=== PATIENT | female | born 1945 | race Caucasian/White ===

== ENCOUNTER → 2017-11-02 | Outpatient (CLI) | payer MEDICARE, OTHER ==
--- NOTE | 2017-11-02 18:44 | XR ---
EXAMINATION TYPE: XR Hip Limited RT DATE OF EXAM: 11/02/2017 COMPARISON: Pelvis x-ray 03/09/1717 HISTORY: Right hip pain TECHNIQUE: Single view FINDINGS: There is a right hip intramedullary james and transverse screw fixing an apparent old fractur e of the intertrochanteric femur. Components appear in anatomic position. Hip joint spaces fairly nor mal. I see no acute fracture. There is vascular calcification. IMPRESSION: No acute abnormality of the right hip. No change compared to old exam.
== END | disposition home or self-care (01) ==
LOC: RADXRMAIN 18:02
PROVIDERS: ATTEND Family Medicine
DX: M25.551 Pain in right hip (principal)
CPT/HCPCS: 73501

== ENCOUNTER 2017-11-15 18:27 | Inpatient (IN) | payer MEDICARE ==
[2017-11-15] MEDS ORDERED: SODIUM CHLORIDE 0.9% 500 ML IV STA (18:55)
[2017-11-15] MEDS ORDERED: SODIUM CHLORIDE 0.9% 1,000 ML IV STA (18:55)
[2017-11-15 19:24] LABS: Basophils % (A) 0 %; Eosinophils # (A) 0.2 k/uL (0-0.7); Eosinophils % (A) 1 %; HCT 35.2 % (34.0-46.0); HGB 11.8 gm/dL (11.4-16.0); Lymphocytes # (A) 0.6 k/uL (1.0-4.8); Lymphocytes % (A) 4 %; MCH 32.1 pg (25.0-35.0); MCHC 33.6 g/dL (31.0-37.0); MCV 95.5 fL (80.0-100.0); Mean Platelet Volume 9.6; Monocytes # (A) 0.7 k/uL (0-1.0); Monocytes % (A) 5 %; Neutrophils # (A) 12.3 k/uL (1.3-7.7); Neutrophils % (A) 89 %; Platelet Count 136 k/uL (150-450); RBC 3.68 m/uL (3.80-5.40); RDW 13.2 % (11.5-15.5); WBC 13.8 k/uL (3.8-10.6)
[2017-11-15 19:29] LABS: Calcium 8.8 mg/dL (8.4-10.2); Potassium 4.1 mmol/L (3.5-5.1); Total Bilirubin 1.1 mg/dL (0.2-1.3); Total Protein 6.6 g/dL (6.3-8.2)
[2017-11-15 19:32] LABS: INR 1.1 (<1.2); Partial Thromboplastin Time 24.5 sec (22.0-30.0); Prothrombin Time 10.4 sec (9.0-12.0)
--- NOTE | 2017-11-15 19:34 | XR ---
EXAMINATION TYPE: XR chest 2V DATE OF EXAM: 11/15/2017 COMPARISON: 09/25/2015 HISTORY: Weakness and short of breath TECHNIQUE: Frontal and lateral views of the chest are obtained. FINDINGS: There is no heart failure nor confluent pneumonic infiltrate. Costophrenic angles are aquiles r. There is osteopenia. Thoracic aorta is atheromatous. IMPRESSION: No active cardiopulmonary disease. No change.
[2017-11-15 19:53] LABS: Troponin I 0.016 ng/mL (0.000-0.034)
[2017-11-15] MEDS ORDERED: ACETAMINOPHEN TAB 500 MG TAB PO STA (20:22)
[2017-11-15 20:56] LABS: Appearance,Urine Cloudy (Clear); Bacteria,Urine Few /hpf; Bilirubin,Urine Negative (Negative); Blood,Urine Moderate (Negative); Color,Urine Yellow; Glucose,Urine (UA) Negative (Negative); Hyaline Casts,Urine 8 /lpf (0-2); Ketones,Urine Trace (Negative); Leukocyte Esterase,Urine Moderate (Negative); Mucus,Urine Rare /hpf; Nitrite,Urine Negative (Negative); PH, Urine 5.5 (5.0-8.0); Protein,Urine 2+ (Negative); RBC,Urine 2 /hpf (0-5); Specific Gravity,Urine 1.014 (1.001-1.035); Squamous Epithelial Cell,Urine <1 /hpf (0-4); WBC,Urine 16 /hpf (0-5)
--- NOTE | 2017-11-15 21:34 | ED ---
Weakness HPI - General Chief complaint: Weakness Stated complaint: Dehydrated Time Seen by Provider: 11/15/17 18:51 Source: patient, EMS Mode of arrival: EMS Limitations: no limitations - History of Present Illness Initial comments: 72 years old female comes in with a generalized weakness, her appetite been down she has not been drinking and eating well for the last few days today she said she'll hard time getting around or ambulating she lives at home with her son she denies any headaches no neck stiffness no chest pain or shortness of breath no abdominal pain no frequency urgency dysuria - Related Data Home Medications Medication Instructions Recorded Confirmed Atenolol [Tenormin] 25 mg PO DAILY 12/04/13 11/15/17 Atorvastatin [Lipitor] 40 mg PO HS 09/21/15 11/15/17 Aspirin EC [Ecotrin Low Dose] 81 mg PO DAILY 11/15/17 11/15/17 Ferrous Sulfate [Feosol] 325 mg PO DAILY 11/15/17 11/15/17 Lisinopril [Zestril] 10 mg PO DAILY 11/15/17 11/15/17 traMADol HCL [Ultram] 50 mg PO Q6H PRN 11/15/17 11/15/17 Allergies Allergy/AdvReac Type Severity Reaction Status Date / Time iodine Allergy Itching Verified 11/15/17 19:50 Review of Systems ROS Statement: Those systems with pertinent positive or pertinent negative responses have been documented in the HPI. ROS Other: All systems not noted in ROS Statement are negative. Past Medical History Past Medical History: COPD, CVA/TIA, Diabetes Mellitus, Hyperlipidemia, Hypertension, Myocardial Infarction (SC) Additional Past Medical History / Comment(s): , arthritis, tia in september 2013,past hx of abcess/cellulitis lt cheek. PT STATED THINKS SHE HAD AM SC 2013 BU UNABLE TO VERIFY IT,VIA MEDICAL RECORDS HERE. Last Myocardial Infarction Date:: 2013 History of Any Multi-Drug Resistant Organisms: None Reported Past Surgical History: Appendectomy, Bladder Surgery, Hysterectomy, Tubal Ligation Additional Past Surgical History / Comment(s): cataracts removed.benign tumor removed from head. Past Anesthesia/Blood Transfusion Reactions: No Reported Reaction Past Psychological History: No Psychological Hx Reported Smoking Status: Current every day smoker Past Alcohol Use History: Occasional Past Drug Use History: None Reported General Exam - General Exam Comments Initial Comments: General: The patient is awake and alert, in no distress, and does not appear acutely ill. Looks tired and sleepy Skin: Skin is warm and dry and no rashes or lesions are noted. Eye: Pupils are equal, round and reactive to light, extra-ocular movements are intact; there is normal conjunctiva bilaterally. Ears, nose, mouth and throat: There are moist mucous membranes and no oral lesions. Neck: The neck is supple, there is no tenderness or JVD. Cardiovascular: There is a regular rate and rhythm. No murmur, rub or gallop is appreciated. Respiratory: To auscultation bilateral, no wheezing no rhonchi no distress respiratory noble noticed Gastrointestinal: Soft, non-distended, non-tender abdomen without masses or organomegaly noted. There is no rebound or guarding present. Bowel sounds are unremarkable. Back: There is no tenderness to palpation in the midline. There is no obvious deformity. Musculoskeletal: Normal ROM, no tenderness, There is no pedal edema. There is no calf tenderness or swelling. No cords were appreciated. Neurological: CN II-XII intact, Cranial nerves III through XII are intact. There are no obvious motor or sensory deficits. Coordination appears grossly intact. Speech is normal. Psychiatric: Cooperative, appropriate mood & affect, normal judgment. Limitations: no limitations Course Vital Signs 11/15/17 11/15/17 18:36 19:40 Temperature 98.1 F Pulse Rate 105 H 105 H Respiratory 16 16 Rate Blood Pressure 142/97 150/58 O2 Sat by Pulse 94 L 98 Oximetry She is reassessed, white count is 14 with a left shift creatinine is 1.3 and baseline troponin is 0.7 troponin EKG, compressive metabolic panel are unremarkable urine is positive she slightly tachycardic slight renal insufficiency Explains her weakness she does not have a good appetite for last couple days and she does not have a condition with some warm weather impressions ( insufficiency dehydration UTI and increased weakness she be admitted to Dr. Sahu service blood culture and urine cultures are pending lactate is pending as well, lactate was just released is 1.7 EKG Findings - EKG Comments: EKG Findings:: EKG is a sinus tachycardia ventricular rate is 1 or 2 WA interval is 138 QRS duration is 73 QT/QTc C 34/435 review of this EKG does not reveal any ST elevation or ST depression Medical Decision Making - Lab Data Result diagrams: 11/15/17 18:35 11/15/17 18:35 Lab Results 11/15/17 11/15/17 11/15/17 Range/Units 18:35 18:35 18:35 WBC 13.8 H (3.8-10.6) k/uL RBC 3.68 L (3.80-5.40) m/uL Hgb 11.8 (11.4-16.0) gm/dL Hct 35.2 (34.0-46.0) % MCV 95.5 (80.0-100.0) fL MCH 32.1 (25.0-35.0) pg MCHC 33.6 (31.0-37.0) g/dL RDW 13.2 (11.5-15.5) % Plt Count 136 L (150-450) k/uL Neutrophils % 89 % Lymphocytes % 4 % Monocytes % 5 % Eosinophils % 1 % Basophils % 0 % Neutrophils # 12.3 H (1.3-7.7) k/uL Lymphocytes # 0.6 L (1.0-4.8) k/uL Monocytes # 0.7 (0-1.0) k/uL Eosinophils # 0.2 (0-0.7) k/uL Basophils # 0.0 (0-0.2) k/uL PT (9.0-12.0) sec INR (<1.2) APTT (22.0-30.0) sec Sodium 135 L (137-145) mmol/L Potassium 4.1 (3.5-5.1) mmol/L Chloride 99 (98-107) mmol/L Carbon Dioxide 21 L (22-30) mmol/L Anion Gap 15 mmol/L BUN 23 H (7-17) mg/dL Creatinine 1.30 H (0.52-1.04) mg/dL Est GFR (CKD-EPI)AfAm 47 (>60 ml/min/1.73 sqM) Est GFR (CKD-EPI)NonAf 41 (>60 ml/min/1.73 sqM) Glucose 222 H (74-99) mg/dL Plasma Lactic Acid Mario (0.7-2.0) mmol/L Calcium 8.8 (8.4-10.2) mg/dL Total Bilirubin 1.1 (0.2-1.3) mg/dL AST 40 H (14-36) U/L ALT 37 (9-52) U/L Alkaline Phosphatase 72 (38-126) U/L Total Creatine Kinase 400 H (30-135) U/L CK-MB (CK-2) 4.0 H* (0.0-2.4) ng/mL CK-MB (CK-2) Rel Index 1.0 Troponin I 0.016 (0.000-0.034) ng/mL Total Protein 6.6 (6.3-8.2) g/dL Albumin 4.0 (3.5-5.0) g/dL Urine Color Urine Appearance (Clear) Urine pH (5.0-8.0) Ur Specific Booker (1.001-1.035) Urine Protein (Negative) Urine Glucose (UA) (Negative) Urine Ketones (Negative) Urine Blood (Negative) Urine Nitrite (Negative) Urine Bilirubin (Negative) Urine Urobilinogen (<2.0) mg/dL Ur Leukocyte Esterase (Negative) Urine RBC (0-5) /hpf Urine WBC (0-5) /hpf Ur Squamous Epith Cells (0-4) /hpf Urine Bacteria (None) /hpf Hyaline Casts (0-2) /lpf Urine Mucus (None) /hpf 11/15/17 11/15/17 11/15/17 Range/Units 18:35 18:35 20:40 WBC (3.8-10.6) k/uL RBC (3.80-5.40) m/uL Hgb (11.4-16.0) gm/dL Hct (34.0-46.0) % MCV (80.0-100.0) fL MCH (25.0-35.0) pg MCHC (31.0-37.0) g/dL RDW (11.5-15.5) % Plt Count (150-450) k/uL Neutrophils % % Lymphocytes % % Monocytes % % Eosinophils % % Basophils % % Neutrophils # (1.3-7.7) k/uL Lymphocytes # (1.0-4.8) k/uL Monocytes # (0-1.0) k/uL Eosinophils # (0-0.7) k/uL Basophils # (0-0.2) k/uL PT 10.4 (9.0-12.0) sec INR 1.1 (<1.2) APTT 24.5 (22.0-30.0) sec Sodium (137-145) mmol/L Potassium (3.5-5.1) mmol/L Chloride (98-107) mmol/L Carbon Dioxide (22-30) mmol/L Anion Gap mmol/L BUN (7-17) mg/dL Creatinine (0.52-1.04) mg/dL Est GFR (CKD-EPI)AfAm (>60 ml/min/1.73 sqM) Est GFR (CKD-EPI)NonAf (>60 ml/min/1.73 sqM) Glucose (74-99) mg/dL Plasma Lactic Acid Mario 1.7 (0.7-2.0) mmol/L Calcium (8.4-10.2) mg/dL Total Bilirubin (0.2-1.3) mg/dL AST (14-36) U/L ALT (9-52) U/L Alkaline Phosphatase (38-126) U/L Total Creatine Kinase (30-135) U/L CK-MB (CK-2) (0.0-2.4) ng/mL CK-MB (CK-2) Rel Index Troponin I (0.000-0.034) ng/mL Total Protein (6.3-8.2) g/dL Albumin (3.5-5.0) g/dL Urine Color Yellow Urine Appearance Cloudy H (Clear) Urine pH 5.5 (5.0-8.0) Ur Specific Booker 1.014 (1.001-1.035) Urine Protein 2+ H (Negative) Urine Glucose (UA) Negative (Negative) Urine Ketones Trace H (Negative) Urine Blood Moderate H (Negative) Urine Nitrite Negative (Negative) Urine Bilirubin Negative (Negative) Urine Urobilinogen 4.0 (<2.0) mg/dL Ur Leukocyte Esterase Moderate H (Negative) Urine RBC 2 (0-5) /hpf Urine WBC 16 H (0-5) /hpf Ur Squamous Epith Cells <1 (0-4) /hpf Urine Bacteria Few H (None) /hpf Hyaline Casts 8 H (0-2) /lpf Urine Mucus Rare H (None) /hpf Disposition Clinical Impression: Generalized weakness, UTI (urinary tract infection), Renal insufficiency, Dehydration Disposition: ADMITTED IP TO THIS [facility] Condition: Good Referrals: Cailin Smith DO [Primary Care Provider] - 1-2 days
[2017-11-15] MEDS ORDERED: cefTRIAXone IN SWFI 2,000 MG/20 ML SYRINGE IVP STA (21:35)
[2017-11-15] MEDS ORDERED: ACETAMINOPHEN TAB 325 MG TAB PO PRN (21:38)
[2017-11-15] MEDS ORDERED: ONDANSETRON 4 MG/2 ML VIAL IVP PRN (21:38)
[2017-11-15] MEDS ORDERED: NALOXONE 0.4 MG/ML 1 ML VIAL IV PRN (21:38)
[2017-11-15] MEDS: SODIUM CHLORIDE 0.9% 1,000 ML IV SCH (22:04)
[2017-11-15 22:08] LABS: Glucose,Whole Blood 154 mg/dL (75-99)
[2017-11-15 23:58] VITALS: BMI 20.4
[2017-11-16] MEDS: traMADol 50 MG TAB PO PRN ×3 (00:09→23:30)
[2017-11-16 07:25] LABS: Glucose,Whole Blood 147 mg/dL (75-99)
[2017-11-16] MEDS: ATENOLOL 25 MG TAB PO SCH (07:57)
[2017-11-16] MEDS: ASPIRIN 81 MG PO SCH (07:57)
[2017-11-16] MEDS: FERROUS SULFATE 325 MG TAB PO SCH (07:57)
[2017-11-16] MEDS: SODIUM CHLORIDE 0.9% 1,000 ML IV SCH ×2 (07:57→23:30)
[2017-11-16] MEDS ORDERED: LISINOPRIL 10 MG TAB PO SCH (09:00)
[2017-11-16] MEDS: cefTRIAXone IN SWFI 1,000 MG/10 ML SYRINGE IVP SCH (10:21)
--- NOTE | 2017-11-16 11:20 | P.HPIM ---
History of Present Illness H&P Date: 11/16/17 Chief Complaint: Generalized weakness This is a 72-year-old female, patient of [facility]. She has a known past medical history of COPD, possible RI, diabetes mellitus, hypertension , hyperlipidemia and nicotine dependence. Patient presents to the emergency room with complaints of generalized weakness and decrease in appetite. Patient lives with her son. History was mostly obtained from ER report. According to patient's son patient has not been eating and drinking very well over the last few days and she is having a harder time getting around and ambulating in the home. Patient was found have evidence of a UTI urine culture and blood cultures have been collected. White count was 13.8 she was started on IV Rocephin in the emergency room. She also had evidence of dehydration with acute kidney injury creatinine was elevated at 1.30. She was given IV fluid bolus in the ER and has been on normal saline at 80 mL an hour. Patient is lying in bed comfortably. She does state that she feels weak all over. She was able to eat breakfast this morning. Denies any fever chills or sweats. Denies any chest pain or shortness of breath. Denies any nausea or vomiting or urinary symptoms. Patient is reporting a few episodes of diarrhea since being in the ER. Stool for C. diff ordered. Chest x-ray was negative EKG had shown sinus tachycardia with a heart rate of 102. Patient has been admitted to the hospital with UTI and acute kidney injury. Review of Systems Please refer to HPI otherwise unremarkable Past Medical History Past Medical History: COPD, CVA/TIA, Diabetes Mellitus, Hyperlipidemia, Hypertension, Myocardial Infarction (RI), Osteoarthritis (OA) Additional Past Medical History / Comment(s): TIA - September 2013, past history of abcess/cellulitis left cheek. Patient is poor historian of her [facility]. 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 Past Anesthesia/Blood Transfusion Reactions: No Reported Reaction Past Psychological History: No Psychological Hx Reported Smoking Status: Current every day smoker Past Alcohol Use History: Occasional Additional Past Alcohol Use History / Comment(s): 3-4 beers/week Past Drug Use History: None Reported Medications and Allergies Home Medications Medication Instructions Recorded Confirmed Type Atenolol [Tenormin] 25 mg PO DAILY 12/04/13 11/15/17 History Atorvastatin [Lipitor] 40 mg PO HS 09/21/15 11/15/17 History Aspirin EC [Ecotrin Low Dose] 81 mg PO DAILY 11/15/17 11/15/17 History Ferrous Sulfate [Feosol] 325 mg PO DAILY 11/15/17 11/15/17 History Lisinopril [Zestril] 10 mg PO DAILY 11/15/17 11/15/17 History traMADol HCL [Ultram] 50 mg PO Q6H PRN 11/15/17 11/15/17 History Allergies Allergy/AdvReac Type Severity Reaction Status Date / Time iodine Allergy Itching Verified 11/15/17 23:58 Physical Exam Vitals: Vital Signs Temp Pulse Pulse Resp BP BP Pulse Ox 11/16/17 06:24 99.6 F 105 H 24 163/84 99 11/15/17 23:00 98.6 F 84 24 132/98 97 11/15/17 22:13 84 17 126/66 97 11/15/17 21:40 92 17 148/76 99 11/15/17 19:40 105 H 16 150/58 98 11/15/17 18:36 98.1 F 105 H 16 142/97 94 L Intake and Output 11/15/17 11/16/17 11/16/17 22:59 06:59 14:59 Other: Voiding Method Bedside Commode Bedside Commode # Voids 2 Weight 48.534 kg 48.988 kg Head normocephalic Neck supple Lungs clear to auscultation bilaterally no wheezing or crackles Heart regular rate and rhythm S1-S2, no rub or gallop Abdomen is soft nontender nondistended positive bowel sounds no hepatosplenomegaly Extremities no edema Neuro alert and orientated to 3 Results CBC & Chem 7: 11/15/17 18:35 11/15/17 18:35 Labs: Abnormal Lab Results - Last 24 Hours (Table) 11/15/17 11/15/17 11/15/17 Range/Units 18:35 18:35 18:35 WBC 13.8 H (3.8-10.6) k/uL RBC 3.68 L (3.80-5.40) m/uL Plt Count 136 L (150-450) k/uL Neutrophils # 12.3 H (1.3-7.7) k/uL Lymphocytes # 0.6 L (1.0-4.8) k/uL Sodium 135 L (137-145) mmol/L Carbon Dioxide 21 L (22-30) mmol/L BUN 23 H (7-17) mg/dL Creatinine 1.30 H (0.52-1.04) mg/dL Glucose 222 H (74-99) mg/dL POC Glucose (mg/dL) (75-99) mg/dL AST 40 H (14-36) U/L Total Creatine Kinase 400 H (30-135) U/L CK-MB (CK-2) 4.0 H* (0.0-2.4) ng/mL Urine Appearance (Clear) Urine Protein (Negative) Urine Ketones (Negative) Urine Blood (Negative) Ur Leukocyte Esterase (Negative) Urine WBC (0-5) /hpf Urine Bacteria (None) /hpf Hyaline Casts (0-2) /lpf Urine Mucus (None) /hpf 11/15/17 11/15/17 11/16/17 Range/Units 20:40 22:04 07:22 WBC (3.8-10.6) k/uL RBC (3.80-5.40) m/uL Plt Count (150-450) k/uL Neutrophils # (1.3-7.7) k/uL Lymphocytes # (1.0-4.8) k/uL Sodium (137-145) mmol/L Carbon Dioxide (22-30) mmol/L BUN (7-17) mg/dL Creatinine (0.52-1.04) mg/dL Glucose (74-99) mg/dL POC Glucose (mg/dL) 154 H 147 H (75-99) mg/dL AST (14-36) U/L Total Creatine Kinase (30-135) U/L CK-MB (CK-2) (0.0-2.4) ng/mL Urine Appearance Cloudy H (Clear) Urine Protein 2+ H (Negative) Urine Ketones Trace H (Negative) Urine Blood Moderate H (Negative) Ur Leukocyte Esterase Moderate H (Negative) Urine WBC 16 H (0-5) /hpf Urine Bacteria Few H (None) /hpf Hyaline Casts 8 H (0-2) /lpf Urine Mucus Rare H (None) /hpf Thrombosis Risk Factor Assmnt - Choose All That Apply Any of the Below Risk Factors Present?: Yes Each Factor Represents 1 point: Abnormal pulmonary function (COPD) Other Risk Factors: Yes Each Risk Factor Represents 2 Points: Age 61-74 years Other congenital or acquired thrombophilia - If yes, enter type in comment: No Thrombosis Risk Factor Assessment Total Risk Factor Score: 3 Thrombosis Risk Factor Assessment Level: Moderate Risk Assessment and Plan Assessment: 1. Generalized weakness and decrease in appetite likely related to patient's UTI and dehydration. PT OT consulted. Continue with IV fluids. Continue antibiotics 2. UTI: Send urine for culture. Continue Rocephin 1 g IV daily 3. Acute kidney injury likely related to poor oral intake. Continue with IV fluids. Repeat labs in a.m. Discontinue LEXIS inhibitor. Creatinine 1.30 on admission 4. Essential hypertension continue atenolol. Lisinopril was discontinued due to the acute kidney injury 5. Hyperlipidemia continue statin 6. Nicotine dependence discussed smoking cessation. Start patient on nicotine patch 7. Possible diabetes. Patient has been told that she may have diabetes. Patient does not take diabetes medications at home. A1c ordered. Place patient on Accu-Cheks with sliding scale. Blood sugar on admission to 222 8. Questionable history of RI. Continue with aspirin 9. Diarrhea check stool for C. diff GI prophylaxis Pepcid and DVT prophylaxis subcu heparin
[2017-11-16] MEDS: NICOTINE 21MG/24HR PATCH TRANSDERM SCH (11:29)
[2017-11-16 12:44] LABS: Glucose,Whole Blood 124 mg/dL (75-99)
[2017-11-16] MEDS: INSULIN ASPART 100 UNIT/ML 1 ML 10 ML VIAL SQ SCH ×3 (13:30→23:30)
[2017-11-16 17:21] LABS: Glucose,Whole Blood 142 mg/dL (75-99)
[2017-11-16 18:45] LABS: Hemoglobin A1C 5.6 % (4.0-6.0)
[2017-11-16] MEDS: HEPARIN SODIUM,PORCINE 5,000 UNIT/ML 1 ML VIAL SQ SCH (21:51)
[2017-11-16] MEDS: ATORVASTATIN 40 MG TAB PO SCH (21:51)
[2017-11-16 23:46] LABS: Glucose,Whole Blood 165 mg/dL (75-99)
[2017-11-17 07:28] LABS: Glucose,Whole Blood 115 mg/dL (75-99)
[2017-11-17] MEDS: INSULIN ASPART 100 UNIT/ML 1 ML 10 ML VIAL SQ SCH ×4 (07:46→22:11)
[2017-11-17 08:27] LABS: Basophils % (A) 0 %; Eosinophils # (A) 0.1 k/uL (0-0.7); Eosinophils % (A) 2 %; HCT 29.3 % (34.0-46.0); Lymphocytes # (A) 1.2 k/uL (1.0-4.8); Lymphocytes % (A) 18 %; MCHC 33.5 g/dL (31.0-37.0); MCV 95.4 fL (80.0-100.0); Mean Platelet Volume 10.3; Monocytes # (A) 0.6 k/uL (0-1.0); Monocytes % (A) 9 %; Neutrophils # (A) 4.8 k/uL (1.3-7.7); Neutrophils % (A) 68 %; Platelet Count 112 k/uL (150-450); RBC 3.07 m/uL (3.80-5.40); RDW 13.4 % (11.5-15.5)
[2017-11-17 08:34] LABS: HGB 9.8 gm/dL (11.4-16.0)
[2017-11-17 08:39] LABS: Calcium 8.4 mg/dL (8.4-10.2); Total Bilirubin 0.4 mg/dL (0.2-1.3); Total Protein 5.4 g/dL (6.3-8.2)
[2017-11-17] MEDS: ATENOLOL 25 MG TAB PO SCH (08:56)
[2017-11-17] MEDS: ASPIRIN 81 MG PO SCH (08:56)
[2017-11-17] MEDS: FERROUS SULFATE 325 MG TAB PO SCH (08:56)
[2017-11-17] MEDS: HEPARIN SODIUM,PORCINE 5,000 UNIT/ML 1 ML VIAL SQ SCH ×2 (08:56→22:10)
[2017-11-17] MEDS: FAMOTIDINE 20 MG TAB PO SCH (08:56)
[2017-11-17] MEDS: NICOTINE 21MG/24HR PATCH TRANSDERM SCH (08:56)
[2017-11-17] MEDS: cefTRIAXone IN SWFI 1,000 MG/10 ML SYRINGE IVP SCH (08:57)
[2017-11-17] MEDS ORDERED: ENOXAPARIN 40 MG/0.4 ML SYRINGE SQ SCH (09:00)
[2017-11-17 12:03] LABS: Glucose,Whole Blood 216 mg/dL (75-99)
[2017-11-17] MEDS: SODIUM CHLORIDE 0.9% 1,000 ML IV SCH (13:53)
--- NOTE | 2017-11-17 14:45 | P.PN ---
Subjective Progress Note Date: 11/17/17 I was made aware by Dr. Pabon of mistake in the assignment of primary care physician. Patient primary care physician is Dr. Lisa Valencia and not Dr. Cailin Smith Patient care will be switched to Dr. Pabon who covers for Dr. Lisa Valencia. Dr. Pabon is aware of the change of care to his service. Objective - Vital Signs Vital signs: Vital Signs Temp 99.1 F 11/17/17 06:00 Pulse 77 11/17/17 08:00 Resp 20 11/17/17 08:00 BP 127/60 11/17/17 06:00 Pulse Ox 96 11/17/17 06:00 Intake & Output 11/16/17 11/17/17 11/17/17 18:59 06:59 18:59 Intake Total 500 Balance 500 Intake: Oral 500 Other: Voiding Method Incontinent Bedpan Bedpan Incontinent Incontinent # Voids 1 6 # Bowel Movements 3 - Labs CBC & Chem 7: 11/17/17 08:01 11/17/17 08:01 Labs: Abnormal Lab Results - Last 24 Hours (Table) 11/16/17 11/16/17 11/17/17 Range/Units 17:00 23:26 07:17 RBC (3.80-5.40) m/uL Hgb (11.4-16.0) gm/dL Hct (34.0-46.0) % Plt Count (150-450) k/uL Sodium (137-145) mmol/L POC Glucose (mg/dL) 142 H 165 H 115 H (75-99) mg/dL AST (14-36) U/L Total Protein (6.3-8.2) g/dL Albumin (3.5-5.0) g/dL 11/17/17 11/17/17 11/17/17 Range/Units 08:01 08:01 11:54 RBC 3.07 L (3.80-5.40) m/uL Hgb 9.8 L D (11.4-16.0) gm/dL Hct 29.3 L (34.0-46.0) % Plt Count 112 L (150-450) k/uL Sodium 136 L (137-145) mmol/L POC Glucose (mg/dL) 216 H (75-99) mg/dL AST 44 H (14-36) U/L Total Protein 5.4 L (6.3-8.2) g/dL Albumin 3.0 L (3.5-5.0) g/dL Microbiology - Last 24 Hours (Table) 11/16/17 18:20 Urine Culture - Preliminary Urine,Clean Catch 11/15/17 18:35 Blood Culture - Preliminary Blood No Growth after 24 hours
[2017-11-17 17:14] LABS: Glucose,Whole Blood 123 mg/dL (75-99)
--- NOTE | 2017-11-17 18:59 | PN ---
PROGRESS NOTE DATE OF SERVICE: 11/17/2017 PRESENTING COMPLAINT: Weak and tired. INTERVAL HISTORY: The patient admitted with acute renal failure, UTI, not eating, drinking, weak and tired. The patient does follow with Dr. Alton Valencia. I spoke to Dr. Sahu, who transferred the patient to my service. The patient feels a bit better. At home, she does use a walker. Appetite is getting better. REVIEW OF SYSTEMS: Done for constitutional, cardiovascular, GI, pulmonary; relevant findings as above. CURRENT MEDICATIONS: Include: 1. IV ceftriaxone and. 2. Normal saline. EXAMINATION: Temperature 98.9, pulse 66, respirations 16, blood pressure 113/53, pulse ox 98% on room air. GENERAL APPEARANCE: Lying in bed, awake. EYES: Pupils equal. Conjunctivae normal. HEENT: External nose and ears normal. Oral cavity normal. NECK: JVD not raised. Mass not palpable. RESPIRATORY: Effort normal. Lungs are clear. CARDIOVASCULAR: First and second sounds normal. No edema. ABDOMEN: Soft, nontender. Liver and spleen not palpable. PSYCHIATRY: Awake, answering simple questions. INVESTIGATIONS: White count 7, hemoglobin 9.8, platelets 112. Potassium 4, BUN 16, creatinine 0.93. Albumin 3.0. ASSESSMENT: 1. Acute uncomplicated urinary tract infection, probably from cystitis. 2. Acute renal failure, probably prerenal from decreased oral intake with clinical improvement. 3. Chronic obstructive pulmonary disease in a current smoker. 4. Chronic nicotine dependence. Patient is a cigarette smoker. 5. Essential hypertension. 6. Hyperlipidemia. 7. Primary osteoarthritis. 8. Chronic gait dysfunction. Patient at baseline uses a walker. PLAN: Clinically, patient is doing better. Will cut back on IV fluids. Patient is already on a nicotine patch. I have encouraged to be out of bed with supervision. If continues to improve, hopefully can be discharged tomorrow. MMODL / IJN: [id number] /
[2017-11-17 21:04] LABS: Glucose,Whole Blood 181 mg/dL (75-99)
[2017-11-17] MEDS: ATORVASTATIN 40 MG TAB PO SCH (22:11)
[2017-11-17] MEDS: traMADol 50 MG TAB PO PRN (22:12)
[2017-11-17 23:36] VITALS: RESP 20
[2017-11-18 06:17] VITALS: BP 150/72; PULSE 88; TEMP 99
[2017-11-18 07:32] LABS: Glucose,Whole Blood 139 mg/dL (75-99)
[2017-11-18] MEDS: INSULIN ASPART 100 UNIT/ML 1 ML 10 ML VIAL SQ SCH ×2 (08:26→12:59)
[2017-11-18] MEDS: NICOTINE 21MG/24HR PATCH TRANSDERM SCH (08:26)
[2017-11-18] MEDS: HEPARIN SODIUM,PORCINE 5,000 UNIT/ML 1 ML VIAL SQ SCH (08:27)
[2017-11-18] MEDS: ATENOLOL 25 MG TAB PO SCH (08:27)
[2017-11-18] MEDS: FERROUS SULFATE 325 MG TAB PO SCH (08:27)
[2017-11-18] MEDS: ASPIRIN 81 MG PO SCH (08:27)
[2017-11-18] MEDS: cefTRIAXone IN SWFI 1,000 MG/10 ML SYRINGE IVP SCH (08:27)
[2017-11-18] MEDS: FAMOTIDINE 20 MG TAB PO SCH (08:27)
[2017-11-18 09:26] LABS: Basophils % (A) 0 %; Eosinophils # (A) 0.2 k/uL (0-0.7); Eosinophils % (A) 2 %; HCT 32.2 % (34.0-46.0); HGB 10.3 gm/dL (11.4-16.0); Lymphocytes # (A) 1.1 k/uL (1.0-4.8); Lymphocytes % (A) 12 %; MCH 30.8 pg (25.0-35.0); MCV 96.3 fL (80.0-100.0); Mean Platelet Volume 9.8; Monocytes # (A) 0.6 k/uL (0-1.0); Monocytes % (A) 7 %; Neutrophils # (A) 6.6 k/uL (1.3-7.7); Neutrophils % (A) 77 %; RBC 3.34 m/uL (3.80-5.40); RDW 13.3 % (11.5-15.5); WBC 8.6 k/uL (3.8-10.6)
[2017-11-18 09:30] LABS: Platelet Count 177 k/uL (150-450)
[2017-11-18 09:36] LABS: Albumin 3.4 g/dL (3.5-5.0); Calcium 9.1 mg/dL (8.4-10.2); Potassium 4.2 mmol/L (3.5-5.1); Total Bilirubin 0.5 mg/dL (0.2-1.3)
[2017-11-18 12:27] LABS: Glucose,Whole Blood 133 mg/dL (75-99)
--- NOTE | 2017-11-18 22:12 | DS ---
DISCHARGE SUMMARY DATE OF ADMISSION: 11/15/17. DATE OF DISCHARGE: 11/18/17. FINAL DIAGNOSES: 1. Acute complicated urinary tract infection probably from cystitis, present on admission. 2. Acute renal failure probably prerenal from decreased oral intake, present on admission. 3. Chronic obstructive pulmonary disease in a current smoker. 4. Chronic nicotine dependence. Patient is a cigarette smoker. 5. Essential hypertension. 6. Hyperlipidemia. 7. Primary osteoarthritis. 8. Chronic gait dysfunction. The patient at baseline uses a walker. HOSPITAL COURSE: This patient presented to the ER feeling weak, tired, run down. The patient was in acute renal failure. Creatinine was 1.3, did come down to 0.83 by the time of discharge. The patient did have a UTI but cultures came back negative. The patient did well with antibiotics and IV fluids. The patient has a caregiver. On examination, Abdomen: Soft, nontender. Lungs: Decreased breath sounds. Patient advised against smoking. DISCHARGE MEDICATIONS: 1. Tenormin 25 mg p.o. daily. 2. Lipitor 40 mg q.h.s. 3. Aspirin 81 mg p.o. daily. 4. Iron 325 p.o. daily. 5. Ultram 50 mg q.6h p.r.n. 6. Keflex 250 mg q.6, 12 capsules. 7. Zestril 10 mg q.h.s. 8. Nicotine 21 mg patch. Follow with Dr. Valencia in 3 days. The patient was going home with family. MMODL / IJN: [id number] /
== END 2017-11-18 16:14 | disposition home or self-care (01) | DRG 690 ==
LOC: EC 18:27 → OBSVTOIN 21:38 → 4MS4W 21:38
PROVIDERS: ADMIT Hospitalist; ATTEND Hospitalist
DX: N30.90 Cystitis, unspecified without hematuria (principal); N17.9 Acute kidney failure, unspecified; F17.210 Nicotine dependence, cigarettes, uncomplicated; E11.9 Type 2 diabetes mellitus without complications; E78.5 Hyperlipidemia, unspecified; E86.0 Dehydration; I10 Essential (primary) hypertension; I25.2 Old myocardial infarction; J44.9 Chronic obstructive pulmonary disease, unspecified; M19.91 Primary osteoarthritis, unspecified site; Z79.899 Other long term (current) drug therapy; Z86.73 Personal history of transient ischemic attack (TIA), and cerebral infarction without residual deficits; Z90.710 Acquired absence of both cervix and uterus; Z98.49 Cataract extraction status, unspecified eye; Z88.8 Allergy status to other drugs, medicaments and biological substances; R26.9 Unspecified abnormalities of gait and mobility; R19.7 Diarrhea, unspecified; Z71.6 Tobacco abuse counseling
CPT/HCPCS: 36415; 71046; 80053; 81001; 82550; 82553; 83036; 83605; 84484; 85025; 85610; 85730; 87040; 87086; 87324; 93005; 96361; 96374; 99285

== ENCOUNTER → 2017-11-29 | Outpatient (CLI) | payer MEDICARE ==
--- NOTE | 2017-11-29 13:56 | MR ---
MR right hip HISTORY: Right hip pain Multiplanar multisequence imaging through the pelvis with small [id number] imaging through the rig ht hip, comparison to plain film dated 11/02/2017 There is metallic susceptibility artifact due to patient's indwelling hardware which may limit sensit ivity. Motion is also present on the exam. Remodeling of the femoral head is present, hypertrophic change present especially along the superior femoral neck, axial migration of the femoral head is noted. No sizable joint effusion. Degenerative d isc changes are present in the lumbar spine. Suspect possible rectocele. Uterus and adnexal structure s are not evident. No significant ascites evident. No evident adenopathy. IMPRESSION: Postop changes with extensive artifact. Secondary osteoarthritis may be present, correlat e for femoral acetabular impingement.
== END | disposition home or self-care (01) ==
LOC: RADMRIMAIN 10:12
PROVIDERS: ATTEND Family Medicine
DX: M25.551 Pain in right hip (principal); Z98.890 Other specified postprocedural states

== ENCOUNTER 2017-12-19 16:53 | Emergency (ER) | payer MEDICARE ==
[2017-12-19] MEDS ORDERED: SODIUM CHLORIDE 0.9% 500 ML IV STA ×2 (17:46→18:36)
[2017-12-19] MEDS ORDERED: ONDANSETRON 4 MG/2 ML VIAL IVP STA (17:46)
[2017-12-19] MEDS ORDERED: MORPHINE SULFATE 2 MG/ML SYRINGE IVP STA (17:46)
--- NOTE | 2017-12-19 17:51 | ED ---
Abdominal Pain HPI - General Chief Complaint: Abdominal Pain Stated Complaint: Abd Pain Time Seen by Provider: 12/19/17 17:38 Source: patient Mode of arrival: wheelchair Limitations: no limitations - History of Present Illness Initial Comments: 72-year-old female patient presents to the emergency department today for evaluation of lower abdominal pain. Patient has had the pain for the last week seems to be getting worse. States that she thought she might been having a urinary tract infection to have a sample tested by her primary care physician and did take and complete 3 days worth of an antibiotic. Patient denies any nausea, vomiting, constipation, or diarrhea with this. Patient and caregiver states that she has had low-grade fevers intermittently. Caregiver reports the patient did have chest pain one day over the last week. She denies any shortness of breath, dizziness, or weakness. Patient does have a history of alcohol abuse but has not had any alcohol for the last 2 months. Patient does admit to smoking cigarettes. Patient denies any recent rash, back pain, numbness , tingling, dizziness, weakness, hematuria, dysuria, urinary urgency, urinary frequency, headache, visual changes, or any other complaints. - Related Data Home Medications Medication Instructions Recorded Confirmed Atenolol [Tenormin] 25 mg PO DAILY 12/04/13 12/19/17 Atorvastatin [Lipitor] 40 mg PO HS 09/21/15 12/19/17 Aspirin EC [Ecotrin Low Dose] 81 mg PO DAILY 11/15/17 11/15/17 Ferrous Sulfate [Iron (65 MG 325 mg PO DAILY 11/15/17 12/19/17 Elemental)] traMADol HCL [Ultram] 100 mg PO Q6H PRN 11/15/17 12/19/17 Folic Acid 1 mg PO DAILY 12/19/17 12/19/17 Thiamine [Vitamin B-1] 100 mg PO DAILY 12/19/17 12/19/17 Previous Rx's Medication Instructions Recorded Lisinopril [Zestril] 10 mg PO HS #0 11/18/17 Docusate [Colace] 100 mg PO DAILY #15 capsule 12/19/17 Allergies Allergy/AdvReac Type Severity Reaction Status Date / Time iodine Allergy Itching Verified 12/19/17 18:03 Review of Systems ROS Statement: Those systems with pertinent positive or pertinent negative responses have been documented in the HPI. ROS Other: All systems not noted in ROS Statement are negative. Past Medical History Past Medical History: COPD, CVA/TIA, Diabetes Mellitus, Hyperlipidemia, Hypertension, Myocardial Infarction ([place]), Osteoarthritis ([place]) Additional Past Medical History / Comment(s): TIA - September 2013, past history of abcess/cellulitis left cheek. Patient is poor historian of her PMH. 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 Past Anesthesia/Blood Transfusion Reactions: No Reported Reaction Past Psychological History: No Psychological Hx Reported Smoking Status: Current every day smoker Past Alcohol Use History: Occasional Past Drug Use History: None Reported General Exam Limitations: no limitations General appearance: alert, in no apparent distress, other (Some well-developed, well-nourished elderly female patient in no acute distress. Vital signs upon presentation are temperature 99.2F, pulse 100, respirations 20, blood pressure 147/80, pulse ox 99% on room air.) Eye exam: Present: normal appearance, PERRL, EOMI. Absent: scleral icterus, conjunctival injection, periorbital swelling ENT exam: Present: normal exam, normal oropharynx, mucous membranes moist Respiratory exam: Present: normal lung sounds bilaterally. Absent: respiratory distress, wheezes, rales, rhonchi, stridor Cardiovascular Exam: Present: regular rate, normal rhythm, normal heart sounds. Absent: systolic murmur, diastolic murmur, rubs, gallop, clicks GI/Abdominal exam: Present: soft, tenderness (Midepigastric tenderness; Left lower quadrant tenderness; suprapubic tenderness.), normal bowel sounds. Absent : distended, guarding, rebound, rigid Back exam: Present: normal inspection. Absent: CVA tenderness (R), CVA tenderness (L) Neurological exam: Present: alert, oriented X3, CN II-XII intact Psychiatric exam: Present: normal affect, normal mood Skin exam: Present: warm, dry, intact, normal color. Absent: rash Course Vital Signs 12/19/17 12/19/17 12/19/17 17:02 18:11 20:47 Temperature 99.0 F Pulse Rate 100 86 77 Respiratory 20 18 18 Rate Blood Pressure 147/80 152/70 147/79 O2 Sat by Pulse 99 97 97 Oximetry 12/19/17 21:45 Temperature 98 F Pulse Rate 77 Respiratory 18 Rate Blood Pressure 134/74 O2 Sat by Pulse 97 Oximetry Medical Decision Making - Medical Decision Making 72-year-old female patient presented to the emergency department today for evaluation of lower abdominal pain. Physical examination did reveal tenderness over the mid epigastric region, suprapubic region, and left lower quadrant. Labs reviewed and did reveal mild kidney dysfunction which is not new for the patient. CT abdomen and pelvis was obtained and showed no acute intra- abdominal abnormalities. I did discuss findings and results with the patient and her caregiver. Patient did express some concern about constipation earlier in the visit, we will given a dose of milk of magnesia and a prescription for Colace. She is instructed to follow-up with her primary care physician for recheck in 1-2 days. Return parameters discussed in detail. She verbalizes understanding and agrees with this plan. - Lab Data Result diagrams: 12/19/17 17:45 12/19/17 17:45 Lab Results 12/19/17 12/19/17 12/19/17 Range/Units 17:45 17:45 17:45 WBC 7.7 (3.8-10.6) k/uL RBC 4.05 (3.80-5.40) m/uL Hgb 12.4 (11.4-16.0) gm/dL Hct 38.5 (34.0-46.0) % MCV 94.9 (80.0-100.0) fL MCH 30.7 (25.0-35.0) pg MCHC 32.4 (31.0-37.0) g/dL RDW 13.7 (11.5-15.5) % Plt Count 196 (150-450) k/uL Neutrophils % 71 % Lymphocytes % 19 % Monocytes % 5 % Eosinophils % 3 % Basophils % 1 % Neutrophils # 5.5 (1.3-7.7) k/uL Lymphocytes # 1.5 (1.0-4.8) k/uL Monocytes # 0.4 (0-1.0) k/uL Eosinophils # 0.2 (0-0.7) k/uL Basophils # 0.0 (0-0.2) k/uL Sodium 137 (137-145) mmol/L Potassium 4.7 (3.5-5.1) mmol/L Chloride 104 (98-107) mmol/L Carbon Dioxide 22 (22-30) mmol/L Anion Gap 11 mmol/L BUN 20 H (7-17) mg/dL Creatinine 1.10 H (0.52-1.04) mg/dL Est GFR (CKD-EPI)AfAm 58 (>60 ml/min/1.73 sqM) Est GFR (CKD-EPI)NonAf 50 (>60 ml/min/1.73 sqM) Glucose 134 H (74-99) mg/dL Plasma Lactic Acid Mario (0.7-2.0) mmol/L Calcium 9.7 (8.4-10.2) mg/dL Total Bilirubin 0.8 (0.2-1.3) mg/dL AST 29 (14-36) U/L ALT 25 (9-52) U/L Alkaline Phosphatase 76 (38-126) U/L Total Creatine Kinase 45 (30-135) U/L CK-MB (CK-2) 0.6 (0.0-2.4) ng/mL CK-MB (CK-2) Rel Index 1.3 Troponin I <0.012 (0.000-0.034) ng/mL Total Protein 7.4 (6.3-8.2) g/dL Albumin 4.5 (3.5-5.0) g/dL Amylase 69 (30-110) U/L Lipase 209 (23-300) U/L Urine Color Urine Appearance (Clear) Urine pH (5.0-8.0) Ur Specific [place] (1.001-1.035) Urine Protein (Negative) Urine Glucose (UA) (Negative) Urine Ketones (Negative) Urine Blood (Negative) Urine Nitrite (Negative) Urine Bilirubin (Negative) Urine Urobilinogen (<2.0) mg/dL Ur Leukocyte Esterase (Negative) 12/19/17 12/19/17 Range/Units 17:45 19:56 WBC (3.8-10.6) k/uL RBC (3.80-5.40) m/uL Hgb (11.4-16.0) gm/dL Hct (34.0-46.0) % MCV (80.0-100.0) fL MCH (25.0-35.0) pg MCHC (31.0-37.0) g/dL RDW (11.5-15.5) % Plt Count (150-450) k/uL Neutrophils % % Lymphocytes % % Monocytes % % Eosinophils % % Basophils % % Neutrophils # (1.3-7.7) k/uL Lymphocytes # (1.0-4.8) k/uL Monocytes # (0-1.0) k/uL Eosinophils # (0-0.7) k/uL Basophils # (0-0.2) k/uL Sodium (137-145) mmol/L Potassium (3.5-5.1) mmol/L Chloride (98-107) mmol/L Carbon Dioxide (22-30) mmol/L Anion Gap mmol/L BUN (7-17) mg/dL Creatinine (0.52-1.04) mg/dL Est GFR (CKD-EPI)AfAm (>60 ml/min/1.73 sqM) Est GFR (CKD-EPI)NonAf (>60 ml/min/1.73 sqM) Glucose (74-99) mg/dL Plasma Lactic Acid Mario 1.5 (0.7-2.0) mmol/L Calcium (8.4-10.2) mg/dL Total Bilirubin (0.2-1.3) mg/dL AST (14-36) U/L ALT (9-52) U/L Alkaline Phosphatase (38-126) U/L Total Creatine Kinase (30-135) U/L CK-MB (CK-2) (0.0-2.4) ng/mL CK-MB (CK-2) Rel Index Troponin I (0.000-0.034) ng/mL Total Protein (6.3-8.2) g/dL Albumin (3.5-5.0) g/dL Amylase (30-110) U/L Lipase (23-300) U/L Urine Color Light Yellow Urine Appearance Clear (Clear) Urine pH 5.5 (5.0-8.0) Ur Specific [place] 1.009 (1.001-1.035) Urine Protein Negative (Negative) Urine Glucose (UA) Negative (Negative) Urine Ketones Negative (Negative) Urine Blood Negative (Negative) Urine Nitrite Negative (Negative) Urine Bilirubin Negative (Negative) Urine Urobilinogen <2.0 (<2.0) mg/dL Ur Leukocyte Esterase Negative (Negative) - EKG Data -: EKG Interpreted by Me EKG Comments: EKG obtained at 181 shows normal sinus rhythm with a ventricular rate of 79, NH interval 164, QRS duration 74, QT 372, QTc 426 per no evidence of ST elevation or depression. - Radiology Data Radiology results: report reviewed, image reviewed CT of the abdomen and pelvis with contrast was obtained. Report was reviewed in its entirety. Impression by Dr. Cass Sapp shows no acute process. Disposition Clinical Impression: Abdominal pain Disposition: HOME SELF-CARE Condition: Good Instructions: Abdominal Pain (ED) Additional Instructions: Increase fluids. Follow-up with your primary care physician for recheck in 1-2 days. Utilize her home pain medications for pain control. Return here immediately for any new, worsening, or concerning symptoms. Prescriptions: Docusate [Colace] 100 mg PO DAILY #15 capsule Is patient prescribed a controlled substance at d/c from ED?: No Referrals: Alton Valencia DO [Primary Care Provider] - 1-2 days Time of Disposition: 21:37
[2017-12-19 18:06] LABS: Basophils % (A) 1 %; Eosinophils # (A) 0.2 k/uL (0-0.7); Eosinophils % (A) 3 %; HCT 38.5 % (34.0-46.0); HGB 12.4 gm/dL (11.4-16.0); Lymphocytes # (A) 1.5 k/uL (1.0-4.8); Lymphocytes % (A) 19 %; MCH 30.7 pg (25.0-35.0); MCHC 32.4 g/dL (31.0-37.0); MCV 94.9 fL (80.0-100.0); Mean Platelet Volume 9.7; Monocytes # (A) 0.4 k/uL (0-1.0); Monocytes % (A) 5 %; Neutrophils # (A) 5.5 k/uL (1.3-7.7); Neutrophils % (A) 71 %; Platelet Count 196 k/uL (150-450); RBC 4.05 m/uL (3.80-5.40); RDW 13.7 % (11.5-15.5); WBC 7.7 k/uL (3.8-10.6)
[2017-12-19 18:12] VITALS: RESP 18
[2017-12-19 18:19] LABS: Creatine Kinase 45 U/L (30-135)
[2017-12-19 18:22] LABS: Albumin 4.5 g/dL (3.5-5.0); Calcium 9.7 mg/dL (8.4-10.2); Total Bilirubin 0.8 mg/dL (0.2-1.3); Total Protein 7.4 g/dL (6.3-8.2)
[2017-12-19 18:28] LABS: Potassium 4.7 mmol/L (3.5-5.1)
[2017-12-19 18:31] LABS: Creatine Kinase MB 0.6 ng/mL (0.0-2.4); Troponin I <0.012 ng/mL (0.000-0.034)
[2017-12-19] MEDS ORDERED: methylPREDNISolone SOD SUCCI 125 MG/2 ML VIAL IV STA (18:35)
[2017-12-19] MEDS ORDERED: FAMOTIDINE 20 MG/2 ML VIAL IV STA (18:35)
[2017-12-19] MEDS ORDERED: diphenhydrAMINE 50 MG/ML 1 ML VIAL IVP STA (18:35)
[2017-12-19 20:11] LABS: Appearance,Urine Clear (Clear); Bilirubin,Urine Negative (Negative); Blood,Urine Negative (Negative); Color,Urine Light Yellow; Glucose,Urine (UA) Negative (Negative); Ketones,Urine Negative (Negative); Leukocyte Esterase,Urine Negative (Negative); Nitrite,Urine Negative (Negative); PH, Urine 5.5 (5.0-8.0); Protein,Urine Negative (Negative); Specific Gravity,Urine 1.009 (1.001-1.035); Urobilinogen,Urine <2.0 mg/dL (<2.0)
[2017-12-19 20:48] VITALS: PULSE 77
--- NOTE | 2017-12-19 20:50 | CT ---
EXAMINATION TYPE: CT abdomen pelvis w con DATE OF EXAM: 12/19/2017 COMPARISON: 1116 HISTORY: Abdominal pain CT DLP: 329.8 mGycm Automated exposure control for dose reduction was used. TECHNIQUE: Helical acquisition of images was performed from the lung bases through the pelvis. CONTRAST: Performed without Oral Contrast and with IV Contrast, patient injected with 80 mL of Isovue 300. FINDINGS: LUNG BASES: No significant abnormality is appreciated. LIVER/GB: No significant abnormality is appreciated. PANCREAS: No significant abnormality is seen. SPLEEN: No significant abnormality is seen. ADRENALS: No significant abnormality is seen. KIDNEYS: No significant abnormality is seen. FREE AIR: No free air is visualized. RETROPERITONEAL ADENOPATHY: None visualized REPRODUCTIVE ORGANS: No significant abnormality is seen URINARY BLADDER: No significant abnormality is seen. PELVIC ADENOPATHY: None visualized. OSSEOUS STRUCTURES: No significant abnormality is seen. BOWEL: No significant abnormality is seen. OTHER: Widespread nonaneurysmal advanced atherosclerotic changes throughout the abdomen and pelvis. IMPRESSION: NO ACUTE PROCESS.
[2017-12-19] MEDS ORDERED: MAGNESIUM HYDROXIDE 2,400 MG/10 ML CUP PO PRN (21:37)
[2017-12-19 21:45] VITALS: BP 134/74; TEMP 98
== END 2017-12-19 21:45 | disposition home or self-care (01) ==
LOC: EC 16:53
DX: R10.30 Lower abdominal pain, unspecified (principal); N28.89 Other specified disorders of kidney and ureter; R50.9 Fever, unspecified; E78.5 Hyperlipidemia, unspecified; I10 Essential (primary) hypertension; M19.90 Unspecified osteoarthritis, unspecified site; I25.2 Old myocardial infarction; F17.210 Nicotine dependence, cigarettes, uncomplicated; Z79.82 Long term (current) use of aspirin; Z79.899 Other long term (current) drug therapy; Z91.048 Other nonmedicinal substance allergy status; Z90.49 Acquired absence of other specified parts of digestive tract
CPT/HCPCS: 36415; 93005; 80053; 82150; 82550; 82553; 83605; 83690; 84484; 85025; 81003; 87040; 87086; 74177; 99284; 96374; 96375 ×4; 96361; J1200; J2930; J2405; J2270; Q9967

== ENCOUNTER → 2018-03-29 | Outpatient (CLI) | payer MEDICARE, OTHER ==
--- NOTE | 2018-04-01 11:18 | MM ---
Reason for exam: screening (asymptomatic). Last mammogram was performed 4 years ago. History: Patient is postmenopausal. Family history of breast cancer in sister at age 50. Benign excisional biopsy of the right breast, 1970. Physical Findings: A clinical breast exam by your physician is recommended on an annual basis and results should be correlated with mammographic findings. MG 3D Screening Mammo W/Cad Bilateral CC and MLO view(s) were taken. Prior study comparison: April 10, 2014, bilateral MG diagnostic mammo w CAD ANGELA. September 23, 2012, bilateral digital screening mammo w/CAD. There are scattered fibroglandular densities. Finding: There are grouped/clustered coarse calcifications in both breasts. No significant changes in finding since April 10, 2014 and September 23, 2012. ASSESSMENT: Benign, BI-RAD 2 RECOMMENDATION: Routine screening mammogram of both breasts in 1 year.
== END | disposition home or self-care (01) ==
LOC: RADMAMWWP 13:21
PROVIDERS: ATTEND Family Medicine
DX: Z12.31 Encounter for screening mammogram for malignant neoplasm of breast (principal)
CPT/HCPCS: 77063; 77067

== ENCOUNTER → 2018-05-01 | Outpatient (CLI) | payer MEDICARE, OTHER ==
--- NOTE | 2018-05-01 14:49 | XR ---
EXAMINATION TYPE: XR chest 2V DATE OF EXAM: 05/01/2018 COMPARISON: 11/15/2017 INDICATION: High blood pressure TECHNIQUE: Frontal and lateral views of the chest are obtained. FINDINGS: The heart size is normal. The pulmonary vasculature is normal. The lungs are clear. IMPRESSION: 1. No acute pulmonary process.
== END | disposition home or self-care (01) ==
LOC: RADXRMAIN 13:48
PROVIDERS: ATTEND Family Medicine
DX: R63.4 Abnormal weight loss (principal)
CPT/HCPCS: 71046

== ENCOUNTER → 2018-07-15 | Outpatient (CLI) | payer MEDICARE, OTHER ==
--- NOTE | 2018-07-16 03:46 | CT ---
EXAMINATION TYPE: CT abdomen pelvis wo con DATE OF EXAM: 07/15/2018 COMPARISON: 12/19/2017 HISTORY: 72-year-old female Ventral hernia without obstruction CT DLP: 209.6 mGycm. Automated exposure control for dose reduction was used. TECHNIQUE: Contiguous axial scanning of the abdomen and pelvis without IV contrast. Coronal and sagit lynnette reconstructions performed. FINDINGS: Heart normal size without pericardial effusion. Some coronary vessel calcifications are noted. Some m inimal strandy atelectasis in the inferior lingula. No pleural effusion. Noncontrast appearance of the liver, gallbladder, adrenal glands, left kidney, spleen, and pancreas s how no gross abnormality. Extensive splenic artery calcifications are noted. Moderate segmental atelectatic calcifications with in the SMA. Moderate atherosclerotic calcifications infrarenal abdominal aorta and moderate to severe within the iliac arteries. Nonobstructive 3 mm right lower pole renal calculus and punctate 2 mm nonobstructive right upper pole renal calculus. Calcification at the right renal hilum appears vascular and unchanged. No hydronephr osis on either side. No dilated small bowel, free fluid, or free air. No mesenteric or retroperitoneal lymphadenopathy. Mi ld to moderate stool burden without pericolonic inflammatory change. Prominent ingested debris within the stomach. There may be a tiny fatty umbilical hernia, refer to sa gittal image 48 and axial image 66. Bladder partially distended. Mild circumferential wall thickening is noted. Mild pelvic floor relaxat ion with bulging laxity of the levator ani musculature. Pelvic phlebolith. Uterus surgically absent. The ovaries are not well seen. No abnormal fluid collection in the pelvis or pelvic lymphadenopathy. Bones: Proximal right femoral internal fixation. Advanced degenerative changes of the right hip and a t least mild left hip. Osteopenia. Degenerative changes at both SI joints and a degenerated right L5 assimilation joint. Hypertrophic facet arthropathy mid to lower lumbar spine and mild multilevel dege nerative disc disease. Grade 1 anterolisthesis at L3-L4 and L4-L5. IMPRESSION: 1. A couple nonobstructive right renal calculi measuring up to 3 mm. No hydronephrosis. 2. There may be a tiny fatty umbilical hernia (sagittal image 48 and axial image 66). No sizable wade tral abdominal wall hernia. 3. Mild circumferential bladder wall thickening could represent chronic bladder wall hypertrophy or cystitis. 4. Mild pelvic floor relaxation.
== END | disposition home or self-care (01) ==
LOC: RADCTMAIN 16:19
PROVIDERS: ATTEND Surgery Plastic and Reconstructive Surgery
DX: N20.0 Calculus of kidney (principal); N32.89 Other specified disorders of bladder; N81.89 Other female genital prolapse; Z91.041 Radiographic dye allergy status
CPT/HCPCS: 74176

== ENCOUNTER → 2018-08-13 | Outpatient (CLI) | payer MEDICARE, OTHER ==
--- NOTE | 2018-08-13 15:07 | CT ---
EXAMINATION TYPE: CT abdomen pelvis wo con DATE OF EXAM: 08/13/2018 COMPARISON: 07/15/2018 HISTORY: Ventral hernia. CT DLP: 216.3 mGycm Examination of the solid and hollow viscera is limited given the lack of contrast. FINDINGS: LUNG BASES: No evidence for nodule. No evidence for infiltrate. LIVER/GB: The gallbladder is unremarkable. No space-occupying hepatic lesion. PANCREAS: No pancreatic mass identified. No inflammatory process seen. SPLEEN: No evidence for splenomegaly. No intrasplenic lesions seen. ADRENALS: No adrenal nodules identified. No evidence for thickening. KIDNEYS: No evidence for renal mass. Nonobstructing right-sided nephrolithiasis. No hydronephrosis. BOWEL: Appendix has a normal appearance. No evidence of bowel obstruction. No inflammatory process. Lymph nodes: No evidence for adenopathy greater than 1 cm. Abdominal aorta: Atheromatous changes seen. No evidence for aneurysm. Genital organs: No significant abnormality. Other: Tiny fat-containing umbilical hernia. No evidence for ventral hernia at this time. IMPRESSION: 1. Small fat-containing umbilical hernia. 2. Nonobstructing right-sided nephrolithiasis unchanged.
== END | disposition home or self-care (01) ==
LOC: RADCTMAIN 14:36
PROVIDERS: ATTEND Family Medicine
DX: K42.9 Umbilical hernia without obstruction or gangrene (principal); N20.0 Calculus of kidney
CPT/HCPCS: 74176

== ENCOUNTER 2018-10-16 22:29 | Observation (INO) | payer MEDICARE, OTHER ==
[2018-10-16] MEDS ORDERED: ACETAMINOPHEN TAB 325 MG TAB PO STA (23:21)
[2018-10-17] MEDS: SODIUM CHLORIDE 0.9% 500 ML 500 ML IV SCH ×2 (00:14→00:19)
[2018-10-17 00:28] LABS: Basophils # (A) 0.1 k/uL (0-0.2); Basophils % (A) 0 %; Eosinophils # (A) 0.1 k/uL (0-0.7); Eosinophils % (A) 1 %; HCT 34.1 % (34.0-46.0); HGB 11.4 gm/dL (11.4-16.0); Lymphocytes # (A) 0.6 k/uL (1.0-4.8); Lymphocytes % (A) 6 %; MCH 31.2 pg (25.0-35.0); MCHC 33.5 g/dL (31.0-37.0); MCV 93.1 fL (80.0-100.0); Mean Platelet Volume 9.8; Monocytes # (A) 0.4 k/uL (0-1.0); Monocytes % (A) 4 %; Neutrophils # (A) 10.2 k/uL (1.3-7.7); Neutrophils % (A) 89 %; Platelet Count 163 k/uL (150-450); RBC 3.67 m/uL (3.80-5.40); RDW 13.5 % (11.5-15.5); WBC 11.4 k/uL (3.8-10.6)
[2018-10-17 00:42] LABS: Partial Thromboplastin Time 25.5 sec (22.0-30.0); Prothrombin Time 10.4 sec (9.0-12.0)
[2018-10-17 00:50] LABS: Albumin 3.8 g/dL (3.5-5.0); Calcium 9.4 mg/dL (8.4-10.2); Potassium 4.3 mmol/L (3.5-5.1); Total Bilirubin 0.8 mg/dL (0.2-1.3); Total Protein 6.3 g/dL (6.3-8.2)
[2018-10-17] MEDS ORDERED: SODIUM CHLORIDE 0.9% 1,000 ML IV ONE (01:12)
--- NOTE | 2018-10-17 01:34 | XR ---
EXAM: XR Chest, 2 Views CLINICAL HISTORY: ITS.REASON XR Reason: Fever TECHNIQUE: Frontal and lateral views of the chest. COMPARISON: Chest x-ray 05/01/2018 FINDINGS: Lungs: Lungs are hyperaerated. No focal infiltrates or consolidations. Pleural space: No evidence of pneumothorax or pleural effusion. Heart: Heart size upper limits of normal. Mediastinum: Mediastinal structures are unremarkable. Bones/joints: Degenerative changes involve thoracic spine. IMPRESSION: Pulmonary hyperaeration. No evidence of acute cardiopulmonary disease.
[2018-10-17 01:45] LABS: Appearance,Urine Cloudy (Clear); Bacteria,Urine Moderate /hpf; Bilirubin,Urine Negative (Negative); Blood,Urine Negative (Negative); Color,Urine Yellow; Glucose,Urine (UA) Negative (Negative); Ketones,Urine Negative (Negative); Leukocyte Esterase,Urine Large (Negative); Mucus,Urine Rare /hpf; Nitrite,Urine Negative (Negative); PH, Urine 6.5 (5.0-8.0); Protein,Urine Trace (Negative); RBC,Urine 1 /hpf (0-5); Specific Gravity,Urine 1.015 (1.001-1.035); Squamous Epithelial Cell,Urine 2 /hpf (0-4); Urobilinogen,Urine <2.0 mg/dL (<2.0); WBC,Urine 65 /hpf (0-5)
--- NOTE | 2018-10-17 02:25 | ED ---
Fall HPI - General Chief Complaint: Fall Stated Complaint: Fall Time Seen by Provider: 10/16/18 22:34 Source: patient Mode of arrival: EMS - History of Present Illness Initial Comments: 73-year-old female patient presents to the emergency department today for evaluation after experiencing a fall at home. Patient states she is going to the bathroom and her legs became weak and shaky and she fell. Patient states she did land on her buttocks. States she is having some low back pain however this is chronic and not changed since the fall. Patient denies any radiation of the pain down her legs. Patient states that she has been feverish and chilled over the last 24 hours. States she has had some nausea. Denies any chest pain or shortness of breath. Son is present and states the patient had the exact same symptoms in the past with urinary tract infection. Patient denies any dizziness. Denies any numbness or tingling to her extremities. Denies any headache, blurred vision, or double vision. Patient denies any recent rash, shortness breath, chest pain, abdominal pain, diarrhea, constipation, numbness, tingling, dizziness, weakness, headache, visual changes, or any other complaints. - Related Data Home Medications Medication Instructions Recorded Confirmed Atenolol [Tenormin] 25 mg PO DAILY 12/04/13 10/16/18 Atorvastatin [Lipitor] 40 mg PO HS 09/21/15 10/16/18 Calcium Carbonate [Calcium] 600 mg PO BID 10/16/18 10/16/18 Ergocalciferol (Vitamin D2) 50,000 unit PO [place] 10/16/18 10/16/18 [Vitamin D2] HYDROcodone/APAP 7.5-325MG [[place] 1 tab PO TID PRN 10/16/18 10/16/18 7.5-325] Previous Rx's Medication Instructions Recorded Lisinopril [Zestril] 10 mg PO HS #0 11/18/17 Docusate [Colace] 100 mg PO DAILY #15 capsule 12/19/17 Allergies Allergy/AdvReac Type Severity Reaction Status Date / Time iodine Allergy Itching Verified 10/16/18 23:17 Review of Systems ROS Statement: Those systems with pertinent positive or pertinent negative responses have been documented in the HPI. ROS Other: All systems not noted in ROS Statement are negative. Past Medical History Past Medical History: COPD, CVA/TIA, Diabetes Mellitus, Hyperlipidemia, Hypertension, Myocardial Infarction (NM), Osteoarthritis (OA) Additional Past Medical History / Comment(s): TIA - September 2013, past history of abcess/cellulitis left cheek. Patient is poor historian of her [facility]. 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 Past Anesthesia/Blood Transfusion Reactions: No Reported Reaction Past Psychological History: No Psychological Hx Reported Smoking Status: Current every day smoker Past Alcohol Use History: None Reported Past Drug Use History: None Reported General Exam Limitations: no limitations General appearance: alert, in no apparent distress, other (This is a well-developed, well-nourished elderly female patient in no acute distress. Vital signs upon presentation are temperature 101.0F, pulse 89, respirations 18, blood pressure 134/79, pulse ox 97% on room air.) Eye exam: Present: normal appearance, PERRL, EOMI. Absent: scleral icterus, co njunctival injection, periorbital swelling ENT exam: Present: normal exam, normal oropharynx, mucous membranes moist Respiratory exam: Present: normal lung sounds bilaterally. Absent: respiratory distress, wheezes, rales, rhonchi, stridor Cardiovascular Exam: Present: regular rate, normal rhythm, normal heart sounds. Absent: systolic murmur, diastolic murmur, rubs, gallop, clicks GI/Abdominal exam: Present: soft, normal bowel sounds. Absent: distended, tenderness, guarding, rebound, rigid Back exam: Present: normal inspection, other (Nontender, no step-off, no defor mity to firm midline palpation of the thoracic and lumbar vertebrae. Full range of motion without pain or limitation.). Absent: CVA tenderness (R), CVA tenderness (L), vertebral tenderness Neurological exam: Present: alert, CN II-XII intact. Absent: oriented X3 (Oriented 2) Psychiatric exam: Present: normal affect, normal mood Skin exam: Present: warm, dry, intact, normal color. Absent: rash Course Vital Signs 10/16/18 10/16/18 10/17/18 22:44 23:25 00:00 Temperature 100.0 F H 101.0 F H Pulse Rate 89 78 Respiratory 18 18 Rate Blood Pressure 134/79 132/68 O2 Sat by Pulse 97 94 L Oximetry 10/17/18 10/17/18 01:00 01:21 Temperature 99.0 F Pulse Rate 78 Respiratory 18 Rate Blood Pressure 114/68 O2 Sat by Pulse 94 L Oximetry Medical Decision Making - Medical Decision Making 73-year-old female patient presented to the emergency department today for evaluation after experiencing a fall at home. Patient states her legs became weak and she fell landing on her buttocks. Patient exhibited no spinal tenderness. No radiating pain down the legs. Patient is neurologically intact with no focal deficits. Patient was febrile upon arrival at 101.0F. Labs revi ewed and did reveal elevated white blood cell count at 11.9. Normal lactic acid. Urinalysis was positive for urinary tract infection. This was sent for culture. Patient was started on Rocephin. She'll be admitted for IV antibiotics and IV fluids. - Lab Data Result diagrams: 10/17/18 00:10 10/17/18 00:10 Lab Results 10/17/18 10/17/18 10/17/18 Range/Units 00:10 00:10 00:10 WBC 11.4 H (3.8-10.6) k/uL RBC 3.67 L (3.80-5.40) m/uL Hgb 11.4 (11.4-16.0) gm/dL Hct 34.1 (34.0-46.0) % MCV 93.1 (80.0-100.0) fL MCH 31.2 (25.0-35.0) pg MCHC 33.5 (31.0-37.0) g/dL RDW 13.5 (11.5-15.5) % Plt Count 163 (150-450) k/uL Neutrophils % 89 % Lymphocytes % 6 % Monocytes % 4 % Eosinophils % 1 % Basophils % 0 % Neutrophils # 10.2 H (1.3-7.7) k/uL Lymphocytes # 0.6 L (1.0-4.8) k/uL Monocytes # 0.4 (0-1.0) k/uL Eosinophils # 0.1 (0-0.7) k/uL Basophils # 0.1 (0-0.2) k/uL PT (9.0-12.0) sec INR (<1.2) APTT (22.0-30.0) sec Sodium 134 L (137-145) mmol/L Potassium 4.3 (3.5-5.1) mmol/L Chloride 100 (98-107) mmol/L Carbon Dioxide 27 (22-30) mmol/L Anion Gap 7 mmol/L BUN 21 H (7-17) mg/dL Creatinine 1.30 H (0.52-1.04) mg/dL Est GFR (CKD-EPI)AfAm 47 (>60 ml/min/1.73 sqM) Est GFR (CKD-EPI)NonAf 41 (>60 ml/min/1.73 sqM) Glucose 160 H (74-99) mg/dL Plasma Lactic Acid Mario 1.6 (0.7-2.0) mmol/L Calcium 9.4 (8.4-10.2) mg/dL Total Bilirubin 0.8 (0.2-1.3) mg/dL AST 24 (14-36) U/L ALT 27 (9-52) U/L Alkaline Phosphatase 64 (38-126) U/L Total Protein 6.3 (6.3-8.2) g/dL Albumin 3.8 (3.5-5.0) g/dL Urine Color Urine Appearance (Clear) Urine pH (5.0-8.0) Ur Specific [place] (1.001-1.035) Urine Protein (Negative) Urine Glucose (UA) (Negative) Urine Ketones (Negative) Urine Blood (Negative) Urine Nitrite (Negative) Urine Bilirubin (Negative) Urine Urobilinogen (<2.0) mg/dL Ur Leukocyte Esterase (Negative) Urine RBC (0-5) /hpf Urine WBC (0-5) /hpf Urine WBC Clumps (None) /hpf Ur Squamous Epith Cells (0-4) /hpf Urine Bacteria (None) /hpf Urine Mucus (None) /hpf 10/17/18 10/17/18 Range/Units 00:10 01:19 WBC (3.8-10.6) k/uL RBC (3.80-5.40) m/uL Hgb (11.4-16.0) gm/dL Hct (34.0-46.0) % MCV (80.0-100.0) fL MCH (25.0-35.0) pg MCHC (31.0-37.0) g/dL RDW (11.5-15.5) % Plt Count (150-450) k/uL Neutrophils % % Lymphocytes % % Monocytes % % Eosinophils % % Basophils % % Neutrophils # (1.3-7.7) k/uL Lymphocytes # (1.0-4.8) k/uL Monocytes # (0-1.0) k/uL Eosinophils # (0-0.7) k/uL Basophils # (0-0.2) k/uL PT 10.4 (9.0-12.0) sec INR 1.0 (<1.2) APTT 25.5 (22.0-30.0) sec Sodium (137-145) mmol/L Potassium (3.5-5.1) mmol/L Chloride (98-107) mmol/L Carbon Dioxide (22-30) mmol/L Anion Gap mmol/L BUN (7-17) mg/dL Creatinine (0.52-1.04) mg/dL Est GFR (CKD-EPI)AfAm (>60 ml/min/1.73 sqM) Est GFR (CKD-EPI)NonAf (>60 ml/min/1.73 sqM) Glucose (74-99) mg/dL Plasma Lactic Acid Mario (0.7-2.0) mmol/L Calcium (8.4-10.2) mg/dL Total Bilirubin (0.2-1.3) mg/dL AST (14-36) U/L ALT (9-52) U/L Alkaline Phosphatase (38-126) U/L Total Protein (6.3-8.2) g/dL Albumin (3.5-5.0) g/dL Urine Color Yellow Urine Appearance Cloudy H (Clear) Urine pH 6.5 (5.0-8.0) Ur Specific [place] 1.015 (1.001-1.035) Urine Protein Trace H (Negative) Urine Glucose (UA) Negative (Negative) Urine Ketones Negative (Negative) Urine Blood Negative (Negative) Urine Nitrite Negative (Negative) Urine Bilirubin Negative (Negative) Urine Urobilinogen <2.0 (<2.0) mg/dL Ur Leukocyte Esterase Large H (Negative) Urine RBC 1 (0-5) /hpf Urine WBC 65 H (0-5) /hpf Urine WBC Clumps Many H (None) /hpf Ur Squamous Epith Cells 2 (0-4) /hpf Urine Bacteria Moderate H (None) /hpf Urine Mucus Rare H (None) /hpf - Radiology Data Radiology results: report reviewed, image reviewed Two-view x-ray of the chest is obtained. Report was reviewed in its entirety. Impression by Dr. Moore shows pulmonary hyperaeration. No evidence for acute cardio pulmonary disease. Disposition Clinical Impression: Urinary tract infection, Weakness Disposition: ADMITTED IP TO THIS [facility] Condition: Serious Referrals: Alton Valencia DO [Primary Care Provider] - 1-2 days Decision to Admit Reason: Admit from EC Decision Date: 10/17/18 Decision Time: 02:25
[2018-10-17] MEDS ORDERED: NALOXONE 0.4 MG/ML 1 ML VIAL IV PRN (02:39)
[2018-10-17] MEDS ORDERED: HYDROcodone/APAP 7.5-325MG 1 EACH TAB PO PRN (02:40)
[2018-10-17] MEDS: SODIUM CHLORIDE 0.9% 1,000 ML IV SCH ×2 (04:05→21:05)
[2018-10-17] MEDS: DOCUSATE 100 MG CAP PO SCH (08:13)
[2018-10-17] MEDS: CALCIUM CARBONATE 500 MG CHEWABLE PO SCH ×2 (08:13→21:42)
[2018-10-17] MEDS: ACETAMINOPHEN TAB 325 MG TAB PO PRN (08:17)
[2018-10-17] MEDS ORDERED: ATENOLOL 25 MG TAB PO SCH (09:00)
[2018-10-17] MEDS: LACTATED RINGERS 1,000 ML IV SCH ×2 (12:16→21:42)
[2018-10-17] MEDS ORDERED: ATORVASTATIN 40 MG TAB PO SCH (21:00)
[2018-10-17] MEDS ORDERED: LISINOPRIL 10 MG TAB PO SCH ×2 (21:00)
[2018-10-17] MEDS: METOPROLOL TARTRATE 50 MG TAB PO SCH (21:03)
[2018-10-17] MEDS: NICOTINE 21MG/24HR PATCH TRANSDERM SCH (22:22)
--- NOTE | 2018-10-17 22:26 | HP ---
HISTORY AND PHYSICAL DATE OF ADMISSION AND SERVICE: 10/17/2018 PRESENTING COMPLAINT: Fall. HISTORY OF PRESENTING COMPLAINT: This is a very pleasant 73-year-old patient of Dr. Valencia. Chronic stable medical conditions include COPD, hypertension, hyperlipidemia, primary osteoarthritis, chronic gait dysfunction; uses a walker. The patient was going to the bathroom at home, not using her walker, and she was unsteady. She simply fell back, falling on her butt. She had some pain in the affected area. Hence patient was brought in. The patient has also been short of breath, got a cough, not much sputum. Tolerating a diet. She does feel a bit tired and rundown. REVIEW OF SYSTEMS: CONSTITUTIONAL: Tired. HEENT: None. RESPIRATORY: Some shortness of breath and wheezing. CARDIOVASCULAR: None. GASTROINTESTINAL: None. GENITOURINARY: None. MUSCULOSKELETAL: Arthritic pain in the joints. DERMATOLOGICAL: None. HEMATOLOGICAL: None. LYMPHATICS: None. PSYCHIATRY: None. NEUROLOGICAL: None. PAST MEDICAL HISTORY: 1. COPD. 2. Hypertension. 3. Hyperlipidemia. 4. Osteoarthritis. 5. Gait dysfunction. 6. TIA in 2013. PAST SURGICAL HISTORY: 1. Appendectomy. 2. Bladder surgery. 3. Hysterectomy. 4. Tubal ligation. 5. Cataract surgery. 6. Benign tumor removed from the head. 7. Right hip fracture with repair. SOCIAL HISTORY: Has smoked about a pack a day for many years. She drank 3-4 beers a week; stopped in November 2017. Does use a walker. FAMILY HISTORY: Reviewed; noncontributory to presentation. HOME MEDICATIONS: 1. Zestril 10 mg p.o. at bedtime. 2. [place] 7.5 one tablet p.o. t.i.d. p.r.n. 3. Vitamin D2 50,000 units on Sunday. 4. Colace 100 mg p.o. daily. 5. Calcium 600 mg b.i.d. 6. Lipitor 40 mg at bedtime. 7. Tenormin 25 mg p.o. daily. ALLERGIES: IODINE. PHYSICAL EXAMINATION: VITAL SIGNS ON PRESENTATION: Temperature 101, pulse 78, respiratory rate 18, blood pressure 132/68, pulse ox 94% on room air. GENERAL APPEARANCE: Average build. BMI 20. Lying in bed, a bit tired-appearing. EYES: Pupils equal. Conjunctivae normal. HEENT: External appearance of nose and ears normal. Oral cavity normal. NECK: JVD not raised. Mass not palpable. RESPIRATORY: Effort increased. LUNGS: Decreased breath sounds. CARDIOVASCULAR: First and second sounds normal. No edema. ABDOMEN: Soft, non-tender. Liver and spleen not palpable. LYMPHATIC: No lymph node palpable in neck or axillae. PSYCHIATRY: Alert and oriented x3. Mood and affect normal. NEUROLOGICAL: Pupils equal. No facial asymmetry. Moving all 4 limbs. MUSCULOSKELETAL: Evidence of osteoarthritis. LABS: White count 11.4, hemoglobin 11.4, potassium 4.3, BUN 21, creatinine 1.30. UA positive for leukocyte esterase and WBC. ASSESSMENT: 1. Acute urinary tract infection with cystitis. 2. Acute chronic obstructive pulmonary disease. 3. Chronic obstructive pulmonary disease in a current smoker. 4. Acute renal failure, prerenal, from decreased oral intake. 5. Chronic nicotine dependence. Patient is a cigarette smoker. 6. Essential hypertension. 7. Hyperlipidemia. 8. Primary osteoarthritis. 9. Chronic gait dysfunction. Uses a walker at her baseline. Fall due to poor balance. Patient was not using her walker. PLAN: Patient is getting IV ceftriaxone and is also getting IV fluids. Will change patient's Lopressor to 50 mg twice a day. Repeat labs in the morning. MMODL / IJN: [id number] /
[2018-10-18] MEDS: IPRATROPIUM-ALBUTEROL 3 ML NEB INHALATION SCH ×3 (00:41→12:18)
[2018-10-18 08:30] LABS: Basophils % (A) 0 %; Eosinophils # (A) 0.2 k/uL (0-0.7); Eosinophils % (A) 2 %; HCT 36.3 % (34.0-46.0); HGB 11.8 gm/dL (11.4-16.0); Lymphocytes # (A) 1.4 k/uL (1.0-4.8); Lymphocytes % (A) 17 %; MCH 30.1 pg (25.0-35.0); MCHC 32.6 g/dL (31.0-37.0); MCV 92.5 fL (80.0-100.0); Mean Platelet Volume 9.5; Monocytes # (A) 0.7 k/uL (0-1.0); Monocytes % (A) 9 %; Neutrophils # (A) 5.8 k/uL (1.3-7.7); Neutrophils % (A) 70 %; Platelet Count 168 k/uL (150-450); RBC 3.93 m/uL (3.80-5.40); RDW 13.5 % (11.5-15.5); WBC 8.3 k/uL (3.8-10.6)
[2018-10-18 08:43] LABS: Calcium 9.6 mg/dL (8.4-10.2); Potassium 4.1 mmol/L (3.5-5.1); Total Bilirubin 0.7 mg/dL (0.2-1.3); Total Protein 6.7 g/dL (6.3-8.2)
[2018-10-18] MEDS: LACTATED RINGERS 1,000 ML IV SCH (08:49)
[2018-10-18] MEDS: CALCIUM CARBONATE 500 MG CHEWABLE PO SCH (08:55)
[2018-10-18] MEDS: METOPROLOL TARTRATE 50 MG TAB PO SCH (08:55)
[2018-10-18] MEDS: ACETAMINOPHEN TAB 325 MG TAB PO PRN (08:55)
[2018-10-18] MEDS: DOCUSATE 100 MG CAP PO SCH (08:55)
[2018-10-18] MEDS: NICOTINE 21MG/24HR PATCH TRANSDERM SCH (08:55)
[2018-10-18 12:26] VITALS: BP 144/75; RESP 16; TEMP 97.4
[2018-10-18 12:32] VITALS: PULSE 80
--- NOTE | 2018-10-19 03:27 | DS ---
DISCHARGE SUMMARY DATE OF ADMISSION: 10/17/2018 DATE OF DISCHARGE: 10/18/2018 FINAL DIAGNOSES: 1. Acute urinary tract infection with cystitis. 2. Chronic obstructive pulmonary disease in a current smoker. 3. Acute renal failure prerenal from decreased oral intake, POA. 4. Chronic nicotine dependence, patient is a cigarette smoker. 5. Essential hypertension. 6. Hyperlipidemia. 7. Primary osteoarthritis. 8. Chronic gait dysfunction uses a walker. HOSPITAL COURSE: This patient presented with a fall, felt to be with acute urinary tract infection with cystitis and acute renal failure. Creatinine was up to 1.3. Did come down to 0.88. The patient responded well to antibiotics. PHYSICAL EXAMINATION: Temperature 97.4, pulse 72, respirations 16, blood pressure 120/75, pulse ox 98% on room air. Lungs are clear. DISCHARGE MEDICATIONS: 1. Lipitor 40 mg q.h.s. 2. Zestril 10 mg q.h.s. 3. Calcium 600 mg b.i.d. 4. Vitamin D2 44614 units on Sunday. 5. [place] 7.5 one tab t.i.d. p.r.n. 6. Keflex 250 mg q.6h 12 capsules. 7. Lopressor 50 mg b.i.d. 8. Nicotine 20 mg patch. Discontinued medication: Tenormin. FOLLOWUP: Follow up with Dr. Valencia on October 29, 2018. Copy to Dr. Valencia. MMCARLAL / NERISSAN: [id number] /
[2018-10-20] MEDS ORDERED: ERGOCALCIFEROL 50,000 UNIT CAP PO SCH (09:00)
== END 2018-10-18 15:11 | disposition home or self-care (01) ==
LOC: EC 22:29 → 3NMEDONC 10-17 02:24
PROVIDERS: ADMIT Hospitalist; ATTEND Hospitalist
DX: N30.90 Cystitis, unspecified without hematuria (principal); J44.9 Chronic obstructive pulmonary disease, unspecified; F17.210 Nicotine dependence, cigarettes, uncomplicated; I10 Essential (primary) hypertension; E78.5 Hyperlipidemia, unspecified; M19.91 Primary osteoarthritis, unspecified site; R26.9 Unspecified abnormalities of gait and mobility; N17.9 Acute kidney failure, unspecified; G89.29 Other chronic pain; M54.5 Low back pain; R11.0 Nausea; R06.02 Shortness of breath; R05 Cough; R06.2 Wheezing; E11.9 Type 2 diabetes mellitus without complications; I25.2 Old myocardial infarction; M19.90 Unspecified osteoarthritis, unspecified site; W18.30XA Fall on same level, unspecified, initial encounter; Z79.899 Other long term (current) drug therapy; Z79.891 Long term (current) use of opiate analgesic; Y92.002 Bathroom of unspecified non-institutional (private) residence as the place of occurrence of the external cause; Z86.73 Personal history of transient ischemic attack (TIA), and cerebral infarction without residual deficits; Z86.19 Personal history of other infectious and parasitic diseases; Z91.048 Other nonmedicinal substance allergy status
CPT/HCPCS: 96361; 96365; 99285; 36415; 94640 ×2; 94760; 93005; 97161; 80053 ×2; 83605; 85025 ×2; 85610; 85730; 81001; 87040; 87086; 87077; 87186; 71046; G0378 ×2; S4990 ×2; J0696 ×2

== ENCOUNTER 2020-05-15 17:59 | Emergency (ER) | payer MEDICARE, OTHER ==
[2020-05-15 18:14] VITALS: TEMP 98.8
[2020-05-15] MEDS ORDERED: GLUCAGON 1 MG/ML VIAL IVP STA (18:20)
--- NOTE | 2020-05-15 18:22 | ED ---
General Adult HPI - General Chief complaint: ENT Stated complaint: Ham stuck in throat Time Seen by Provider: 05/15/20 18:15 Source: patient, family Mode of arrival: wheelchair Limitations: no limitations - History of Present Illness Initial comments: Dictation was produced using Carestream dictation software. please excuse any grammatical, word or spelling errors. This patient was cared for during a federal and state declared state of emergency secondary to Covid 19 Chief Complaint: 74-year-old female presents with ham and throat History of Present Illness: Patient is 74-year-old female. She is accompanied by her family member. Patient was having dinner approximately 6:00 PM. She then swallowed a large piece of ham. She felt like to him that stuck in her throat.Family member bedside reports that he tried to do Heimlich maneuver and give her fluids with slight improvement of her breathing issues however still having trouble swallowing. Patient's been constantly spitting up since then. Patient has no known history of esophageal disorders. Family member bedside reports that she has a habit of chewing food and started in her cheek or shakes when he swallows it. Documented in this emergency department record has been reviewed and confirmed by me. Those systems with pertinent positive or negative responses have been documented in the HPI. All other systems are other negative and/or noncontributory. PHYSICAL EXAM: General Impression: Alert and oriented x3, mild acute distress, spitting up saliva HEENT: Normocephalic atraumatic, extra-ocular movements intact, pupils equal and reactive to light bilaterally, mucous membranes moist, fullness noted at the level of the cricoid cartilage Cardiovascular: Heart regular rate and rhythm Chest: Able to complete full sentences, no retractions, no tachypnea Abdomen: abdomen soft, non-tender, non-distended, no organomegaly Musculoskeletal: Pulses present and equal in all extremities, no peripheral edema Motor: no focal deficits noted Neurological: CN II-XII grossly intact, no focal motor or sensory deficits noted Skin: Intact with no visualized rashes Psych: Normal affect and mood ED course: 74-year-old female presents with ham and throat. Vital signs upon arrival are within acceptable limits. Patient was seen and evaluated immediately upon being placed in the room at 6:15 PM. She seen and evaluated in trauma bay 2. Patient assures signs respiratory distress however she is spitting up constantly. [employer] Education Teacher was told to page gastroenterology immediately for upper endoscopy. Laboratory evaluation obtained. CBC metabolic panel was within acceptable limits. Dr. Rodarte performed upper endoscopy and removed esophageal ham. She is much improved. Patient be discharged and will follow up with GI on an outpatient basis. - Related Data Home Medications Medication Instructions Recorded Confirmed Atorvastatin [Lipitor] 40 mg PO HS 09/21/15 10/16/18 Calcium Carbonate [Calcium] 600 mg PO BID 10/16/18 10/16/18 Ergocalciferol (Vitamin D2) 50,000 unit PO [place] 10/16/18 10/16/18 [Vitamin D2] HYDROcodone/APAP 7.5-325MG [[place] 1 tab PO TID PRN 10/16/18 10/16/18 7.5-325] Previous Rx's Medication Instructions Recorded lisinopriL [Zestril] 10 mg PO HS #0 11/18/17 Cephalexin [Keflex] 250 mg PO Q6HR #12 cap 10/18/18 Metoprolol Tartrate [Lopressor] 50 mg PO BID #60 tab 10/18/18 Nicotine 21Mg/24Hr Patch [Habitrol] 1 patch TRANSDERM DAILY #14 patch 10/18/18 Allergies Allergy/AdvReac Type Severity Reaction Status Date / Time iodine Allergy Itching Verified 05/15/20 18:14 Review of Systems ROS Statement: Those systems with pertinent positive or pertinent negative responses have been documented in the HPI. ROS Other: All systems not noted in ROS Statement are negative. Past Medical History Past Medical History: COPD, CVA/TIA, Hyperlipidemia, Hypertension, Myocardial Infarction ([place]), Osteoarthritis (OA) Additional Past Medical History / Comment(s): TIA - September 2013, past history of abcess/cellulitis left cheek. Patient is poor historian of her PMH. 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 Past Anesthesia/Blood Transfusion Reactions: No Reported Reaction Past Psychological History: No Psychological Hx Reported Smoking Status: Current every day smoker Past Alcohol Use History: Occasional Past Drug Use History: None Reported - Past Family History Son(s) Family Medical History: No Reported History Additional Family Medical History / Comment(s): 4 sons all reported healthy per patient Mother Family Medical History: CVA/TIA Additional Family Medical History / Comment(s): General Exam Limitations: no limitations Course Vital Signs 05/15/20 05/15/20 18:12 18:50 Temperature 98.8 F Pulse Rate 87 82 Respiratory 20 20 Rate Blood Pressure 165/93 126/78 O2 Sat by Pulse 98 100 Oximetry Medical Decision Making - Lab Data Result diagrams: 05/15/20 18:31 05/15/20 18:31 Lab Results 05/15/20 05/15/20 Range/Units 18:31 18:31 WBC 9.6 (3.8-10.6) k/uL RBC 4.14 (3.80-5.40) m/uL Hgb 13.2 (11.4-16.0) gm/dL Hct 39.3 (34.0-46.0) % MCV 95.0 (80.0-100.0) fL MCH 31.9 (25.0-35.0) pg MCHC 33.6 (31.0-37.0) g/dL RDW 12.8 (11.5-15.5) % Plt Count 203 (150-450) k/uL MPV 9.4 Neutrophils % 65 % Lymphocytes % 24 % Monocytes % 5 % Eosinophils % 3 % Basophils % 1 % Neutrophils # 6.2 (1.3-7.7) k/uL Lymphocytes # 2.3 (1.0-4.8) k/uL Monocytes # 0.4 (0-1.0) k/uL Eosinophils # 0.3 (0-0.7) k/uL Basophils # 0.1 (0-0.2) k/uL Sodium 138 (137-145) mmol/L Potassium 4.2 (3.5-5.1) mmol/L Chloride 104 (98-107) mmol/L Carbon Dioxide 28 (22-30) mmol/L Anion Gap 6 mmol/L BUN 17 (7-17) mg/dL Creatinine 1.37 H (0.52-1.04) mg/dL Est GFR (CKD-EPI)AfAm 44 (>60 ml/min/1.73 sqM) Est GFR (CKD-EPI)NonAf 38 (>60 ml/min/1.73 sqM) Glucose 154 H (74-99) mg/dL Calcium 9.3 (8.4-10.2) mg/dL Disposition Clinical Impression: Esophageal obstruction due to food impaction Disposition: HOME SELF-CARE Condition: Good Instructions (If sedation given, give patient instructions): Esophageal Foreign Body (ED) Is patient prescribed a controlled substance at d/c from ED?: No Referrals: Bonnie Rodarte MD [STAFF PHYSICIAN] - 1-2 days Time of Disposition: 20:19
[2020-05-15 18:38] LABS: Basophils # (A) 0.1 k/uL (0-0.2); Basophils % (A) 1 %; Eosinophils # (A) 0.3 k/uL (0-0.7); Eosinophils % (A) 3 %; HCT 39.3 % (34.0-46.0); HGB 13.2 gm/dL (11.4-16.0); Lymphocytes # (A) 2.3 k/uL (1.0-4.8); Lymphocytes % (A) 24 %; MCH 31.9 pg (25.0-35.0); MCHC 33.6 g/dL (31.0-37.0); Mean Platelet Volume 9.4; Monocytes # (A) 0.4 k/uL (0-1.0); Monocytes % (A) 5 %; Neutrophils # (A) 6.2 k/uL (1.3-7.7); Neutrophils % (A) 65 %; Platelet Count 203 k/uL (150-450); RBC 4.14 m/uL (3.80-5.40); RDW 12.8 % (11.5-15.5); WBC 9.6 k/uL (3.8-10.6)
[2020-05-15 18:48] LABS: Calcium 9.3 mg/dL (8.4-10.2); Potassium 4.2 mmol/L (3.5-5.1)
[2020-05-15] MEDS ORDERED: PROPOFOL 10 MG/ML 20 ML VIAL IV ONE (19:45)
[2020-05-15] MEDS ORDERED: SODIUM CHLORIDE 0.9% 1,000 ML IV ONE (19:56)
--- NOTE | 2020-05-15 20:08 | P.PCN ---
Date of Procedure: 05/15/20 Procedure(s) Performed: BRIEF HISTORY: Patient is a 74-year-old, pleasant, white female admitted hospital with acute food impaction. She was eating and for dinner and couldn't swallow any further. She has been having these intermittent episodes for the last several months. She is scheduled for an upper endoscopy on an emergency basis for foreign body removal. PROCEDURE PERFORMED: Esophagogastroduodenoscopy with foreign body removal. PREOPERATIVE DIAGNOSIS: By food impaction. IV sedation per anesthesia. PROCEDURE: After informed consent was obtained, the patient was brought into the endoscopy unit. IV sedation was administered by Anesthesia under continuous monitoring. Initially the Olympus GIF-140 video endoscope was inserted into the mouth. Esophagus intubated without any difficulty. There was a large piece of meat that was impacted in the cervical esophagus just distal to the upper esophagus and into. Using a tripod part of the meat was extracted following which the rest of it was pushed into the stomach. The scope at this time was advanced into the stomach and duodenum and carefully examined. The bulb and the second part of the duodenum appeared normal. The scope at this time was withdrawn to the stomach, adequately insufflated with air, and upon careful examination, mucosa of the antrum, body, cardia and the fundus appeared normal. The scope was then withdrawn into the esophagus. The GE junction was located at 39 cm from the incisors. There was mild distal esophagitis noted. In the proximal cervical esophagus there was a circumferential cervical esophageal web identified which did not impede the passage of the scope. The patient tolerated the procedure well. IMPRESSION: 1. Food bolus impacted in the cervical esophagus status post removal as described above. 2. Circumferential web involving the cervical esophagus at the site of food impaction RECOMMENDATIONS: The findings of this examination were discussed with the patient as well as a family. She was advised to eat small bites. She will follow up in office in a couple of weeks and we can consider EGD with dilation and elective basis..
--- NOTE | 2020-05-15 20:36 | CONS ---
CONSULTATION DATE OF SERVICE: May 15, 2020. REQUESTING PHYSICIAN: Dr. Lisa Valencia. REASON FOR CONSULTATION: Acute food impaction. HISTORY OF PRESENT ILLNESS: The patient is a 74-year-old white female came to the emergency room with acute food impaction. She was eating a piece of ham for dinner and could not swallow any further. She apparently on and off for the last several months, but did not seek any medical attention. She denies any acid reflux. She is not able to swallow her own liquids. Hence we are consulted for an emergency upper endoscopy in the ER. PAST MEDICAL HISTORY: Significant for hypertension, hyperlipidemia, history of CVA in the past and COPD. MEDICATIONS: Medications at home Lipitor, calcium, multivitamin, and [place]. ALLERGIES: IODINE. PAST SURGICAL HISTORY: Appendectomy, bladder surgery, hysterectomy, tubal ligation. SOCIAL HISTORY: Chronic smoker. No alcohol use. FAMILY HISTORY: Unremarkable. REVIEW OF SYSTEMS: CARDIOPULMONARY: No chest pain or shortness of breath. GENITOURINARY: No dysuria or hematuria. Musculoskeletal unremarkable. Skin unremarkable. Endocrine unremarkable. PSYCHIATRIC: Unremarkable. Constitutional: No recent weight loss. PHYSICAL EXAMINATION: Vital signs are stable. Blood pressure is 165/93, pulse 87, temperature 98.8. HEENT examination unremarkable. Conjunctivae pink. Sclerae anicteric. Oral cavity no lesions. Neck no JVD. CHEST: Clear to auscultation. HEART: Regular rate and rhythm. ABDOMEN: Soft. Bowel sounds positive. No organomegaly. Extremities: No pedal edema. NEUROLOGIC: Alert and oriented x3. No focal deficits. LABS: WBC 9.6, hemoglobin 13.2, platelets 298. BUN and creatinine are within normal limits. IMPRESSION: 1. Acute food impaction. 2. History of hypertension and hyperlipidemia. RECOMMENDATIONS: We will proceed with EGD with foreign body removal in the ER at the bedside. The patient understands risks, benefits and complications of the procedure. Thank you for this consultation. MMODL / IJN: [id number] /
[2020-05-15 20:43] VITALS: BP 120/86; PULSE 65; RESP 18
== END 2020-05-15 20:42 | disposition home or self-care (01) ==
LOC: EC 17:59
DX: K22.2 Esophageal obstruction (principal); I10 Essential (primary) hypertension; E78.5 Hyperlipidemia, unspecified; I25.2 Old myocardial infarction; F17.200 Nicotine dependence, unspecified, uncomplicated; Z79.899 Other long term (current) drug therapy; Z91.048 Other nonmedicinal substance allergy status; Z86.73 Personal history of transient ischemic attack (TIA), and cerebral infarction without residual deficits
CPT/HCPCS: 36415; 80048; 85025; 99284; 43247; 96374; J1610

== ENCOUNTER → 2020-07-13 | Outpatient (CLI) | payer MEDICARE, OTHER ==
[~2020-07-13] MED LIST: DENOSUMAB 60 MG/ML 1 ML SYRINGE SQ NR
[2020-07-13 11:11] VITALS: BP 163/90; PULSE 66; RESP 18; TEMP 98
== END | disposition home or self-care (01) ==
LOC: PROCWHC3 10:55
PROVIDERS: ATTEND Family Medicine
DX: M81.0 Age-related osteoporosis without current pathological fracture (principal)
CPT/HCPCS: 96372; J0897

== ENCOUNTER → 2020-07-21 | Outpatient (CLI) | payer MEDICARE, OTHER ==
--- NOTE | 2020-07-21 17:28 | BD ---
EXAMINATION TYPE: Axial Bone Density DATE OF EXAM: 07/21/2020 COMPARISON: 05/29/2006 CLINICAL HISTORY: Postmenopausal screening Height: 59 Weight: 115.7 FRAX RISK QUESTIONS: Alcohol (3 or more units per day): no Family History (Parent hip fracture): no Glucocorticoids (More than 3mos): no (Ex: prednisone, prednisolone, methylprednisolone, dexamethasone, and hydrocortisone). History of Fracture in Adulthood: yes Secondary Osteoporosis: 1. Type 1 Diabetes: no 2. Hyperthyroidism: no 3. Menopause before 45: yes 4. Malnutrition: no 5. Chronic liver disease: no Rheumatoid Arthritis: no Current Tobacco Use: yes RISK FACTORS HISTORY OF: Hip Fracture (Right/Left): right When: 4 years ago Surgery to Spine/Hip(right/left)/Wrist (right/left): right When: 4 years ago Family History of Osteoporosis: no Active: no Diet low in dairy products/other sources of calcium: yes Postmenopausal woman: around age 39 Lost more than 2 inches in height since high school: yes Frequent falls: yes MEDICATIONS: Additional History: EXAM MEASUREMENTS: Bone mineral densitometry was performed using the NaviExpert System. Bone mineral density as measured about the Lumbar spine is: ----- L1-L4(G/cm2): 0.888 T Score Values are as follows: ----- L2: -34 ----- L3: -2.7 ----- L4: -1.0 ----- L1-L4: -2.4 Bone mineral density has: increased 19.5 % since study of: 05.29.2006 Bone mineral density about the L hip (g/cm2): 0.497 T Score values are as follows: -----L Neck: -3.9 -----L Total: -3.9 Bone mineral density has: decreased -14.9 % since study of: 05.29.2006 IMPRESSION: Osteoporosis (T Score less than -2.5). There is increased fracture risk and therapy is usually indicated based on age. Re-Screen 1-2 years. NOTE: T-SCORE=SD OF THE YOUNG ADULT MEAN.
== END ==
LOC: RADBDWWP 10:16
PROVIDERS: ATTEND Family Medicine
DX: Z13.820 Encounter for screening for osteoporosis (principal); M81.0 Age-related osteoporosis without current pathological fracture; Z78.0 Asymptomatic menopausal state
CPT/HCPCS: 77080

== ENCOUNTER → 2021-04-12 | Outpatient (CLI) | payer MEDICARE, OTHER ==
[2021-04-12 14:17] VITALS: BP 115/62; PULSE 65; RESP 16; TEMP 98.8
== END ==
LOC: PROCWHC3 13:29
PROVIDERS: ATTEND Family Medicine
DX: M81.0 Age-related osteoporosis without current pathological fracture (principal); F17.200 Nicotine dependence, unspecified, uncomplicated; Z91.041 Radiographic dye allergy status
CPT/HCPCS: 96372; J0897

== ENCOUNTER 2022-04-05 17:53 | Inpatient (IN) | payer MEDICARE, OTHER ==
[2022-04-05 20:59] LABS: Appearance,Urine Turbid (Clear); Bacteria,Urine Occasional /hpf; Bilirubin,Urine Negative (Negative); Blood,Urine Large (Negative); Color,Urine Yellow; Glucose,Urine (UA) Negative (Negative); Hyaline Casts,Urine 12 /lpf (0-2); Ketones,Urine Negative (Negative); Leukocyte Esterase,Urine Large (Negative); Nitrite,Urine Negative (Negative); Protein,Urine 3+ (Negative); RBC,Urine >182 /hpf (0-5); Urobilinogen,Urine <2.0 mg/dL (<2.0); WBC,Urine >182 /hpf (0-5)
[2022-04-05 21:02] LABS: Basophils # (A) 0.1 k/uL (0-0.2); Basophils % (A) 1 %; Eosinophils # (A) 0.4 k/uL (0-0.7); Eosinophils % (A) 2 %; HCT 40.5 % (34.0-46.0); HGB 13.5 gm/dL (11.4-16.0); Lymphocytes # (A) 1.7 k/uL (1.0-4.8); Lymphocytes % (A) 10 %; MCH 31.2 pg (25.0-35.0); MCHC 33.2 g/dL (31.0-37.0); MCV 93.9 fL (80.0-100.0); Mean Platelet Volume 9.5; Monocytes # (A) 0.5 k/uL (0-1.0); Monocytes % (A) 3 %; Neutrophils # (A) 14.5 k/uL (1.3-7.7); Neutrophils % (A) 84 %; Platelet Count 259 k/uL (150-450); RBC 4.32 m/uL (3.80-5.40); RDW 12.5 % (11.5-15.5); WBC 17.4 k/uL (3.8-10.6)
[2022-04-05 21:13] LABS: Albumin 5.1 g/dL (3.5-5.0); Calcium 9.8 mg/dL (8.4-10.2); Potassium 4.7 mmol/L (3.5-5.1); Total Protein 8.1 g/dL (6.3-8.2)
--- NOTE | 2022-04-05 21:38 | XR ---
EXAMINATION TYPE: XR abdomen acute w cxr DATE OF EXAM: 04/05/2022 9:18 PM INDICATION: Patient age:Female; 76 years old; Reason for study: Constipation; COMPARISON: None. TECHNIQUE: Two radiographic views of the abdomen (upright and supine) and a frontal chest radiograph were obtained. FINDINGS CHEST: Lungs/Pleura: Findings the diaphragm with increased lucency in the lung apices.. There is no evidence of pleural effusion, focal consolidation or pneumothorax. Mediastinum: Unremarkable. Vasculature: Normal. Heart: Normal in size. Musculoskeletal: The osseous structures are intact. Other findings: No significant. FINDINGS ABDOMEN: Bowel gas pattern: Normal without dilated loops of small or large bowel. Fecal material and gas are d emonstrated throughout the colon and rectum. Abnormal calcifications: None. Musculoskeletal: Right small left femur fixation hardware with hardware intact. Other: Atherosclerosis of the arterial vasculature. IMPRESSION: 1. No radiographic evidence for acute abdominal process. 2. No acute cardiopulmonary process 3. COPD changes.
[2022-04-05] MEDS ORDERED: cefTRIAXone IN SWFI 1,000 MG/10 ML SYRINGE IVP STA (21:54)
[2022-04-05] MEDS ORDERED: NALOXONE 0.4 MG/ML 1 ML VIAL IV PRN (22:03)
--- NOTE | 2022-04-05 22:03 | ED ---
General Adult HPI - General Chief complaint: Abdominal Pain Stated complaint: Abd Pain Time Seen by Provider: 04/05/22 18:57 Source: patient, family Mode of arrival: wheelchair Limitations: no limitations - History of Present Illness Initial comments: This is 76-year-old female who presents emergency department for abdominal cramping for the last 2 days. The patient was accompanied by her separating machine operator who stated the patient has had increased urinary frequency as well as generalized abdominal cramping over the last 2 days. It is reported that the patient normally takes her medications as prescribed however because of this pain she was unable to do so today. The patient stated that she had 2 bowel movements that were less than normal. The patient denied any nausea or vomiting at denied any trauma to her abdomen. The patient was resting comfortably without any further acute pain or distress. The patient denied nausea, vomiting, fevers and chills. - Related Data Home Medications Medication Instructions Recorded Confirmed Calcium Carbonate [Calcium] 600 mg PO BID 10/16/18 04/12/21 Ergocalciferol (Vitamin D2) 50,000 unit PO [place] 10/16/18 04/12/21 [Vitamin D2] HYDROcodone/APAP 7.5-325MG [[place] 1 tab PO TID PRN 10/16/18 04/12/21 7.5-325] Denosumab [Prolia] 60 mg SQ DIRECTED 04/12/21 04/12/21 Previous Rx's Medication Instructions Recorded lisinopriL [Zestril] 10 mg PO HS #0 11/18/17 Allergies Allergy/AdvReac Type Severity Reaction Status Date / Time iodine Allergy Itching Verified 04/05/22 22:38 Review of Systems ROS Statement: Those systems with pertinent positive or pertinent negative responses have been documented in the HPI. ROS Other: All systems not noted in ROS Statement are negative. Past Medical History Past Medical History: COPD, CVA/TIA, Hyperlipidemia, Hypertension, Myocardial Infarction ([place]), Osteoarthritis ([place]) Additional Past Medical History / Comment(s): TIA - September 2013, past history of abcess/cellulitis left cheek. Patient is poor historian of her PMH. 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 Past Anesthesia/Blood Transfusion Reactions: No Reported Reaction Past Psychological History: No Psychological Hx Reported Smoking Status: Current every day smoker Past Alcohol Use History: None Reported Past Drug Use History: None Reported - Past Family History Son(s) Family Medical History: No Reported History Additional Family Medical History / Comment(s): 4 sons all reported healthy per patient Mother Family Medical History: CVA/TIA Additional Family Medical History / Comment(s): General Exam Limitations: no limitations General appearance: alert, in no apparent distress Head exam: Present: atraumatic, normocephalic, normal inspection Eye exam: Present: normal appearance, PERRL, EOMI Pupils: Present: normal accommodation ENT exam: Present: normal exam, normal oropharynx, mucous membranes moist Neck exam: Present: normal inspection, full ROM Respiratory exam: Present: normal lung sounds bilaterally Cardiovascular Exam: Present: regular rate, normal rhythm, normal heart sounds GI/Abdominal exam: Present: tenderness (Minimal generalized tenderness or patient) Rectal exam: Present: deferred Extremities exam: Present: normal inspection, full ROM Back exam: Present: normal inspection, full ROM Neurological exam: Present: alert, oriented X3, CN II-XII intact Psychiatric exam: Present: normal affect, normal mood Skin exam: Present: warm, dry Course Vital Signs 04/05/22 17:54 Temperature 96.6 F L Pulse Rate 88 Respiratory 16 Rate Blood Pressure 197/97 O2 Sat by Pulse 99 Oximetry Medical Decision Making - Medical Decision Making The patient seen and evaluated emergency department. Physical exam, the patient was resting in bed without any acute distress. Vital signs on admission were stable with the patient was hypertensive. Due to the nature the patient's complaints, laboratory workup was obtained as well as a x-ray of the abdomen. X-ray of the abdomen show any other maladies. Urinalysis showed positive for UTI and the patient was given 1 g of Rocephin IV. Labs workup and also showed lipase of 1100 indicating a likely pancreatitis. The patient's bilirubin and hepatic function panel was within normal limits. Due to the patient's elevated lipase in the setting of pancreatitis and UTI, the patient will be admitted for continued workup and evaluation. The patient's primary care physician, Dr. Valencia was covered by Argelia Jackson who accepted the patient for admission. The patient was told this plan and was agreeable. The patient was admitted sta ble condition. - Lab Data Result diagrams: 04/05/22 20:54 04/05/22 20:54 Lab Results 04/05/22 04/05/22 04/05/22 Range/Units 20:42 20:54 20:54 WBC 17.4 H (3.8-10.6) k/uL RBC 4.32 (3.80-5.40) m/uL Hgb 13.5 (11.4-16.0) gm/dL Hct 40.5 (34.0-46.0) % MCV 93.9 (80.0-100.0) fL MCH 31.2 (25.0-35.0) pg MCHC 33.2 (31.0-37.0) g/dL RDW 12.5 (11.5-15.5) % Plt Count 259 (150-450) k/uL MPV 9.5 Neutrophils % 84 % Lymphocytes % 10 % Monocytes % 3 % Eosinophils % 2 % Basophils % 1 % Neutrophils # 14.5 H (1.3-7.7) k/uL Lymphocytes # 1.7 (1.0-4.8) k/uL Monocytes # 0.5 (0-1.0) k/uL Eosinophils # 0.4 (0-0.7) k/uL Basophils # 0.1 (0-0.2) k/uL Sodium 135 L (137-145) mmol/L Potassium 4.7 (3.5-5.1) mmol/L Chloride 98 (98-107) mmol/L Carbon Dioxide 27 (22-30) mmol/L Anion Gap 10 mmol/L BUN 21 H (7-17) mg/dL Creatinine 1.47 H (0.52-1.04) mg/dL Est GFR (CKD-EPI)AfAm 39 (>60 ml/min/1.73 sqM) Est GFR (CKD-EPI)NonAf 34 (>60 ml/min/1.73 sqM) Glucose 113 H (74-99) mg/dL Calcium 9.8 (8.4-10.2) mg/dL Total Bilirubin 1.0 (0.2-1.3) mg/dL AST 34 (14-36) U/L ALT 30 (4-34) U/L Alkaline Phosphatase 85 (38-126) U/L Total Protein 8.1 (6.3-8.2) g/dL Albumin 5.1 H (3.5-5.0) g/dL Lipase 1101 H (23-300) U/L Urine Color Yellow Urine Appearance Turbid H (Clear) Urine pH 6.0 (5.0-8.0) Ur Specific [place] 1.020 (1.001-1.035) Urine Protein 3+ H (Negative) Urine Glucose (UA) Negative (Negative) Urine Ketones Negative (Negative) Urine Blood Large H (Negative) Urine Nitrite Negative (Negative) Urine Bilirubin Negative (Negative) Urine Urobilinogen <2.0 (<2.0) mg/dL Ur Leukocyte Esterase Large H (Negative) Urine RBC >182 H (0-5) /hpf Urine WBC >182 H (0-5) /hpf Urine WBC Clumps Many H (None) /hpf Urine Bacteria Occasional H (None) /hpf Hyaline Casts 12 H (0-2) /lpf Disposition Clinical Impression: Pancreatitis, UTI (urinary tract infection) Disposition: ADMITTED IP TO THIS [facility] Condition: Stable Is patient prescribed a controlled substance at d/c from ED?: No Referrals: Alton Valencia DO [Primary Care Provider] - 1-2 days Time of Disposition: 22:00 Decision Date: 04/05/22 Decision Time: 22:00
[2022-04-06] MEDS ORDERED: ACETAMINOPHEN TAB 325 MG TAB PO PRN (00:17)
[2022-04-06] MEDS: SODIUM CHLORIDE 0.9% 1,000 ML IV SCH ×2 (00:39→12:42)
[2022-04-06] MEDS: HYDROcodone/APAP 7.5-325MG 1 EACH TAB PO PRN (05:16)
[2022-04-06] MEDS ORDERED: DOCUSATE 100 MG CAP PO SCH (09:00)
[2022-04-06] MEDS ORDERED: ONDANSETRON 4 MG/2 ML VIAL IVP PRN (09:56)
[2022-04-06] MEDS ORDERED: FAMOTIDINE 20 MG/2 ML VIAL IV SCH ×2 (10:00→21:00)
[2022-04-06] MEDS: HEPARIN SODIUM,PORCINE/PF 5,000 UNIT/0.5 ML SYRINGE SQ SCH ×2 (10:17→21:04)
[2022-04-06] MEDS ORDERED: atenoloL 25 MG TAB PO SCH (13:30)
[2022-04-06] MEDS: ASPIRIN 81 MG PO SCH (13:38)
--- NOTE | 2022-04-06 13:54 | P.HPIM ---
History of Present Illness H&P Date: 04/06/22 This is a pleasant 76 year old female with medical history of COPD, Hypertension, hyperlipidemia, TIA in 2014, daily smoker, history of pancreatitis per patient, and former heavy alcohol use but has quit in the last 5 years. Patient is a pack per day smoker. Patient presents to the hospital with comp laints of abdominal crampy pain epigastric that radiates out in a band like pattern rating currently 8/10. There is also reports of urinary frequency with incontinence reported by her caregiver. Patient denies nausea, vomiting, has had 2 BMS that were slightly more loose. She was found to have elevated lipase of 1100. Abdominal xray showing no acute abdominal process, no acute cardiopulmonary process. There are COPD changes. Patient also has white count of 17.4 and appears dehydrated with sodium of 135 and creatinine 1.47. She is admitted to observation with acute pancreatitis and patient is started on IV fluids. Urine showing large blood with large luekocyte esterase >182 RBC, WBC, hyalines casts, occasional bacteria. Urine culture received and patient has been placed NPO. Currently she states she feels hungry. Will repeat lipase and continue IV fluids for now. She has been evaluated by GI services in the past for EGD with dilation. REVIEW OF SYSTEMS: CONSTITUTIONAL: No fever, no malaise, no fatigue. HEENT: No recent visual problems or hearing problems. Denied any sore throat. CARDIOVASCULAR: No chest pain, orthopnea, PND, no palpitations, no syncope. PULMONARY: No shortness of breath, no cough, no hemoptysis. GASTROINTESTINAL: Reports no nausea or vomiting, reports abdominal pain and loose stool NEUROLOGICAL: No headaches, no weakness, no numbness. HEMATOLOGICAL: Denies any bleeding or petechiae. GENITOURINARY: Denies any burning micturition, frequency, or urgency. MUSCULOSKELETAL/RHEUMATOLOGICAL: Denies any joint pain, swelling, or any muscle pain. ENDOCRINE: Denies any polyuria or polydipsia. The rest of the 14-point review of systems is negative. PHYSICAL EXAMINATION: GENERAL: The patient is alert and oriented x3, not in any acute distress. Well developed, well nourished. HEENT: Pupils are round and equally reacting to light. EOMI. No scleral icterus. No conjunctival pallor. Normocephalic, atraumatic. No pharyngeal erythema. No thyromegaly. CARDIOVASCULAR: S1 and S2 present. No murmurs, rubs, or gallops. PULMONARY: Chest is clear to auscultation, no wheezing or crackles. ABDOMEN: Soft, epigastric tenderness, nondistended, normoactive bowel sounds. No palpable organomegaly. MUSCULOSKELETAL: No joint swelling or deformity. EXTREMITIES: No cyanosis, clubbing, or pedal edema. NEUROLOGICAL: Gross neurological examination did not reveal any focal deficits. SKIN: No rashes. Assessment and Plan Assessment Abdominal pain and tenderness Mild acute pancreatitis vs acute gastritis Leukocytosis Hyponatremia Acute kidney injury prerenal azotemia secondary to poor oral intake Abnormal urine History hypertension currently normotensive History COPD not in acute exacerbation Myocardial infarction Hyperlipidemia History of TIA in 2013 Current daily smoker 1 pack per day Former ETOH use Chronic dysphagia with history of EGD dilation in the past Chronic gait dysfunction uses walker GI prophylaxis DVT prophylaxis Full Code Plan Continue IV fluids Continue empiric antibiotics, urine culture pending Repeat lipase Pain management Patient will be started on IV pepcid Q12 NPO diet Repeat BMP in AM The impression and plan of care has been dictated by Merari Galvez, Nurse Practitioner as directed. Dr. Lazara MD I have performed a history and physical examination and medical decision making of this patient, discussed the same with the dictator, and agree with the dictators assessment and plan as written, documented as a scribe. Based on total visit time, I have performed more than 50% of this visit. Past Medical History Past Medical History: COPD, CVA/TIA, Hyperlipidemia, Hypertension, Myocardial Infarction ([place]), Osteoarthritis (OA) Additional Past Medical History / Comment(s): TIA - September 2013, past history of abcess/cellulitis left cheek. Patient is poor historian of her [facility]. 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 Past Anesthesia/Blood Transfusion Reactions: No Reported Reaction Past Psychological History: No Psychological Hx Reported Smoking Status: Current every day smoker Past Alcohol Use History: None Reported Additional Past Alcohol Use History / Comment(s): 3-4 beers/week. quit november 2017 Past Drug Use History: None Reported - Past Family History Son(s) Family Medical History: No Reported History Additional Family Medical History / Comment(s): 4 sons all reported healthy per patient Mother Family Medical History: CVA/TIA Additional Family Medical History / Comment(s): Medications and Allergies Home Medications Medication Instructions Recorded Confirmed Type Ergocalciferol (Vitamin D2) 50,000 unit PO FR 10/16/18 04/05/22 History [Vitamin D2] HYDROcodone/APAP 7.5-325MG [[place] 1 tab PO QID PRN 10/16/18 04/05/22 History 7.5-325] Denosumab [Prolia] 60 mg SQ Q180D 04/12/21 04/05/22 History Aspirin EC [Ecotrin Low Dose] 81 mg PO PC-LUNCH 04/05/22 04/05/22 History Docusate [Colace] 100 mg PO TH 04/05/22 04/05/22 History atenoloL [Tenormin] 25 mg PO PC-LUNCH 04/05/22 04/05/22 History lisinopriL [Zestril] 20 mg PO PC-LUNCH 04/05/22 04/05/22 History Allergies Allergy/AdvReac Type Severity Reaction Status Date / Time iodine Allergy Itching Verified 04/05/22 22:38 Physical Exam Vitals: Vital Signs Temp Pulse Pulse Resp BP BP Pulse Ox 04/06/22 07:00 98.1 F 66 17 107/62 98 04/06/22 03:00 98.0 F 70 18 155/82 97 04/06/22 00:00 98.4 F 75 17 168/84 99 04/05/22 23:08 81 15 169/89 97 04/05/22 17:54 96.6 F L 88 16 197/97 99 Intake and Output 04/05/22 04/06/22 04/06/22 22:59 06:59 14:59 Intake Total 500 Balance 500 Intake: Oral 500 Other: Voiding Method Toilet Diaper Weight 50.802 kg 50.802 kg Results CBC & Chem 7: 04/05/22 20:54 04/05/22 20:54 Labs: Abnormal Lab Results - Last 24 Hours (Table) 04/05/22 04/05/22 04/05/22 Range/Units 20:42 20:54 20:54 WBC 17.4 H (3.8-10.6) k/uL Neutrophils # 14.5 H (1.3-7.7) k/uL Sodium 135 L (137-145) mmol/L BUN 21 H (7-17) mg/dL Creatinine 1.47 H (0.52-1.04) mg/dL Glucose 113 H (74-99) mg/dL Albumin 5.1 H (3.5-5.0) g/dL Lipase 1101 H (23-300) U/L Urine Appearance Turbid H (Clear) Urine Protein 3+ H (Negative) Urine Blood Large H (Negative) Ur Leukocyte Esterase Large H (Negative) Urine RBC >182 H (0-5) /hpf Urine WBC >182 H (0-5) /hpf Urine WBC Clumps Many H (None) /hpf Urine Bacteria Occasional H (None) /hpf Hyaline Casts 12 H (0-2) /lpf Microbiology - Last 24 Hours (Table) 04/05/22 20:42 Urine Culture - Preliminary Urine,Voided Assessment and Plan Time with Patient: Less than 30
[2022-04-06] MEDS: PANTOPRAZOLE 40 MG/10 ML VIAL IVP SCH (21:04)
[2022-04-07] MEDS: SODIUM CHLORIDE 0.9% 1,000 ML IV SCH ×2 (03:28→09:26)
[2022-04-07 08:49] VITALS: RESP 18
[2022-04-07] MEDS ORDERED: ERGOCALCIFEROL 1,250 MCG (50,000 IU) CAPSULE PO SCH (09:00)
[2022-04-07] MEDS ORDERED: atenoloL 25 MG TAB PO SCH ×2 (09:14→09:15)
[2022-04-07] MEDS: HYDROcodone/APAP 7.5-325MG 1 EACH TAB PO PRN (09:26)
[2022-04-07] MEDS: HEPARIN SODIUM,PORCINE/PF 5,000 UNIT/0.5 ML SYRINGE SQ SCH (09:27)
[2022-04-07] MEDS: PANTOPRAZOLE 40 MG/10 ML VIAL IVP SCH (09:27)
[2022-04-07 10:35] LABS: Basophils # (A) 0.06 X 10*3/uL (0.00-0.10); Basophils % (A) 0.7 %; Eosinophils # (A) 0.26 X 10*3/uL (0.04-0.35); Eosinophils % (A) 3.1 %; HCT 34.1 % (37.2-46.3); HGB 10.8 g/dL (12.0-15.0); Immature Grans, Automated 0.2 %; Lymphocytes # (A) 1.66 X 10*3/uL (0.90-5.00); Lymphocytes % (A) 19.6 %; MCH 30.1 pg (27.0-32.0); MCHC 31.7 g/dL (32.0-37.0); Mean Platelet Volume 12.8 fL (9.5-12.2); Monocytes # (A) 0.55 X 10*3/uL (0.20-1.00); Monocytes % (A) 6.5 %; NRBC Per 100 WBC 0 /100 WBCS (0.0-0.0); Neutrophils # (A) 5.92 X 10*3/uL (1.80-7.70); Neutrophils % (A) 69.9 %; Platelet Count 207 X 10*3/uL (140-440); RBC 3.59 X 10*6/uL (4.10-5.20); RDW 12.8 % (11.5-14.5); WBC 8.47 X 10*3/uL (4.50-10.00)
[2022-04-07] MEDS ORDERED: amLODIPine 10 MG TAB PO SCH (10:45)
[2022-04-07 10:49] LABS: African American GFR (CKD) 45.8 (60.0-200.0); Anion Gap 8.9 mmol/L (10.00-18.00); Blood Urea Nitrogen 15.6 mg/dL (9.0-27.0); Calcium 9.3 mg/dL (8.7-10.3); Carbon Dioxide 25.1 mmol/L (20.0-27.5); Non-African American GFR(CKD) 39.5 (60.0-200.0); Potassium 4.2 mmol/L (3.5-5.5)
[2022-04-07] MEDS: ASPIRIN 81 MG PO SCH (13:17)
[2022-04-07 13:43] VITALS: BP 156/79; PULSE 72; TEMP 97.5
--- NOTE | 2022-04-08 16:18 | P.DS ---
Providers Date of admission: 04/07/22 10:32 Attending physician: Enma Haile Primary care physician: Alton Valencia [facility] Course: Final Diagnosis Abdominal pain and tenderness Mild acute pancreatitis vs acute gastritis Leukocytosis, improved Hyponatremia, improved Acute kidney injury prerenal azotemia secondary to poor oral intake Acute UTI without sepsis, present on admission Hypertension with urgency, improved History COPD not in acute exacerbation Myocardial infarction Hyperlipidemia History of TIA in 2013 Current daily smoker 1 pack per day Former ETOH use Chronic dysphagia with history of EGD dilation in the past Chronic gait dysfunction uses walker Full Code Discharge Disposition Patient is stable for discharge. Diet has been advanced to regular and patient is tolerating well. Abdominal pain improved. Patient recommended to follow up with Dr. Sean Rodarte on discharge. Recommended to follow up with primary care provider as well. Patient was discharged on 5 days of oral Ceftin 500 mg twice a day. Recommend to hold lisinopril. Patient will continue on atenolol, patient's and started on amlodipine. Patient is recommended to follow up with her primary care Dr. Lisa Valencia in 1-2 days and also repeat a metabolic panel 3 days. Total time taken in discharge planning greater than 35 minutes. Hospital course This is a pleasant 76 of chemotherapy with history of COPD, hypertension, hyperlipidemia, TIA 2013, daily smoker, history of pancreatitis per patient. 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 Patient is a pack per day smoker. She is counseled extensively on smoking cessation. Patient also has a history of dysphagia requiring EGD with dilation the past. Patient presents with abdominal crampy pain epigastric and radiates a like a bandlike pattern rating it 8 out of 10, lipase is found to be 1100. She denies nausea vomiting, she is increased bowel movements. Patient had x-ray done on admission showing no acute abdominal process as well as no active cardiopulmonary disease. There are COPD changes. Patient presents with leukocytosis of 17.4 she appears clinically dehydrated with a sodium of 135 and creatinine of 1.47. She is admitted for possible acute pancreatitis and started on IV fluids. Also urinalysis completed showing large but lethargic with Estrace greater than 182 RBC, WBC and hyaline casts. Urine culture was ordered and patient was started on empiric antibiotic order with IV ceftriaxone. Patient clinically improved with IV fluids. She was started on diet which she tolerated well there's been no nausea vomiting or diarrhea. Her lipase had improved down to 300. Patient also clinically improved on ceftriaxone, her white count has normalized. She denies any dysuria, urgency, burning or frequency. She was discharged on 5 days of oral Ceftin. Her urine culture has came back positive for Morganella Morganii there is drug resistance however on microsensitivities there is susceptibility to 2nd generation cephalosporins and as she clinically improved on ceftriaxone will continue with oral ceftin on discharge. She did experience hypertensive urgency this admission with a systolic blood pressure up to 200s. Lisinopril was held secondary to acute kidney injury for this reason she was started on amlodipine 10 mg by mouth daily. Blood pressure has improved down to 150s over 70s. Recommend to continue amlodipine and atenolol and follow-up with primary care on discharge. Creatinine has improved to 1.3, sodium is improved to 142. Patient is recommended to repeat a basic metabolic panel 3 days. Recommend also repeat urinalysis outpatient. 04/07/2022 This is a pleasant 76-year-old female she is evaluated today resting in bed. She denies any nausea vomiting or diarrhea. Her abdomen is nontender on exam she has normoactive bowel sounds. She is tolerating diet. She reports no shortness of breath, reports no chest pain. She denies any dysuria, there is no urinary urgency or burning. Her blood pressures improved 150s over 70s. She is counseled extensively on smoking cessation. Her lungs are clear, S1-S2 is auscultated, focal neurological exam is negative. She is alert 3. Patient will be discharged home on oral antibiotics, recommend Pepcid for GI prophylaxis. Please see medication reconciliation for a list of current medication. Thank you for allowing us to participate in the care of this patient. The impression and plan of care has been dictated by Merari Galvez Nurse Practitioner as directed. Dr. Lazara MD I have performed a history and physical examination and medical decision making of this patient, discussed the same with the dictator, and agree with the dictators assessment and plan as written, documented as a scribe. Based on total visit time, I have performed more than 50% of this visit. Patient Condition at Discharge: Stable Plan - Discharge Summary New Discharge Prescriptions: New cefUROXime axetiL [Ceftin] 500 mg PO BID 5 Days #10 tab Continue HYDROcodone/APAP 7.5-325MG [[place] 7.5-325] 1 tab PO QID PRN PRN Reason: Pain Ergocalciferol (Vitamin D2) [Vitamin D2] 50,000 unit PO FR Aspirin EC [Ecotrin Low Dose] 81 mg PO PC-LUNCH Denosumab [Prolia] 60 mg SQ Q180D Docusate [Colace] 100 mg PO TH atenoloL [Tenormin] 25 mg PO PC-LUNCH Discontinued lisinopriL [Zestril] 20 mg PO PC-LUNCH Discharge Medication List Ergocalciferol (Vitamin D2) [Vitamin D2] 50,000 unit PO FR 10/16/18 [History] HYDROcodone/APAP 7.5-325MG [[place] 7.5-325] 1 tab PO QID PRN 10/16/18 [History] Denosumab [Prolia] 60 mg SQ Q180D 04/12/21 [History] Aspirin EC [Ecotrin Low Dose] 81 mg PO PC-LUNCH 04/05/22 [History] Docusate [Colace] 100 mg PO TH 04/05/22 [History] atenoloL [Tenormin] 25 mg PO PC-LUNCH 04/05/22 [History] cefUROXime axetiL [Ceftin] 500 mg PO BID 5 Days #10 tab 04/06/22 [Rx] Follow up Appointment(s)/Referral(s): Bonnie Rodarte MD [STAFF PHYSICIAN] - 1 Week (call office on sunday to set up appointment ) Alton Valencia DO [Primary Care Provider] - 1-2 days Ambulatory/Diagnostic Orders: Basic Metabolic Panel [LAB.AMB] Time Frame: 3 Days, Location: None Selected Patient Instructions/Handouts: Pancreatitis (DC), Urinary Tract Infection in Women (DC) Activity/Diet/Wound Care/Special Instructions: Repeat BMP in 2 to 3 days Advance diet as tolerated Follow up with primary care in 1 to 2 days Follow up with GI services Discharge Disposition: HOME SELF-CARE
== END 2022-04-07 15:45 | disposition home or self-care (01) | DRG 689 ==
LOC: EC 17:53 → 6NMEDSUR 22:06 → OBSVTOIN 04-07 10:32
PROVIDERS: ADMIT Internal Medicine; ATTEND Internal Medicine
DX: N39.0 Urinary tract infection, site not specified (principal); K85.90 Acute pancreatitis without necrosis or infection, unspecified; E87.1 Hypo-osmolality and hyponatremia; N17.9 Acute kidney failure, unspecified; Z16.30 Resistance to unspecified antimicrobial drugs; J44.9 Chronic obstructive pulmonary disease, unspecified; E78.5 Hyperlipidemia, unspecified; K29.00 Acute gastritis without bleeding; B96.89 Other specified bacterial agents as the cause of diseases classified elsewhere; E86.0 Dehydration; I16.0 Hypertensive urgency; R13.10 Dysphagia, unspecified; R26.89 Other abnormalities of gait and mobility; I10 Essential (primary) hypertension; M19.90 Unspecified osteoarthritis, unspecified site; F17.210 Nicotine dependence, cigarettes, uncomplicated; R32 Unspecified urinary incontinence; Z71.6 Tobacco abuse counseling; Z79.899 Other long term (current) drug therapy; Z91.041 Radiographic dye allergy status; Z86.73 Personal history of transient ischemic attack (TIA), and cerebral infarction without residual deficits; I25.2 Old myocardial infarction; Z86.018 Personal history of other benign neoplasm
CPT/HCPCS: 36415; 74022; 80048; 80053; 81001; 83690; 85025; 87077; 87086; 87186; 96374; 99285

== ENCOUNTER → 2022-04-12 | Outpatient (CLI) | payer MEDICARE, OTHER ==
[2022-04-12 18:23] LABS: African American GFR (CKD) 45.8 (60.0-200.0); Anion Gap 11.3 mmol/L (10.00-18.00); BUN/Creat Ratio 18.69 Ratio (12.00-20.00); Blood Urea Nitrogen 24.3 mg/dL (9.0-27.0); Calcium 10.3 mg/dL (8.7-10.3); Carbon Dioxide 26.7 mmol/L (20.0-27.5); Non-African American GFR(CKD) 39.5 (60.0-200.0); Potassium 4.9 mmol/L (3.5-5.5)
== END | disposition home or self-care (01) ==
LOC: LABWHC1 12:49
PROVIDERS: ATTEND Nurse Practitioner Family
DX: N17.9 Acute kidney failure, unspecified (principal)
CPT/HCPCS: 36415; 80048

== ENCOUNTER 2022-04-15 19:23 | Emergency (ER) | payer MEDICARE, OTHER ==
[2022-04-15 19:55] VITALS: TEMP 98.9
[2022-04-15] MEDS ORDERED: GLUCAGON 1 MG/ML VIAL IVP STA (20:23)
[2022-04-15] MEDS ORDERED: ONDANSETRON 4 MG/2 ML VIAL IVP STA (20:26)
[2022-04-15 20:54] LABS: Basophils # (A) 0.1 k/uL (0-0.2); Basophils % (A) 1 %; Eosinophils # (A) 0.4 k/uL (0-0.7); Eosinophils % (A) 3 %; HCT 39.2 % (34.0-46.0); HGB 13.1 gm/dL (11.4-16.0); Lymphocytes # (A) 1.6 k/uL (1.0-4.8); Lymphocytes % (A) 14 %; MCH 31.7 pg (25.0-35.0); MCHC 33.5 g/dL (31.0-37.0); MCV 94.5 fL (80.0-100.0); Mean Platelet Volume 10.1; Monocytes # (A) 0.6 k/uL (0-1.0); Monocytes % (A) 5 %; Neutrophils # (A) 8.3 k/uL (1.3-7.7); Neutrophils % (A) 76 %; Platelet Count 244 k/uL (150-450); RBC 4.15 m/uL (3.80-5.40); RDW 12.4 % (11.5-15.5)
--- NOTE | 2022-04-15 21:14 | XR ---
EXAMINATION TYPE: XR chest 2V DATE OF EXAM: 04/15/2022 COMPARISON: 04/05/2022 HISTORY: Possible foreign body TECHNIQUE: 2 view FINDINGS: Heart is normal. Lungs are clear of infiltrate. No heart failure. There are no hilar masses . No evidence of a renal opaque foreign body. IMPRESSION: No active cardiopulmonary disease. No change compared to old exam. Recommend 2 views of the chest after swallowing small amount of contrast material to detect esophagea l obstruction.
[2022-04-15 21:18] LABS: Albumin 4.9 g/dL (3.5-5.0); Calcium 9.5 mg/dL (8.4-10.2); Potassium 4.5 mmol/L (3.5-5.1); Total Bilirubin 0.7 mg/dL (0.2-1.3)
--- NOTE | 2022-04-15 21:29 | ED ---
General Adult HPI - General Chief complaint: Skin/Abscess/Foreign Body Stated complaint: foreign object stuck in throat Time Seen by Provider: 04/15/22 19:57 Source: patient Mode of arrival: ambulatory Limitations: no limitations - History of Present Illness Initial comments: This is a 76-year-old female who presents emergency department for food stuck in her throat. The patient stated this happened at dinner approximate one-hour prior to arrival at which time she could not tolerate her secretions. The patient stated that she was eating roast beef when she swallowed it too quickly and caused her to choke. The patient's son was present at the bedside and did state that this is occurred previously at that time did need to be scoped and removed. The patient was evaluated at the bedside and was unable to tolerate her secretions however denied any pain but did state that there was a sensation of fullness in the upper part of her chest. The patient to neck appointment any acute pain was not any acute distress. - Related Data Home Medications Medication Instructions Recorded Confirmed Ergocalciferol (Vitamin D2) 50,000 unit PO FR 10/16/18 04/05/22 [Vitamin D2] HYDROcodone/APAP 7.5-325MG [[place] 1 tab PO QID PRN 10/16/18 04/05/22 7.5-325] Denosumab [Prolia] 60 mg SQ Q180D 04/12/21 04/05/22 Aspirin EC [Ecotrin Low Dose] 81 mg PO PC-LUNCH 04/05/22 04/05/22 Docusate [Colace] 100 mg PO TH 04/05/22 04/05/22 atenoloL [Tenormin] 25 mg PO PC-LUNCH 04/05/22 04/05/22 Previous Rx's Medication Instructions Recorded cefUROXime axetiL [Ceftin] 500 mg PO BID 5 Days #10 tab 04/06/22 Famotidine [Pepcid] 20 mg PO DAILY #15 tablet 04/08/22 amLODIPine [Norvasc] 10 mg PO DAILY #30 tablet 04/08/22 Allergies Allergy/AdvReac Type Severity Reaction Status Date / Time iodine Allergy Itching Verified 04/15/22 19:30 Review of Systems ROS Statement: Those systems with pertinent positive or pertinent negative responses have been documented in the HPI. ROS Other: All systems not noted in ROS Statement are negative. Past Medical History Past Medical History: COPD, CVA/TIA, Hyperlipidemia, Hypertension, Myocardial I nfarction (AL), Osteoarthritis (OA) Additional Past Medical History / Comment(s): TIA - September 2013, past history of abcess/cellulitis left cheek. Patient is poor historian of her [facility]. 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 Past Anesthesia/Blood Transfusion Reactions: No Reported Reaction Past Psychological History: No Psychological Hx Reported Smoking Status: Current every day smoker Past Alcohol Use History: None Reported Past Drug Use History: None Reported - Past Family History Son(s) Family Medical History: No Reported History Additional Family Medical History / Comment(s): 4 sons all reported healthy per patient Mother Family Medical History: CVA/TIA Additional Family Medical History / Comment(s): General Exam Limitations: no limitations General appearance: alert, in no apparent distress, other (Unable to tolerate secretions) Head exam: Present: atraumatic, normocephalic Eye exam: Present: normal appearance, PERRL Pupils: Present: normal accommodation ENT exam: Present: normal exam, normal oropharynx, mucous membranes moist Neck exam: Present: normal inspection, full ROM Respiratory exam: Present: normal lung sounds bilaterally Cardiovascular Exam: Present: regular rate, normal rhythm, normal heart sounds GI/Abdominal exam: Present: soft, normal bowel sounds Extremities exam: Present: normal inspection, full ROM Back exam: Present: normal inspection, full ROM Neurological exam: Present: alert, oriented X3, CN II-XII intact Psychiatric exam: Present: normal affect, normal mood Skin exam: Present: warm, dry Course Vital Signs 04/15/22 04/15/22 19:30 19:49 Temperature 97.7 F 98.9 F Pulse Rate 91 87 Respiratory 16 16 Rate Blood Pressure 209/106 O2 Sat by Pulse 94 L 94 L Oximetry Medical Decision Making - Medical Decision Making The patient was seen and evaluated emergency department. Physical exam, the patient was resting in bed without any acute distress. Vital signs admission were stable and within normal limits. The patient was able to tolerate secretions on my evaluation however was not in any acute distress. A chest x- ray was obtained but did not show any signs of foreign body. The patient did have an impacted food bolus and multiple times were made to clear this was including glucagon as well as demonstration of soda with carbonation. The patient was unable to tolerate these attempts and continued to have the inability to tolerate her secretions. Due to this consistent problem, the patient will require evaluation by gastroenterology for EGD. However at this time, there is no yesterday neurology available at this hospital for evaluations of the patient will require transfer. The patient was accepted for transfer at [facility] by Dr. Peterson for emergency to emergency department transfer. The patient is excepted at 2125. The patient's family was told of these updates and the plan and they were agreeable to this. The patient was transferred in stable condition. - Lab Data Result diagrams: 04/15/22 20:42 04/15/22 20:42 Lab Results 04/15/22 04/15/22 Range/Units 20:42 20:42 WBC 11.0 H (3.8-10.6) k/uL RBC 4.15 (3.80-5.40) m/uL Hgb 13.1 (11.4-16.0) gm/dL Hct 39.2 (34.0-46.0) % MCV 94.5 (80.0-100.0) fL MCH 31.7 (25.0-35.0) pg MCHC 33.5 (31.0-37.0) g/dL RDW 12.4 (11.5-15.5) % Plt Count 244 (150-450) k/uL MPV 10.1 Neutrophils % 76 % Lymphocytes % 14 % Monocytes % 5 % Eosinophils % 3 % Basophils % 1 % Neutrophils # 8.3 H (1.3-7.7) k/uL Lymphocytes # 1.6 (1.0-4.8) k/uL Monocytes # 0.6 (0-1.0) k/uL Eosinophils # 0.4 (0-0.7) k/uL Basophils # 0.1 (0-0.2) k/uL Sodium 140 (137-145) mmol/L Potassium 4.5 (3.5-5.1) mmol/L Chloride 102 (98-107) mmol/L Carbon Dioxide 30 (22-30) mmol/L Anion Gap 8 mmol/L BUN 27 H (7-17) mg/dL Creatinine 1.33 H (0.52-1.04) mg/dL Est GFR (CKD-EPI)AfAm 44 (>60 ml/min/1.73 sqM) Est GFR (CKD-EPI)NonAf 39 (>60 ml/min/1.73 sqM) Glucose 124 H (74-99) mg/dL Calcium 9.5 (8.4-10.2) mg/dL Total Bilirubin 0.7 (0.2-1.3) mg/dL AST 70 H (14-36) U/L ALT 73 H (4-34) U/L Alkaline Phosphatase 85 (38-126) U/L Total Protein 8.0 (6.3-8.2) g/dL Albumin 4.9 (3.5-5.0) g/dL Disposition Clinical Impression: Food bolus obstruction of intestine Disposition: OTHER INSTITUTION NOT DEFINED Condition: Stable Is patient prescribed a controlled substance at d/c from ED?: No Referrals: Alton Valencia DO [Primary Care Provider] - 1-2 days Time of Disposition: 21:25 - Out of Hospital Transfer - Req. Specs Out of Hospital Transfer - Requested Specifics: Other Emergency Center ([facility] ED)
[2022-04-15] MEDS ORDERED: LABETALOL 5 MG/ML VIAL MDV IVP STA (23:39)
[2022-04-16] MEDS ORDERED: hydrALAZINE HCL 20 MG/ML 1 ML VIAL IVP STA (00:50)
[2022-04-16] MEDS ORDERED: IPRATROPIUM-ALBUTEROL 3 ML NEB INHALATION STA (00:50)
[2022-04-16] MEDS ORDERED: cloNIDine 0.2 MG/24HR PATCH TRANSDERM SCH (01:00)
[2022-04-16 02:20] VITALS: BP 123/99; PULSE 118; RESP 24
[2022-04-16] MEDS ORDERED: LABETALOL 5 MG/ML VIAL MDV IVP STA (02:56)
== END 2022-04-16 03:04 | disposition other institution (70) ==
LOC: EC 19:23
DX: T18.128A Food in esophagus causing other injury, initial encounter (principal); F17.200 Nicotine dependence, unspecified, uncomplicated; J44.9 Chronic obstructive pulmonary disease, unspecified; E78.5 Hyperlipidemia, unspecified; I10 Essential (primary) hypertension; I25.2 Old myocardial infarction; M19.90 Unspecified osteoarthritis, unspecified site; Z91.041 Radiographic dye allergy status; Z79.899 Other long term (current) drug therapy; Z79.51 Long term (current) use of inhaled steroids; X58.XXXA Exposure to other specified factors, initial encounter; Y92.89 Other specified places as the place of occurrence of the external cause
CPT/HCPCS: 36415; 94640; 80053; 85025; 71046; 99285; 96374; 96375 ×2; 96376; J0360; J1610; J2405

== ENCOUNTER → 2022-06-09 | Outpatient (CLI) | payer MEDICARE, OTHER ==
[~2022-06-09] MED LIST changes: +DENOSUMAB 60 MG/ML 1 ML SYRINGE SQ ONE; +DENOSUMAB 60 MG/ML SQ ONE
[2022-06-09 11:56] VITALS: BP 151/80; PULSE 61; RESP 16; TEMP 98.5
== END ==
LOC: PROCWHC3 11:21
PROVIDERS: ATTEND Family Medicine
DX: M81.0 Age-related osteoporosis without current pathological fracture (principal); F17.200 Nicotine dependence, unspecified, uncomplicated; Z88.8 Allergy status to other drugs, medicaments and biological substances
CPT/HCPCS: 96372

== ENCOUNTER 2022-09-23 16:28 | Inpatient (IN) | payer MEDICARE, OTHER ==
[2022-09-23] MEDS ORDERED: IPRATROPIUM-ALBUTEROL 3 ML NEB INHALATION STA ×2 (16:31→17:50)
[2022-09-23] MEDS ORDERED: MAGNESIUM SULFATE-D5W PMX 1 GM in DEXTROSE/WATER 1 100ML.BAG IVPB STA (16:31)
[2022-09-23] MEDS ORDERED: SODIUM CHLORIDE 0.9% 500 ML 500 ML IV STA (16:31)
[2022-09-23] MEDS ORDERED: AZITHROMYCIN 500 MG in SODIUM CHLORIDE 0.9% 250 ML IVPB STA (16:31)
[2022-09-23] MEDS ORDERED: methylPREDNISolone SOD SUCCI 125 MG/2 ML VIAL IV STA (16:31)
--- NOTE | 2022-09-23 16:40 | ED ---
General Adult HPI - General Stated complaint: BABAK Time Seen by Provider: 09/23/22 16:30 Source: patient, EMS, RN notes reviewed, old records reviewed - History of Present Illness Initial comments: Patient is a 76-year-old female with past medical history remarkable for COPD, hypertension, chronic tobacco abuse, hyperlipidemia, who presents emergency Department with 2-3 days worsening shortness of breath. States that he got very bad yesterday. Has had a productive cough of green-yellow sputum as well as rhinorrhea. Denies fevers. Denies any sick contacts. Endorses exertional shortness of breath. Denies any chest pain, abdominal pain, nausea, vomiting, diarrhea. No other acute complaints at this time. States she is not on inhalers at home. Presents for further evaluation at this time. - Related Data Home Medications Medication Instructions Recorded Confirmed HYDROcodone/APAP 7.5-325MG [[place] 1 tab PO QID PRN 10/16/18 09/23/22 7.5-325] Denosumab [Prolia] 60 mg SQ Q180D 04/12/21 09/23/22 Aspirin EC [Ecotrin Low Dose] 81 mg PO PC-LUNCH 04/05/22 09/23/22 Docusate [Colace] 100 mg PO TH 04/05/22 09/23/22 atenoloL [Tenormin] 25 mg PO PC-LUNCH 04/05/22 09/23/22 Ergocalciferol [Vitamin D2 (1250 1,250 mcg PO FR 09/23/22 09/23/22 Mcg = 98589 Iu)] lisinopriL [Zestril] 20 mg PO PC-LUNCH 09/23/22 09/23/22 Previous Rx's Medication Instructions Recorded Famotidine [Pepcid] 20 mg PO DAILY #15 tablet 04/08/22 Allergies Allergy/AdvReac Type Severity Reaction Status Date / Time iodine Allergy Itching Verified 09/23/22 17:55 Review of Systems ROS Statement: Those systems with pertinent positive or pertinent negative responses have been documented in the HPI. Review of Systems: CONST: Denies fever EYES: Denies blurry vision ENT: Endorses nasal congestion C/V: Denies Chest pain RESP: Endorses Shortness of breath GI: Denies abdominal pain : Denies dysuria SKIN: Denies rash. MSK: Denies joint pain. NEURO: Denies headache ROS Other: All systems not noted in ROS Statement are negative. Past Medical History Past Medical History: COPD, CVA/TIA, Hyperlipidemia, Hypertension, Myocardial Infarction ([place]), Osteoarthritis (OA) Additional Past Medical History / Comment(s): TIA - September 2013, past history of abcess/cellulitis left cheek. Patient is poor historian of her PMH. 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 Past Anesthesia/Blood Transfusion Reactions: No Reported Reaction Smoking Status: Current every day smoker - Past Family History Son(s) Family Medical History: No Reported History Additional Family Medical History / Comment(s): 4 sons all reported healthy per patient Mother Family Medical History: CVA/TIA Additional Family Medical History / Comment(s): General Exam - General Exam Comments Initial Comments: General: Appears in no acute distress. HEAD: Normal with no signs of head trauma. EYES: PERRLA, EOMI, conjunctiva normal, no discharge. ENT: Hearing grossly intact, normal oropharynx. RESPIRATORY: Bilateral end expiratory wheezes, rhonchi. No increased work of breathing. Mild hypoxia on room air to 92%. C/V: Regular rate and rhythm. S1 and S2 auscultated, no edema, peripheral pulses 2+ and intact throughout ABD: Abd is soft, nontender, nondistended EXT: Normal range of motion, no obvious deformity SKIN: No rashes or lesions observed on exposed skin. NEURO: Alert and oriented 4. Course Vital Signs 09/23/22 09/23/22 09/23/22 16:34 16:41 16:54 Temperature 98.0 F Pulse Rate 91 89 87 Respiratory 20 Rate Blood Pressure 163/98 O2 Sat by Pulse 91 L Oximetry Fraction of Inspired Oxygen (FIO2) 09/23/22 09/23/22 09/23/22 17:26 17:55 18:01 Temperature Pulse Rate 83 110 H Respiratory 18 28 H Rate Blood Pressure 194/94 O2 Sat by Pulse 97 89 L Oximetry Fraction of 40 Inspired Oxygen (FIO2) 05/06/23 05/06/23 05/06/23 18:09 18:29 18:33 Temperature Pulse Rate 125 H 121 H 120 H Respiratory 26 H 24 Rate Blood Pressure 174/135 122/81 O2 Sat by Pulse 99 97 Oximetry Fraction of Inspired Oxygen (FIO2) 09/23/22 09/23/22 09/23/22 18:46 18:47 18:50 Temperature Pulse Rate 106 H Respiratory 18 Rate Blood Pressure 228/112 O2 Sat by Pulse 97 Oximetry Fraction of 100 100 Inspired Oxygen (FIO2) 09/23/22 09/23/22 09/23/22 19:20 19:25 19:35 Temperature Pulse Rate 107 H 106 H 103 H Respiratory 18 18 18 Rate Blood Pressure 203/119 193/106 189/105 O2 Sat by Pulse 100 99 Oximetry Fraction of Inspired Oxygen (FIO2) 09/23/22 09/23/22 09/23/22 19:40 19:45 19:50 Temperature Pulse Rate 102 H 101 H 98 Respiratory 18 18 18 Rate Blood Pressure 183/116 169/102 186/111 O2 Sat by Pulse Oximetry Fraction of Inspired Oxygen (FIO2) 09/23/22 09/23/22 09/23/22 19:55 20:00 20:05 Temperature Pulse Rate 100 98 96 Respiratory 18 18 18 Rate Blood Pressure 194/120 217/122 158/99 O2 Sat by Pulse Oximetry Fraction of Inspired Oxygen (FIO2) 09/23/22 09/23/22 09/23/22 20:10 20:40 20:45 Temperature Pulse Rate 95 96 Respiratory 18 19 Rate Blood Pressure 142/94 219/113 219/134 O2 Sat by Pulse 100 100 Oximetry Fraction of Inspired Oxygen (FIO2) 09/23/22 09/23/22 09/23/22 20:50 21:00 21:05 Temperature Pulse Rate 94 98 98 Respiratory 18 18 18 Rate Blood Pressure 208/127 218/119 195/119 O2 Sat by Pulse 100 100 100 Oximetry Fraction of Inspired Oxygen (FIO2) 09/23/22 09/23/22 09/23/22 21:10 21:15 21:20 Temperature Pulse Rate 98 98 99 Respiratory 18 18 18 Rate Blood Pressure 195/117 189/111 189/118 O2 Sat by Pulse 100 100 100 Oximetry Fraction of 40 Inspired Oxygen (FIO2) 09/23/22 09/23/22 09/23/22 21:25 21:30 21:35 Temperature Pulse Rate 103 H 104 H 102 H Respiratory 18 18 18 Rate Blood Pressure 177/112 182/107 180/111 O2 Sat by Pulse 96 94 L 93 L Oximetry Fraction of Inspired Oxygen (FIO2) 09/23/22 09/23/22 09/23/22 21:40 21:45 21:50 Temperature Pulse Rate 101 H 101 H 100 Respiratory 18 18 18 Rate Blood Pressure 170/105 169/98 150/101 O2 Sat by Pulse 93 L 93 L 93 L Oximetry Fraction of Inspired Oxygen (FIO2) 09/23/22 09/23/22 09/23/22 21:55 22:00 22:05 Temperature Pulse Rate 99 94 91 Respiratory 18 18 18 Rate Blood Pressure 157/93 141/98 133/89 O2 Sat by Pulse 94 L 94 L 95 Oximetry Fraction of Inspired Oxygen (FIO2) 09/23/22 09/23/22 09/23/22 22:10 22:15 22:20 Temperature Pulse Rate 86 82 80 Respiratory 18 18 18 Rate Blood Pressure 134/86 117/87 106/72 O2 Sat by Pulse 94 L 95 95 Oximetry Fraction of Inspired Oxygen (FIO2) 09/23/22 09/23/22 09/23/22 22:25 22:30 22:35 Temperature Pulse Rate 78 78 79 Respiratory 18 18 18 Rate Blood Pressure 118/71 113/77 128/82 O2 Sat by Pulse 96 97 96 Oximetry Fraction of Inspired Oxygen (FIO2) 09/23/22 09/23/22 09/23/22 22:40 22:45 22:50 Temperature Pulse Rate 78 78 77 Respiratory 20 34 H 22 Rate Blood Pressure 128/94 149/100 133/79 O2 Sat by Pulse 97 97 96 Oximetry Fraction of Inspired Oxygen (FIO2) Procedures - Intubation Sedative: Etomidate Mg Given: 20 Paralytic: Rocuronium Mg Given: 60 Laryngoscope: other (glidescope) Size: 4 ET Tube Size: 7.5 Tube Secured Depth (cm): 24 Tube Secured Location: lips Tube Placement Confirmation: visualized tube passing through cords, equal breath sounds bilaterally, confirmation by capnometry Patient Tolerated Procedure: well Intubation Complications: none Medical Decision Making - Medical Decision Making Was pt. sent in by a medical professional or institution (, PA, [employer], urgent care, hospital, or alf...) When possible be specific @ -No Did you speak to anyone other than the patient for history (EMS, parent, family, police, friend...)? What history was obtained from this source @ -No Did you review nursing and triage notes (agree or disagree)? Why? @ -I reviewed and agree with nursing and triage notes Were old charts reviewed (outside hosp., previous admission, EMS record, old EKG, old radiological studies, urgent care reports/EKG's, alf records)? Report findings @ -Old EKG/chart reviewed from September 2018. Differential Diagnosis (chest pain, altered mental status, abdominal pain women, abdominal pain men, vaginal bleeding, weakness, fever, dyspnea, syncope, headache, dizziness, GI bleed, back pain, seizure, CVA, palpatations, mental health, musculoskeletal)? @ -Differential Dyspnea: Coronary syndrome, arrhythmia, tamponade, asthma, COPD, pulmonary embolism, pneumonia, pneumothorax, pulmonary effusion, anaphylaxis, diabetic ketoacidosis, flailed chest, pulmonary contusion, diaphragmatic rupture, anemia, neuromuscular, this is not meant to be an all-inclusive list. EKG interpreted by me (3pts min.). @ -As above X-rays interpreted by me (1pt min.). @ -Initial chest x-ray showed no obvious pulmonary vascular congestion or infiltrate. Repeat chest x-rays were all done to confirm ET tube placement which was adequate. CT interpreted by me (1pt min.). @ -CT brain shows no obvious acute intracranial process. CTA of the aorta and the thoracic abdomen pelvis reveals no obvious to a dissection. There is a small short segment of infrarenal aortic dissection in the abdomen. Also a small wedge-shaped region seen by radiology in the left kidney suspicious for infarct with an atrophic right kidney. Patient has a 9 mm lung nodule. There is a nonobstructive renal calculus. Also possible Zenker's diverticulum versus possible fluid in the upper esophagus, suspect residual fluid. U/S interpreted by me (1pt. min.). @ -None done What testing was considered but not performed or refused? (CT, X-rays, U/S, labs)? Why? @ -None What meds were considered but not given or refused? Why? @ -None Did you discuss the management of the patient with other professionals (professionals i.e. , PA, [employer], lab, RT, psych nurse, 7th grade social studies teacher, denture model maker, teacher, risk officer, pillowcase cutter)? Give summary @ -Discussed with Dr. Bryant of ICU who accepted the patient was in agreement with the plan. Spoke with Dr. Chowdhury regarding the type b aortic dissection who was in agreement with plan for medical management. Spoke with the admitting team Argelia of [facility] who accepted the patient. Was smoking cessation discussed for >3mins.? @ -No Was critical care preformed (if so, how long)? @ -Yes, 75 minutes. Were there social determinants of health that impacted care today? How? (Homelessness, low income, unemployed, alcoholism, drug addiction, transportation, low edu. Level, literacy, decrease access to med. care, long term, rehab)? @ -No Was there de-escalation of care discussed even if they declined (Discuss DNR or withdrawal of care, Hospice)? DNR status @ -Confirmed with the patient as well as patient's caregiver Delvis over the phone that the patient is full code and they would like the patient to be intubated if needed. Both were in agreement with this plan. What co-morbidities impacted this encounter? (DM, HTN, Smoking, COPD, CAD, Cancer, CVA, ARF, Chemo, Hep., AIDS, mental health diagnosis, sleep apnea, morbid obesity)? @ -COPD, tobacco abuse Was patient admitted / discharged? Hospital course, mention meds given and route, prescriptions, significant lab abnormalities, going to OR and other pertinent info. @ -Based on the patient's presentation and physical exam, I am concerned for what appears to be pneumonia or upper respiratory infection in addition to COPD exacerbation. Vital signs are within acceptable limits. We will obtain upper respiratory infectious workup, as well as treat her symptomatically for COPD with a DuoNeb, IV steroids, IV magnesium and a small fluid bolus. Chest x-ray will also be obtained. Patient was in agreement this plan. She'll be empirically started on IV Rocephin and azithromycin for pneumonia as well. Patient was in agreement this plan. EKG shows no evidence of acute ischemia. I was alerted by nursing staff the patient became more short of breath. On my evaluation, patient is coughing up phlegm, blood pressure has spiked and is now 200s over 100s. Patient is in respiratory distress. We immediately called respiratory therapy and placed the patient on BiPAP. Bedside ultrasound performed by myself revealed what appears to be mild pulmonary vascular congestion and B lines but repeat 1 view chest x- ray did not reveal any evidence of pulmonary vascular congestion. At this time, patient appears to be tiring out in terms of her breathing. Blood pressure is responding to a nitro drip and nitro boluses but due to increased work of breathing, patient becoming more hypoxic at this time due to decreased effort, the decision was made to intubate the patient for hypoxic respiratory failure. Intubation was completed with etomidate and rocuronium as RSI medications. GlideScope was used. Intubation successful. Respiratory therapist attempted multiple times to obtain an ABG which was unsuccessful. Labs returned at this time and remarkable for an indeterminate troponin of 0.017. BNP is 210. Patient does appear to have a mild CELIA on CK D. Leukocytosis of 12.5. Covid, flu, RSV negative. At this time we will obtain CT imaging of the brain, as well as of the chest and pelvis evaluate the patient's aorta and rule out PE for the cause of patient's current symptoms. Patient was given pretreatment for the CT imaging. While patient was in CT, there was a vent malfunction and it was not pushing air volumes. Patient was easily ballotable. We did order a 1 view portable chest x-ray to evaluate due to positioning which remained in adequate position. That was resected connections were checked and the problem was remedied and fixed. I did update the patient's caregiver who presented at bedside and who is listed as the next of kin at the primary contact, Delvis Rosas. He was in agreement with the overall plan. CT imaging was slightly delayed as a priority 1 trauma presented to the department and CT imaging was helping case was required for this trauma. When imaging was finally completed, CT brain revealed no obvious findings but the CT angiogram findings were concerning for infrarenal aortic dissection, short segment as well as possible atrophic right kidney and possible ischemic portion of the left kidney. Patient was placed on an as small drip. I consulted and spoke with Dr. Chowdhury of vascular surgery who was in agreement with plan to obtain rate control with heart rates goal in the 60s her last as well as blood pressure goal with systolics between 100- 120. We will continue the patient on the nitro drip for blood pressure and esmolol drip for heart rate. She was in agreement with the patient being medically managed for now and was in agreement to keep the patient here for admission to the ICU. I spoke with ICU attending Dr. Bryant who was also in agreement with this plan. We also continue to treat the patient for COPD with 2 nebs and steroids as well as for bronchitis with azithromycin. We'll continue sedation with propofol. Patient continues to have good DP and PT pulses in the feet. I spoke with the admitting team, Argelia of [facility] who accepted the patient. Patient was admitted in serious condition. Undiagnosed new problem with uncertain prognosis? @ -Yes Drug Therapy requiring intensive monitoring for toxicity (Heparin, Nitro, Insulin, Cardizem)? @ -Nitro Were any procedures done? @ -Intubation Diagnosis/symptom? @ -Hypoxic respiratory failure requiring intubation, likely multifactorial including COPD exacerbation/bronchitis, hypertensive emergency Acute, or Chronic, or Acute on Chronic? @ -Acute Uncomplicated (without systemic symptoms) or Complicated (systemic symptoms)? @ -Complicated Side effects of treatment? @ -none Exacerbation, Progression, or Severe Exacerbation] @ -None Poses a threat to life or bodily function? @ -Yes Diagnosis/symptom? @ -COPD, bronchitis Acute, or Chronic, or Acute on Chronic? @ -Acute on chronic Uncomplicated (without systemic symptoms) or Complicated (systemic symptoms)? @ -Complicated Side effects of treatment? @ -none Exacerbation, Progression, or Severe Exacerbation] @ -Exacerbation Poses a threat to life or bodily function? @ -Yes Diagnosis/symptom? @ -Type B aortic dissection Acute, or Chronic, or Acute on Chronic? @ -Acute Uncomplicated (without systemic symptoms) or Complicated (systemic symptoms)? @ -Uncomplicated Side effects of treatment? @ -none Exacerbation, Progression, or Severe Exacerbation] @ -no. Poses a threat to life or bodily function? @ -Potential yes - Lab Data Result diagrams: 09/23/22 17:04 09/23/22 17:04 Lab Results 09/23/22 09/23/22 09/23/22 Range/Units 17:04 17:04 17:04 WBC 12.5 H (3.8-10.6) k/uL RBC 4.28 (3.80-5.40) m/uL Hgb 13.2 (11.4-16.0) gm/dL Hct 39.1 (34.0-46.0) % MCV 91.4 (80.0-100.0) fL MCH 30.8 (25.0-35.0) pg MCHC 33.7 (31.0-37.0) g/dL RDW 13.5 (11.5-15.5) % Plt Count 270 (150-450) k/uL MPV 11.3 Neutrophils % 82 % Lymphocytes % 11 % Monocytes % 4 % Eosinophils % 2 % Basophils % 0 % Neutrophils # 10.2 H (1.3-7.7) k/uL Lymphocytes # 1.4 (1.0-4.8) k/uL Monocytes # 0.5 (0-1.0) k/uL Eosinophils # 0.2 (0-0.7) k/uL Basophils # 0.0 (0-0.2) k/uL PT 9.9 (9.0-12.0) sec INR 0.9 (<1.2) APTT 23.3 (22.0-30.0) sec Sample Site ABG pH (7.35-7.45) ABG pCO2 (35-45) mmHg ABG pO2 (83-108) mmHg ABG HCO3 (21-25) mmol/L ABG Total CO2 (19-24) mmol/L ABG O2 Saturation (94-97) % ABG Base Excess mmol/L Magan Test VBG pH (7.31-7.41) VBG pCO2 (37-51) mmHg VBG HCO3 (24-28) mmol/L FiO2 % Sodium 137 (137-145) mmol/L Potassium 4.8 (3.5-5.1) mmol/L Chloride 100 (98-107) mmol/L Carbon Dioxide 23 (22-30) mmol/L Anion Gap 14 mmol/L BUN 39 H (7-17) mg/dL Creatinine 1.48 H (0.52-1.04) mg/dL Est GFR (CKD-EPI)AfAm 39 (>60 ml/min/1.73 sqM) Est GFR (CKD-EPI)NonAf 34 (>60 ml/min/1.73 sqM) Glucose 176 H (74-99) mg/dL Plasma Lactic Acid Mario (0.7-2.0) mmol/L Calcium 9.5 (8.4-10.2) mg/dL Magnesium 2.3 (1.6-2.3) mg/dL Total Bilirubin 1.4 H (0.2-1.3) mg/dL AST 31 (14-36) U/L ALT 22 (4-34) U/L Alkaline Phosphatase 55 (38-126) U/L Troponin I (0.000-0.034) ng/mL NT-Pro-B Natriuret Pep pg/mL Total Protein 8.2 (6.3-8.2) g/dL Albumin 4.9 (3.5-5.0) g/dL Influenza Type A (PCR) (Not Detectd) Influenza Type B (PCR) (Not Detectd) RSV (PCR) (Not Detectd) SARS-CoV-2 (PCR) (Not Detectd) 09/23/22 09/23/22 09/23/22 Range/Units 17:04 17:04 17:04 WBC (3.8-10.6) k/uL RBC (3.80-5.40) m/uL Hgb (11.4-16.0) gm/dL Hct (34.0-46.0) % MCV (80.0-100.0) fL MCH (25.0-35.0) pg MCHC (31.0-37.0) g/dL RDW (11.5-15.5) % Plt Count (150-450) k/uL MPV Neutrophils % % Lymphocytes % % Monocytes % % Eosinophils % % Basophils % % Neutrophils # (1.3-7.7) k/uL Lymphocytes # (1.0-4.8) k/uL Monocytes # (0-1.0) k/uL Eosinophils # (0-0.7) k/uL Basophils # (0-0.2) k/uL PT (9.0-12.0) sec INR (<1.2) APTT (22.0-30.0) sec Sample Site ABG pH (7.35-7.45) ABG pCO2 (35-45) mmHg ABG pO2 (83-108) mmHg ABG HCO3 (21-25) mmol/L ABG Total CO2 (19-24) mmol/L ABG O2 Saturation (94-97) % ABG Base Excess mmol/L Magan Test VBG pH (7.31-7.41) VBG pCO2 (37-51) mmHg VBG HCO3 (24-28) mmol/L FiO2 % Sodium (137-145) mmol/L Potassium (3.5-5.1) mmol/L Chloride (98-107) mmol/L Carbon Dioxide (22-30) mmol/L Anion Gap mmol/L BUN (7-17) mg/dL Creatinine (0.52-1.04) mg/dL Est GFR (CKD-EPI)AfAm (>60 ml/min/1.73 sqM) Est GFR (CKD-EPI)NonAf (>60 ml/min/1.73 sqM) Glucose (74-99) mg/dL Plasma Lactic Acid Mario 1.3 (0.7-2.0) mmol/L Calcium (8.4-10.2) mg/dL Magnesium (1.6-2.3) mg/dL Total Bilirubin (0.2-1.3) mg/dL AST (14-36) U/L ALT (4-34) U/L Alkaline Phosphatase (38-126) U/L Troponin I 0.017 (0.000-0.034) ng/mL NT-Pro-B Natriuret Pep pg/mL Total Protein (6.3-8.2) g/dL Albumin (3.5-5.0) g/dL Influenza Type A (PCR) Not Detected (Not Detectd) Influenza Type B (PCR) Not Detected (Not Detectd) RSV (PCR) Not Detected (Not Detectd) SARS-CoV-2 (PCR) Not Detected (Not Detectd) 09/23/22 09/23/22 09/23/22 Range/Units 17:04 18:16 19:57 WBC (3.8-10.6) k/uL RBC (3.80-5.40) m/uL Hgb (11.4-16.0) gm/dL Hct (34.0-46.0) % MCV (80.0-100.0) fL MCH (25.0-35.0) pg MCHC (31.0-37.0) g/dL RDW (11.5-15.5) % Plt Count (150-450) k/uL MPV Neutrophils % % Lymphocytes % % Monocytes % % Eosinophils % % Basophils % % Neutrophils # (1.3-7.7) k/uL Lymphocytes # (1.0-4.8) k/uL Monocytes # (0-1.0) k/uL Eosinophils # (0-0.7) k/uL Basophils # (0-0.2) k/uL PT (9.0-12.0) sec INR (<1.2) APTT (22.0-30.0) sec Sample Site R brachial ABG pH 7.23 L (7.35-7.45) ABG pCO2 51 H (35-45) mmHg ABG pO2 >420 H (83-108) mmHg ABG HCO3 20 L (21-25) mmol/L ABG Total CO2 17 L (19-24) mmol/L ABG O2 Saturation 99.0 H (94-97) % ABG Base Excess -6.7 mmol/L Magan Test Yes VBG pH 7.33 (7.31-7.41) VBG pCO2 38 (37-51) mmHg VBG HCO3 19 L (24-28) mmol/L FiO2 100 % Sodium (137-145) mmol/L Potassium (3.5-5.1) mmol/L Chloride (98-107) mmol/L Carbon Dioxide (22-30) mmol/L Anion Gap mmol/L BUN (7-17) mg/dL Creatinine (0.52-1.04) mg/dL Est GFR (CKD-EPI)AfAm (>60 ml/min/1.73 sqM) Est GFR (CKD-EPI)NonAf (>60 ml/min/1.73 sqM) Glucose (74-99) mg/dL Plasma Lactic Acid Mario (0.7-2.0) mmol/L Calcium (8.4-10.2) mg/dL Magnesium (1.6-2.3) mg/dL Total Bilirubin (0.2-1.3) mg/dL AST (14-36) U/L ALT (4-34) U/L Alkaline Phosphatase (38-126) U/L Troponin I (0.000-0.034) ng/mL NT-Pro-B Natriuret Pep 210 pg/mL Total Protein (6.3-8.2) g/dL Albumin (3.5-5.0) g/dL Influenza Type A (PCR) (Not Detectd) Influenza Type B (PCR) (Not Detectd) RSV (PCR) (Not Detectd) SARS-CoV-2 (PCR) (Not Detectd) 09/23/22 Range/Units 20:55 WBC (3.8-10.6) k/uL RBC (3.80-5.40) m/uL Hgb (11.4-16.0) gm/dL Hct (34.0-46.0) % MCV (80.0-100.0) fL MCH (25.0-35.0) pg MCHC (31.0-37.0) g/dL RDW (11.5-15.5) % Plt Count (150-450) k/uL MPV Neutrophils % % Lymphocytes % % Monocytes % % Eosinophils % % Basophils % % Neutrophils # (1.3-7.7) k/uL Lymphocytes # (1.0-4.8) k/uL Monocytes # (0-1.0) k/uL Eosinophils # (0-0.7) k/uL Basophils # (0-0.2) k/uL PT (9.0-12.0) sec INR (<1.2) APTT (22.0-30.0) sec Sample Site ABG pH 7.23 L (7.35-7.45) ABG pCO2 51 H (35-45) mmHg ABG pO2 >420 H (83-108) mmHg ABG HCO3 20 L (21-25) mmol/L ABG Total CO2 (19-24) mmol/L ABG O2 Saturation 99.3 H (94-97) % ABG Base Excess -6.7 mmol/L Magan Test VBG pH (7.31-7.41) VBG pCO2 (37-51) mmHg VBG HCO3 (24-28) mmol/L FiO2 % Sodium (137-145) mmol/L Potassium (3.5-5.1) mmol/L Chloride (98-107) mmol/L Carbon Dioxide (22-30) mmol/L Anion Gap mmol/L BUN (7-17) mg/dL Creatinine (0.52-1.04) mg/dL Est GFR (CKD-EPI)AfAm (>60 ml/min/1.73 sqM) Est GFR (CKD-EPI)NonAf (>60 ml/min/1.73 sqM) Glucose (74-99) mg/dL Plasma Lactic Acid Mario (0.7-2.0) mmol/L Calcium (8.4-10.2) mg/dL Magnesium (1.6-2.3) mg/dL Total Bilirubin (0.2-1.3) mg/dL AST (14-36) U/L ALT (4-34) U/L Alkaline Phosphatase (38-126) U/L Troponin I (0.000-0.034) ng/mL NT-Pro-B Natriuret Pep pg/mL Total Protein (6.3-8.2) g/dL Albumin (3.5-5.0) g/dL Influenza Type A (PCR) (Not Detectd) Influenza Type B (PCR) (Not Detectd) RSV (PCR) (Not Detectd) SARS-CoV-2 (PCR) (Not Detectd) - EKG Data -: EKG Interpreted by Me EKG Comments: 12-lead Electrocardiogram Interpretation Note EKG was reviewed and interpreted by myself. 12-lead ECG performed at 1637 is interpreted by me as revealing normal sinus rhythm at a rate of 93 beats per minute. [place] is normal. ND interval is 163 ms, QRS duration is 81 ms, QTc is 388 ms.. There were no acute ST or T wave abnormalities to suggest myocardial ischemia or injury. R wave progression across the precordium was satisfactory. By my interpretation this EKG is non-diagnostic for acute ischemia. When compared with EKG from September 2018, no significant change. Critical Care Time Critical Care Time: Yes Total Critical Care Time: 75 Disposition Clinical Impression: Acute respiratory failure with hypoxia, COPD (chronic obstructive pulmonary disease), Bronchitis, CKD (chronic kidney disease), Aortic dissection, abdominal Disposition: ADMITTED IP TO THIS HOSP Condition: Critical Time of Disposition: 21:40
[2022-09-23 17:30] LABS: Basophils % (A) 0 %; Eosinophils # (A) 0.2 k/uL (0-0.7); Eosinophils % (A) 2 %; HCT 39.1 % (34.0-46.0); HGB 13.2 gm/dL (11.4-16.0); Lymphocytes # (A) 1.4 k/uL (1.0-4.8); Lymphocytes % (A) 11 %; MCH 30.8 pg (25.0-35.0); MCHC 33.7 g/dL (31.0-37.0); MCV 91.4 fL (80.0-100.0); Mean Platelet Volume 11.3; Monocytes # (A) 0.5 k/uL (0-1.0); Monocytes % (A) 4 %; Neutrophils # (A) 10.2 k/uL (1.3-7.7); Neutrophils % (A) 82 %; Platelet Count 270 k/uL (150-450); RBC 4.28 m/uL (3.80-5.40); RDW 13.5 % (11.5-15.5); WBC 12.5 k/uL (3.8-10.6)
[2022-09-23 17:35] LABS: INR 0.9 (<1.2); Partial Thromboplastin Time 23.3 sec (22.0-30.0); Prothrombin Time 9.9 sec (9.0-12.0)
--- NOTE | 2022-09-23 17:37 | XR ---
EXAMINATION TYPE: XR chest 2V DATE OF EXAM: 09/23/2022 COMPARISON: 04/15/2022 HISTORY: Difficulty breathing TECHNIQUE: Frontal and lateral views of the chest are obtained. FINDINGS: There is no focal air space opacity, pleural effusion, or pneumothorax seen. The cardiac silhouette size is within normal limits. The osseous structures are intact. IMPRESSION: No acute cardiopulmonary process.
[2022-09-23 17:42] LABS: Albumin 4.9 g/dL (3.5-5.0); Calcium 9.5 mg/dL (8.4-10.2); Magnesium 2.3 mg/dL (1.6-2.3); Potassium 4.8 mmol/L (3.5-5.1); Total Bilirubin 1.4 mg/dL (0.2-1.3); Total Protein 8.2 g/dL (6.3-8.2)
[2022-09-23] MEDS ORDERED: NITROGLYCERIN IV STA (17:59)
[2022-09-23] MEDS ORDERED: WATER IV STA (17:59)
[2022-09-23] MEDS ORDERED: DEXTROSE IV STA (17:59)
[2022-09-23] MEDS ORDERED: NITROGLYCERIN-D5W PMX 50 MG in DEXTROSE/WATER 1 250ML.BAG IV ONE (18:01)
[2022-09-23] MEDS ORDERED: ROCURONIUM 10 MG/ML (5 ML VIAL) IV STA (18:22)
[2022-09-23] MEDS ORDERED: ETOMIDATE 2 MG/ML 10 ML VIAL IVP STA (18:23)
[2022-09-23 18:28] LABS: VBG PH 7.33 (7.31-7.41)
--- NOTE | 2022-09-23 18:29 | XR ---
EXAMINATION TYPE: XR chest 1V portable DATE OF EXAM: 09/23/2022 6:14 PM COMPARISON: Chest radiographs from 09/23/2022 TECHNIQUE: XR chest 1V portable Portable AP radiograph of the chest. CLINICAL INDICATION:Female, 76 years old with history of dyspena; FINDINGS: Lungs/Pleura: There is flattening of the diaphragm with increased lucency of the lungs. No evidence o f pneumothorax, pleural effusion or focal consolidation. Pulmonary vascularity: Unremarkable. Heart/mediastinum: Cardiomediastinal silhouette is unremarkable. Atherosclerotic calcifications are seen in the aorta. Musculoskeletal: No acute osseous pathology. IMPRESSION: 1. No acute cardiopulmonary disease process. 2. COPD changes.
[2022-09-23] MEDS ORDERED: SODIUM CHLORIDE 0.9% 1,000 ML IV STA (18:38)
[2022-09-23] MEDS ORDERED: diphenhydrAMINE 50 MG/ML 1 ML VIAL IVP STA (18:39)
[2022-09-23] MEDS ORDERED: FAMOTIDINE 20 MG/2 ML VIAL IV STA (18:39)
--- NOTE | 2022-09-23 18:52 | XR ---
EXAMINATION TYPE: XR chest 1V portable DATE OF EXAM: 09/23/2022 6:44 PM COMPARISON: Chest radiographs from earlier today. TECHNIQUE: XR chest 1V portable Portable AP radiograph of the chest. CLINICAL INDICATION:Female, 76 years old with history of post intubation; FINDINGS: Patient is rotated which limits evaluation. Lungs/Pleura: There is flattening of the diaphragm with increased lucency of the lungs. No evidence o f pneumothorax, pleural effusion or focal consolidation. Chronic senescent parenchymal change. Pulmonary vascularity: Unremarkable. Heart/mediastinum: Cardiomediastinal silhouette is unremarkable. Atherosclerotic calcifications are seen in the aorta. Musculoskeletal: No acute osseous pathology. Other findings: None Lines/Tubes: Endotracheal tube with distal tip 2.1 cm above the scott IMPRESSION: 1. Endotracheal tube in appropriate position at the level of the clavicular heads. 2. COPD changes.
--- NOTE | 2022-09-23 20:33 | XR ---
EXAMINATION TYPE: XR chest 1V portable DATE OF EXAM: 09/23/2022 8:28 PM COMPARISON: Chest radiographs from earlier today TECHNIQUE: XR chest 1V portable Portable AP radiograph of the chest. CLINICAL INDICATION:Female, 76 years old with history of TUBE PLACEMENT; FINDINGS: Patient is rotated which limits evaluation. Lungs/Pleura: There is flattening of the diaphragm with increased lucency of the lungs. No evidence o f pneumothorax, pleural effusion or focal consolidation. Chronic senescent parenchymal change. Pulmonary vascularity: Unremarkable. Heart/mediastinum: Cardiomediastinal silhouette is unremarkable. Atherosclerotic calcifications are seen in the aorta. Musculoskeletal: No acute osseous pathology. Other findings: None Lines/Tubes: Endotracheal tube with distal tip 1.5 cm above the scott IMPRESSION: 1. Endotracheal tube in appropriate position at the level of the clavicular heads. No significant harshad nge from earlier examination today. 2. COPD changes.
--- NOTE | 2022-09-23 20:59 | CT ---
EXAMINATION TYPE: CT brain wo con CT DLP: 1213.4 mGycm, Automated exposure control for dose reduction was used. DATE OF EXAM: 09/23/2022 8:43 PM COMPARISON: None. CLINICAL INDICATION:Female, 76 years old with history of hypertensive, dyspnea. eval for pe/aortic in jury, Hypertensive, dyspnea TECHNIQUE: Brain: Multiple axial CT images of the brain were obtained without IV contrast. Coronal and sagittal reformats reviewed. FINDINGS: Brain: Extra-axial spaces: No abnormal extra-axial fluid collections. Ventricular system: Within normal limits Cerebral parenchyma: Cerebral atrophy. No acute intraparenchymal hemorrhage or mass effect. The vivar -white junction is well differentiated. Scattered hypoattenuating areas are seen within the white mat ter. Cerebellum: Unremarkable. Mass effect: No evidence of midline shift. Intracranial vasculature: Atherosclerotic calcifications of the intracranial vessels. Soft tissues: Normal. Calvarium/osseous structures: No depressed skull fracture. Paranasal sinuses and mastoid air cells: Mild scattered paranasal sinus disease. The mastoid air cell s are clear. Visualized orbits: Senile calcific scleral plaques are present. Partial visualization of endotracheal tube. IMPRESSION: 1. No acute intracranial process. 2. Nonspecific white matter changes, likely secondary to chronic small vessel ischemic disease.
[2022-09-23 21:03] LABS: ABG Base Excess -6.7 mmol/L; ABG HCO3 20 mmol/L (21-25); ABG Oxygen Saturation 99.3 % (94-97); ABG PCO2 51 mmHg (35-45); ABG PH 7.23 (7.35-7.45); Allen Test Performed? Yes
[2022-09-23 21:10] LABS: ABG Base Excess -6.7 mmol/L; ABG HCO3 20 mmol/L (21-25); ABG PCO2 51 mmHg (35-45); ABG PH 7.23 (7.35-7.45); ABG PO2 >420 mmHg (83-108); ABG TCO2 17 mmol/L (19-24); Allen Test Performed? Yes
[2022-09-23 21:20] LABS: ABG PO2 >420 mmHg (83-108)
[2022-09-23] MEDS ORDERED: ESMOLOL IN SODIUM CHLORIDE PMX 2.5 GM in SALINE 1 250ML.BAG IV ONE (21:35)
--- NOTE | 2022-09-23 21:36 | CT ---
EXAMINATION TYPE: CT angio thor/abd pel aorta CT DLP: 1047.9 mGycm, Automated exposure control for dose reduction was used. DATE OF EXAM: 09/23/2022 9:01 PM COMPARISON: Chest radiograph 09/23/2022, CT abdomen and pelvis 08/13/2018. CLINICAL INDICATION:Female, 76 years old with history of hypertensive, dyspnea. eval for pe/aortic in jury; PHH, Hypertensive, dyspnea, eval aorta for injury, and PE. TECHNIQUE: Dissection protocol: Multiple axial CT images of the chest, abdomen, and pelvis were obtai annette prior and to the administration of IV contrast. Then the abdomen was scanned after administration of 80 cc of Isovue 370 IV contrast. FINDINGS: ARTERIAL VASCULATURE: No evidence for intramural hematoma. Short segment infrarenal aortic dissection (series 501, image 151). Moderate atherosclerotic calcification of the origin of the right renal art [place] which is patent. Moderate atherosclerotic calcification of the origin of the left renal artery wh ich is patent. Mild atherosclerotic calcification of the origin of the celiac artery and SMA which ar e patent. The DRAKE is patent. No evidence for aortic aneurysm. Atherosclerotic calcification of the ao rta and its branches. The great arch vessels are patent with vascular calcification without significa nt stenosis. The common iliac artery is patent with atherosclerotic calcification and moderate stenos is of the proximal left common iliac artery. The common internal and external iliac arteries are elena nt. Multifocal short segment stenosis of the bilateral external iliac arteries. PULMONARY ARTERIAL VASCULATURE: Normal caliber. No evidence of filling defect to suggest pulmonary em bolus. VENOUS SYSTEM: Unremarkable. Lungs/pleura: Bibasilar dependent posterior subsegmental atelectasis. No pleural effusion, focal cons olidation, pneumothorax. Right apical 9 mm spiculated nodule (series 506, image 21). Endotracheal tu be terminates just above the scott. Heart: Within normal limits. No pericardial effusion. Moderate coronary arterial calcifications. Mediastinum: No gross evidence of adenopathy. Calcified mediastinal lymph nodes. Lower Neck: Possible Zenker's diverticulum containing debris versus residual food within the upper es ophagus. Consider further evaluation with esophagram. Abdomen: Liver: Unremarkable. Gallbladder and Bile ducts: Unremarkable. Pancreas: Unremarkable. Spleen: Unremarkable. Adrenal glands: Unremarkable. Kidneys and Ureters: No hydronephrosis. Atrophy of the right kidney with decreased enhancement compar ed to the left. Nonobstructive right inferior pole 3 mm calculus. Nonspecific bilateral perinephric f at stranding. Wedge-shaped region of hypoattenuation within the inferior pole of the left kidney. Add itional subcentimeter hypodense focus within the mid left neural cortex which is too small characteri ze but likely represents a cyst.. Stomach and Bowel: Submucosal fat deposition within the ascending colon likely from a chronic inflamm atory process. No pneumatosis.. No evidence of bowel obstruction. Peritoneum: No evidence of pneumoperitoneum, free fluid, or adenopathy. Bladder: Chowdhury catheter is identified with under distended urinary bladder. Foci gas likely from cath eter placement.. Reproductive: The uterus is a surgical absent. Pelvic floor laxity. Abdominal wall/soft tissues: Small fat filled umbilical hernia.. Musculoskeletal: No acute osseous abnormality. Severe right osteophytic changes with intramedullary r od and screw. Multilevel degenerative changes of the visualized spine. IMPRESSION: 1. Short segment infrarenal abdominal aortic dissection. No aortic aneurysm. No evidence of pulmonar y embolism. 2. Wedge-shaped region of decreased enhancement involving the left kidney suspicious for infarct. At rophy of the right kidney with delayed enhancement compared to the left. Both renal arteries appear p atent with moderate stenosis at the origin. 3. Spiculated 9 mm nodule within the right lung apex which raises possibility of malignancy. Conside r further evaluation with PET/CT. 4. Nonobstructive right renal calculus. 5. Possible Zenker's diverticulum versus residual fluid within the upper esophagus. Consider further evaluation with esophagram. Findings called to and discussed with Dr. Lundberg at 9:33 PM on 09/23/2022.
[2022-09-23] MEDS ORDERED: NALOXONE 0.4 MG/ML 1 ML VIAL IV PRN (22:44)
[2022-09-23] MEDS: NITROGLYCERIN-D5W PMX 50 MG in DEXTROSE/WATER 1 250ML.BAG IV SCH (23:30)
[2022-09-23 23:41] LABS: Glucose,Whole Blood 307 mg/dL (70-110)
[2022-09-24] MEDS: IPRATROPIUM-ALBUTEROL 3 ML NEB INHALATION SCH ×7 (00:54→23:01)
[2022-09-24] MEDS: fentaNYL (PF). 1,000 MCG in SODIUM CHLORIDE 0.9% 80 ML IV SCH ×2 (01:00→11:17)
[2022-09-24] MEDS ORDERED: NITROGLYCERIN-D5W PMX 50 MG in DEXTROSE/WATER 1 250ML.BAG IV SCH (01:16)
[2022-09-24] MEDS: ESMOLOL IN SODIUM CHLORIDE PMX 2.5 GM in SALINE 1 250ML.BAG IV SCH ×6 (02:44→23:30)
[2022-09-24] MEDS ORDERED: DEXTROSE 50% SYRINGE 50 ML IVP PRN ×2 (04:34)
[2022-09-24] MEDS: NITROGLYCERIN-D5W PMX 50 MG in DEXTROSE/WATER 1 250ML.BAG IV SCH ×4 (04:44→20:14)
[2022-09-24] MEDS ORDERED: INSULIN ASPART (NovoLOG) 100 UNIT/ML VIAL SQ SCH (04:45)
[2022-09-24 04:46] LABS: ABG Base Excess -8.4 mmol/L; ABG HCO3 18 mmol/L (21-25); ABG Oxygen Saturation 99.7 % (94-97); ABG PCO2 36 mmHg (35-45); ABG PH 7.31 (7.35-7.45); ABG PO2 168 mmHg (83-108); ABG TCO2 19 mmol/L (19-24); Allen Test Performed? Yes
[2022-09-24 06:03] LABS: Calcium 7.6 mg/dL (8.4-10.2); Potassium 4.7 mmol/L (3.5-5.1); Total Protein 6.7 g/dL (6.3-8.2)
[2022-09-24 06:16] LABS: Basophils # (A) 0.1 k/uL (0-0.2); Basophils % (A) 0 %; Eosinophils % (A) 0 %; HCT 35.5 % (34.0-46.0); HGB 11.1 gm/dL (11.4-16.0); Hypochromasia Moderate; Lymphocytes % (A) 4 %; MCH 31.1 pg (25.0-35.0); MCHC 31.3 g/dL (31.0-37.0); MCV 99.3 fL (80.0-100.0); Mean Platelet Volume 10.8; Monocytes # (A) 0.8 k/uL (0-1.0); Monocytes % (A) 3 %; Neutrophils # (A) 23.7 k/uL (1.3-7.7); Neutrophils % (A) 92 %; Platelet Count 228 k/uL (150-450); RBC 3.58 m/uL (3.80-5.40); RDW 13.3 % (11.5-15.5); WBC 25.7 k/uL (3.8-10.6)
[2022-09-24 06:48] LABS: Glucose,Whole Blood 276 mg/dL (70-110)
[2022-09-24] MEDS: INSULIN ASPART (NovoLOG) 100 UNIT/ML VIAL SQ SCH ×4 (06:51→23:40)
--- NOTE | 2022-09-24 06:57 | P.HPIM ---
History of Present Illness This is a76 years old female patient Presents because of dyspnea with acute hypoxic respiratory failure which is rapidly degenerated to the degree requiring intubation and placing patient on mechanical ventilation. Patient also with blood pressure despite 200/100 patient was placed on nitro drip. T brain shows no obvious acute intracranial process. CTA of the aorta and the thoracic abdomen pelvis reveals no obvious to a dissection. There is a small short segment of infrarenal aortic dissection in the abdomen. Also a small wedge-shaped region seen by radiology in the left kidney suspicious for infarct with an atrophic right kidney. Patient has a 9 mm lung nodule. There is a nonobstructive renal calculus. Also possible Zenker's diverticulum versus possible fluid in the upper esophagus, suspect residual fluid. 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 The systolic pressure in the 90s and heart rate 70s to 71 showing WBCs 12.5, trace of CBC is unremarkable. PH 7.2, pCO2 elevated 51. BMP is unremarkable, creatinine 1.48, baseline 1.1-1.3. Glucose 307. Neuro exam not significantly elevated. Troponin is negative at 0.017. ProBNP is 210. Viruses undetected influenza, rotavirus and RSV Patient was started on antibiotics obstruction and Zithromax and steroids were added. Review of Systems ROS unobtainable: due to endotracheal tube, due to mental status Past Medical History Past Medical History: COPD, CVA/TIA, Hyperlipidemia, Hypertension, Myocardial Infarction (DC), Osteoarthritis (OA) Additional Past Medical History / Comment(s): TIA - September 2013, past history of abcess/cellulitis left cheek. Patient is poor historian of her PMH. 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 Past Anesthesia/Blood Transfusion Reactions: No Reported Reaction Smoking Status: Current every day smoker - Past Family History Son(s) Family Medical History: No Reported History Additional Family Medical History / Comment(s): 4 sons all reported healthy per patient Mother Family Medical History: CVA/TIA Additional Family Medical History / Comment(s): Medications and Allergies Home Medications Medication Instructions Recorded Confirmed Type HYDROcodone/APAP 7.5-325MG [Voca 1 tab PO QID PRN 10/16/18 09/23/22 History 7.5-325] Denosumab [Prolia] 60 mg SQ Q180D 04/12/21 09/23/22 History Aspirin EC [Ecotrin Low Dose] 81 mg PO PC-LUNCH 04/05/22 09/23/22 History Docusate [Colace] 100 mg PO TH 04/05/22 09/23/22 History atenoloL [Tenormin] 25 mg PO PC-LUNCH 04/05/22 09/23/22 History Famotidine [Pepcid] 20 mg PO DAILY #15 tablet 04/08/22 09/23/22 Rx Ergocalciferol [Vitamin D2 (1250 1,250 mcg PO FR 09/23/22 09/23/22 History Mcg = 75434 Iu)] lisinopriL [Zestril] 20 mg PO PC-LUNCH 09/23/22 09/23/22 History Allergies Allergy/AdvReac Type Severity Reaction Status Date / Time iodine Allergy Itching Verified 09/23/22 17:55 Physical Exam Vitals: Vital Signs Temp Pulse Resp BP Pulse Ox FiO2 09/24/22 03:00 70 22 86/61 98 09/24/22 02:45 70 22 89/65 98 09/24/22 02:30 71 22 92/64 98 09/24/22 02:15 71 22 83/57 97 09/24/22 02:00 72 22 87/60 97 09/24/22 01:45 73 22 107/72 96 09/24/22 01:30 75 22 107/72 97 09/24/22 01:15 73 26 H 109/74 96 09/24/22 01:06 73 09/24/22 01:00 74 22 117/89 96 09/24/22 00:54 73 40 09/24/22 00:45 76 26 H 169/118 96 09/24/22 00:30 77 24 171/97 96 09/24/22 00:15 76 24 154/90 96 09/24/22 00:00 97.2 F L 74 22 147/109 96 40 09/23/22 23:50 40 09/23/22 23:45 72 22 175/128 96 09/23/22 23:39 40 09/23/22 23:32 75 18 09/23/22 23:15 74 22 119/80 98 09/23/22 23:10 74 22 110/72 97 09/23/22 23:05 75 22 92/65 97 09/23/22 23:00 76 22 86/60 96 09/23/22 22:55 76 22 104/71 95 09/23/22 22:50 77 22 133/79 96 09/23/22 22:45 78 34 H 149/100 97 09/23/22 22:40 78 20 128/94 97 09/23/22 22:35 79 18 128/82 96 09/23/22 22:30 78 18 113/77 97 09/23/22 22:25 78 18 118/71 96 09/23/22 22:20 80 18 106/72 95 09/23/22 22:15 82 18 117/87 95 09/23/22 22:10 86 18 134/86 94 L 09/23/22 22:05 91 18 133/89 95 09/23/22 22:00 94 18 141/98 94 L 09/23/22 21:55 99 18 157/93 94 L 09/23/22 21:50 100 18 150/101 93 L 09/23/22 21:45 101 H 18 169/98 93 L 09/23/22 21:40 101 H 18 170/105 93 L 09/23/22 21:35 102 H 18 180/111 93 L 09/23/22 21:30 104 H 18 182/107 94 L 09/23/22 21:25 103 H 18 177/112 96 09/23/22 21:20 99 18 189/118 100 09/23/22 21:15 98 18 189/111 100 09/23/22 21:10 98 18 195/117 100 40 09/23/22 21:05 98 18 195/119 100 09/23/22 21:00 98 18 218/119 100 09/23/22 20:50 94 18 208/127 100 09/23/22 20:45 96 19 219/134 100 09/23/22 20:40 95 18 219/113 100 09/23/22 20:10 142/94 09/23/22 20:05 96 18 158/99 09/23/22 20:00 98 18 217/122 09/23/22 19:55 100 18 194/120 09/23/22 19:50 98 18 186/111 09/23/22 19:45 101 H 18 169/102 09/23/22 19:40 102 H 18 183/116 09/23/22 19:35 103 H 18 189/105 09/23/22 19:25 106 H 18 193/106 99 09/23/22 19:20 107 H 18 203/119 100 09/23/22 18:50 106 H 18 228/112 97 09/23/22 18:47 100 09/23/22 18:33 120 H 24 122/81 97 09/23/22 18:29 121 H 26 H 174/135 99 09/23/22 18:09 125 H 09/23/22 18:01 110 H 40 09/23/22 17:55 28 H 89 L 09/23/22 17:26 83 18 194/94 97 09/23/22 16:54 87 09/23/22 16:41 89 09/23/22 16:34 98.0 F 91 20 163/98 91 L Intake and Output 09/23/22 09/23/22 09/24/22 14:59 22:59 06:59 Intake Total 184.995 240.081 Output Total 105 Balance 184.995 135.081 Intake: Intake, IV Titration 184.995 240.081 Amount Esmolol in Sodium 11.227 Chloride Pmx 2.5 gm In Saline 1 250ml.bag @ 50 MCG/KG/MIN 14.969 mls/hr IV .[id number] [facility] Rx#: [id number] Nitroglycerin-D5w Pmx 50 173.500 mg In Dextrose/Water 1 250ml.bag @ 165 MCG/MIN 49.5 mls/hr IV .[id number] [facility] Rx#:[id number] Nitroglycerin-D5w Pmx 50 145.750 21.25 mg In Dextrose/Water 1 250ml.bag @ 50 MCG/MIN 15 mls/hr IV .[id number] [facility] Rx#:[id number] fentaNYL (PF). 1,000 mcg 6.362 In Sodium Chloride 0.9% 80 ml @ 0.5 MCG/KG/HR 2. 495 mls/hr IV .Q24H [facility] Rx#:[id number] propofoL 1,000 mg In 28.018 38.969 Empty Bag 1 bag @ 15 MCG/ KG/MIN 4.491 mls/hr IV . [id number] [facility] Rx#:[id number] Output: Urine 105 Other: Voiding Method Indwelling Catheter Weight 49.895 kg -GENERAL: The patient is intubated and sedated HEENT: Pupils are round and equally reacting to light. EOMI. No scleral icterus. No conjunctival pallor. Normocephalic, atraumatic. No pharyngeal erythema. No thyromegaly. CARDIOVASCULAR: S1 and S2 present. No murmurs, rubs, or gallops. PULMONARY: Chest is clear to auscultation, no wheezing or crackles. ABDOMEN: Soft, nontender, nondistended, normoactive bowel sounds. No palpable organomegaly. MUSCULOSKELETAL: No joint swelling or deformity. EXTREMITIES: No cyanosis, clubbing, or pedal edema. NEUROLOGICAL: Gross neurological examination did not reveal any focal deficits. SKIN: No rashes. no petechiae. Results CBC & Chem 7: 09/24/22 05:08 09/24/22 05:08 Labs: Abnormal Lab Results - Last 24 Hours (Table) 09/23/22 09/23/22 09/23/22 Range/Units 17:04 17:04 18:16 WBC 12.5 H (3.8-10.6) k/uL Neutrophils # 10.2 H (1.3-7.7) k/uL ABG pH (7.35-7.45) ABG pCO2 (35-45) mmHg ABG pO2 (83-108) mmHg ABG HCO3 (21-25) mmol/L ABG Total CO2 (19-24) mmol/L ABG O2 Saturation (94-97) % VBG HCO3 19 L (24-28) mmol/L BUN 39 H (7-17) mg/dL Creatinine 1.48 H (0.52-1.04) mg/dL Glucose 176 H (74-99) mg/dL POC Glucose (mg/dL) (70-110) mg/dL Total Bilirubin 1.4 H (0.2-1.3) mg/dL 09/23/22 09/23/22 09/23/22 Range/Units 19:57 20:55 23:39 WBC (3.8-10.6) k/uL Neutrophils # (1.3-7.7) k/uL ABG pH 7.23 L 7.23 L (7.35-7.45) ABG pCO2 51 H 51 H (35-45) mmHg ABG pO2 >420 H >420 H (83-108) mmHg ABG HCO3 20 L 20 L (21-25) mmol/L ABG Total CO2 17 L (19-24) mmol/L ABG O2 Saturation 99.0 H 99.3 H (94-97) % VBG HCO3 (24-28) mmol/L BUN (7-17) mg/dL Creatinine (0.52-1.04) mg/dL Glucose (74-99) mg/dL POC Glucose (mg/dL) 307 H (70-110) mg/dL Total Bilirubin (0.2-1.3) mg/dL Assessment and Plan Assessment: Acute hypoxic hypercapnic respiratory failure requiring intubation and mechanical ventilation Acute hypoxic respiratory failure Respiratory acidosis Hypertension with urgency/emergency Short segment of dissected descending aorta Renal infarct Acute kidney injury on chronic kidney disease stage III Hyperglycemia Plan: Continue with IV Solu-Medrol Continue with bronchodilator Continue with antibiotics, currently on Zithromax Continue with intubation and mechanical ventilation with pulmonary/critical care team on the case Vascular surgery consult for dissected aneurysm Blood pressure control with systolic 90-100 and heart rate 60s to 70s Monitor electrolytes and kidney function Labs and medication were reviewed.. Continue same treatment. Continue with symptomatic treatment. Resume home medication. Monitor labs and vitals. DVT and GI prophylaxis. Further recommendations as per clinical course of the patient DVT prophylaxis: no Subcutaneous heparin for patient is high-risk for bleeding. GI Prophylaxis: Pepcid PT/OT: Pending Prognosis is guarded
--- NOTE | 2022-09-24 07:35 | XR ---
EXAMINATION TYPE: XR chest 1V portable DATE OF EXAM: 09/24/2022 5:32 AM COMPARISON: Chest radiograph from one day prior. TECHNIQUE: XR chest 1V portable Frontal view of the chest. CLINICAL INDICATION:Female, 76 years old with history of Tube placement; FINDINGS: Lungs/Pleura: Prominent interstitial lung markings are seen scattered throughout the lungs with pranav ening of the diaphragm and increased lucency of the lung apices. No evidence of focal consolidation, pneumothorax or pleural effusion. Pulmonary vascularity: Unremarkable. Heart/mediastinum: Cardiomediastinal silhouette is unremarkable. Atherosclerotic calcifications are seen in the aorta. Musculoskeletal: No acute osseous pathology. Other findings: None Lines/Tubes: Endotracheal tube with distal tip 3.9 cm above the scott. IMPRESSION: 1. No acute cardiopulmonary disease process. 2. COPD changes.
[2022-09-24] MEDS: CHLORHEXIDINE GLUCONATE 15 ML CUP MUCOUS MEM SCH ×2 (08:45→20:10)
[2022-09-24] MEDS ORDERED: methylPREDNISolone SOD SUCCI 40 MG/ML 1 ML VIAL IV SCH (09:00)
--- NOTE | 2022-09-24 09:26 | P.CRDCN ---
History of Present Illness Consult date: 09/24/22 History of present illness: History of Present Illness: The patient is a 76-year-old female with known history of hypertension, chronic tobacco use and chronic obstructive lung disease who presented with symptoms of cough and progressive dyspnea, had evidence of respiratory failure requiring mechanical ventilation. Her blood pressure was elevated and she was initiated on Esmolol and IV nitroglycerin. She remains intubated. No cardiac history is available through the records, she underwent an MPI in 2014 that showed no evidence of ischemia. She was in sinus mechanism on presentation. She underwent a computed tomography scan that showed short segment infrarenal abdominal aortic dissection with a wedge-shaped region of decreased enhancement involving the left kidney with right lung apex spiculated nodule that could represent malignancy. Her EKG showed sinus mechanism with no acute ST segment changes. She had leukocytosis and her renal function were abnormal on presentation. Her troponin was normal. No other history could be obtained at this time Medications: Zestril 20 mg daily, atenolol 25 mg daily, Pepcid, aspirin, vitamin D, Colace, hydrocodone Review of Systems: Could not be obtained, patient intubated Physical Examination: 76-year-old female, intubated opening eyes to verbal stimulation ,Blood pressure 127/70, Heart rate 80 Head: Normocephalic. Eyes: Sclerae nonicteric. Neck: Good carotid upstroke, bilateral bruit, no jugular venous distention. Lungs: Clear to auscultation anteriorly. Heart: Regular rate and rhythm, S1-S2, no S3, no rub. Systolic ejection murmur 3/6. Abdomen: Soft nontender, positive bowel sounds no organomegaly. Extremities: No edema, intact distal pulses. Labs: WBC 25.7, hemoglobin 11.1, potassium 4.7, BUN 32 and creatinine 1.24. Troponin 0.015. Chest x-ray with no acute infiltrate EKG: Sinus mechanism with nonspecific ST-T wave changes, normal axis and intervals Impression: 1. Respiratory failure, possible exacerbation of COPD 2. Hypertension on presentation, under better control at this time 3. Short segment of infrarenal aortic dissection 4. Possible malignancy in the right lung apex 5. Chronic kidney disease, possible acute on chronic 6. Carotid bruit Plan: 1. Wean IV nitroglycerin 2. Once able to take by mouth changed to oral antibiotics 3. Obtain an echocardiogram with Doppler 4. Vascular consultation regarding her abdominal aorta 5. Depending on her progress further recommendations will be made, thank you for this consult we will follow with you. Past Medical History Past Medical History: COPD, CVA/TIA, Hyperlipidemia, Hypertension, Myocardial Infarction ([place]), Osteoarthritis (OA) Additional Past Medical History / Comment(s): TIA - September 2013, past history of abcess/cellulitis left cheek. Patient is poor historian of her [facility]. 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 Past Anesthesia/Blood Transfusion Reactions: No Reported Reaction Smoking Status: Current every day smoker - Past Family History Son(s) Family Medical History: No Reported History Additional Family Medical History / Comment(s): 4 sons all reported healthy per patient Mother Family Medical History: CVA/TIA Additional Family Medical History / Comment(s): Medications and Allergies Home Medications Medication Instructions Recorded Confirmed Type HYDROcodone/APAP 7.5-325MG [[place] 1 tab PO QID PRN 10/16/18 09/23/22 History 7.5-325] Denosumab [Prolia] 60 mg SQ Q180D 04/12/21 09/23/22 History Aspirin EC [Ecotrin Low Dose] 81 mg PO PC-LUNCH 04/05/22 09/23/22 History Docusate [Colace] 100 mg PO TH 04/05/22 09/23/22 History atenoloL [Tenormin] 25 mg PO PC-LUNCH 04/05/22 09/23/22 History Famotidine [Pepcid] 20 mg PO DAILY #15 tablet 04/08/22 09/23/22 Rx Ergocalciferol [Vitamin D2 (1250 1,250 mcg PO FR 09/23/22 09/23/22 History Mcg = 67873 Iu)] lisinopriL [Zestril] 20 mg PO PC-LUNCH 09/23/22 09/23/22 History Allergies Allergy/AdvReac Type Severity Reaction Status Date / Time iodine Allergy Itching Verified 09/23/22 17:55 Physical Exam Vitals: Vital Signs Temp Pulse Resp BP Pulse Ox FiO2 09/24/22 08:03 90 09/24/22 07:49 80 09/24/22 07:40 40 09/24/22 07:00 80 24 131/78 98 09/24/22 06:45 83 26 H 127/78 97 09/24/22 06:30 81 25 H 123/70 97 09/24/22 06:15 80 22 143/86 98 09/24/22 06:00 82 23 162/95 97 09/24/22 05:45 86 26 H 125/81 97 09/24/22 05:30 81 24 152/83 99 09/24/22 05:27 81 09/24/22 05:19 82 09/24/22 05:15 80 25 H 141/78 94 L 40 09/24/22 05:00 78 26 H 151/79 98 09/24/22 04:45 80 26 H 171/93 97 09/24/22 04:30 77 22 158/85 98 09/24/22 04:15 76 24 142/84 98 09/24/22 04:00 97.5 F L 73 28 H 138/73 97 40 09/24/22 03:45 70 30 H 125/70 98 09/24/22 03:30 67 23 92/64 98 09/24/22 03:15 70 22 78/57 98 09/24/22 03:00 70 22 86/61 98 09/24/22 02:45 70 22 89/65 98 09/24/22 02:30 71 22 92/64 98 09/24/22 02:15 71 22 83/57 97 09/24/22 02:00 72 22 87/60 97 09/24/22 01:45 73 22 107/72 96 09/24/22 01:30 75 22 107/72 97 09/24/22 01:15 73 26 H 109/74 96 09/24/22 01:06 73 09/24/22 01:00 74 22 117/89 96 09/24/22 00:54 73 40 09/24/22 00:45 76 26 H 169/118 96 09/24/22 00:30 77 24 171/97 96 09/24/22 00:15 76 24 154/90 96 09/24/22 00:00 97.2 F L 74 22 147/109 96 40 09/23/22 23:50 40 05/06/23 23:45 72 22 175/128 96 09/23/22 23:39 40 09/23/22 23:32 75 18 09/23/22 23:15 74 22 119/80 98 09/23/22 23:10 74 22 110/72 97 09/23/22 23:05 75 22 92/65 97 09/23/22 23:00 76 22 86/60 96 09/23/22 22:55 76 22 104/71 95 09/23/22 22:50 77 22 133/79 96 09/23/22 22:45 78 34 H 149/100 97 09/23/22 22:40 78 20 128/94 97 09/23/22 22:35 79 18 128/82 96 09/23/22 22:30 78 18 113/77 97 09/23/22 22:25 78 18 118/71 96 09/23/22 22:20 80 18 106/72 95 09/23/22 22:15 82 18 117/87 95 09/23/22 22:10 86 18 134/86 94 L 09/23/22 22:05 91 18 133/89 95 09/23/22 22:00 94 18 141/98 94 L 09/23/22 21:55 99 18 157/93 94 L 09/23/22 21:50 100 18 150/101 93 L 09/23/22 21:45 101 H 18 169/98 93 L 09/23/22 21:40 101 H 18 170/105 93 L 09/23/22 21:35 102 H 18 180/111 93 L 09/23/22 21:30 104 H 18 182/107 94 L 09/23/22 21:25 103 H 18 177/112 96 09/23/22 21:20 99 18 189/118 100 09/23/22 21:15 98 18 189/111 100 09/23/22 21:10 98 18 195/117 100 40 09/23/22 21:05 98 18 195/119 100 09/23/22 21:00 98 18 218/119 100 09/23/22 20:50 94 18 208/127 100 09/23/22 20:45 96 19 219/134 100 09/23/22 20:40 95 18 219/113 100 09/23/22 20:10 142/94 09/23/22 20:05 96 18 158/99 09/23/22 20:00 98 18 217/122 09/23/22 19:55 100 18 194/120 09/23/22 19:50 98 18 186/111 09/23/22 19:45 101 H 18 169/102 09/23/22 19:40 102 H 18 183/116 09/23/22 19:35 103 H 18 189/105 09/23/22 19:25 106 H 18 193/106 99 09/23/22 19:20 107 H 18 203/119 100 09/23/22 18:50 106 H 18 228/112 97 09/23/22 18:47 100 09/23/22 18:33 120 H 24 122/81 97 09/23/22 18:29 121 H 26 H 174/135 99 09/23/22 18:09 125 H 09/23/22 18:01 110 H 40 09/23/22 17:55 28 H 89 L 09/23/22 17:26 83 18 194/94 97 09/23/22 16:54 87 09/23/22 16:41 89 09/23/22 16:34 98.0 F 91 20 163/98 91 L Intake and Output 09/23/22 09/24/22 09/24/22 22:59 06:59 14:59 Intake Total 184.995 598.719 235.875 Output Total 187 33 Balance 184.995 411.719 202.875 Intake: Intake, IV Titration 184.995 598.719 235.875 Amount Esmolol in Sodium 197.584 Chloride Pmx 2.5 gm In Saline 1 250ml.bag @ 200 MCG/KG/MIN 59.874 mls/hr IV .Q4H11M [facility] Rx#: [id number] Esmolol in Sodium 11.227 Chloride Pmx 2.5 gm In Saline 1 250ml.bag @ 50 MCG/KG/MIN 14.969 mls/hr IV .[id number] [facility] Rx#: [id number] Nitroglycerin-D5w Pmx 50 288.025 175.5 mg In Dextrose/Water 1 250ml.bag @ 165 MCG/MIN 49.5 mls/hr IV .Q5H4M [facility] Rx#:[id number] Nitroglycerin-D5w Pmx 50 145.750 21.25 mg In Dextrose/Water 1 250ml.bag @ 50 MCG/MIN 15 mls/hr IV .[id number] [facility] Rx#:[id number] fentaNYL (PF). 1,000 mcg 13.597 In Sodium Chloride 0.9% 80 ml @ 0.5 MCG/KG/HR 2. 495 mls/hr IV .Q24H [facility] Rx#:[id number] propofoL 1,000 mg In 28.018 78.263 60.375 Empty Bag 1 bag @ 15 MCG/ KG/MIN 4.491 mls/hr IV . [id number] [facility] Rx#:[id number] Output: Urine 187 33 Other: Voiding Method Indwelling Catheter Weight 49.895 kg 54.2 kg Results 09/24/22 05:08 09/24/22 05:08 Cardiac Enzymes 09/23/22 09/23/22 09/24/22 Range/Units 17:04 17:04 05:08 AST 31 (14-36) U/L Troponin I 0.017 0.015 (0.000-0.034) ng/mL 09/24/22 Range/Units 05:08 AST 29 (14-36) U/L Troponin I (0.000-0.034) ng/mL Coagulation 09/23/22 Range/Units 17:04 PT 9.9 (9.0-12.0) sec APTT 23.3 (22.0-30.0) sec CBC 09/23/22 09/24/22 09/24/22 Range/Units 17:04 03:13 05:08 WBC 12.5 H 25.7 H (3.8-10.6) k/uL RBC 4.28 3.58 L (3.80-5.40) m/uL Hgb 13.2 11.1 L (11.4-16.0) gm/dL Hct 39.1 35.5 (34.0-46.0) % Plt Count 270 228 (150-450) k/uL Comprehensive Metabolic Panel 09/23/22 09/24/22 09/24/22 Range/Units 17:04 03:13 05:08 Sodium 137 136 L (137-145) mmol/L Potassium 4.8 4.7 (3.5-5.1) mmol/L Chloride 100 104 (98-107) mmol/L Carbon Dioxide 23 15 L (22-30) mmol/L BUN 39 H 32 H (7-17) mg/dL Creatinine 1.48 H 1.24 H (0.52-1.04) mg/dL Glucose 176 H 260 H (74-99) mg/dL Calcium 9.5 7.6 L (8.4-10.2) mg/dL AST 31 29 (14-36) U/L ALT 22 22 (4-34) U/L Alkaline Phosphatase 55 43 (38-126) U/L Total Protein 8.2 6.7 (6.3-8.2) g/dL Albumin 4.9 4.0 (3.5-5.0) g/dL Current Medications Generic Name Dose Route Start Last Admin Trade Name Freq PRN Reason Stop Dose Admin Albuterol/Ipratropium 3 ml 09/24/22 00:00 09/24/22 07:43 Ipratropium-Albuterol 3 Ml Neb INHALATION 3 ml RT-Q4H [facility] Administration Chlorhexidine Gluconate 15 ml 09/24/22 09:00 09/24/22 08:45 Chlorhexidine Gluconate 15 Ml Cup MUCOUS MEM 15 ml BID [facility] Administration Dextrose/Water 25 ml 09/24/22 04:34 Dextrose 50% Syringe 50 Ml IVP PER PROTOCOL PRN Hypoglycemia Protocol Dextrose/Water 50 ml 09/24/22 04:34 Dextrose 50% Syringe 50 Ml IVP PER PROTOCOL PRN Hypoglycemia Protocol Propofol 1,000 mg/ IV Solution 100 mls @ 4.491 mls/hr 09/23/22 19:30 09/24/22 08:44 IV 50 mcg/kg/min .[id number] [facility] 14.969 mls/hr Administration Protocol 15 MCG/KG/MIN Azithromycin 500 mg/ Sodium 250 mls @ 250 mls/hr 09/24/22 20:00 Chloride IVPB 09/26/22 20:59 DAILY@1999 [facility] Protocol Fentanyl Citrate 1,000 mcg/ 100 mls @ 2.495 mls/hr 09/24/22 00:45 09/24/22 04:45 Sodium Chloride IV 2 mcg/kg/hr .Q24H [facility] 9.979 mls/hr Titration Protocol 0.5 MCG/KG/HR Nitroglycerin/Dextrose 50 mg/ 250 mls @ 49.5 mls/hr 09/24/22 01:30 09/24/22 08:50 IV Solution IV 160 mcg/min .Q5H4M [facility] 48 mls/hr Titration Protocol 165 MCG/MIN Esmolol HCl/Sodium Chloride 2. 250 mls @ 59.874 mls/hr 09/24/22 02:45 09/24/22 06:02 5 gm/ IV Solution IV 200 mcg/kg/min .Q4H11M [facility] 59.874 mls/hr Administration Protocol 200 MCG/KG/MIN Insulin Aspart 0 unit 09/24/22 06:00 09/24/22 06:51 Insulin Aspart (Novolog) 100 Unit/Ml Vial SQ 3 unit Q6H [facility] Administration Protocol Methylprednisolone Sodium Succinate 40 mg 09/24/22 09:00 09/24/22 08:45 Methylprednisolone Sod Succi 40 Mg/Ml 1 Ml Vial IV 40 mg Q12HR [facility] Administration Naloxone HCl 0.2 mg 09/23/22 22:44 Naloxone 0.4 Mg/Ml 1 Ml Vial IV Q2M PRN Opioid Reversal Intake and Output 09/23/22 09/24/22 09/24/22 22:59 06:59 14:59 Intake Total 184.995 598.719 235.875 Output Total 187 33 Balance 184.995 411.719 202.875 Intake: Intake, IV Titration 184.995 598.719 235.875 Amount Esmolol in Sodium 197.584 Chloride Pmx 2.5 gm In Saline 1 250ml.bag @ 200 MCG/KG/MIN 59.874 mls/hr IV .Q4H11M [facility] Rx#: [id number] Esmolol in Sodium 11.227 Chloride Pmx 2.5 gm In Saline 1 250ml.bag @ 50 MCG/KG/MIN 14.969 mls/hr IV .[id number] [facility] Rx#: [id number] Nitroglycerin-D5w Pmx 50 288.025 175.5 mg In Dextrose/Water 1 250ml.bag @ 165 MCG/MIN 49.5 mls/hr IV .Q5H4M [facility] Rx#:[id number] Nitroglycerin-D5w Pmx 50 145.750 21.25 mg In Dextrose/Water 1 250ml.bag @ 50 MCG/MIN 15 mls/hr IV .[id number] [facility] Rx#:[id number] fentaNYL (PF). 1,000 mcg 13.597 In Sodium Chloride 0.9% 80 ml @ 0.5 MCG/KG/HR 2. 495 mls/hr IV .Q24H [facility] Rx#:[id number] propofoL 1,000 mg In 28.018 78.263 60.375 Empty Bag 1 bag @ 15 MCG/ KG/MIN 4.491 mls/hr IV . [id number] [facility] Rx#:[id number] Output: Urine 187 33 Other: Voiding Method Indwelling Catheter Weight 49.895 kg 54.2 kg 09/24/22 05:08 09/24/22 05:08
--- NOTE | 2022-09-24 11:00 | P.GSCN ---
History of Present Illness Consult date: 09/24/22 History of present illness: Patient is a 76-year-old female who presented with shortness of breath to the ER and had rapid decline progressing to intubation. She had evidence of hypertensive emergency and was placed on drips. After workup and evaluation in the ER she was found to have a small segment of infrarenal aortic dissection just distal to the renal vessels. We are consult in regards to this. All history is noted through the chart as patient is currently intubated and unable to provide history and review of systems. She is a current smoker. There is no comment or notes regard to any lower extremity or abdominal pains that were precipitated at any point in this hospitalization Review of Systems ROS unobtainable: due to endotracheal tube Past Medical History Past Medical History: COPD, CVA/TIA, Hyperlipidemia, Hypertension, Myocardial Infarction ([place]), Osteoarthritis (OA) Additional Past Medical History / Comment(s): TIA - September 2013, past history of abcess/cellulitis left cheek. Patient is poor historian of her [facility]. 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 Past Anesthesia/Blood Transfusion Reactions: No Reported Reaction Smoking Status: Current every day smoker - Past Family History Son(s) Family Medical History: No Reported History Additional Family Medical History / Comment(s): 4 sons all reported healthy per patient Mother Family Medical History: CVA/TIA Additional Family Medical History / Comment(s): Medications and Allergies Home Medications Medication Instructions Recorded Confirmed Type HYDROcodone/APAP 7.5-325MG [[place] 1 tab PO QID PRN 10/16/18 09/23/22 History 7.5-325] Denosumab [Prolia] 60 mg SQ Q180D 04/12/21 09/23/22 History Aspirin EC [Ecotrin Low Dose] 81 mg PO PC-LUNCH 04/05/22 09/23/22 History Docusate [Colace] 100 mg PO TH 04/05/22 09/23/22 History atenoloL [Tenormin] 25 mg PO PC-LUNCH 04/05/22 09/23/22 History Famotidine [Pepcid] 20 mg PO DAILY #15 tablet 04/08/22 09/23/22 Rx Ergocalciferol [Vitamin D2 (1250 1,250 mcg PO FR 09/23/22 09/23/22 History Mcg = 30420 Iu)] lisinopriL [Zestril] 20 mg PO PC-LUNCH 09/23/22 09/23/22 History Allergies Allergy/AdvReac Type Severity Reaction Status Date / Time iodine Allergy Itching Verified 09/23/22 17:55 Surgical - Exam Vital Signs Temp Pulse Resp BP Pulse Ox 98.0 F 91 20 163/98 91 L 09/23/22 16:34 09/23/22 16:34 09/23/22 16:34 09/23/22 16:34 09/23/22 16:34 Intubated. Sedated. Abdomen is soft, nontender nondistended. Difficult to palpate distal pulses. Dorsalis pedis monophasic bilaterally signals. Feet are warm and dry. No cyanosis. Results Computed tomography scan is reviewed. There is a focal area of dissection versus ulcerated plaquing at the proximal infrarenal aorta just beyond the renal arteries. This time it does not appear to be flow limiting. There did not appear to be evidence of ischemic changes. Peripheral vascular disease with significant calcifications throughout. - Labs 09/24/22 05:08 09/24/22 05:08 Abnormal Lab Results - Last 24 Hours (Table) 09/23/22 09/23/22 09/23/22 Range/Units 17:04 17:04 18:16 WBC 12.5 H (3.8-10.6) k/uL RBC (3.80-5.40) m/uL Hgb (11.4-16.0) gm/dL Neutrophils # 10.2 H (1.3-7.7) k/uL ABG pH (7.35-7.45) ABG pCO2 (35-45) mmHg ABG pO2 (83-108) mmHg ABG HCO3 (21-25) mmol/L ABG Total CO2 (19-24) mmol/L ABG O2 Saturation (94-97) % VBG HCO3 19 L (24-28) mmol/L Sodium (137-145) mmol/L Carbon Dioxide (22-30) mmol/L BUN 39 H (7-17) mg/dL Creatinine 1.48 H (0.52-1.04) mg/dL Glucose 176 H (74-99) mg/dL POC Glucose (mg/dL) (70-110) mg/dL Calcium (8.4-10.2) mg/dL Total Bilirubin 1.4 H (0.2-1.3) mg/dL 09/23/22 09/23/22 09/23/22 Range/Units 19:57 20:55 23:39 WBC (3.8-10.6) k/uL RBC (3.80-5.40) m/uL Hgb (11.4-16.0) gm/dL Neutrophils # (1.3-7.7) k/uL ABG pH 7.23 L 7.23 L (7.35-7.45) ABG pCO2 51 H 51 H (35-45) mmHg ABG pO2 >420 H >420 H (83-108) mmHg ABG HCO3 20 L 20 L (21-25) mmol/L ABG Total CO2 17 L (19-24) mmol/L ABG O2 Saturation 99.0 H 99.3 H (94-97) % VBG HCO3 (24-28) mmol/L Sodium (137-145) mmol/L Carbon Dioxide (22-30) mmol/L BUN (7-17) mg/dL Creatinine (0.52-1.04) mg/dL Glucose (74-99) mg/dL POC Glucose (mg/dL) 307 H (70-110) mg/dL Calcium (8.4-10.2) mg/dL Total Bilirubin (0.2-1.3) mg/dL 09/24/22 09/24/22 09/24/22 Range/Units 04:45 05:08 05:08 WBC 25.7 H (3.8-10.6) k/uL RBC 3.58 L (3.80-5.40) m/uL Hgb 11.1 L (11.4-16.0) gm/dL Neutrophils # 23.7 H (1.3-7.7) k/uL ABG pH 7.31 L (7.35-7.45) ABG pCO2 (35-45) mmHg ABG pO2 168 H (83-108) mmHg ABG HCO3 18 L (21-25) mmol/L ABG Total CO2 (19-24) mmol/L ABG O2 Saturation 99.7 H (94-97) % VBG HCO3 (24-28) mmol/L Sodium 136 L (137-145) mmol/L Carbon Dioxide 15 L (22-30) mmol/L BUN 32 H (7-17) mg/dL Creatinine 1.24 H (0.52-1.04) mg/dL Glucose 260 H (74-99) mg/dL POC Glucose (mg/dL) (70-110) mg/dL Calcium 7.6 L (8.4-10.2) mg/dL Total Bilirubin (0.2-1.3) mg/dL 09/24/22 Range/Units 06:47 WBC (3.8-10.6) k/uL RBC (3.80-5.40) m/uL Hgb (11.4-16.0) gm/dL Neutrophils # (1.3-7.7) k/uL ABG pH (7.35-7.45) ABG pCO2 (35-45) mmHg ABG pO2 (83-108) mmHg ABG HCO3 (21-25) mmol/L ABG Total CO2 (19-24) mmol/L ABG O2 Saturation (94-97) % VBG HCO3 (24-28) mmol/L Sodium (137-145) mmol/L Carbon Dioxide (22-30) mmol/L BUN (7-17) mg/dL Creatinine (0.52-1.04) mg/dL Glucose (74-99) mg/dL POC Glucose (mg/dL) 276 H (70-110) mg/dL Calcium (8.4-10.2) mg/dL Total Bilirubin (0.2-1.3) mg/dL Diabetes panel 09/23/22 09/24/22 09/24/22 Range/Units 17:04 03:13 05:08 Sodium 137 (137-145) mmol/L Potassium 4.8 (3.5-5.1) mmol/L Chloride 100 (98-107) mmol/L Carbon Dioxide 23 (22-30) mmol/L BUN 39 H (7-17) mg/dL Creatinine 1.48 H (0.52-1.04) mg/dL Glucose 176 H (74-99) mg/dL Hemoglobin A1c 6.0 (0.0-6.0) % Calcium 9.5 (8.4-10.2) mg/dL AST 31 (14-36) U/L ALT 22 (4-34) U/L Alkaline Phosphatase 55 (38-126) U/L Total Protein 8.2 (6.3-8.2) g/dL Albumin 4.9 (3.5-5.0) g/dL 09/24/22 Range/Units 05:08 Sodium 136 L (137-145) mmol/L Potassium 4.7 (3.5-5.1) mmol/L Chloride 104 (98-107) mmol/L Carbon Dioxide 15 L (22-30) mmol/L BUN 32 H (7-17) mg/dL Creatinine 1.24 H (0.52-1.04) mg/dL Glucose 260 H (74-99) mg/dL Hemoglobin A1c (0.0-6.0) % Calcium 7.6 L (8.4-10.2) mg/dL AST 29 (14-36) U/L ALT 22 (4-34) U/L Alkaline Phosphatase 43 (38-126) U/L Total Protein 6.7 (6.3-8.2) g/dL Albumin 4.0 (3.5-5.0) g/dL Calcium panel 09/23/22 09/24/22 09/24/22 Range/Units 17:04 03:13 05:08 Calcium 9.5 7.6 L (8.4-10.2) mg/dL Albumin 4.9 4.0 (3.5-5.0) g/dL Pituitary panel 09/23/22 09/24/22 09/24/22 Range/Units 17:04 03:13 05:08 Sodium 137 136 L (137-145) mmol/L Potassium 4.8 4.7 (3.5-5.1) mmol/L Chloride 100 104 (98-107) mmol/L Carbon Dioxide 23 15 L (22-30) mmol/L BUN 39 H 32 H (7-17) mg/dL Creatinine 1.48 H 1.24 H (0.52-1.04) mg/dL Glucose 176 H 260 H (74-99) mg/dL Calcium 9.5 7.6 L (8.4-10.2) mg/dL Adrenal panel 09/23/22 09/24/22 09/24/22 Range/Units 17:04 03:13 05:08 Sodium 137 136 L (137-145) mmol/L Potassium 4.8 4.7 (3.5-5.1) mmol/L Chloride 100 104 (98-107) mmol/L Carbon Dioxide 23 15 L (22-30) mmol/L BUN 39 H 32 H (7-17) mg/dL Creatinine 1.48 H 1.24 H (0.52-1.04) mg/dL Glucose 176 H 260 H (74-99) mg/dL Calcium 9.5 7.6 L (8.4-10.2) mg/dL Total Bilirubin 1.4 H 1.0 (0.2-1.3) mg/dL AST 31 29 (14-36) U/L ALT 22 22 (4-34) U/L Alkaline Phosphatase 55 43 (38-126) U/L Total Protein 8.2 6.7 (6.3-8.2) g/dL Albumin 4.9 4.0 (3.5-5.0) g/dL Assessment and Plan Assessment: Infrarenal abdominal aortic dissection Tobacco abuse Peripheral vascular disease Severe dyspnea requiring intubation Plan: I personally reviewed images and find no indication for intervention at this point. We will monitor the patient's overall course. If she begins having abdominal pain or other evidences of ischemic changes, we will change her course. It appears that though her majority of her atherosclerotic disease is chronic. No evidence of acute ischemia in the lower extremities at this time. Continue supportive care. Please notify us if there are any further changes.
[2022-09-24] MEDS: ATORVASTATIN 40 MG TAB PO SCH (11:41)
[2022-09-24 11:47] LABS: Glucose,Whole Blood 222 mg/dL (70-110)
[2022-09-24] MEDS: methylPREDNISolone SOD SUCCI 125 MG/2 ML VIAL IV SCH ×3 (12:09→23:25)
--- NOTE | 2022-09-24 12:31 | P.CNPUL ---
History of Present Illness Consult date: 09/24/22 Requesting physician: Jeremiah St Reason for consult: COPD, hypoxemia Chief complaint: Shortness of breath History of present illness: This is a 76-year-old female patient with a history of chronic and ongoing tobacco dependence, chronic obstructive pulmonary disease, hypertension, hyperlipidemia, osteoarthritis. She presented to the emergency room yesterday with complaints of a 2-3 day history of worsening shortness of breath. She had a productive cough of greenish yellow sputum and sinus congestion. She stated she had no inhalers at home. She eventually failed BiPAP support and was intubated in the emergency department yesterday 09/23/2022. X-ray had revealed evidence of COPD but no acute pulmonary process. Computed tomography scan of the brain revealed no acute intracranial process. Thoracic scan revealed a short segment infrarenal abdominal aortic dissection. No aortic aneurysm. No evidence of pulmonary embolism. There is a spiculated 9 mm nodule in the right lung apex raising the possibility of malignancy. Outpatient PET scan recommended. There is decreased enhancement involving the left kidney suspicious for infarct. Atrophy of the right kidney with delayed enhancement compared to the left. Both kidneys with moderate stenosis. There is also possible Zenker's diverticulum within the upper esophagus. Staff has been unable to pass a nasogastric tube. White count 25.7. Hemoglobin 11.1. Platelets 228. Sodium 136. Potassium 4.7. Bicarb 15. BUN 32. Creatinine 1.24. Glucose 260. Pro-calcitonin 1.09. She is seen today in consultation in the intensive care unit. Current ventilator settings are assist-control mode with a rate of 22, tidal volume 350, FiO2 40% and a PEEP of 5. Morning blood gases reveal a P O2 of 168, pCO2 36 and a pH of 7.31. That was on 40% FiO2. She initially was on a nitroglycerin drip that has been discontinued. She is on esmolol at 200 mcg/kg/min. Fentanyl at 2 mcg/kg/h and propofol 50 mcg/kg/m. She's been initiated on DuoNeb inhalations, Pulmicort and Perforomist inhalations, IV Solu-Medrol. Antibiotics in the form of azithromycin. Review of Systems ROS unobtainable: due to endotracheal tube Past Medical History Past Medical History: COPD, CVA/TIA, Hyperlipidemia, Hypertension, Myocardial Infarction (SD), Osteoarthritis (OA) Additional Past Medical History / Comment(s): TIA - September 2013, past history of abcess/cellulitis left cheek. Patient is poor historian of her [facility]. 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 Past Anesthesia/Blood Transfusion Reactions: No Reported Reaction Smoking Status: Current every day smoker - Past Family History Son(s) Family Medical History: No Reported History Additional Family Medical History / Comment(s): 4 sons all reported healthy per patient Mother Family Medical History: CVA/TIA Additional Family Medical History / Comment(s): Medications and Allergies Home Medications Medication Instructions Recorded Confirmed Type HYDROcodone/APAP 7.5-325MG [[place] 1 tab PO QID PRN 10/16/18 09/23/22 History 7.5-325] Denosumab [Prolia] 60 mg SQ Q180D 04/12/21 09/23/22 History Aspirin EC [Ecotrin Low Dose] 81 mg PO PC-LUNCH 04/05/22 09/23/22 History Docusate [Colace] 100 mg PO TH 04/05/22 09/23/22 History atenoloL [Tenormin] 25 mg PO PC-LUNCH 04/05/22 09/23/22 History Famotidine [Pepcid] 20 mg PO DAILY #15 tablet 04/08/22 09/23/22 Rx Ergocalciferol [Vitamin D2 (1250 1,250 mcg PO FR 09/23/22 09/23/22 History Mcg = 40749 Iu)] lisinopriL [Zestril] 20 mg PO PC-LUNCH 09/23/22 09/23/22 History Allergies Allergy/AdvReac Type Severity Reaction Status Date / Time iodine Allergy Itching Verified 09/23/22 17:55 Physical Exam Vitals: Vital Signs Temp Pulse Resp BP Pulse Ox FiO2 09/24/22 11:24 80 09/24/22 11:20 30 09/24/22 11:15 79 22 127/72 96 09/24/22 11:11 82 09/24/22 11:00 77 22 96/61 96 30 09/24/22 10:45 76 22 102/62 96 09/24/22 10:30 78 22 107/63 96 09/24/22 10:15 78 22 107/60 96 09/24/22 10:00 79 22 105/71 97 30 05 09:45 78 22 93/71 97 09/24/22 09:30 81 22 96/64 96 09/24/22 09:15 81 22 100/60 97 09/24/22 09:00 80 22 99/62 97 09/24/22 08:45 81 22 104/62 97 09/24/22 08:30 80 22 102/59 97 09/24/22 08:15 81 22 108/64 97 09/24/22 08:03 90 09/24/22 08:00 98.2 F 81 22 81/57 98 40 09/24/22 07:49 80 09/24/22 07:45 80 22 118/67 97 09/24/22 07:40 40 09/24/22 07:30 79 22 124/73 98 09/24/22 07:15 81 20 119/68 97 07 07:00 80 24 131/78 98 09/24/22 06:45 83 26 H 127/78 97 09/24/22 06:30 81 25 H 123/70 97 07 06:15 80 22 143/86 98 09/24/22 06:00 82 23 162/95 97 09/24/22 05:45 86 26 H 125/81 97 09/24/22 05:30 81 24 152/83 99 0507 05:27 81 09/24/22 05:19 82 09/24/22 05:15 80 25 H 141/78 94 L 40 09/24/22 05:00 78 26 H 151/79 98 07 04:45 80 26 H 171/93 97 0507 04:30 77 22 158/85 98 07 04:15 76 24 142/84 98 07 04:00 97.5 F L 73 28 H 138/73 97 40 09/24/22 03:45 70 30 H 125/70 98 09/24/22 03:30 67 23 92/64 98 09/24/22 03:15 70 22 78/57 98 09/24/22 03:00 70 22 86/61 98 09/24/22 02:45 70 22 89/65 98 09/24/22 02:30 71 22 92/64 98 09/24/22 02:15 71 22 83/57 97 09/24/22 02:00 72 22 87/60 97 09/24/22 01:45 73 22 107/72 96 09/24/22 01:30 75 22 107/72 97 09/24/22 01:15 73 26 H 109/74 96 09/24/22 01:06 73 09/24/22 01:00 74 22 117/89 96 09/24/22 00:54 73 40 09/24/22 00:45 76 26 H 169/118 96 09/24/22 00:30 77 24 171/97 96 09/24/22 00:15 76 24 154/90 96 09/24/22 00:00 97.2 F L 74 22 147/109 96 40 09/23/22 23:50 40 09/23/22 23:45 72 22 175/128 96 09/23/22 23:39 40 09/23/22 23:32 75 18 09/23/22 23:15 74 22 119/80 98 09/23/22 23:10 74 22 110/72 97 09/23/22 23:05 75 22 92/65 97 09/23/22 23:00 76 22 86/60 96 09/23/22 22:55 76 22 104/71 95 09/23/22 22:50 77 22 133/79 96 09/23/22 22:45 78 34 H 149/100 97 09/23/22 22:40 78 20 128/94 97 09/23/22 22:35 79 18 128/82 96 09/23/22 22:30 78 18 113/77 97 09/23/22 22:25 78 18 118/71 96 09/23/22 22:20 80 18 106/72 95 09/23/22 22:15 82 18 117/87 95 09/23/22 22:10 86 18 134/86 94 L 09/23/22 22:05 91 18 133/89 95 09/23/22 22:00 94 18 141/98 94 L 09/23/22 21:55 99 18 157/93 94 L 09/23/22 21:50 100 18 150/101 93 L 09/23/22 21:45 101 H 18 169/98 93 L 09/23/22 21:40 101 H 18 170/105 93 L 09/23/22 21:35 102 H 18 180/111 93 L 09/23/22 21:30 104 H 18 182/107 94 L 09/23/22 21:25 103 H 18 177/112 96 09/23/22 21:20 99 18 189/118 100 09/23/22 21:15 98 18 189/111 100 09/23/22 21:10 98 18 195/117 100 40 09/23/22 21:05 98 18 195/119 100 09/23/22 21:00 98 18 218/119 100 09/23/22 20:50 94 18 208/127 100 09/23/22 20:45 96 19 219/134 100 09/23/22 20:40 95 18 219/113 100 09/23/22 20:10 142/94 09/23/22 20:05 96 18 158/99 09/23/22 20:00 98 18 217/122 09/23/22 19:55 100 18 194/120 09/23/22 19:50 98 18 186/111 09/23/22 19:45 101 H 18 169/102 09/23/22 19:40 102 H 18 183/116 09/23/22 19:35 103 H 18 189/105 09/23/22 19:25 106 H 18 193/106 99 09/23/22 19:20 107 H 18 203/119 100 09/23/22 18:50 106 H 18 228/112 97 09/23/22 18:47 100 09/23/22 18:33 120 H 24 122/81 97 09/23/22 18:29 121 H 26 H 174/135 99 09/23/22 18:09 125 H 09/23/22 18:01 110 H 40 09/23/22 17:55 28 H 89 L 09/23/22 17:26 83 18 194/94 97 09/23/22 16:54 87 09/23/22 16:41 89 09/23/22 16:34 98.0 F 91 20 163/98 91 L Intake and Output 09/23/22 09/24/22 09/24/22 22:59 06:59 14:59 Intake Total 184.995 598.719 715.178 Output Total 187 273 Balance 184.995 411.719 442.178 Intake: Intake, IV Titration 184.995 598.719 715.178 Amount Esmolol in Sodium 197.584 294.632 Chloride Pmx 2.5 gm In Saline 1 250ml.bag @ 200 MCG/KG/MIN 59.874 mls/hr IV .Q4H11M [facility] Rx#: [id number] Esmolol in Sodium 11.227 Chloride Pmx 2.5 gm In Saline 1 250ml.bag @ 50 MCG/KG/MIN 14.969 mls/hr IV .[id number] [facility] Rx#: [id number] Nitroglycerin-D5w Pmx 50 288.025 211.975 mg In Dextrose/Water 1 250ml.bag @ 165 MCG/MIN 49.5 mls/hr IV .Q5H4M [facility] Rx#:[id number] Nitroglycerin-D5w Pmx 50 145.750 21.25 83 mg In Dextrose/Water 1 250ml.bag @ 50 MCG/MIN 15 mls/hr IV .[id number] [facility] Rx#:[id number] fentaNYL (PF). 1,000 mcg 13.597 65.196 In Sodium Chloride 0.9% 80 ml @ 0.5 MCG/KG/HR 2. 495 mls/hr IV .Q24H [facility] Rx#:[id number] propofoL 1,000 mg In 28.018 78.263 60.375 Empty Bag 1 bag @ 15 MCG/ KG/MIN 4.491 mls/hr IV . [id number] [facility] Rx#:[id number] Output: Urine 187 273 Other: Voiding Method Indwelling Catheter Indwelling Catheter Weight 49.895 kg 54.2 kg GENERAL EXAM: Intubated, sedated 76-year-old female, comfortable in no apparent distress. HEAD: Normocephalic. EYES: Sluggish reaction of pupils, equal size. NOSE: Clear with pink turbinates. THROAT: Oral endotracheal tube secured in place. No erythema or exudates. NECK: No masses, no JVD. CHEST: No chest wall deformity. LUNGS: Equal air entry with no crackles, wheeze, rhonchi or dullness. CVS: S1 and S2 normal with no audible murmur, regular rhythm. ABDOMEN: No hepatosplenomegaly, normal bowel sounds, no guarding or rigidity. SPINE: No scoliosis or deformity SKIN: No rashes CENTRAL NERVOUS SYSTEM: No focal deficits, tone is normal in all 4 extremities. EXTREMITIES: There is no peripheral edema. No clubbing, no cyanosis. Peripheral pulses are intact. Results - Laboratory Findings CBC and BMP: 09/24/22 05:08 09/24/22 05:08 ABG ABG pH 7.31 (7.35-7.45) L 09/24/22 04:45 ABG pCO2 36 mmHg (35-45) 09/24/22 04:45 ABG pO2 168 mmHg (83-108) H 09/24/22 04:45 ABG O2 Saturation 99.7 % (94-97) H 09/24/22 04:45 PT/INR, D-dimer PT 9.9 sec (9.0-12.0) 09/23/22 17:04 INR 0.9 (<1.2) 09/23/22 17:04 Abnormal lab findings: Abnormal Labs 09/23/22 09/23/22 09/23/22 17:04 17:04 18:16 WBC 12.5 H RBC Hgb Neutrophils # 10.2 H ABG pH ABG pCO2 ABG pO2 ABG HCO3 ABG Total CO2 ABG O2 Saturation VBG HCO3 19 L Sodium Carbon Dioxide BUN 39 H Creatinine 1.48 H Glucose 176 H POC Glucose (mg/dL) Calcium Total Bilirubin 1.4 H Procalcitonin 09/23/22 09/23/22 09/23/22 19:57 20:55 23:39 WBC RBC Hgb Neutrophils # ABG pH 7.23 L 7.23 L ABG pCO2 51 H 51 H ABG pO2 >420 H >420 H ABG HCO3 20 L 20 L ABG Total CO2 17 L ABG O2 Saturation 99.0 H 99.3 H VBG HCO3 Sodium Carbon Dioxide BUN Creatinine Glucose POC Glucose (mg/dL) 307 H Calcium Total Bilirubin Procalcitonin 09/24/22 09/24/22 09/24/22 04:45 05:08 05:08 WBC 25.7 H RBC 3.58 L Hgb 11.1 L Neutrophils # 23.7 H ABG pH 7.31 L ABG pCO2 ABG pO2 168 H ABG HCO3 18 L ABG Total CO2 ABG O2 Saturation 99.7 H VBG HCO3 Sodium 136 L Carbon Dioxide 15 L BUN 32 H Creatinine 1.24 H Glucose 260 H POC Glucose (mg/dL) Calcium 7.6 L Total Bilirubin Procalcitonin 09/24/22 09/24/22 09/24/22 05:08 06:47 11:45 WBC RBC Hgb Neutrophils # ABG pH ABG pCO2 ABG pO2 ABG HCO3 ABG Total CO2 ABG O2 Saturation VBG HCO3 Sodium Carbon Dioxide BUN Creatinine Glucose POC Glucose (mg/dL) 276 H 222 H Calcium Total Bilirubin Procalcitonin 1.09 H - Diagnostic Findings Chest x-ray: image reviewed CT scan - chest: image reviewed Assessment and Plan Assessment: Acute hypoxemic respiratory failure secondary to an acute exacerbation of chronic obstructive pulmonary disease requiring intubation mechanical ventilat ory support on 09/23/2022. Chest x-ray does not show any significant pneumonia however the time was 1.06. Received ceftriaxone. Currently on azithromycin Leukocytosis secondary to above Acute kidney injury. There is decreased enhancement involving the left kidney suspicious for infarct. Atrophy of the right kidney with delayed enhancement compared to the left. Both kidneys with moderate stenosis. Thoracic scan revealed a short segment infrarenal abdominal aortic dissection. No aortic aneurysm. Spiculated 9 mm nodule in the right lung apex raising the possibility of malignancy. Outpatient PET scan recommended. Possible Zenker's diverticulum within the upper esophagus. Nasogastric tube unable to be passed History of CVA/TIA History of chronic and ongoing tobacco dependence Hyperlipidemia Hypertension Plan: The patient was seen and evaluated Chest x-ray, CAT scans, ABGs, labs and medications reviewed Vascular services have no plans for intervention regarding infrarenal aneurysm dissection Continue antibiotics, bronchodilators, IV Solu-Medrol Add heparin subcu for DVT prophylaxis Unable to pass a nasogastric tube May improve and be extubated tomorrow We will continue to follow and make further recommendations based on her clinical status I have personally seen and examined the patient, performed the documentation and the assessment and plan as written. Number of minutes spent on the visit: 20.
[2022-09-24] MEDS: HEPARIN SODIUM,PORCINE/PF 5,000 UNIT/0.5 ML SYRINGE SQ SCH ×2 (15:28→23:25)
[2022-09-24 17:36] LABS: Glucose,Whole Blood 125 mg/dL (70-110)
[2022-09-24] MEDS: SODIUM CHLORIDE 0.9% 1,000 ML IV SCH (18:54)
[2022-09-24] MEDS: FORMOTEROL FUMARATE 20 MCG/2 ML NEBU INHALATION SCH (19:27)
[2022-09-24] MEDS: BUDESONIDE 1 MG/2 ML NEBU INHALATION SCH (19:27)
[2022-09-24] MEDS: AZITHROMYCIN 500 MG in SODIUM CHLORIDE 0.9% 250 ML IVPB SCH (20:10)
[2022-09-24] MEDS ORDERED: SODIUM CHLORIDE 0.9% 500 ML 500 ML IV ONE (20:53)
[2022-09-24 23:35] LABS: Glucose,Whole Blood 203 mg/dL (70-110)
[2022-09-25] MEDS: NITROGLYCERIN-D5W PMX 50 MG in DEXTROSE/WATER 1 250ML.BAG IV SCH ×5 (02:32→23:30)
[2022-09-25] MEDS: IPRATROPIUM-ALBUTEROL 3 ML NEB INHALATION SCH ×5 (03:09→20:12)
[2022-09-25 05:31] LABS: ABG Base Excess -10.4 mmol/L; ABG HCO3 17 mmol/L (21-25); ABG Oxygen Saturation 97.2 % (94-97); ABG PCO2 38 mmHg (35-45); ABG PH 7.25 (7.35-7.45); ABG PO2 91 mmHg (83-108); ABG TCO2 18 mmol/L (19-24); Allen Test Performed? Yes
[2022-09-25 05:54] LABS: Glucose,Whole Blood 177 mg/dL (70-110)
[2022-09-25 05:54] LABS: Potassium 4.5 mmol/L (3.5-5.1)
[2022-09-25 05:56] LABS: Calcium 6.3 mg/dL (8.4-10.2)
[2022-09-25 05:58] LABS: Basophils % (A) 0 %; Eosinophils % (A) 0 %; HCT 36.4 % (34.0-46.0); HGB 11.5 gm/dL (11.4-16.0); Lymphocytes # (A) 0.5 k/uL (1.0-4.8); Lymphocytes % (A) 3 %; MCH 30.4 pg (25.0-35.0); MCHC 31.5 g/dL (31.0-37.0); MCV 96.5 fL (80.0-100.0); Mean Platelet Volume 12.1; Monocytes # (A) 0.5 k/uL (0-1.0); Monocytes % (A) 2 %; Neutrophils # (A) 19.9 k/uL (1.3-7.7); Neutrophils % (A) 95 %; Platelet Count 172 k/uL (150-450); RBC 3.78 m/uL (3.80-5.40); RDW 13.9 % (11.5-15.5)
[2022-09-25] MEDS ORDERED: CALCIUM GLUCONATE IN NACL 1 GM in SALINE 1 100ML.BAG IVPB ONE (06:06)
[2022-09-25] MEDS: ESMOLOL IN SODIUM CHLORIDE PMX 2.5 GM in SALINE 1 250ML.BAG IV SCH ×5 (06:17→21:09)
[2022-09-25 06:22] LABS: Glucose,Whole Blood 170 mg/dL (70-110)
[2022-09-25] MEDS: methylPREDNISolone SOD SUCCI 125 MG/2 ML VIAL IV SCH ×4 (06:40→23:34)
[2022-09-25] MEDS: INSULIN ASPART (NovoLOG) 100 UNIT/ML VIAL SQ SCH ×4 (06:40→23:33)
--- NOTE | 2022-09-25 07:12 | XR ---
EXAMINATION TYPE: XR chest 1V portable DATE OF EXAM: 09/25/2022 Comparison: 09/24/2022 Clinical History: 76-year-old female Tube placement Findings: ET tube satisfactory. Heart upper limits of normal in size. Hyperinflation and interstitial prominenc e are unchanged. No consolidation or pleural effusion. Impression: Similar COPD and borderline heart size. No acute process seen.
[2022-09-25] MEDS: FORMOTEROL FUMARATE 20 MCG/2 ML NEBU INHALATION SCH ×2 (08:10→20:12)
[2022-09-25] MEDS: BUDESONIDE 1 MG/2 ML NEBU INHALATION SCH ×2 (08:10→20:12)
[2022-09-25] MEDS: CHLORHEXIDINE GLUCONATE 15 ML CUP MUCOUS MEM SCH ×2 (08:15→20:10)
[2022-09-25] MEDS: ATORVASTATIN 40 MG TAB PO SCH (08:15)
[2022-09-25] MEDS: HEPARIN SODIUM,PORCINE/PF 5,000 UNIT/0.5 ML SYRINGE SQ SCH ×3 (08:15→23:33)
[2022-09-25] MEDS ORDERED: SODIUM BICARB 8.4% 50 ML SYR (1 MEQ/ML) IV STA (08:27)
--- NOTE | 2022-09-25 08:29 | P.PN ---
Subjective Progress Note Date: 09/25/22 This is a 76-year-old female patient with a history of chronic and ongoing tobacco dependence, chronic obstructive pulmonary disease, hypertension, hyperlipidemia, osteoarthritis. She presented to the emergency room yesterday with complaints of a 2-3 day history of worsening shortness of breath. She had a productive cough of greenish yellow sputum and sinus congestion. She stated she had no inhalers at home. She eventually failed BiPAP support and was intubated in the emergency department yesterday 09/23/2022. X-ray had revealed evidence of COPD but no acute pulmonary process. Computed tomography scan of the brain revealed no acute intracranial process. Thoracic scan revealed a short segment infrarenal abdominal aortic dissection. No aortic aneurysm. No evidence of pulmonary embolism. There is a spiculated 9 mm nodule in the right lung apex raising the possibility of malignancy. Outpatient PET scan recommended. There is decreased enhancement involving the left kidney suspicious for infarct. Atrophy of the right kidney with delayed enhancement compared to the left. Both kidneys with moderate stenosis. There is also possible Zenker's diverticulum within the upper esophagus. Staff has been unable to pass a nasogastric tube. White count 25.7. Hemoglobin 11.1. Platelets 228. Sodium 136. Potassium 4.7. Bicarb 15. BUN 32. Creatinine 1.24. Glucose 260. Pro-calcitonin 1.09. She is seen today in consultation in the intensive care unit. Current ventilator settings are assist-control mode with a rate of 22, tidal volume 350, FiO2 40% and a PEEP of 5. Morning blood gases reveal a P O2 of 168, pCO2 36 and a pH of 7.31. That was on 40% FiO2. She initially was on a nitroglycerin drip that has been discontinued. She is on esmolol at 200 mcg/kg/min. Fentanyl at 2 mcg/kg/h and propofol 50 mcg/kg/m. She's been initiated on DuoNeb inhalations, Pulmicort and Perforomist inhalations, IV Solu-Medrol. Antibiotics in the form of azithromycin. On today's evaluation of 09/25/2022, the patient is being seen for a follow-up. This is a case of COPD and the patient has an infrarenal abdominal aortic dissection this being treated conservatively. The patient is known to have a spiculated 9 mm right upper lobe lesion in addition to hypertension, hyperlipidemia and osteoarthritis. Noted the patient presented to us with respiratory failure. She had to be intubated after failing a BiPAP trial. At this point in time, the patient is sedated on propofol which is running at 20 mcg/kg/m. The patient is adequately sedated. The patient's increase of mechanical ventilator. She is on assist control at the rate of 22, tidal volume of 350, FiO2 of 30% and a PEEP of 5. The blood gas from today showed a pH of 7.25 with a pCO2 of 35 and a pO2 of 91. The patient has essentially the same metabolic acidosis. Serum bicarb is down to 14 and this is a non-anion gap metabolic acidosis. The chest x-ray from today shows hyperinflation. ET tube is a in a good location. No significant orotracheal secretions at this point in time. The patient is on bronchodilators, IV Solu-Medrol and Zithromax. The white cell count was as high as 25, dropped down to 21. Hemoglobin has stayed stable at 11.5. Sodium level is at 1:30 with a potassium level of 4.5 and a bicarb level of 14 as mentioned and the calcium level is low at 6.3. Pro- calcitonin level was at 1.09 at the time of admission and a troponin was at 0.15. The patient also has an infrarenal abdominal aortic aneurysm. The right kidney on the CAT scan showed a delayed enhancement on the left and the findings were suspicious for a left kidney infarct with decreased enhancement. There is also atrophy of the right kidney with delayed enhancement and possibility of renal artery stenosis is being entertained at this point in time. There is also possibility of a Zenker's diverticulum in the upper esophagus. The patient does not have a feeding tube for now and a technically difficult. Could be related to underlying Zenker's diverticulum. IV fluids are running in order of 0.9 at 75 mL an hour. She did have hypotension last night and she was taken off the esmolol drip and her blood pressure is stable at this point in time with a urine output of 30-50 mL an hour. IV fluids are in the form of normal saline. Objective - Vital Signs Vital signs: Vital Signs Temp 97.8 F 09/25/22 08:00 Pulse 85 09/25/22 08:11 Resp 22 09/25/22 08:00 BP 105/58 09/25/22 08:00 Pulse Ox 99 09/25/22 08:00 FiO2 30 09/25/22 08:11 Intake & Output 09/24/22 09/25/22 09/25/22 18:59 06:59 18:59 Intake Total 226.312 5598.393 125.69 Output Total 518 485 35 Balance 489.585 0611.393 90.69 Weight 58.4 kg Intake: IV 1650 75 Azithromycin 500 mg In 250 Sodium Chloride 0.9% 250 ml @ 250 mls/hr IVPB DAILY@2000 [facility] Rx#: [id number] Sodium Chloride 0.9% 1, 900 75 000 ml @ 75 mls/hr IV . [id number] [facility] Rx#:[id number] Sodium Chloride 0.9% 500 500 ml 500 ml @ 999 mls/hr IV .Q31M [facility] Rx#:[id number] Intake, IV Titration 844.591 37.393 50.69 Amount Esmolol in Sodium 294.632 Chloride Pmx 2.5 gm In Saline 1 250ml.bag @ 200 MCG/KG/MIN 59.874 mls/hr IV .Q4H11M [facility] Rx#: [id number] Nitroglycerin-D5w Pmx 50 211.975 mg In Dextrose/Water 1 250ml.bag @ 165 MCG/MIN 49.5 mls/hr IV .Q5H4M [facility] Rx#:[id number] Nitroglycerin-D5w Pmx 50 83 mg In Dextrose/Water 1 250ml.bag @ 50 MCG/MIN 15 mls/hr IV .[id number] [facility] Rx#:[id number] fentaNYL (PF). 1,000 mcg 100.455 25.491 In Sodium Chloride 0.9% 80 ml @ 0.5 MCG/KG/HR 2. 495 mls/hr IV .Q24H [facility] Rx#:[id number] propofoL 1,000 mg In 154.529 11.902 50.69 Empty Bag 1 bag @ 15 MCG/ KG/MIN 4.491 mls/hr IV . [id number] [facility] Rx#:[id number] Output: Urine 518 485 35 Other: Voiding Method Indwelling Catheter Indwelling Catheter Indwelling Catheter - Exam GENERAL EXAM: Intubated, sedated 76-year-old female, comfortable in no apparent distress. HEAD: Normocephalic. EYES: Sluggish reaction of pupils, equal size. NOSE: Clear with pink turbinates. THROAT: Oral endotracheal tube secured in place. No erythema or exudates. NECK: No masses, no JVD. CHEST: No chest wall deformity. LUNGS: Equal air entry with no crackles, wheeze, rhonchi or dullness. CVS: S1 and S2 normal with no audible murmur, regular rhythm. ABDOMEN: No hepatosplenomegaly, normal bowel sounds, no guarding or rigidity. SPINE: No scoliosis or deformity SKIN: No rashes CENTRAL NERVOUS SYSTEM: No focal deficits, tone is normal in all 4 extremities. EXTREMITIES: There is no peripheral edema. No clubbing, no cyanosis. Peripheral pulses are intact. - Labs CBC & Chem 7: 09/25/22 04:54 09/25/22 04:54 Labs: Abnormal Lab Results - Last 24 Hours (Table) 09/24/22 09/24/22 09/24/22 Range/Units 05:08 11:45 17:34 WBC (3.8-10.6) k/uL RBC (3.80-5.40) m/uL Neutrophils # (1.3-7.7) k/uL Lymphocytes # (1.0-4.8) k/uL ABG pH (7.35-7.45) ABG HCO3 (21-25) mmol/L ABG Total CO2 (19-24) mmol/L ABG O2 Saturation (94-97) % Chloride (98-107) mmol/L Carbon Dioxide (22-30) mmol/L BUN (7-17) mg/dL Creatinine (0.52-1.04) mg/dL Glucose (74-99) mg/dL POC Glucose (mg/dL) 222 H 125 H (70-110) mg/dL Calcium (8.4-10.2) mg/dL Procalcitonin 1.09 H (0.02-0.09) ng/mL 09/24/22 09/25/22 09/25/22 Range/Units 23:33 04:54 04:54 WBC 21.0 H (3.8-10.6) k/uL RBC 3.78 L (3.80-5.40) m/uL Neutrophils # 19.9 H (1.3-7.7) k/uL Lymphocytes # 0.5 L (1.0-4.8) k/uL ABG pH (7.35-7.45) ABG HCO3 (21-25) mmol/L ABG Total CO2 (19-24) mmol/L ABG O2 Saturation (94-97) % Chloride 113 H (98-107) mmol/L Carbon Dioxide 14 L (22-30) mmol/L BUN 24 H (7-17) mg/dL Creatinine 1.19 H (0.52-1.04) mg/dL Glucose 139 H (74-99) mg/dL POC Glucose (mg/dL) 203 H (70-110) mg/dL Calcium 6.3 L* (8.4-10.2) mg/dL Procalcitonin (0.02-0.09) ng/mL 09/25/22 09/25/22 09/25/22 Range/Units 05:28 05:52 06:20 WBC (3.8-10.6) k/uL RBC (3.80-5.40) m/uL Neutrophils # (1.3-7.7) k/uL Lymphocytes # (1.0-4.8) k/uL ABG pH 7.25 L (7.35-7.45) ABG HCO3 17 L (21-25) mmol/L ABG Total CO2 18 L (19-24) mmol/L ABG O2 Saturation 97.2 H (94-97) % Chloride (98-107) mmol/L Carbon Dioxide (22-30) mmol/L BUN (7-17) mg/dL Creatinine (0.52-1.04) mg/dL Glucose (74-99) mg/dL POC Glucose (mg/dL) 177 H 170 H (70-110) mg/dL Calcium (8.4-10.2) mg/dL Procalcitonin (0.02-0.09) ng/mL Microbiology - Last 24 Hours (Table) 09/23/22 20:38 Sputum Culture - Preliminary Sputum Assessment and Plan Plan: Acute hypoxemic respiratory failure secondary to an acute exacerbation of chronic obstructive pulmonary disease requiring intubation mechanical ventilator y support on 09/23/2022. Chest x-ray does not show any significant pneumonia however the time was 1.06. Patient remains intubated on a mechanical ventilator. No clear indication for pneumonia based on my evaluation. Pro- calcitonin level was elevated and the patient was started on antibiotics Leukocytosis secondary to above Non-gap metabolic acidosis with a serum bicarb of 14. This is also reflecting and the patient's blood gas Acute kidney injury. There is decreased enhancement involving the left kidney suspicious for infarct. Atrophy of the right kidney with delayed enhancement compared to the left. Both kidneys with moderate stenosis. The patient is producing adequate amount of urine output. Creatinine is down to 1.19. Thoracic scan revealed a short segment infrarenal abdominal aortic dissection. No aortic aneurysm. Spiculated 9 mm nodule in the right lung apex raising the possibility of malignancy. Outpatient PET scan recommended. Possible Zenker's diverticulum within the upper esophagus. Nasogastric tube unable to be passed History of CVA/TIA History of chronic and ongoing tobacco dependence Hyperlipidemia Hypertension Plan: Continue ventilator support and no changes will be done for today Give the patient a total of 100 mEq of sodium bicarb IV push and start a bicarb infusion at the rate of 100 mL an hour of 150 mEq of sodium bicarbonate This will be given to the patient over the next 24 hours and 6 underlying acidosis Vascular services have no plans for intervention regarding infrarenal aneurysm dissection, treatment is given a be conservative and will control the blood pressure. Hemoglobin stable for now. Continue antibiotics, bronchodilators, IV Solu-Medrol Continue IV Rocephin and Zithromax subcu for DVT prophylaxis Unable to pass a nasogastric tube, consult GI for an NG tube placement We will continue to follow and make further recommendations based on her clinical status Not ready for further weaning especially with underlying acidosis. Condition is critical and we'll continue to follow make further recommendations based on her progress. His evaluation was done in more than 30 minutes. Time with Patient: Greater than 30
[2022-09-25] MEDS: SODIUM CHLORIDE 0.9% 1,000 ML IV SCH (09:50)
[2022-09-25] MEDS: DEXTROSE 5% IN WATER 1,000 ML with SODIUM BICARB (1 MEQ/ML) 150 ML IV SCH ×2 (09:54→21:09)
--- NOTE | 2022-09-25 11:17 | P.PN ---
Subjective Progress Note Date: 09/25/22 Patient seen and examined today as a follow-up in the ICU. She remains sedated and intubated on mechanical ventilation. No acute changes through the night. Apparently patient had an AP that infiltrated in the right upper extremity and has had subsequent swelling. Objective - Vital Signs Vital signs: Vital Signs Temp 97.8 F 09/25/22 08:00 Pulse 100 09/25/22 09:00 Resp 22 09/25/22 09:00 BP 116/56 09/25/22 09:00 Pulse Ox 99 09/25/22 09:00 FiO2 30 09/25/22 08:11 Intake & Output 09/24/22 09/25/22 09/25/22 18:59 06:59 18:59 Intake Total 904.692 9892.393 125.69 Output Total 518 485 35 Balance 556.159 8850.393 90.69 Weight 58.4 kg Intake: IV 1650 75 Azithromycin 500 mg In 250 Sodium Chloride 0.9% 250 ml @ 250 mls/hr IVPB DAILY@2000 [facility] Rx#: [id number] Sodium Chloride 0.9% 1, 900 75 000 ml @ 75 mls/hr IV . [id number] [facility] Rx#:[id number] Sodium Chloride 0.9% 500 500 ml 500 ml @ 999 mls/hr IV .Q31M [facility] Rx#:[id number] Intake, IV Titration 844.591 37.393 50.69 Amount Esmolol in Sodium 294.632 Chloride Pmx 2.5 gm In Saline 1 250ml.bag @ 200 MCG/KG/MIN 59.874 mls/hr IV .Q4H11M [facility] Rx#: [id number] Nitroglycerin-D5w Pmx 50 211.975 mg In Dextrose/Water 1 250ml.bag @ 165 MCG/MIN 49.5 mls/hr IV .Q5H4M [facility] Rx#:[id number] Nitroglycerin-D5w Pmx 50 83 mg In Dextrose/Water 1 250ml.bag @ 50 MCG/MIN 15 mls/hr IV .[id number] [facility] Rx#:[id number] fentaNYL (PF). 1,000 mcg 100.455 25.491 In Sodium Chloride 0.9% 80 ml @ 0.5 MCG/KG/HR 2. 495 mls/hr IV .Q24H [facility] Rx#:[id number] propofoL 1,000 mg In 154.529 11.902 50.69 Empty Bag 1 bag @ 15 MCG/ KG/MIN 4.491 mls/hr IV . [id number] [facility] Rx#:[id number] Output: Urine 518 485 35 Other: Voiding Method Indwelling Catheter Indwelling Catheter Indwelling Catheter - Exam General appearance: The patient is sedated and intubated. HET: Head is normocephalic and atraumatic. Neck: Supple. Heart: Regular. Lungs: Equal expansion, normal respiratory effort. Abdomen: Soft, nontender, nondistended. Extremities: Right upper extremity swelling. Palpable radial pulse. Of bilateral lower extremities with multiphasic PT and DP signals. Bilateral lower extremities warm to the touch, with good capillary refill. Neurological: Sedated and intubated. - Labs CBC & Chem 7: 09/25/22 04:54 09/25/22 04:54 Labs: Abnormal Lab Results - Last 24 Hours (Table) 09/24/22 09/24/22 09/24/22 Range/Units 05:08 11:45 17:34 WBC (3.8-10.6) k/uL RBC (3.80-5.40) m/uL Neutrophils # (1.3-7.7) k/uL Lymphocytes # (1.0-4.8) k/uL ABG pH (7.35-7.45) ABG HCO3 (21-25) mmol/L ABG Total CO2 (19-24) mmol/L ABG O2 Saturation (94-97) % Chloride (98-107) mmol/L Carbon Dioxide (22-30) mmol/L BUN (7-17) mg/dL Creatinine (0.52-1.04) mg/dL Glucose (74-99) mg/dL POC Glucose (mg/dL) 222 H 125 H (70-110) mg/dL Calcium (8.4-10.2) mg/dL Procalcitonin 1.09 H (0.02-0.09) ng/mL 09/24/22 09/25/22 09/25/22 Range/Units 23:33 04:54 04:54 WBC 21.0 H (3.8-10.6) k/uL RBC 3.78 L (3.80-5.40) m/uL Neutrophils # 19.9 H (1.3-7.7) k/uL Lymphocytes # 0.5 L (1.0-4.8) k/uL ABG pH (7.35-7.45) ABG HCO3 (21-25) mmol/L ABG Total CO2 (19-24) mmol/L ABG O2 Saturation (94-97) % Chloride 113 H (98-107) mmol/L Carbon Dioxide 14 L (22-30) mmol/L BUN 24 H (7-17) mg/dL Creatinine 1.19 H (0.52-1.04) mg/dL Glucose 139 H (74-99) mg/dL POC Glucose (mg/dL) 203 H (70-110) mg/dL Calcium 6.3 L* (8.4-10.2) mg/dL Procalcitonin (0.02-0.09) ng/mL 09/25/22 09/25/22 09/25/22 Range/Units 05:28 05:52 06:20 WBC (3.8-10.6) k/uL RBC (3.80-5.40) m/uL Neutrophils # (1.3-7.7) k/uL Lymphocytes # (1.0-4.8) k/uL ABG pH 7.25 L (7.35-7.45) ABG HCO3 17 L (21-25) mmol/L ABG Total CO2 18 L (19-24) mmol/L ABG O2 Saturation 97.2 H (94-97) % Chloride (98-107) mmol/L Carbon Dioxide (22-30) mmol/L BUN (7-17) mg/dL Creatinine (0.52-1.04) mg/dL Glucose (74-99) mg/dL POC Glucose (mg/dL) 177 H 170 H (70-110) mg/dL Calcium (8.4-10.2) mg/dL Procalcitonin (0.02-0.09) ng/mL Microbiology - Last 24 Hours (Table) 09/23/22 20:38 Sputum Culture - Preliminary Sputum Assessment and Plan Assessment: 1. Infrarenal abdominal aortic dissection 2. Tobacco abuse 3. Peripheral vascular disease 4. Severe dyspnea requiring intubation Plan: 1. Continue supportive care 2. Maintain optimal blood pressures 3. No plans at this time for any vascular surgical intervention. If patient begins having abdominal pain or other evidence of ischemic change please don't hesitate to reach out to us. Thank you for this consultation, we will be on standby if needed. The impression and plan of care has been dictated as directed. Dr. Chowdhury I performed a history and examination of this patient, discussed the same with the dictator. I agree with the dictator's note ,documented as a scribe. Any additional findings or plans will be noted.
--- NOTE | 2022-09-25 11:37 | P.CONS ---
History of Present Illness - Reason for Consult Consult date: 09/25/22 NG tube placement Requesting physician: Frankie Zepeda - Chief Complaint Shortness of breath - History of Present Illness This is 76-year-old female who had presented to the emergency department 2 days ago with complaints of shortness of breath. She has a past medical history including COPD, pulmonary lesion, hypertension, chronic tobacco abuse, and hyperlipidemia. History is obtained from chart has patient was admitted and subsequently intubated. Patient remains in the ICU sedated and on mechanical ventilation. Apparently patient had been having shortness of breath for 2-3 days prior to coming in which subsequently got worse along with a productive cough with green-yellow sputum. Patient had no other acute complaints documented. NG tube placement was attempted by ICU staff and were having difficult time placing NG tube. Gastroenterology was consulted for NG tube placement due to possible Zenker's diverticulum. She did undergo a CT angiogram of thoracic/abdominal pelvis and aorta that did report a short segment of infrarenal abdominal aortic dissection. No aortic aneurysm. No evidence of pulmonary embolism. Wedge-shaped region of decreased enhancement involving left kidney suspicious for infarct. Atrophy of the right kidney with delayed enhancement compared to left. Both renal arteries appear patent with moderate stenosis at origin. Spiculated 9 mm nodule within the right lung apex which raises possibility of malignancy. Consider further evaluation with PET/CT nonobstructive renal calculus. And possible Zenker's diverticulum versus residual fluid within the upper esophagus. Consider further evaluation with esophagram. Patient did have a previous EGD with Dr. Rodarte on 05/15/2024 fluid bolus impaction. Findings include food bolus impacted in the cervical esophagus status post removal. 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 It was recommended at that time that she follow-up with gastroenterology in a couple weeks to consider EGD with dilation. Review of Systems ROS unobtainable: due to endotracheal tube Past Medical History Past Medical History: COPD, CVA/TIA, Hyperlipidemia, Hypertension, Myocardial Infarction ([place]), Osteoarthritis (OA) Additional Past Medical History / Comment(s): TIA - September 2013, past history of abcess/cellulitis left cheek. Patient is poor historian of her PMH. 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 Past Anesthesia/Blood Transfusion Reactions: No Reported Reaction Smoking Status: Current every day smoker - Past Family History Son(s) Family Medical History: No Reported History Additional Family Medical History / Comment(s): 4 sons all reported healthy per patient Mother Family Medical History: CVA/TIA Additional Family Medical History / Comment(s): Medications and Allergies Home Medications Medication Instructions Recorded Confirmed Type HYDROcodone/APAP 7.5-325MG [Moran 1 tab PO QID PRN 10/16/18 09/23/22 History 7.5-325] Denosumab [Prolia] 60 mg SQ Q180D 04/12/21 09/23/22 History Aspirin EC [Ecotrin Low Dose] 81 mg PO PC-LUNCH 04/05/22 09/23/22 History Docusate [Colace] 100 mg PO TH 04/05/22 09/23/22 History atenoloL [Tenormin] 25 mg PO PC-LUNCH 04/05/22 09/23/22 History Famotidine [Pepcid] 20 mg PO DAILY #15 tablet 04/08/22 09/23/22 Rx Ergocalciferol [Vitamin D2 (1250 1,250 mcg PO FR 09/23/22 09/23/22 History Mcg = 50787 Iu)] lisinopriL [Zestril] 20 mg PO PC-LUNCH 09/23/22 09/23/22 History Allergies Allergy/AdvReac Type Severity Reaction Status Date / Time iodine Allergy Itching Verified 09/23/22 17:55 Physical Exam Vitals: Vital Signs Temp Pulse Resp BP Pulse Ox FiO2 09/25/22 10:00 82 22 117/62 99 09/25/22 09:00 100 22 116/56 99 09/25/22 08:34 87 09/25/22 08:27 88 09/25/22 08:11 85 30 09/25/22 08:00 97.8 F 87 22 105/58 99 30 09/25/22 07:30 85 22 113/61 99 09/25/22 07:00 90 22 100/58 98 09/25/22 06:30 89 22 91/51 98 09/25/22 06:00 90 22 116/64 97 05/08/23 05:30 98 22 128/66 97 09/25/22 05:00 98 22 106/61 99 09/25/22 04:30 95 22 107/60 97 09/25/22 04:00 94 22 114/62 97 09/25/22 03:45 93 22 112/64 97 09/25/22 03:37 30 09/25/22 03:30 96 22 113/56 97 09/25/22 03:22 96 09/25/22 03:15 93 22 110/61 99 09/25/22 03:13 30 09/25/22 03:12 92 09/25/22 03:00 92 22 103/57 97 09/25/22 02:45 89 22 110/62 97 09/25/22 02:30 94 22 117/63 97 09/25/22 02:15 92 22 111/64 97 09/25/22 02:00 92 22 118/60 97 09/25/22 01:45 96 22 108/58 96 09/25/22 01:30 94 22 100/56 96 09/25/22 01:15 98 22 107/55 96 09/25/22 01:00 99 22 120/63 97 09/25/22 00:45 100 22 115/68 98 09/25/22 00:30 97 22 95/55 97 09/25/22 00:15 98 22 93/53 97 09/25/22 00:00 98.8 F 94 22 97/54 97 30 09/24/22 23:46 30 09/24/22 23:45 96 22 111/59 97 09/24/22 23:30 94 22 111/61 96 09/24/22 23:16 93 09/24/22 23:15 92 22 112/62 98 09/24/22 23:07 87 22 97 09/24/22 23:03 30 09/24/22 23:01 91 09/24/22 23:00 89 22 112/62 96 09/24/22 22:45 87 22 119/65 95 09/24/22 22:30 90 22 123/66 95 09/24/22 22:15 86 22 97/57 96 09/24/22 22:00 93 22 105/60 96 09/24/22 21:45 96 22 128/71 95 09/24/22 21:30 92 22 122/68 96 09/24/22 21:15 98 22 125/72 95 09/24/22 21:00 98 22 105/60 95 09/24/22 20:45 96 22 93/56 95 09/24/22 20:30 94 20 95/56 96 09/24/22 20:15 90 22 105/55 96 09/24/22 20:00 98.1 F 90 20 118/60 96 30 09/24/22 19:52 30 09/24/22 19:50 80 30 09/24/22 19:45 82 22 98/48 97 09/24/22 19:38 78 09/24/22 19:37 77 09/24/22 19:31 78 09/24/22 19:30 79 22 96/49 97 09/24/22 19:29 30 09/24/22 19:15 80 22 109/56 97 09/24/22 19:00 87 22 119/61 96 09/24/22 18:45 81 22 104/58 97 09/24/22 18:30 81 22 107/60 97 09/24/22 18:15 81 22 112/61 97 09/24/22 18:00 82 22 113/56 97 09/24/22 17:45 81 22 118/58 97 09/24/22 17:30 82 22 102/54 97 09/24/22 17:15 81 22 96/57 97 09/24/22 17:00 82 22 117/68 97 09/24/22 16:45 86 22 104/56 97 09/24/22 16:30 79 22 83/49 96 09/24/22 16:15 77 22 85/51 94 L 09/24/22 16:05 74 09/24/22 16:00 98.1 F 74 22 105/55 98 30 09/24/22 15:55 80 05 15:45 75 22 95/49 96 09/24/22 15:40 30 09/24/22 15:32 30 09/24/22 15:30 73 22 88/53 96 09/24/22 15:15 75 22 95/53 96 09/24/22 15:00 74 22 82/49 97 09/24/22 14:45 74 22 66/46 96 09/24/22 14:30 86 22 86/59 96 09/24/22 14:15 81 22 153/91 96 09/24/22 14:00 89 22 118/77 95 09/24/22 13:45 80 22 115/65 96 09/24/22 13:30 80 22 103/68 97 09/24/22 13:15 80 22 109/63 96 09/24/22 13:00 81 22 120/63 96 09/24/22 12:45 80 22 111/66 96 09/24/22 12:30 82 22 122/69 96 09/24/22 12:15 82 22 121/71 96 09/24/22 12:00 98.6 F 86 22 108/61 96 30 09/24/22 11:45 80 22 89/55 95 09/24/22 11:30 79 22 96/72 95 09/24/22 11:24 80 09/24/22 11:20 30 09/24/22 11:15 79 22 127/72 96 09/24/22 11:11 82 09/24/22 11:00 77 22 96/61 96 30 09/24/22 10:45 76 22 102/62 96 Intake and Output 09/24/22 09/25/22 09/25/22 22:59 06:59 14:59 Intake Total 983.532 710.696 125.69 Output Total 220 390 95 Balance 763.532 320.696 30.69 Intake: IV 975 675 75 Azithromycin 500 mg In 250 Sodium Chloride 0.9% 250 ml @ 250 mls/hr IVPB DAILY@2000 [facility] Rx#: [id number] Sodium Chloride 0.9% 1, 225 675 75 000 ml @ 75 mls/hr IV . [id number] [facility] Rx#:[id number] Sodium Chloride 0.9% 500 500 ml 500 ml @ 999 mls/hr IV .Q31M [facility] Rx#:[id number] Intake, IV Titration 8.532 35.696 50.69 Amount fentaNYL (PF). 1,000 mcg 0 25.491 In Sodium Chloride 0.9% 80 ml @ 0.5 MCG/KG/HR 2. 495 mls/hr IV .Q24H [facility] Rx#:[id number] propofoL 1,000 mg In 8.532 10.205 50.69 Empty Bag 1 bag @ 15 MCG/ KG/MIN 4.491 mls/hr IV . [id number] [facility] Rx#:[id number] Output: Urine 220 390 95 Other: Voiding Method Indwelling Catheter Indwelling Catheter Indwelling Catheter Weight 58.4 kg General appearance: The patient is sedated and on mechanical ventilation. HET: Head is normocephalic and atraumatic. Neck: Supple. Trachea midline. Heart: S1 S2. Regular rate and rhythm. Lungs: Equal expansion. Abdomen: Soft, nontender, nondistended with bowel sounds. No guarding or rigidity. Skin: No rashes. No jaundice. Extremities: Right upper extremity swelling. No pedal edema. Neurological: Sedated on mechanical ventilation. Results CBC & Chem 7: 09/25/22 04:54 09/25/22 04:54 Labs: Abnormal Lab Results - Last 24 Hours (Table) 09/24/22 09/24/22 09/24/22 Range/Units 05:08 11:45 17:34 WBC (3.8-10.6) k/uL RBC (3.80-5.40) m/uL Neutrophils # (1.3-7.7) k/uL Lymphocytes # (1.0-4.8) k/uL ABG pH (7.35-7.45) ABG HCO3 (21-25) mmol/L ABG Total CO2 (19-24) mmol/L ABG O2 Saturation (94-97) % Chloride (98-107) mmol/L Carbon Dioxide (22-30) mmol/L BUN (7-17) mg/dL Creatinine (0.52-1.04) mg/dL Glucose (74-99) mg/dL POC Glucose (mg/dL) 222 H 125 H (70-110) mg/dL Calcium (8.4-10.2) mg/dL Procalcitonin 1.09 H (0.02-0.09) ng/mL 09/24/22 09/25/22 09/25/22 Range/Units 23:33 04:54 04:54 WBC 21.0 H (3.8-10.6) k/uL RBC 3.78 L (3.80-5.40) m/uL Neutrophils # 19.9 H (1.3-7.7) k/uL Lymphocytes # 0.5 L (1.0-4.8) k/uL ABG pH (7.35-7.45) ABG HCO3 (21-25) mmol/L ABG Total CO2 (19-24) mmol/L ABG O2 Saturation (94-97) % Chloride 113 H (98-107) mmol/L Carbon Dioxide 14 L (22-30) mmol/L BUN 24 H (7-17) mg/dL Creatinine 1.19 H (0.52-1.04) mg/dL Glucose 139 H (74-99) mg/dL POC Glucose (mg/dL) 203 H (70-110) mg/dL Calcium 6.3 L* (8.4-10.2) mg/dL Procalcitonin (0.02-0.09) ng/mL 09/25/22 09/25/22 09/25/22 Range/Units 05:28 05:52 06:20 WBC (3.8-10.6) k/uL RBC (3.80-5.40) m/uL Neutrophils # (1.3-7.7) k/uL Lymphocytes # (1.0-4.8) k/uL ABG pH 7.25 L (7.35-7.45) ABG HCO3 17 L (21-25) mmol/L ABG Total CO2 18 L (19-24) mmol/L ABG O2 Saturation 97.2 H (94-97) % Chloride (98-107) mmol/L Carbon Dioxide (22-30) mmol/L BUN (7-17) mg/dL Creatinine (0.52-1.04) mg/dL Glucose (74-99) mg/dL POC Glucose (mg/dL) 177 H 170 H (70-110) mg/dL Calcium (8.4-10.2) mg/dL Procalcitonin (0.02-0.09) ng/mL Microbiology - Last 24 Hours (Table) 09/23/22 20:38 Sputum Culture - Preliminary Sputum Assessment and Plan (1) Acute respiratory failure with hypoxia Narrative/Plan: 76-year-old female admitted to the hospital with severe shortness of breath who failed BiPAP and ultimately was intubated and sedated. Patient remains sedated on mechanical ventilation. ICU management wanted to place NG tube for nutrition however it was difficult to pass and place. Gastroenterology consulted as CTA thoracic aorta abdomen she reported possible Zenker's diverticulum. Patient did undergo an EGD in 2023 esophageal foreign body, at that time it was noted that there was a circumferential web involving the cervical esophagus at the site of food impaction and patient was recommended to see gastroenterology for possible elective dilation. Gastroenterology consulted for NG tube placement for nutrition. Current Visit: Yes Status: Acute Code(s): J96.01 - ACUTE RESPIRATORY FAILURE WITH HYPOXIA SNOMED Code(s): 99466585 (2) Aortic dissection, abdominal Current Visit: Yes Status: Acute Code(s): I71.02 - DISSECTION OF ABDOMINAL AORTA SNOMED Code(s): 499073618 (3) COPD (chronic obstructive pulmonary disease) Current Visit: Yes Status: Acute Code(s): J44.9 - CHRONIC OBSTRUCTIVE PULMONARY DISEASE, UNSPECIFIED SNOMED Code(s): 36809865 Plan: 1. Continue symptomatic and supportive care 2. Protonix 40 mg daily for GI prophylaxis 3. Please attempt NG tube again, if unable to place we will plan for tentative scheduled EGD with NG tube placement tomorrow at bedside Thank you for this consultation, we will continue to follow. Dr. Sean Rodarte I agree with the dictator's note, documented as a scribe by Roseline Colbert.
[2022-09-25 11:55] LABS: Glucose,Whole Blood 230 mg/dL (70-110)
--- NOTE | 2022-09-25 13:41 | P.PN ---
Subjective Progress Note Date: 09/25/22 This is a76 years old female patient Presents because of dyspnea with acute hypoxic respiratory failure which is rapidly degenerated to the degree requiring intubation and placing patient on mechanical ventilation. Patient also with blood pressure despite 200/100 patient was placed on nitro drip. T brain shows no obvious acute intracranial process. CTA of the aorta and the thoracic abdomen pelvis reveals no obvious to a dissection. There is a small short segment of infrarenal aortic dissection in the abdomen. Also a small wedge-shaped region seen by radiology in the left kidney suspicious for infarct with an atrophic right kidney. Patient has a 9 mm lung nodule. There is a nonobstructive renal calculus. Also possible Zenker's diverticulum versus possible fluid in the upper esophagus, suspect residual fluid. 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 The systolic pressure in the 90s and heart rate 70s to 71 showing WBCs 12.5, trace of CBC is unremarkable. PH 7.2, pCO2 elevated 51. BMP is unremarkable, creatinine 1.48, baseline 1.1-1.3. Glucose 307. Neuro exam not significantly elevated. Troponin is negative at 0.017. ProBNP is 210. Viruses undetected influenza, rotavirus and RSV Patient was started on antibiotics obstruction and Zithromax and steroids were added. 09/25. Patient seen and examined. Patient currently intubated. Currently sedated on propofol The patient also has an infrarenal abdominal aortic aneurysm. The right kidney on the CAT scan showed a delayed enhancement on the left and the findings were suspicious for a left kidney infarct with decreased enhancement. There is also atrophy of the right kidney with delayed enhancement and possibility of renal artery stenosis is being entertained at this point in time. There is also possibility of a Zenker's diverticulum in the upper esophagus. REVIEW OF SYSTEMS: Currently intubated on mechanical ventilation PHYSICAL EXAMINATION: GENERAL: Intubated and sedated HEENT: Pupils are round and equally reacting to light. EOMI. No scleral icterus. No conjunctival pallor. Normocephalic, atraumatic. No pharyngeal erythema. No thyromegaly. CARDIOVASCULAR: S1 and S2 present. No murmurs, rubs, or gallops. PULMONARY: Diminished breath sounds at the bases bilaterally ABDOMEN: Soft, nontender, nondistended, normoactive bowel sounds. No palpable organomegaly. MUSCULOSKELETAL: No joint swelling or deformity. EXTREMITIES: No cyanosis, clubbing, or pedal edema. NEUROLOGICAL: Gross neurological examination did not reveal any focal deficits. SKIN: No rashes. 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 Acute kidney injury on chronic kidney disease stage III Hyperglycemia Plan Monitor vital signs Monitor CBC Monitor CMP Continue telemetry monitoring Continue with IV Solu-Medrol Continue with bronchodilator Patient started on bicarb drip Continue IV Rocephin and erythromycin GI consulted for NG tube placement in light of Zenker's diverticulum Continue with intubation and mechanical ventilation with pulmonary/critical care team on the case Vascular surgery consult for dissected aneurysm Blood pressure control with systolic 90-100 and heart rate 60s to 70s Objective - Vital Signs Vital signs: Vital Signs Temp 97.8 F 09/25/22 08:00 Pulse 87 09/25/22 08:34 Resp 22 09/25/22 08:00 BP 105/58 09/25/22 08:00 Pulse Ox 99 09/25/22 08:00 FiO2 30 09/25/22 08:11 Intake & Output 09/24/22 09/25/22 09/25/22 18:59 06:59 18:59 Intake Total 271.967 8704.393 125.69 Output Total 518 485 35 Balance 986.528 7867.393 90.69 Weight 58.4 kg Intake: IV 1650 75 Azithromycin 500 mg In 250 Sodium Chloride 0.9% 250 ml @ 250 mls/hr IVPB DAILY@2000 [facility] Rx#: [id number] Sodium Chloride 0.9% 1, 900 75 000 ml @ 75 mls/hr IV . [id number] [facility] Rx#:[id number] Sodium Chloride 0.9% 500 500 ml 500 ml @ 999 mls/hr IV .Q31M [facility] Rx#:[id number] Intake, IV Titration 844.591 37.393 50.69 Amount Esmolol in Sodium 294.632 Chloride Pmx 2.5 gm In Saline 1 250ml.bag @ 200 MCG/KG/MIN 59.874 mls/hr IV .Q4H11M [facility] Rx#: [id number] Nitroglycerin-D5w Pmx 50 211.975 mg In Dextrose/Water 1 250ml.bag @ 165 MCG/MIN 49.5 mls/hr IV .Q5H4M [facility] Rx#:[id number] Nitroglycerin-D5w Pmx 50 83 mg In Dextrose/Water 1 250ml.bag @ 50 MCG/MIN 15 mls/hr IV .[id number] [facility] Rx#:[id number] fentaNYL (PF). 1,000 mcg 100.455 25.491 In Sodium Chloride 0.9% 80 ml @ 0.5 MCG/KG/HR 2. 495 mls/hr IV .Q24H [facility] Rx#:[id number] propofoL 1,000 mg In 154.529 11.902 50.69 Empty Bag 1 bag @ 15 MCG/ KG/MIN 4.491 mls/hr IV . [id number] [facility] Rx#:[id number] Output: Urine 518 485 35 Other: Voiding Method Indwelling Catheter Indwelling Catheter Indwelling Catheter - Labs CBC & Chem 7: 09/25/22 04:54 09/25/22 04:54 Labs: Abnormal Lab Results - Last 24 Hours (Table) 09/24/22 09/24/22 09/24/22 Range/Units 05:08 11:45 17:34 WBC (3.8-10.6) k/uL RBC (3.80-5.40) m/uL Neutrophils # (1.3-7.7) k/uL Lymphocytes # (1.0-4.8) k/uL ABG pH (7.35-7.45) ABG HCO3 (21-25) mmol/L ABG Total CO2 (19-24) mmol/L ABG O2 Saturation (94-97) % Chloride (98-107) mmol/L Carbon Dioxide (22-30) mmol/L BUN (7-17) mg/dL Creatinine (0.52-1.04) mg/dL Glucose (74-99) mg/dL POC Glucose (mg/dL) 222 H 125 H (70-110) mg/dL Calcium (8.4-10.2) mg/dL Procalcitonin 1.09 H (0.02-0.09) ng/mL 09/24/22 09/25/22 09/25/22 Range/Units 23:33 04:54 04:54 WBC 21.0 H (3.8-10.6) k/uL RBC 3.78 L (3.80-5.40) m/uL Neutrophils # 19.9 H (1.3-7.7) k/uL Lymphocytes # 0.5 L (1.0-4.8) k/uL ABG pH (7.35-7.45) ABG HCO3 (21-25) mmol/L ABG Total CO2 (19-24) mmol/L ABG O2 Saturation (94-97) % Chloride 113 H (98-107) mmol/L Carbon Dioxide 14 L (22-30) mmol/L BUN 24 H (7-17) mg/dL Creatinine 1.19 H (0.52-1.04) mg/dL Glucose 139 H (74-99) mg/dL POC Glucose (mg/dL) 203 H (70-110) mg/dL Calcium 6.3 L* (8.4-10.2) mg/dL Procalcitonin (0.02-0.09) ng/mL 09/25/22 09/25/22 09/25/22 Range/Units 05:28 05:52 06:20 WBC (3.8-10.6) k/uL RBC (3.80-5.40) m/uL Neutrophils # (1.3-7.7) k/uL Lymphocytes # (1.0-4.8) k/uL ABG pH 7.25 L (7.35-7.45) ABG HCO3 17 L (21-25) mmol/L ABG Total CO2 18 L (19-24) mmol/L ABG O2 Saturation 97.2 H (94-97) % Chloride (98-107) mmol/L Carbon Dioxide (22-30) mmol/L BUN (7-17) mg/dL Creatinine (0.52-1.04) mg/dL Glucose (74-99) mg/dL POC Glucose (mg/dL) 177 H 170 H (70-110) mg/dL Calcium (8.4-10.2) mg/dL Procalcitonin (0.02-0.09) ng/mL Microbiology - Last 24 Hours (Table) 09/23/22 20:38 Sputum Culture - Preliminary Sputum
[2022-09-25 17:49] LABS: Glucose,Whole Blood 221 mg/dL (70-110)
--- NOTE | 2022-09-25 19:23 | P.PN ---
Subjective Patient remains intubated line she came into the hypertensive emergency and was found to have an infrarenal aortic dissection She also has respiratory failure On examination her blood pressure is well controlled 104 06 150 617/65 and pulse rate in the 70s Breath sounds are equal bilaterally Heart sounds S1 and S2 are normal Patient remains on esmolol and IV nitroglycerin Sodium 138, potassium 4.5 BUN 24 and creatinine 1.2 Suggest Continue esmolol and we will try tapering off nitroglycerin tomorrow Oral medications were NG tube or transdermally with clonidine patch Objective - Vital Signs Vital signs: Vital Signs Temp 97.9 F 09/25/22 12:00 Pulse 81 09/25/22 19:00 Resp 22 09/25/22 19:00 BP 132/70 09/25/22 19:00 Pulse Ox 99 09/25/22 19:00 FiO2 30 09/25/22 16:00 Intake & Output 09/25/22 09/25/22 09/26/22 06:59 18:59 06:59 Intake Total 1116.498 3476.69 Output Total 485 250 20 Balance 1202.393 875.69 -20 Weight 58.4 kg Intake: IV 1650 75 Azithromycin 500 mg In 250 Sodium Chloride 0.9% 250 ml @ 250 mls/hr IVPB DAILY@2000 [facility] Rx#: [id number] Sodium Chloride 0.9% 1, 900 75 000 ml @ 75 mls/hr IV . [id number] [facility] Rx#:[id number] Sodium Chloride 0.9% 500 500 ml 500 ml @ 999 mls/hr IV .Q31M [facility] Rx#:[id number] Intake, IV Titration 37.393 1050.69 Amount Dextrose 5% in Water 1, 1000 000 ml @ 100 mls/hr IV . [id number] [facility] with Sodium Bicarb (1 Meq/ml) 150 ml Rx#:[id number] fentaNYL (PF). 1,000 mcg 25.491 In Sodium Chloride 0.9% 80 ml @ 0.5 MCG/KG/HR 2. 495 mls/hr IV .Q24H [facility] Rx#:[id number] propofoL 1,000 mg In 11.902 50.69 Empty Bag 1 bag @ 15 MCG/ KG/MIN 4.491 mls/hr IV . [id number] [facility] Rx#:[id number] Output: Urine 485 250 20 Other: Voiding Method Indwelling Catheter Indwelling Catheter - Labs CBC & Chem 7: 09/25/22 04:54 09/25/22 04:54 Labs: Abnormal Lab Results - Last 24 Hours (Table) 09/24/22 09/25/22 09/25/22 Range/Units 23:33 04:54 04:54 WBC 21.0 H (3.8-10.6) k/uL RBC 3.78 L (3.80-5.40) m/uL Neutrophils # 19.9 H (1.3-7.7) k/uL Lymphocytes # 0.5 L (1.0-4.8) k/uL ABG pH (7.35-7.45) ABG HCO3 (21-25) mmol/L ABG Total CO2 (19-24) mmol/L ABG O2 Saturation (94-97) % Chloride 113 H (98-107) mmol/L Carbon Dioxide 14 L (22-30) mmol/L BUN 24 H (7-17) mg/dL Creatinine 1.19 H (0.52-1.04) mg/dL Glucose 139 H (74-99) mg/dL POC Glucose (mg/dL) 203 H (70-110) mg/dL Calcium 6.3 L* (8.4-10.2) mg/dL 09/25/22 09/25/22 09/25/22 Range/Units 05:28 05:52 06:20 WBC (3.8-10.6) k/uL RBC (3.80-5.40) m/uL Neutrophils # (1.3-7.7) k/uL Lymphocytes # (1.0-4.8) k/uL ABG pH 7.25 L (7.35-7.45) ABG HCO3 17 L (21-25) mmol/L ABG Total CO2 18 L (19-24) mmol/L ABG O2 Saturation 97.2 H (94-97) % Chloride (98-107) mmol/L Carbon Dioxide (22-30) mmol/L BUN (7-17) mg/dL Creatinine (0.52-1.04) mg/dL Glucose (74-99) mg/dL POC Glucose (mg/dL) 177 H 170 H (70-110) mg/dL Calcium (8.4-10.2) mg/dL 09/25/22 09/25/22 Range/Units 11:54 17:47 WBC (3.8-10.6) k/uL RBC (3.80-5.40) m/uL Neutrophils # (1.3-7.7) k/uL Lymphocytes # (1.0-4.8) k/uL ABG pH (7.35-7.45) ABG HCO3 (21-25) mmol/L ABG Total CO2 (19-24) mmol/L ABG O2 Saturation (94-97) % Chloride (98-107) mmol/L Carbon Dioxide (22-30) mmol/L BUN (7-17) mg/dL Creatinine (0.52-1.04) mg/dL Glucose (74-99) mg/dL POC Glucose (mg/dL) 230 H 221 H (70-110) mg/dL Calcium (8.4-10.2) mg/dL Microbiology - Last 24 Hours (Table) 09/23/22 16:50 Blood Culture - Preliminary Blood 09/23/22 17:05 Blood Culture - Preliminary Blood 09/23/22 20:38 Sputum Culture - Preliminary Sputum
[2022-09-25] MEDS: AZITHROMYCIN 500 MG in SODIUM CHLORIDE 0.9% 250 ML IVPB SCH (20:10)
[2022-09-25 23:25] LABS: Glucose,Whole Blood 178 mg/dL (70-110)
[2022-09-26] MEDS: IPRATROPIUM-ALBUTEROL 3 ML NEB INHALATION SCH ×6 (00:24→22:29)
[2022-09-26] MEDS: ESMOLOL IN SODIUM CHLORIDE PMX 2.5 GM in SALINE 1 250ML.BAG IV SCH ×6 (00:38→23:55)
[2022-09-26] MEDS: fentaNYL (PF). 1,000 MCG in SODIUM CHLORIDE 0.9% 80 ML IV SCH (00:38)
[2022-09-26] MEDS: NITROGLYCERIN-D5W PMX 50 MG in DEXTROSE/WATER 1 250ML.BAG IV SCH ×3 (04:08→15:56)
[2022-09-26] MEDS: methylPREDNISolone SOD SUCCI 125 MG/2 ML VIAL IV SCH ×4 (05:19→23:55)
[2022-09-26 05:39] LABS: Glucose,Whole Blood 245 mg/dL (70-110)
[2022-09-26 06:04] LABS: ABG Base Excess 6.4 mmol/L; ABG HCO3 30 mmol/L (21-25); ABG Oxygen Saturation 97.7 % (94-97); ABG PCO2 37 mmHg (35-45); ABG PH 7.51 (7.35-7.45); ABG PO2 101 mmHg (83-108); ABG TCO2 31 mmol/L (19-24); Allen Test Performed? Yes
[2022-09-26] MEDS: INSULIN ASPART (NovoLOG) 100 UNIT/ML VIAL SQ SCH ×4 (06:07→23:56)
[2022-09-26 06:26] LABS: Basophils % (A) 0 %; Eosinophils % (A) 0 %; HCT 32.9 % (34.0-46.0); HGB 10.4 gm/dL (11.4-16.0); Lymphocytes # (A) 0.7 k/uL (1.0-4.8); Lymphocytes % (A) 4 %; MCH 30.6 pg (25.0-35.0); MCHC 31.5 g/dL (31.0-37.0); MCV 97.1 fL (80.0-100.0); Mean Platelet Volume 10.4; Monocytes # (A) 0.5 k/uL (0-1.0); Monocytes % (A) 3 %; Neutrophils # (A) 17.8 k/uL (1.3-7.7); Neutrophils % (A) 93 %; Platelet Count 219 k/uL (150-450); RBC 3.38 m/uL (3.80-5.40); RDW 13.8 % (11.5-15.5); WBC 19.1 k/uL (3.8-10.6)
[2022-09-26 06:34] LABS: Potassium 3.3 mmol/L (3.5-5.1)
[2022-09-26 07:20] LABS: Calcium 6.1 mg/dL (8.4-10.2)
[2022-09-26] MEDS ORDERED: Potassium Replacement Protocol 1 EACH MISC MISCELLANE PRN (07:48)
[2022-09-26] MEDS: HEPARIN SODIUM,PORCINE/PF 5,000 UNIT/0.5 ML SYRINGE SQ SCH ×4 (07:53→23:54)
[2022-09-26] MEDS: CHLORHEXIDINE GLUCONATE 15 ML CUP MUCOUS MEM SCH (07:53)
[2022-09-26] MEDS: FORMOTEROL FUMARATE 20 MCG/2 ML NEBU INHALATION SCH ×2 (07:56→22:29)
[2022-09-26] MEDS: BUDESONIDE 1 MG/2 ML NEBU INHALATION SCH ×2 (07:56→22:29)
[2022-09-26] MEDS ORDERED: POTASSIUM BICARBONATE/CIT AC 20 MEQ TABLET.EFF NG-TUBE SCH (08:00)
[2022-09-26] MEDS ORDERED: CALCIUM GLUCONATE IN NACL 2 GM in SALINE 1 100ML.BAG IVPB ONE (08:00)
[2022-09-26] MEDS: POTASSIUM CHLORIDE 10 MEQ in WATER FOR INJECTION 1 100ML.BAG IVPB SCH ×4 (08:02→12:01)
[2022-09-26] MEDS: ATORVASTATIN 40 MG TAB PO SCH (08:10)
[2022-09-26] MEDS: PANTOPRAZOLE 40 MG/10 ML VIAL IVP SCH (08:15)
--- NOTE | 2022-09-26 09:29 | P.PN ---
Subjective Progress Note Date: 09/26/22 This is a 76-year-old female patient with a history of chronic and ongoing tobacco dependence, chronic obstructive pulmonary disease, hypertension, hyperlipidemia, osteoarthritis. She presented to the emergency room yesterday with complaints of a 2-3 day history of worsening shortness of breath. She had a productive cough of greenish yellow sputum and sinus congestion. She stated she had no inhalers at home. She eventually failed BiPAP support and was intubated in the emergency department yesterday 09/23/2022. X-ray had revealed evidence of COPD but no acute pulmonary process. Computed tomography scan of the brain revealed no acute intracranial process. Thoracic scan revealed a short segment infrarenal abdominal aortic dissection. No aortic aneurysm. No evidence of pulmonary embolism. There is a spiculated 9 mm nodule in the right lung apex raising the possibility of malignancy. Outpatient PET scan recommended. There is decreased enhancement involving the left kidney suspicious for infarct. Atrophy of the right kidney with delayed enhancement compared to the left. Both kidneys with moderate stenosis. There is also possible Zenker's diverticulum within the upper esophagus. Staff has been unable to pass a nasogastric tube. White count 25.7. Hemoglobin 11.1. Platelets 228. Sodium 136. Potassium 4.7. Bicarb 15. BUN 32. Creatinine 1.24. Glucose 260. Pro-calcitonin 1.09. She is seen today in consultation in the intensive care unit. Current ventilator settings are assist-control mode with a rate of 22, tidal volume 350, FiO2 40% and a PEEP of 5. Morning blood gases reveal a P O2 of 168, pCO2 36 and a pH of 7.31. That was on 40% FiO2. She initially was on a nitroglycerin drip that has been discontinued. She is on esmolol at 200 mcg/kg/min. Fentanyl at 2 mcg/kg/h and propofol 50 mcg/kg/m. She's been initiated on DuoNeb inhalations, Pulmicort and Perforomist inhalations, IV Solu-Medrol. Antibiotics in the form of azithromycin. On today's evaluation of 09/25/2022, the patient is being seen for a follow-up. This is a case of COPD and the patient has an infrarenal abdominal aortic dissection this being treated conservatively. The patient is known to have a spiculated 9 mm right upper lobe lesion in addition to hypertension, hyperlipidemia and osteoarthritis. Noted the patient presented to us with respiratory failure. She had to be intubated after failing a BiPAP trial. At this point in time, the patient is sedated on propofol which is running at 20 mcg/kg/m. The patient is adequately sedated. The patient's increase of mechanical ventilator. She is on assist control at the rate of 22, tidal volume of 350, FiO2 of 30% and a PEEP of 5. The blood gas from today showed a pH of 7.25 with a pCO2 of 35 and a pO2 of 91. The patient has essentially the same metabolic acidosis. Serum bicarb is down to 14 and this is a non-anion gap metabolic acidosis. The chest x-ray from today shows hyperinflation. ET tube is a in a good location. No significant orotracheal secretions at this point in time. The patient is on bronchodilators, IV Solu-Medrol and Zithromax. The white cell count was as high as 25, dropped down to 21. Hemoglobin has stayed stable at 11.5. Sodium level is at 1:30 with a potassium level of 4.5 and a bicarb level of 14 as mentioned and the calcium level is low at 6.3. Pro- calcitonin level was at 1.09 at the time of admission and a troponin was at 0.15. The patient also has an infrarenal abdominal aortic aneurysm. The right kidney on the CAT scan showed a delayed enhancement on the left and the findings were suspicious for a left kidney infarct with decreased enhancement. There is also atrophy of the right kidney with delayed enhancement and possibility of renal artery stenosis is being entertained at this point in time. There is also possibility of a Zenker's diverticulum in the upper esophagus. The patient does not have a feeding tube for now and a technically difficult. Could be related to underlying Zenker's diverticulum. IV fluids are running in order of 0.9 at 75 mL an hour. She did have hypotension last night and she was taken off the esmolol drip and her blood pressure is stable at this point in time with a urine output of 30-50 mL an hour. IV fluids are in the form of normal saline. On 09/26/2022, the patient remains intubated on a mechanical ventilator. Earlier this morning, as the patient was being moved around doing further testing and a chest x-ray, she became slightly more tachycardic and hypertensive. Prior to that, her BP was under excellent control and her heart rate was also under excellent control. She was off the asthma low drip for the past 24 hours. I think is reasonable to restart the esmolol drip for heart rate and blood pressure control. Meanwhile, this morning, the patient remains on propofol which is running at 40 mcg/kg/m. She is successful mechanical ventilator. Some assist-control mode at the rate of 22, tidal volume of 350, F iO2 of 30% and a PEEP of 5. There is improvement in her acid base status. In fact she is slightly alkalotic today. Patient at 7.5 with a pCO2 of 37 and pO2 of 11. The chest x-ray is unchanged compared to yesterday. Orotracheal tube is in a good location. No significant infiltration. The peak airway pressure is 27. No significant orotracheal secretions. Cardiac rhythm remained sinus. She is in sinus tachycardia. She is having occasional ectopies. The white cell cause of 19 with a hemoglobin of 10.4 and a platelet count of 219. The serum bicarb is up to 27. Sodium is at 137, calcium level is low at 6.1 to be replaced. BUN is at 24 with a creatinine of 1.05. She remains on bron chodilators. She remains on steroids. She remains on empiric antibiotic coverage with Rocephin and Zithromax. Unable to insert an OG tube and the patient remains nothing by mouth for now. Objective - Vital Signs Vital signs: Vital Signs Temp 98.6 F 09/26/22 08:00 Pulse 121 H 09/26/22 08:00 Resp 19 09/26/22 08:00 BP 152/79 09/26/22 08:00 Pulse Ox 97 09/26/22 08:00 FiO2 30 09/26/22 08:00 Intake & Output 09/25/22 09/26/22 09/26/22 18:59 06:59 18:59 Intake Total 1125.69 1499.951 315.168 Output Total 250 280 150 Balance 875.69 1219.951 165.168 Weight 59 kg Intake: IV 75 1350 200 .9 @ 100 200 Azithromycin 500 mg In 250 Sodium Chloride 0.9% 250 ml @ 250 mls/hr IVPB DAILY@1999 [facility] Rx#: [id number] Dextrose 5% in Water 1, 1100 000 ml @ 100 mls/hr IV . [id number] [facility] with Sodium Bicarb (1 Meq/ml) 150 ml Rx#:[id number] Sodium Chloride 0.9% 1, 75 000 ml @ 75 mls/hr IV . [id number] [facility] Rx#:[id number] Intake, IV Titration 1050.69 149.951 115.168 Amount Dextrose 5% in Water 1, 1000 000 ml @ 100 mls/hr IV . [id number] [facility] with Sodium Bicarb (1 Meq/ml) 150 ml Rx#:[id number] Potassium Chloride 10 meq 100 In Water For Injection 1 100ml.bag @ 100 mls/hr IVPB Q1HR [facility] Rx#: [id number] propofoL 1,000 mg In 50.69 149.951 15.168 Empty Bag 1 bag @ 15 MCG/ KG/MIN 4.491 mls/hr IV . [id number] [facility] Rx#:[id number] Output: Urine 250 280 150 Other: Voiding Method Indwelling Catheter Indwelling Catheter Indwelling Catheter - Exam GENERAL EXAM: Intubated, sedated 76-year-old female, comfortable in no apparent distress. The patient remains sedated for now. The patient remains on propofol. HEAD: Normocephalic. EYES: Sluggish reaction of pupils, equal size. NOSE: Clear with pink turbinates. THROAT: Oral endotracheal tube secured in place. No erythema or exudates. NECK: No masses, no JVD. CHEST: No chest wall deformity. LUNGS: Equal air entry with no crackles, wheeze, rhonchi or dullness. CVS: S1 and S2 normal with no audible murmur, regular rhythm. ABDOMEN: No hepatosplenomegaly, normal bowel sounds, no guarding or rigidity. SPINE: No scoliosis or deformity SKIN: No rashes CENTRAL NERVOUS SYSTEM: No focal deficits, tone is normal in all 4 extremities. EXTREMITIES: There is no peripheral edema. No clubbing, no cyanosis. Peripheral pulses are intact. - Labs CBC & Chem 7: 09/26/22 06:00 09/26/22 06:00 Labs: Abnormal Lab Results - Last 24 Hours (Table) 09/25/22 09/25/22 09/25/22 Range/Units 11:54 17:47 23:23 WBC (3.8-10.6) k/uL RBC (3.80-5.40) m/uL Hgb (11.4-16.0) gm/dL Hct (34.0-46.0) % Neutrophils # (1.3-7.7) k/uL Lymphocytes # (1.0-4.8) k/uL ABG pH (7.35-7.45) ABG HCO3 (21-25) mmol/L ABG Total CO2 (19-24) mmol/L ABG O2 Saturation (94-97) % Potassium (3.5-5.1) mmol/L BUN (7-17) mg/dL Creatinine (0.52-1.04) mg/dL Glucose (74-99) mg/dL POC Glucose (mg/dL) 230 H 221 H 178 H (70-110) mg/dL Calcium (8.4-10.2) mg/dL 09/26/22 09/26/22 09/26/22 Range/Units 05:38 06:00 06:00 WBC 19.1 H (3.8-10.6) k/uL RBC 3.38 L (3.80-5.40) m/uL Hgb 10.4 L (11.4-16.0) gm/dL Hct 32.9 L (34.0-46.0) % Neutrophils # 17.8 H (1.3-7.7) k/uL Lymphocytes # 0.7 L (1.0-4.8) k/uL ABG pH (7.35-7.45) ABG HCO3 (21-25) mmol/L ABG Total CO2 (19-24) mmol/L ABG O2 Saturation (94-97) % Potassium 3.3 L (3.5-5.1) mmol/L BUN 24 H (7-17) mg/dL Creatinine 1.05 H (0.52-1.04) mg/dL Glucose 231 H (74-99) mg/dL POC Glucose (mg/dL) 245 H (70-110) mg/dL Calcium 6.1 L* (8.4-10.2) mg/dL 09/26/22 Range/Units 06:02 WBC (3.8-10.6) k/uL RBC (3.80-5.40) m/uL Hgb (11.4-16.0) gm/dL Hct (34.0-46.0) % Neutrophils # (1.3-7.7) k/uL Lymphocytes # (1.0-4.8) k/uL ABG pH 7.51 H (7.35-7.45) ABG HCO3 30 H (21-25) mmol/L ABG Total CO2 31 H (19-24) mmol/L ABG O2 Saturation 97.7 H (94-97) % Potassium (3.5-5.1) mmol/L BUN (7-17) mg/dL Creatinine (0.52-1.04) mg/dL Glucose (74-99) mg/dL POC Glucose (mg/dL) (70-110) mg/dL Calcium (8.4-10.2) mg/dL Microbiology - Last 24 Hours (Table) 09/23/22 16:50 Blood Culture - Preliminary Blood 09/23/22 17:05 Blood Culture - Preliminary Blood 09/23/22 20:38 Sputum Culture - Preliminary Sputum Assessment and Plan Plan: Acute hypoxemic respiratory failure secondary to an acute exacerbation of chronic obstructive pulmonary disease requiring intubation mechanical ventilatory support on 09/23/2022. Chest x-ray does not show any significant pneumonia however the time was 1.06. Patient remains intubated on a mechanical ventilator. No clear indication for pneumonia based on my evaluation. Pro- calcitonin level was elevated and the patient was started on antibiotics. The chest x-ray from today shows no evidence of any pneumonia. Leukocytosis secondary to above, slightly improved Non-gap metabolic acidosis, improved and the patient was given bicarb replacement Acute kidney injury. There is decreased enhancement involving the left kidney suspicious for infarct. Atrophy of the right kidney with delayed enhancement compared to the left. Both kidneys with moderate stenosis. The patient is producing adequate amount of urine output. Creatinine is down to normal at 1.05 Thoracic scan revealed a short segment infrarenal abdominal aortic dissection. No aortic aneurysm. Spiculated 9 mm nodule in the right lung apex raising the possibility of malignancy. Outpatient PET scan recommended. Possible Zenker's diverticulum within the upper esophagus. Nasogastric tube unable to be passed History of CVA/TIA History of chronic and ongoing tobacco dependence Hyperlipidemia Hypertension Plan: Restart as Ciera to control the heart rate in the blood pressure Gradually wean down the sedation keeping the heart rate at least under 110 and a blood pressure of less than 140. Utilize IV hydralazine 10 mg IV push every 4 hours should the systolic blood pressure goal above 140. This can be repeated every 4 hours. Continue ventilator support and no changes will be done for today Once blood pressure and the heart rate is improved, I'm going to give the patient is sedation holiday and assess the patient's mental status and weaning parameters Replace potassium Check ionized calcium Discontinue the bicarb infusion Continue bronchodilators and steroids Continue IV Rocephin and Zithromax subcu for DVT prophylaxis Unable to pass a nasogastric tube, consult GI for an NG tube placement We will continue to follow and make further recommendations based on her clinical status Normal saline at rate of 75 mL an hour and discontinue the bicarb infusion Condition is critical and we'll continue to follow make further recommendations based on her progress. His evaluation was done in more than 30 minutes. Time with Patient: Greater than 30
--- NOTE | 2022-09-26 09:44 | XR ---
EXAMINATION TYPE: XR chest 1V portable DATE OF EXAM: 09/26/2022 COMPARISON: 10/07/2022 INDICATION: Tube placement TECHNIQUE: Single frontal view of the chest is obtained. FINDINGS: The heart size is normal. The pulmonary vasculature is normal. The lungs are clear. Endotracheal tube tip 6 cm above the scott. IMPRESSION: 1. No acute pulmonary process. 2. Endotracheal tube tip above scott.
[2022-09-26] MEDS: SODIUM CHLORIDE 0.9% 1,000 ML IV SCH ×2 (10:10→23:55)
--- NOTE | 2022-09-26 10:33 | P.PN ---
Subjective Progress Note Date: 09/26/22 The patient is a 76-year-old female who came into the hospital with hypertensive crisis. She was found to have an infrarenal aortic dissection and was transferred to the ICU. She is currently sedated and intubated. She has been weaned off of her nitroglycerin drip and recently her esmolol drip has been discontinued. Overnight she has developed sinus tachycardia with heart rates as high as the 140 systolic. At the time of my examination the patient appeared to be resting comfortably. GENERAL: Well-appearing, well-nourished and in no acute distress. Currently sedated and ventilated. NECK: Supple without JVD or thyromegaly. LUNGS: Breath sounds clear to auscultation bilaterally. Respiration equal and unlabored. No wheezes, rales or rhonchi. HEART: Regular rate and rhythm without murmurs, rubs or gallops. Notably tachycardic. S1 and S2 heard. EXTREMITIES: Normal range of motion, no edema. No clubbing or cyanosis. Peripheral pulses intact and strong. TELEMETRY: Sinus tachycardia IMPRESSION: Hypertensive crisis Infrarenal aortic dissection Sinus tachycardia PLAN: Resume esmolol drip to keep systolic blood pressures between 120 and 140 We will transition to oral medications once extubated and able to swallow Further recommendations to be based upon clinical course I am dictating on behalf of Dr Arnav Nicholas's history/physical and assessment/plan. Objective - Vital Signs Vital signs: Vital Signs Temp 98.6 F 09/26/22 08:00 Pulse 121 H 09/26/22 08:00 Resp 19 09/26/22 08:00 BP 152/79 09/26/22 08:00 Pulse Ox 97 09/26/22 08:00 FiO2 30 09/26/22 08:00 Intake & Output 09/25/22 09/26/22 09/26/22 18:59 06:59 18:59 Intake Total 1125.69 1499.951 665.168 Output Total 250 280 250 Balance 875.69 1219.951 415.168 Weight 59 kg Intake: IV 75 1350 200 .9 @ 100 200 Azithromycin 500 mg In 250 Sodium Chloride 0.9% 250 ml @ 250 mls/hr IVPB DAILY@1999 [facility] Rx#: [id number] Dextrose 5% in Water 1, 1100 000 ml @ 100 mls/hr IV . [id number] [facility] with Sodium Bicarb (1 Meq/ml) 150 ml Rx#:[id number] Sodium Chloride 0.9% 1, 75 000 ml @ 75 mls/hr IV . [id number] [facility] Rx#:[id number] Intake, IV Titration 1050.69 149.951 465.168 Amount Dextrose 5% in Water 1, 1000 000 ml @ 100 mls/hr IV . [id number] [facility] with Sodium Bicarb (1 Meq/ml) 150 ml Rx#:[id number] Esmolol in Sodium 0 Chloride Pmx 2.5 gm In Saline 1 250ml.bag @ 200 MCG/KG/MIN 59.874 mls/hr IV .[id number] [facility] Rx#: [id number] Potassium Chloride 10 meq 300 In Water For Injection 1 100ml.bag @ 100 mls/hr IVPB Q1HR [facility] Rx#: [id number] Sodium Chloride 0.9% 1, 150 000 ml @ 75 mls/hr IV . [id number] [facility] Rx#:[id number] propofoL 1,000 mg In 50.69 149.951 15.168 Empty Bag 1 bag @ 15 MCG/ KG/MIN 4.491 mls/hr IV . [id number] [facility] Rx#:[id number] Output: Urine 250 280 250 Other: Voiding Method Indwelling Catheter Indwelling Catheter Indwelling Catheter - Labs CBC & Chem 7: 09/26/22 06:00 09/26/22 06:00 Labs: Abnormal Lab Results - Last 24 Hours (Table) 09/25/22 09/25/22 09/25/22 Range/Units 11:54 17:47 23:23 WBC (3.8-10.6) k/uL RBC (3.80-5.40) m/uL Hgb (11.4-16.0) gm/dL Hct (34.0-46.0) % Neutrophils # (1.3-7.7) k/uL Lymphocytes # (1.0-4.8) k/uL ABG pH (7.35-7.45) ABG HCO3 (21-25) mmol/L ABG Total CO2 (19-24) mmol/L ABG O2 Saturation (94-97) % Potassium (3.5-5.1) mmol/L BUN (7-17) mg/dL Creatinine (0.52-1.04) mg/dL Glucose (74-99) mg/dL POC Glucose (mg/dL) 230 H 221 H 178 H (70-110) mg/dL Calcium (8.4-10.2) mg/dL Ionized Calcium Tamiko (4.5-5.3) mg/dL 09/26/22 09/26/22 09/26/22 Range/Units 05:38 06:00 06:00 WBC 19.1 H (3.8-10.6) k/uL RBC 3.38 L (3.80-5.40) m/uL Hgb 10.4 L (11.4-16.0) gm/dL Hct 32.9 L (34.0-46.0) % Neutrophils # 17.8 H (1.3-7.7) k/uL Lymphocytes # 0.7 L (1.0-4.8) k/uL ABG pH (7.35-7.45) ABG HCO3 (21-25) mmol/L ABG Total CO2 (19-24) mmol/L ABG O2 Saturation (94-97) % Potassium 3.3 L (3.5-5.1) mmol/L BUN 24 H (7-17) mg/dL Creatinine 1.05 H (0.52-1.04) mg/dL Glucose 231 H (74-99) mg/dL POC Glucose (mg/dL) 245 H (70-110) mg/dL Calcium 6.1 L* (8.4-10.2) mg/dL Ionized Calcium Tamiko (4.5-5.3) mg/dL 09/26/22 09/26/22 Range/Units 06:02 09:48 WBC (3.8-10.6) k/uL RBC (3.80-5.40) m/uL Hgb (11.4-16.0) gm/dL Hct (34.0-46.0) % Neutrophils # (1.3-7.7) k/uL Lymphocytes # (1.0-4.8) k/uL ABG pH 7.51 H (7.35-7.45) ABG HCO3 30 H (21-25) mmol/L ABG Total CO2 31 H (19-24) mmol/L ABG O2 Saturation 97.7 H (94-97) % Potassium (3.5-5.1) mmol/L BUN (7-17) mg/dL Creatinine (0.52-1.04) mg/dL Glucose (74-99) mg/dL POC Glucose (mg/dL) (70-110) mg/dL Calcium (8.4-10.2) mg/dL Ionized Calcium Tamiko 4.2 L (4.5-5.3) mg/dL Microbiology - Last 24 Hours (Table) 09/23/22 16:50 Blood Culture - Preliminary Blood 09/23/22 17:05 Blood Culture - Preliminary Blood 09/23/22 20:38 Sputum Culture - Preliminary Sputum
--- NOTE | 2022-09-26 10:48 | CA ---
Transthoracic Echo Report Name: Missy Thomas Age: 76 Gender: F : 1945 Exam Date: 09/25/2022 09:38 Exam Location: [facility] Ht (in): 61 Wt (lb): 128 Ordering Physician: Marco Tim MD ([id number]) Attending/Referring Phys: Drum Barker Operator Janey Ro RDCS Procedure CPT: Indications: HTN Cardiac Hx: Technical Quality: Fair Contrast 1: Total Dose (mL): Contrast 2: Total Dose (mL): MEASUREMENTS (Male / Female) Normal Values 2D ECHO LV Diastolic Diameter PLAX 3.8 cm 4.2 - 5.9 / 3.9 - 5.3 cm LV Systolic Diameter PLAX 2.4 cm IVS Diastolic Thickness 1.0 cm 0.6 - 1.0 / 0.6 - 0.9 cm LVPW Diastolic Thickness 1.0 cm 0.6 - 1.0 / 0.6 - 0.9 cm LV Relative Wall Thickness 0.5 RV Internal Dim ED PLAX 2.0 cm LA Systolic Diameter LX 3.1 cm 3.0 - 4.0 / 2.7 - 3.8 cm LV Diastolic Volume MOD BP 44.0 cm??? 67 - 155 / 56 - 104 cm??? LV Systolic Volume MOD BP 14.3 cm??? 22 - 58 / 19 - 49 cm??? LV Ejection Fraction MOD BP 67.5 % >= 55 % LV Diastolic Volume MOD 4C 42.3 cm??? LV Systolic Volume MOD 4C 12.3 cm??? LV Ejection Fraction MOD 4C 70.9 % LV Diastolic Length 4C 6.2 cm LV Systolic Length 4C 5.1 cm LV Diastolic Volume MOD 2C 42.9 cm??? LV Systolic Volume MOD 2C 15.7 cm??? LV Ejection Fraction MOD 2C 63.4 % LV Diastolic Length 2C 6.6 cm LV Systolic Length 2C 5.8 cm LA Volume 30.4 cm??? 18 - 58 / 22 - 52 cm??? M-MODE Aortic Root Diameter MM 2.8 cm MV E Point Septal Separation 0.6 cm AV Cusp Separation MM 1.5 cm DOPPLER AV Peak Velocity 137.9 cm/s AV Peak Gradient 7.6 mmHg MV Area PHT 3.5 cm??? Mitral E Point Velocity 94.4 cm/s Mitral A Point Velocity 123.0 cm/s Mitral E to A Ratio 0.8 MV Deceleration Time 219.2 ms MV E' Velocity 5.1 cm/s Mitral E to MV E' Ratio 18.4 TR Peak Velocity 204.3 cm/s TR Peak Gradient 16.7 mmHg Right Ventricular Systolic Press 21.7 mmHg FINDINGS Left Ventricle Left ventricular ejection fraction is estimated at 60-65 %. Right Ventricle Normal right ventricular size and function. Right ventricular systolic pressure within normal limits. Right Atrium Normal right atrial size. Left Atrium Normal left atrial size. Mitral Valve Structurally normal mitral valve. Aortic Valve Aortic valve not well visualized. No aortic valve stenosis or regurgitation. Tricuspid Valve Structurally normal tricuspid valve. Trace to mild tricuspid regurgitation. Pulmonic Valve Pulmonic valve not well visualized. Pericardium Normal pericardium. No pericardial effusion. Aorta Aortic root and proximal ascending aorta not well visualized. CONCLUSIONS Left ventricular ejection fraction 60-65% No mitral regurgitation RVSP 21 Trace to mild tricuspid regurgitation No pericardial effusion Previewed by: Dr. Enzo Garcia DO (Electronically Signed) Final Date: 26 Sep 2022 10:47
--- NOTE | 2022-09-26 12:09 | P.PN ---
Subjective Progress Note Date: 09/26/22 This is a76 years old female patient Presents because of dyspnea with acute hypoxic respiratory failure which is rapidly degenerated to the degree requiring intubation and placing patient on mechanical ventilation. Patient also with blood pressure despite 200/100 patient was placed on nitro drip. T brain shows no obvious acute intracranial process. CTA of the aorta and the thoracic abdomen pelvis reveals no obvious to a dissection. There is a small short segment of infrarenal aortic dissection in the abdomen. Also a small wedge-shaped region seen by radiology in the left kidney suspicious for infarct with an atrophic right kidney. Patient has a 9 mm lung nodule. There is a nonobstructive renal calculus. Also possible Zenker's diverticulum versus possible fluid in the upper esophagus, suspect residual fluid. 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 The systolic pressure in the 90s and heart rate 70s to 71 showing WBCs 12.5, trace of CBC is unremarkable. PH 7.2, pCO2 elevated 51. BMP is unremarkable, creatinine 1.48, baseline 1.1-1.3. Glucose 307. Neuro exam not significantly elevated. Troponin is negative at 0.017. ProBNP is 210. Viruses undetected influenza, rotavirus and RSV Patient was started on antibiotics obstruction and Zithromax and steroids were added. 09/25. Patient seen and examined. Patient currently intubated. Currently sedated on propofol The patient also has an infrarenal abdominal aortic aneurysm. The right kidney on the CAT scan showed a delayed enhancement on the left and the findings were suspicious for a left kidney infarct with decreased enhancement. There is also atrophy of the right kidney with delayed enhancement and possibility of renal artery stenosis is being entertained at this point in time. There is also possibility of a Zenker's diverticulum in the upper esophagus. 09/26. Patient seen and examined.continues to be on ventilator and sedated White count this morning 19.1, hemoglobin 10.4, platelet count 219, sodium 137, potassium 3.3. BUN 24, creatinine 1.05 REVIEW OF SYSTEMS: Currently intubated on mechanical ventilation PHYSICAL EXAMINATION: GENERAL: Intubated and sedated HEENT: Pupils are round and equally reacting to light. EOMI. No scleral icterus. No conjunctival pallor. Normocephalic, atraumatic. No pharyngeal erythema. No thyromegaly. CARDIOVASCULAR: S1 and S2 present. No murmurs, rubs, or gallops. PULMONARY: Diminished breath sounds at the bases bilaterally ABDOMEN: Soft, nontender, nondistended, normoactive bowel sounds. No palpable organomegaly. MUSCULOSKELETAL: No joint swelling or deformity. EXTREMITIES: No cyanosis, clubbing, or pedal edema. NEUROLOGICAL: Gross neurological examination did not reveal any focal deficits. SKIN: No rashes. 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 Acute kidney injury on chronic kidney disease stage III Hyperglycemia Plan Monitor vital signs Monitor CBC Monitor CMP Continue telemetry monitoring Continue with IV Solu-Medrol Continue with bronchodilator DC bicarb drip Continue esmolol Continue IV Rocephin and erythromycin Continue vent management per ICU Vascular surgery on board for for dissected aneurysm Cardiology on board Objective - Vital Signs Vital signs: Vital Signs Temp 98.6 F 09/26/22 08:00 Pulse 121 H 09/26/22 08:00 Resp 19 09/26/22 08:00 BP 152/79 09/26/22 08:00 Pulse Ox 97 09/26/22 08:00 FiO2 30 09/26/22 08:00 Intake & Output 09/25/22 09/26/22 09/26/22 18:59 06:59 18:59 Intake Total 1125.69 1499.951 315.168 Output Total 250 280 150 Balance 875.69 1219.951 165.168 Weight 59 kg Intake: IV 75 1350 200 .9 @ 100 200 Azithromycin 500 mg In 250 Sodium Chloride 0.9% 250 ml @ 250 mls/hr IVPB DAILY@2000 [facility] Rx#: [id number] Dextrose 5% in Water 1, 1100 000 ml @ 100 mls/hr IV . [id number] [facility] with Sodium Bicarb (1 Meq/ml) 150 ml Rx#:[id number] Sodium Chloride 0.9% 1, 75 000 ml @ 75 mls/hr IV . [id number] [facility] Rx#:[id number] Intake, IV Titration 1050.69 149.951 115.168 Amount Dextrose 5% in Water 1, 1000 000 ml @ 100 mls/hr IV . [id number] [facility] with Sodium Bicarb (1 Meq/ml) 150 ml Rx#:[id number] Potassium Chloride 10 meq 100 In Water For Injection 1 100ml.bag @ 100 mls/hr IVPB Q1HR [facility] Rx#: [id number] propofoL 1,000 mg In 50.69 149.951 15.168 Empty Bag 1 bag @ 15 MCG/ KG/MIN 4.491 mls/hr IV . [id number] [facility] Rx#:[id number] Output: Urine 250 280 150 Other: Voiding Method Indwelling Catheter Indwelling Catheter Indwelling Catheter - Labs CBC & Chem 7: 09/26/22 06:00 09/26/22 06:00 Labs: Abnormal Lab Results - Last 24 Hours (Table) 09/25/22 09/25/22 09/25/22 Range/Units 11:54 17:47 23:23 WBC (3.8-10.6) k/uL RBC (3.80-5.40) m/uL Hgb (11.4-16.0) gm/dL Hct (34.0-46.0) % Neutrophils # (1.3-7.7) k/uL Lymphocytes # (1.0-4.8) k/uL ABG pH (7.35-7.45) ABG HCO3 (21-25) mmol/L ABG Total CO2 (19-24) mmol/L ABG O2 Saturation (94-97) % Potassium (3.5-5.1) mmol/L BUN (7-17) mg/dL Creatinine (0.52-1.04) mg/dL Glucose (74-99) mg/dL POC Glucose (mg/dL) 230 H 221 H 178 H (70-110) mg/dL Calcium (8.4-10.2) mg/dL 09/26/22 09/26/22 09/26/22 Range/Units 05:38 06:00 06:00 WBC 19.1 H (3.8-10.6) k/uL RBC 3.38 L (3.80-5.40) m/uL Hgb 10.4 L (11.4-16.0) gm/dL Hct 32.9 L (34.0-46.0) % Neutrophils # 17.8 H (1.3-7.7) k/uL Lymphocytes # 0.7 L (1.0-4.8) k/uL ABG pH (7.35-7.45) ABG HCO3 (21-25) mmol/L ABG Total CO2 (19-24) mmol/L ABG O2 Saturation (94-97) % Potassium 3.3 L (3.5-5.1) mmol/L BUN 24 H (7-17) mg/dL Creatinine 1.05 H (0.52-1.04) mg/dL Glucose 231 H (74-99) mg/dL POC Glucose (mg/dL) 245 H (70-110) mg/dL Calcium 6.1 L* (8.4-10.2) mg/dL 09/26/22 Range/Units 06:02 WBC (3.8-10.6) k/uL RBC (3.80-5.40) m/uL Hgb (11.4-16.0) gm/dL Hct (34.0-46.0) % Neutrophils # (1.3-7.7) k/uL Lymphocytes # (1.0-4.8) k/uL ABG pH 7.51 H (7.35-7.45) ABG HCO3 30 H (21-25) mmol/L ABG Total CO2 31 H (19-24) mmol/L ABG O2 Saturation 97.7 H (94-97) % Potassium (3.5-5.1) mmol/L BUN (7-17) mg/dL Creatinine (0.52-1.04) mg/dL Glucose (74-99) mg/dL POC Glucose (mg/dL) (70-110) mg/dL Calcium (8.4-10.2) mg/dL Microbiology - Last 24 Hours (Table) 09/23/22 16:50 Blood Culture - Preliminary Blood 09/23/22 17:05 Blood Culture - Preliminary Blood 09/23/22 20:38 Sputum Culture - Preliminary Sputum
[2022-09-26 12:17] LABS: Glucose,Whole Blood 218 mg/dL (70-110)
[2022-09-26 12:21] LABS: ABG Base Excess 4.3 mmol/L; ABG HCO3 28 mmol/L (21-25); ABG Oxygen Saturation 98.2 % (94-97); ABG PCO2 38 mmHg (35-45); ABG PH 7.47 (7.35-7.45); ABG PO2 98 mmHg (83-108); ABG TCO2 29 mmol/L (19-24); Allen Test Performed? Yes
--- NOTE | 2022-09-26 12:46 | P.PN ---
Subjective Progress Note Date: 09/26/22 Principal diagnosis: acute hypoxia requiring mechanical ventilation 68-year-old male with a past medical history including coronary artery disease status post cardiac catheterization, atrial fibrillation on Eliquis, tachycardia induced cardiomyopathy, hypertension, hyperlipidemia and prostate disorder. Patient presented to the emergency department early yesterday morning with complaints of chest pain/epigastric pain. He states it was sharp in nature had associated nausea and vomiting as well as fever and chills. Patient called EMS and he was brought to the emergency department for further evaluation. Initial labs showed WBC 14.7 hemoglobin 16 platelet count 208,000 and INR 1.1 total bilirubin 1.6 AST 102 ALT 83 alkaline phosphatase 85. Patient had abdominal ultrasound reported distended gallbladder with few scattered gallstones and possible. Cholecystic fluid correlate with HIDA scan for cholecystitis. Gen. surgery initially consulted and started patient on IV Zosyn, with plan for possible cholecystectomy. However today's repeat bilirubin and LFTs are manuela nding upward. Gen. surgery consulted gastroenterology for possible choledocholithiasis/ERCP. Cardiology also following patient and patient was scheduled for cardioversion this Sunday, however will be rescheduled for future date. Cardiology has cleared patient from a surgical standpoint to undergo intervention with GI service and/or general surgery. Eliquis placed on hold and patient was started on a heparin drip. Last Eliquis was taken Sunday night. Patient denies any prior gallbladder problems however states about 9 years ago he had similar symptoms to this episode. He did have a spike in his temperature to 101.2 Midnight and at that time also states that he had severe abdominal pain however that, sharp in nature however resolved soon after. He currently states he has no abdominal pain, no nausea, no vomiting and has been afebrile. However patient does appear diaphoretic. 09/26/2022: Patient was initially seen this morningin the ICU and was sedated and on mechanical ventilation. Patient was having some increase in her heart rate and blood pressure, however that has been stabilized with medication. Initially there were no plans for extubation today, so patient was scheduled for EGD with NG tube placement for nutritional support.however this afternoon. Patient had been trialed for a sedation holiday and decision has been made to extubate the patient. Objective - Vital Signs Vital signs: Vital Signs Temp 98.8 F 09/26/22 12:00 Pulse 117 H 09/26/22 12:00 Resp 9 L 09/26/22 12:00 BP 161/93 09/26/22 12:00 Pulse Ox 100 09/26/22 12:00 FiO2 30 09/26/22 12:00 Intake & Output 09/25/22 09/26/22 09/26/22 18:59 06:59 18:59 Intake Total 1125.69 1499.951 923.900 Output Total 250 280 350 Balance 875.69 1219.951 573.900 Weight 59 kg Intake: IV 75 1350 200 .9 @ 100 200 Azithromycin 500 mg In 250 Sodium Chloride 0.9% 250 ml @ 250 mls/hr IVPB DAILY@2000 [facility] Rx#: [id number] Dextrose 5% in Water 1, 1100 000 ml @ 100 mls/hr IV . [id number] [facility] with Sodium Bicarb (1 Meq/ml) 150 ml Rx#:[id number] Sodium Chloride 0.9% 1, 75 000 ml @ 75 mls/hr IV . [id number] [facility] Rx#:[id number] Intake, IV Titration 1050.69 149.951 723.900 Amount Dextrose 5% in Water 1, 1000 000 ml @ 100 mls/hr IV . [id number] [facility] with Sodium Bicarb (1 Meq/ml) 150 ml Rx#:[id number] Esmolol in Sodium 8.732 Chloride Pmx 2.5 gm In Saline 1 250ml.bag @ 200 MCG/KG/MIN 59.874 mls/hr IV .[id number] [facility] Rx#: [id number] Potassium Chloride 10 meq 400 In Water For Injection 1 100ml.bag @ 100 mls/hr IVPB Q1HR [facility] Rx#: [id number] Sodium Chloride 0.9% 1, 300 000 ml @ 75 mls/hr IV . [id number] [facility] Rx#:[id number] propofoL 1,000 mg In 50.69 149.951 15.168 Empty Bag 1 bag @ 15 MCG/ KG/MIN 4.491 mls/hr IV . [id number] [facility] Rx#:[id number] Output: Urine 250 280 350 Other: Voiding Method Indwelling Catheter Indwelling Catheter Indwelling Catheter - Exam General appearance: The patient is sedated and intubated. HET: Head is normocephalic and atraumatic. Neck: Supple. Heart: Regular. Lungs: Equal expansion, normal respiratory effort. Abdomen: Soft, nontender, nondistended. Extremities: Right upper extremity swelling. Palpable radial pulse. no pedal edema. Neurological: Sedated and intubated.trialing sedation holiday. - Labs CBC & Chem 7: 09/26/22 06:00 09/26/22 06:00 Labs: Abnormal Lab Results - Last 24 Hours (Table) 09/25/22 09/25/22 09/26/22 Range/Units 17:47 23:23 05:38 WBC (3.8-10.6) k/uL RBC (3.80-5.40) m/uL Hgb (11.4-16.0) gm/dL Hct (34.0-46.0) % Neutrophils # (1.3-7.7) k/uL Lymphocytes # (1.0-4.8) k/uL ABG pH (7.35-7.45) ABG HCO3 (21-25) mmol/L ABG Total CO2 (19-24) mmol/L ABG O2 Saturation (94-97) % Potassium (3.5-5.1) mmol/L BUN (7-17) mg/dL Creatinine (0.52-1.04) mg/dL Glucose (74-99) mg/dL POC Glucose (mg/dL) 221 H 178 H 245 H (70-110) mg/dL Calcium (8.4-10.2) mg/dL Ionized Calcium Tamiko (4.5-5.3) mg/dL 09/26/22 09/26/22 09/26/22 Range/Units 06:00 06:00 06:02 WBC 19.1 H (3.8-10.6) k/uL RBC 3.38 L (3.80-5.40) m/uL Hgb 10.4 L (11.4-16.0) gm/dL Hct 32.9 L (34.0-46.0) % Neutrophils # 17.8 H (1.3-7.7) k/uL Lymphocytes # 0.7 L (1.0-4.8) k/uL ABG pH 7.51 H (7.35-7.45) ABG HCO3 30 H (21-25) mmol/L ABG Total CO2 31 H (19-24) mmol/L ABG O2 Saturation 97.7 H (94-97) % Potassium 3.3 L (3.5-5.1) mmol/L BUN 24 H (7-17) mg/dL Creatinine 1.05 H (0.52-1.04) mg/dL Glucose 231 H (74-99) mg/dL POC Glucose (mg/dL) (70-110) mg/dL Calcium 6.1 L* (8.4-10.2) mg/dL Ionized Calcium Tamiko (4.5-5.3) mg/dL 09/26/22 09/26/22 09/26/22 Range/Units 09:48 12:05 12:18 WBC (3.8-10.6) k/uL RBC (3.80-5.40) m/uL Hgb (11.4-16.0) gm/dL Hct (34.0-46.0) % Neutrophils # (1.3-7.7) k/uL Lymphocytes # (1.0-4.8) k/uL ABG pH 7.47 H (7.35-7.45) ABG HCO3 28 H (21-25) mmol/L ABG Total CO2 29 H (19-24) mmol/L ABG O2 Saturation 98.2 H (94-97) % Potassium (3.5-5.1) mmol/L BUN (7-17) mg/dL Creatinine (0.52-1.04) mg/dL Glucose (74-99) mg/dL POC Glucose (mg/dL) 218 H (70-110) mg/dL Calcium (8.4-10.2) mg/dL Ionized Calcium Tamiko 4.2 L (4.5-5.3) mg/dL Microbiology - Last 24 Hours (Table) 09/23/22 16:50 Blood Culture - Preliminary Blood 09/23/22 17:05 Blood Culture - Preliminary Blood Assessment and Plan (1) Acute respiratory failure with hypoxia Narrative/Plan: 76-year-old female admitted to the hospital with severe shortness of breath who failed BiPAP and ultimately was intubated and sedated. Patient remains sedated on mechanical ventilation. ICU management wanted to place NG tube for nutrition however it was difficult to pass and place. Gastroenterology consulted as CTA thoracic aorta abdomen she reported possible Zenker's diverticulum. Patient did undergo an EGD in 2023 esophageal foreign body, at that time it was noted that there was a circumferential web involving the cervical esophagus at the site of food impaction and patient was recommended to see gastroenterology for possible elective dilation. Gastroenterology consulted for NG tube placement for nutrition. patient trialed sedation holiday, plan is for extubation today. Current Visit: Yes Status: Acute Code(s): J96.01 - ACUTE RESPIRATORY FAILURE WITH HYPOXIA SNOMED Code(s): 17026117 (2) Aortic dissection, abdominal Current Visit: Yes Status: Acute Code(s): I71.02 - DISSECTION OF ABDOMINAL AORTA SNOMED Code(s): 526577740 (3) COPD (chronic obstructive pulmonary disease) Current Visit: Yes Status: Acute Code(s): J44.9 - CHRONIC OBSTRUCTIVE PULMONARY DISEASE, UNSPECIFIED SNOMED Code(s): 55609219 Plan: 1. Continue symptomatic and supportive care 2. Protonix 40 mg daily for GI prophylaxis 3. Patient was initially scheduled for EGD with NG tube placement however plan is for extubation today. EGD canceled 4. Diet per recommendations from ICU/medical team Thank you for this consultation, we will continue to follow. Dr. Sean Rodarte I agree with the dictator's note, documented as a scribe by Roseline Colbert.
[2022-09-26] MEDS: carvediloL 6.25 MG TAB PO SCH ×2 (16:08→16:13)
[2022-09-26 17:33] LABS: Glucose,Whole Blood 96 mg/dL (70-110)
[2022-09-26] MEDS: AZITHROMYCIN 500 MG in SODIUM CHLORIDE 0.9% 250 ML IVPB SCH (20:48)
[2022-09-26] MEDS ORDERED: IPRATROPIUM-ALBUTEROL 3 ML NEB INHALATION PRN (22:43)
[2022-09-26 23:52] LABS: Glucose,Whole Blood 145 mg/dL (70-110)
[2022-09-27 05:28] LABS: Albumin 3.1 g/dL (3.5-5.0); Calcium 6.5 mg/dL (8.4-10.2); Total Bilirubin 0.8 mg/dL (0.2-1.3); Total Protein 5.5 g/dL (6.3-8.2)
[2022-09-27 05:29] LABS: Potassium 4.5 mmol/L (3.5-5.1)
[2022-09-27] MEDS: INSULIN ASPART (NovoLOG) 100 UNIT/ML VIAL SQ SCH ×5 (05:51→20:35)
[2022-09-27] MEDS: carvediloL 6.25 MG TAB PO SCH ×2 (06:40→15:43)
[2022-09-27] MEDS: methylPREDNISolone SOD SUCCI 125 MG/2 ML VIAL IV SCH ×3 (06:40→19:10)
--- NOTE | 2022-09-27 06:56 | XR ---
EXAMINATION TYPE: XR chest 1V portable DATE OF EXAM: 09/27/2022 5:18 AM COMPARISON: Chest radiographs from 09/26/2022 TECHNIQUE: XR chest 1V portable Portable AP radiograph of the chest. CLINICAL INDICATION:Female, 76 years old with history of Tube placement; FINDINGS: Patient is rotated which was evaluation. Lungs/Pleura: There is no evidence of pleural effusion, focal consolidation, or pneumothorax. Hyperi nflation with left-sided interstitial prominence. Interval removal endotracheal tube.. Heart/mediastinum: Cardiomediastinal silhouette is prominent in size. Atherosclerotic calcifications are seen in the aorta. Musculoskeletal: No acute osseous pathology. IMPRESSION: 1. Interval removal endotracheal tube. 2. COPD changes with left-sided interstitial prominence which may represent some pulmonary vascular congestion.
[2022-09-27 06:59] LABS: Basophils % (A) 0 %; Eosinophils # (A) 0.1 k/uL (0-0.7); Eosinophils % (A) 0 %; HCT 31.9 % (34.0-46.0); HGB 9.9 gm/dL (11.4-16.0); Hypochromasia Slight; Lymphocytes # (A) 0.6 k/uL (1.0-4.8); Lymphocytes % (A) 3 %; MCH 30.5 pg (25.0-35.0); MCHC 31.1 g/dL (31.0-37.0); MCV 98.1 fL (80.0-100.0); Mean Platelet Volume 10.2; Monocytes # (A) 0.4 k/uL (0-1.0); Monocytes % (A) 2 %; Neutrophils # (A) 16.6 k/uL (1.3-7.7); Neutrophils % (A) 94 %; Platelet Count 226 k/uL (150-450); RBC 3.25 m/uL (3.80-5.40); RDW 13.9 % (11.5-15.5); WBC 17.7 k/uL (3.8-10.6)
[2022-09-27] MEDS: ESMOLOL IN SODIUM CHLORIDE PMX 2.5 GM in SALINE 1 250ML.BAG IV SCH ×5 (07:46→21:00)
[2022-09-27] MEDS: PANTOPRAZOLE 40 MG/10 ML VIAL IVP SCH (07:47)
[2022-09-27] MEDS: HEPARIN SODIUM,PORCINE/PF 5,000 UNIT/0.5 ML SYRINGE SQ SCH ×2 (07:47→15:43)
[2022-09-27] MEDS: ATORVASTATIN 40 MG TAB PO SCH (07:47)
[2022-09-27] MEDS: FORMOTEROL FUMARATE 20 MCG/2 ML NEBU INHALATION SCH ×2 (07:58→20:19)
[2022-09-27] MEDS: IPRATROPIUM-ALBUTEROL 3 ML NEB INHALATION SCH ×4 (07:59→20:19)
[2022-09-27] MEDS: BUDESONIDE 1 MG/2 ML NEBU INHALATION SCH ×2 (07:59→20:19)
--- NOTE | 2022-09-27 08:21 | P.PN ---
Subjective Progress Note Date: 09/27/22 This is a 76-year-old female patient with a history of chronic and ongoing tobacco dependence, chronic obstructive pulmonary disease, hypertension, hyperlipidemia, osteoarthritis. She presented to the emergency room yesterday with complaints of a 2-3 day history of worsening shortness of breath. She had a productive cough of greenish yellow sputum and sinus congestion. She stated she had no inhalers at home. She eventually failed BiPAP support and was intubated in the emergency department yesterday 09/23/2022. X-ray had revealed evidence of COPD but no acute pulmonary process. Computed tomography scan of the brain revealed no acute intracranial process. Thoracic scan revealed a short segment infrarenal abdominal aortic dissection. No aortic aneurysm. No evidence of pulmonary embolism. There is a spiculated 9 mm nodule in the right lung apex raising the possibility of malignancy. Outpatient PET scan recommended. There is decreased enhancement involving the left kidney suspicious for infarct. Atrophy of the right kidney with delayed enhancement compared to the left. Both kidneys with moderate stenosis. There is also possible Zenker's diverticulum within the upper esophagus. Staff has been unable to pass a nasogastric tube. White count 25.7. Hemoglobin 11.1. Platelets 228. Sodium 136. Potassium 4.7. Bicarb 15. BUN 32. Creatinine 1.24. Glucose 260. Pro-calcitonin 1.09. She is seen today in consultation in the intensive care unit. Current ventilator settings are assist-control mode with a rate of 22, tidal volume 350, FiO2 40% and a PEEP of 5. Morning blood gases reveal a P O2 of 168, pCO2 36 and a pH of 7.31. That was on 40% FiO2. She initially was on a nitroglycerin drip that has been discontinued. She is on esmolol at 200 mcg/kg/min. Fentanyl at 2 mcg/kg/h and propofol 50 mcg/kg/m. She's been initiated on DuoNeb inhalations, Pulmicort and Perforomist inhalations, IV Solu-Medrol. Antibiotics in the form of azithromycin. On today's evaluation of 09/25/2022, the patient is being seen for a follow-up. This is a case of COPD and the patient has an infrarenal abdominal aortic dissection this being treated conservatively. The patient is known to have a spiculated 9 mm right upper lobe lesion in addition to hypertension, hyperlipidemia and osteoarthritis. Noted the patient presented to us with respiratory failure. She had to be intubated after failing a BiPAP trial. At this point in time, the patient is sedated on propofol which is running at 20 mcg/kg/m. The patient is adequately sedated. The patient's increase of mechanical ventilator. She is on assist control at the rate of 22, tidal volume of 350, FiO2 of 30% and a PEEP of 5. The blood gas from today showed a pH of 7.25 with a pCO2 of 35 and a pO2 of 91. The patient has essentially the same metabolic acidosis. Serum bicarb is down to 14 and this is a non-anion gap metabolic acidosis. The chest x-ray from today shows hyperinflation. ET tube is a in a good location. No significant orotracheal secretions at this point in time. The patient is on bronchodilators, IV Solu-Medrol and Zithromax. The white cell count was as high as 25, dropped down to 21. Hemoglobin has stayed stable at 11.5. Sodium level is at 1:30 with a potassium level of 4.5 and a bicarb level of 14 as mentioned and the calcium level is low at 6.3. Pro- calcitonin level was at 1.09 at the time of admission and a troponin was at 0.15. The patient also has an infrarenal abdominal aortic aneurysm. The right kidney on the CAT scan showed a delayed enhancement on the left and the findings were suspicious for a left kidney infarct with decreased enhancement. There is also atrophy of the right kidney with delayed enhancement and possibility of renal artery stenosis is being entertained at this point in time. There is also possibility of a Zenker's diverticulum in the upper esophagus. The patient does not have a feeding tube for now and a technically difficult. Could be related to underlying Zenker's diverticulum. IV fluids are running in order of 0.9 at 75 mL an hour. She did have hypotension last night and she was taken off the esmolol drip and her blood pressure is stable at this point in time with a urine output of 30-50 mL an hour. IV fluids are in the form of normal saline. On 09/26/2022, the patient remains intubated on a mechanical ventilator. Earlier this morning, as the patient was being moved around doing further testing and a chest x-ray, she became slightly more tachycardic and hypertensive. Prior to that, her BP was under excellent control and her heart rate was also under excellent control. She was off the asthma low drip for the past 24 hours. I think is reasonable to restart the esmolol drip for heart rate and blood pressure control. Meanwhile, this morning, the patient remains on propofol which is running at 40 mcg/kg/m. She is successful mechanical ventilator. Some assist-control mode at the rate of 22, tidal volume of 350, F iO2 of 30% and a PEEP of 5. There is improvement in her acid base status. In fact she is slightly alkalotic today. Patient at 7.5 with a pCO2 of 37 and pO2 of 11. The chest x-ray is unchanged compared to yesterday. Orotracheal tube is in a good location. No significant infiltration. The peak airway pressure is 27. No significant orotracheal secretions. Cardiac rhythm remained sinus. She is in sinus tachycardia. She is having occasional ectopies. The white cell cause of 19 with a hemoglobin of 10.4 and a platelet count of 219. The serum bicarb is up to 27. Sodium is at 137, calcium level is low at 6.1 to be replaced. BUN is at 24 with a creatinine of 1.05. She remains on bron chodilators. She remains on steroids. She remains on empiric antibiotic coverage with Rocephin and Zithromax. Unable to insert an OG tube and the patient remains nothing by mouth for now. On 09/27/2022, the patient is extubated and she is currently on room air oxygen. Nevertheless, she still bronchospastic and wheezy. She is still very weak. She has a cough. Her swallow is poor and she is unable to swallow properly and she had some issues swallowing tablets yesterday. Based on that, the patient was kept nothing by mouth and a swallow evaluation was requested. The patient was successfully extubated yesterday after controlling and hemodynamics. She was started on esmolol drip which is currently running at 30 mcg/kg/m. Most recent heart rate is 84. Her blood pressure also is being managed although it seems to be running higher as of 3:00 this morning. Most recent BP is 161/84. Note that she is on esmolol drip. She is also on hydralazine 10 mg every 4 hours. She was started on Coreg 6.25 mg by mouth twice a day. Nevertheless, I'm not sure she is going to be able to swallow the tablets. She is still on her routine bronchodilators. Chest x-ray remains unchanged. The patient had a low ionized calcium of 4.2. Based on that, the patient was given calcium supplements. On today's blood work, the white cell count at 17 with a hemoglobin of 9.9 and a platelet count of 226. Sodium is at 139, BUN is at 27 with a creatinine of 1. LFTs are normal. Orotracheal tube and orogastric tube were both removed. IV fluids are in the form of 0.9 at the rate of 75 mL an yennifer r. Objective - Vital Signs Vital signs: Vital Signs Temp 98.6 F 09/27/22 04:00 Pulse 92 09/27/22 08:10 Resp 20 09/27/22 07:00 BP 161/84 09/27/22 07:00 Pulse Ox 94 L 09/27/22 07:00 FiO2 30 09/26/22 12:00 Intake & Output 09/26/22 09/27/22 09/27/22 18:59 06:59 18:59 Intake Total 7692.627 5488.127 78.293 Output Total 900 665 30 Balance 733.754 540.127 48.293 Weight 60 kg Intake: IV 200 1000 75 .9 @ 100 200 Azithromycin 500 mg In 250 Sodium Chloride 0.9% 250 ml @ 250 mls/hr IVPB DAILY@2000 [facility] Rx#: [id number] Sodium Chloride 0.9% 1, 750 75 000 ml @ 75 mls/hr IV . [id number] [facility] Rx#:[id number] Intake, IV Titration 1433.754 205.127 3.293 Amount Esmolol in Sodium 219.289 130.127 3.293 Chloride Pmx 2.5 gm In Saline 1 250ml.bag @ 200 MCG/KG/MIN 59.874 mls/hr IV .Q4H11M [facility] Rx#: [id number] Potassium Chloride 10 meq 400 In Water For Injection 1 100ml.bag @ 100 mls/hr IVPB Q1HR [facility] Rx#: [id number] Sodium Chloride 0.9% 1, 750 75 000 ml @ 75 mls/hr IV . [id number] [facility] Rx#:[id number] propofoL 1,000 mg In 64.465 Empty Bag 1 bag @ 15 MCG/ KG/MIN 4.491 mls/hr IV . [id number] [facility] Rx#:[id number] Output: Urine 900 665 30 Other: Voiding Method Indwelling Catheter Indwelling Catheter - Exam GENERAL EXAM: Intubated, sedated 76-year-old female, comfortable , extubated and currently she is on room air oxygen HEAD: Normocephalic. EYES: Sluggish reaction of pupils, equal size. NOSE: Clear with pink turbinates. THROAT: Oral endotracheal tube secured in place. No erythema or exudates. NECK: No masses, no JVD. CHEST: No chest wall deformity. LUNGS: Equal air entry with no crackles, wheeze, rhonchi or dullness. The hugo ent had diffuse expiratory wheezes throughout the lung field bilaterally CVS: S1 and S2 normal with no audible murmur, regular rhythm. ABDOMEN: No hepatosplenomegaly, normal bowel sounds, no guarding or rigidity. SPINE: No scoliosis or deformity SKIN: No rashes CENTRAL NERVOUS SYSTEM: No focal deficits, tone is normal in all 4 extremities. EXTREMITIES: There is no peripheral edema. No clubbing, no cyanosis. Peripheral pulses are intact. - Labs CBC & Chem 7: 09/27/22 06:41 09/27/22 05:05 Labs: Abnormal Lab Results - Last 24 Hours (Table) 09/26/22 09/26/22 09/26/22 Range/Units 09:48 12:05 12:18 WBC (3.8-10.6) k/uL RBC (3.80-5.40) m/uL Hgb (11.4-16.0) gm/dL Hct (34.0-46.0) % Neutrophils # (1.3-7.7) k/uL Lymphocytes # (1.0-4.8) k/uL ABG pH 7.47 H (7.35-7.45) ABG HCO3 28 H (21-25) mmol/L ABG Total CO2 29 H (19-24) mmol/L ABG O2 Saturation 98.2 H (94-97) % BUN (7-17) mg/dL Glucose (74-99) mg/dL POC Glucose (mg/dL) 218 H (70-110) mg/dL Calcium (8.4-10.2) mg/dL Ionized Calcium Tamiko 4.2 L (4.5-5.3) mg/dL AST (14-36) U/L ALT (4-34) U/L Total Protein (6.3-8.2) g/dL Albumin (3.5-5.0) g/dL 09/26/22 09/27/22 09/27/22 Range/Units 23:51 05:05 06:41 WBC 17.7 H (3.8-10.6) k/uL RBC 3.25 L (3.80-5.40) m/uL Hgb 9.9 L (11.4-16.0) gm/dL Hct 31.9 L (34.0-46.0) % Neutrophils # 16.6 H (1.3-7.7) k/uL Lymphocytes # 0.6 L (1.0-4.8) k/uL ABG pH (7.35-7.45) ABG HCO3 (21-25) mmol/L ABG Total CO2 (19-24) mmol/L ABG O2 Saturation (94-97) % BUN 27 H (7-17) mg/dL Glucose 124 H (74-99) mg/dL POC Glucose (mg/dL) 145 H (70-110) mg/dL Calcium 6.5 L (8.4-10.2) mg/dL Ionized Calcium Tamiko (4.5-5.3) mg/dL AST 74 H (14-36) U/L ALT 35 H (4-34) U/L Total Protein 5.5 L (6.3-8.2) g/dL Albumin 3.1 L (3.5-5.0) g/dL Microbiology - Last 24 Hours (Table) 09/23/22 20:38 Gram Stain - Preliminary Sputum Sputum Culture - Preliminary 09/23/22 16:50 Blood Culture - Preliminary Blood 09/23/22 17:05 Blood Culture - Preliminary Blood Assessment and Plan Plan: Acute hypoxemic respiratory failure secondary to an acute exacerbation of chronic obstructive pulmonary disease requiring intubation mechanical ventilatory support on 09/23/2022. No evidence of pneumonia and the patient was extubated on 09/26/2022 and currently she is on room air oxygen. She remains bronchospastic and wheezy. Chest x-ray remains free of any acute pulmonary infiltrates. The pro-calcitonin LEVEL WAS HIGH AND NEEDS TO BE RECHECKED. The patient remains on IV Zosyn as an empiric antibiotic coverage. Leukocytosis secondary to above, slightly improved Non-gap metabolic acidosis, improved and the patient was given bicarb replacement Acute kidney injury. There is decreased enhancement involving the left kidney suspicious for infarct. Atrophy of the right kidney with delayed enhancement co mpared to the left. Both kidneys with moderate stenosis. The patient is producing adequate amount of urine output. Creatinine is down to normal at 1.00 patient is extubated Thoracic scan revealed a short segment infrarenal abdominal aortic dissection. No aortic aneurysm. Spiculated 9 mm nodule in the right lung apex raising the possibility of malignancy. Outpatient PET scan recommended. Possible Zenker's diverticulum within the upper esophagus. Nasogastric tube unable to be passed History of CVA/TIA History of chronic and ongoing tobacco dependence Hyperlipidemia Hypertension Plan: Patient is extubated She is still bronchospastic and wheezy and we'll continue the bronchodilators and steroids and antibiotics Repeat pro-calcitonin level DuoNeb bedside swallow evaluation Patient was able to take her Coreg today. We'll give hydralazine as needed for blood pressure control. We'll continue asthma low drip for now at a dose of 30 micrograms per kilogram per minutes Replaced potassium Check ionized calcium, The level was low on we'll going to give another dose of a gram of calcium gluconate subcu for DVT prophylaxis We will continue to follow and make further recommendations based on her clinical status Normal saline at rate of 75 mL an hour and discontinue the bicarb infusion Condition is critical and we'll continue to follow make further recommendations based on her progress. His evaluation was done in more than 30 minutes. Time with Patient: Greater than 30
[2022-09-27] MEDS ORDERED: cloNIDine 0.3 MG/24HR PATCH TRANSDERM SCH (09:00)
--- NOTE | 2022-09-27 09:26 | P.PN ---
Subjective Progress Note Date: 09/27/22 The patient is a 76-year-old female who came into the hospital with hypertensive crisis. She was found to have an infrarenal aortic dissection and was transferred to the ICU. She has been weaned off of her nitroglycerin drip, however remains on esmolol for hypertension and tachycardia. She was extubated on September 26. At the time of my examination the patient appeared to be resting comfortably. She reports some shortness of breath as well as a terrible cough. No chest pain or chest pressure. No back discomfort. GENERAL: Well-appearing, well-nourished and in no acute distress. NECK: Supple without JVD or thyromegaly. LUNGS: Breath sounds are coarse to auscultation bilaterally. Respiration equal and unlabored. Bilateral rhonchi with congested cough. HEART: Regular rate and rhythm without murmurs, rubs or gallops. Notably tachycardic. S1 and S2 heard. EXTREMITIES: Normal range of motion, no edema. No clubbing or cyanosis. Peripheral pulses intact and strong. TELEMETRY: Sinus rhythm with controlled heart rate on Esmolol IMPRESSION: Hypertensive crisis Infrarenal aortic dissection, surgical team signed off Sinus tachycardia PLAN: Start clonidine patch with blood pressure goal keep systolic pressures between 120 and 140 Swallow screen pending When able to tolerate oral medications, wean off of esmolol drip Further recommendations to be based upon clinical course I am dictating on behalf of Dr Arnav Nicholas's history/physical and assessment/plan. Objective - Vital Signs Vital signs: Vital Signs Temp 98.6 F 09/27/22 04:00 Pulse 91 09/27/22 08:22 Resp 20 09/27/22 07:00 BP 161/84 09/27/22 07:00 Pulse Ox 94 L 09/27/22 07:00 FiO2 30 09/26/22 12:00 Intake & Output 09/26/22 09/27/22 09/27/22 18:59 06:59 18:59 Intake Total 5468.502 2748.127 78.293 Output Total 900 665 30 Balance 733.754 540.127 48.293 Weight 60 kg Intake: IV 200 1000 75 .9 @ 100 200 Azithromycin 500 mg In 250 Sodium Chloride 0.9% 250 ml @ 250 mls/hr IVPB DAILY@1999 [facility] Rx#: [id number] Sodium Chloride 0.9% 1, 750 75 000 ml @ 75 mls/hr IV . [id number] [facility] Rx#:[id number] Intake, IV Titration 1433.754 205.127 3.293 Amount Esmolol in Sodium 219.289 130.127 3.293 Chloride Pmx 2.5 gm In Saline 1 250ml.bag @ 200 MCG/KG/MIN 59.874 mls/hr IV .Q4H11M [facility] Rx#: [id number] Potassium Chloride 10 meq 400 In Water For Injection 1 100ml.bag @ 100 mls/hr IVPB Q1HR [facility] Rx#: [id number] Sodium Chloride 0.9% 1, 750 75 000 ml @ 75 mls/hr IV . [id number] [facility] Rx#:[id number] propofoL 1,000 mg In 64.465 Empty Bag 1 bag @ 15 MCG/ KG/MIN 4.491 mls/hr IV . [id number] [facility] Rx#:[id number] Output: Urine 900 665 30 Other: Voiding Method Indwelling Catheter Indwelling Catheter - Labs CBC & Chem 7: 09/27/22 06:41 09/27/22 05:05 Labs: Abnormal Lab Results - Last 24 Hours (Table) 09/26/22 09/26/22 09/26/22 Range/Units 09:48 12:05 12:18 WBC (3.8-10.6) k/uL RBC (3.80-5.40) m/uL Hgb (11.4-16.0) gm/dL Hct (34.0-46.0) % Neutrophils # (1.3-7.7) k/uL Lymphocytes # (1.0-4.8) k/uL ABG pH 7.47 H (7.35-7.45) ABG HCO3 28 H (21-25) mmol/L ABG Total CO2 29 H (19-24) mmol/L ABG O2 Saturation 98.2 H (94-97) % BUN (7-17) mg/dL Glucose (74-99) mg/dL POC Glucose (mg/dL) 218 H (70-110) mg/dL Calcium (8.4-10.2) mg/dL Ionized Calcium Tamiko 4.2 L (4.5-5.3) mg/dL AST (14-36) U/L ALT (4-34) U/L Total Protein (6.3-8.2) g/dL Albumin (3.5-5.0) g/dL 09/26/22 09/27/22 09/27/22 Range/Units 23:51 05:05 06:41 WBC 17.7 H (3.8-10.6) k/uL RBC 3.25 L (3.80-5.40) m/uL Hgb 9.9 L (11.4-16.0) gm/dL Hct 31.9 L (34.0-46.0) % Neutrophils # 16.6 H (1.3-7.7) k/uL Lymphocytes # 0.6 L (1.0-4.8) k/uL ABG pH (7.35-7.45) ABG HCO3 (21-25) mmol/L ABG Total CO2 (19-24) mmol/L ABG O2 Saturation (94-97) % BUN 27 H (7-17) mg/dL Glucose 124 H (74-99) mg/dL POC Glucose (mg/dL) 145 H (70-110) mg/dL Calcium 6.5 L (8.4-10.2) mg/dL Ionized Calcium Tamiko (4.5-5.3) mg/dL AST 74 H (14-36) U/L ALT 35 H (4-34) U/L Total Protein 5.5 L (6.3-8.2) g/dL Albumin 3.1 L (3.5-5.0) g/dL Microbiology - Last 24 Hours (Table) 09/23/22 20:38 Gram Stain - Preliminary Sputum Sputum Culture - Preliminary 09/23/22 16:50 Blood Culture - Preliminary Blood 09/23/22 17:05 Blood Culture - Preliminary Blood
[2022-09-27] MEDS: hydrALAZINE HCL 20 MG/ML 1 ML VIAL IVP PRN ×3 (09:35→19:51)
--- NOTE | 2022-09-27 10:49 | P.PN ---
Subjective Progress Note Date: 09/27/22 Principal diagnosis: acute hypoxia requiring mechanical ventilation 68-year-old male with a past medical history including coronary artery disease status post cardiac catheterization, atrial fibrillation on Eliquis, tachycardia induced cardiomyopathy, hypertension, hyperlipidemia and prostate disorder. Patient presented to the emergency department early yesterday morning with complaints of chest pain/epigastric pain. He states it was sharp in nature had associated nausea and vomiting as well as fever and chills. Patient called EMS and he was brought to the emergency department for further evaluation. Initial labs showed WBC 14.7 hemoglobin 16 platelet count 208,000 and INR 1.1 total bilirubin 1.6 AST 102 ALT 83 alkaline phosphatase 85. Patient had abdominal ultrasound reported distended gallbladder with few scattered gallstones and possible. Cholecystic fluid correlate with HIDA scan for cholecystitis. Gen. surgery initially consulted and started patient on IV Zosyn, with plan for possible cholecystectomy. However today's repeat bilirubin and LFTs are manuela nding upward. Gen. surgery consulted gastroenterology for possible choledocholithiasis/ERCP. Cardiology also following patient and patient was scheduled for cardioversion this Sunday, however will be rescheduled for future date. Cardiology has cleared patient from a surgical standpoint to undergo intervention with GI service and/or general surgery. Eliquis placed on hold and patient was started on a heparin drip. Last Eliquis was taken Sunday night. Patient denies any prior gallbladder problems however states about 9 years ago he had similar symptoms to this episode. He did have a spike in his temperature to 101.2 Midnight and at that time also states that he had severe abdominal pain however that, sharp in nature however resolved soon after. He currently states he has no abdominal pain, no nausea, no vomiting and has been afebrile. However patient does appear diaphoretic. 09/26/2022: Patient was initially seen this morningin the ICU and was sedated and on mechanical ventilation. Patient was having some increase in her heart rate and blood pressure, however that has been stabilized with medication. Initially there were no plans for extubation today, so patient was scheduled for EGD with NG tube placement for nutritional support.however this afternoon. Patient had been trialed for a sedation holiday and decision has been made to extubate the patient. 09/27/2022: Patient is seen and examined today in the ICU. She is sitting up in the bedside chair. Yesterday she was extubated. Went in there she was trialed on liquids however was coughing according to her nurse. Then made nothing by mouth and awaiting for speech pathologist evaluation. Denies any abdominal pain, nausea or vomiting. No prior difficulty with swallowing. Patient does appear to have a little bit of slurred speech unsure if this is her baseline. Objective - Vital Signs Vital signs: Vital Signs Temp 97.9 F 09/27/22 08:00 Pulse 97 09/27/22 09:00 Resp 12 09/27/22 09:00 BP 147/78 09/27/22 09:00 Pulse Ox 99 09/27/22 09:00 FiO2 30 09/26/22 12:00 Intake & Output 09/26/22 09/27/22 09/27/22 18:59 06:59 18:59 Intake Total 4902.648 7701.127 228.293 Output Total 900 665 105 Balance 733.754 540.127 123.293 Weight 60 kg Intake: IV 200 1000 225 .9 @ 100 200 Azithromycin 500 mg In 250 Sodium Chloride 0.9% 250 ml @ 250 mls/hr IVPB DAILY@2000 [facility] Rx#: [id number] Sodium Chloride 0.9% 1, 750 225 000 ml @ 75 mls/hr IV . [id number] [facility] Rx#:[id number] Intake, IV Titration 1433.754 205.127 3.293 Amount Esmolol in Sodium 219.289 130.127 3.293 Chloride Pmx 2.5 gm In Saline 1 250ml.bag @ 200 MCG/KG/MIN 59.874 mls/hr IV .Q4H11M [facility] Rx#: [id number] Potassium Chloride 10 meq 400 In Water For Injection 1 100ml.bag @ 100 mls/hr IVPB Q1HR [facility] Rx#: [id number] Sodium Chloride 0.9% 1, 750 75 000 ml @ 75 mls/hr IV . [id number] [facility] Rx#:[id number] propofoL 1,000 mg In 64.465 Empty Bag 1 bag @ 15 MCG/ KG/MIN 4.491 mls/hr IV . [id number] [facility] Rx#:[id number] Output: Urine 900 665 105 Other: Voiding Method Indwelling Catheter Indwelling Catheter Indwelling Catheter - Exam General appearance: The patient is alert and oriented. HET: Head is normocephalic and atraumatic. Neck: Supple. Heart: Regular. Lungs: Equal expansion, normal respiratory effort. Abdomen: Soft, nontender, nondistended. Extremities: Palpable bilateral radial pulses. no pedal edema. Neurological: Alert and oriented, does appear to speak slowly with possible light slurred speech. - Labs CBC & Chem 7: 09/27/22 06:41 09/27/22 05:05 Labs: Abnormal Lab Results - Last 24 Hours (Table) 09/26/22 09/26/22 09/26/22 Range/Units 12:05 12:18 23:51 WBC (3.8-10.6) k/uL RBC (3.80-5.40) m/uL Hgb (11.4-16.0) gm/dL Hct (34.0-46.0) % Neutrophils # (1.3-7.7) k/uL Lymphocytes # (1.0-4.8) k/uL ABG pH 7.47 H (7.35-7.45) ABG HCO3 28 H (21-25) mmol/L ABG Total CO2 29 H (19-24) mmol/L ABG O2 Saturation 98.2 H (94-97) % BUN (7-17) mg/dL Glucose (74-99) mg/dL POC Glucose (mg/dL) 218 H 145 H (70-110) mg/dL Calcium (8.4-10.2) mg/dL AST (14-36) U/L ALT (4-34) U/L Total Protein (6.3-8.2) g/dL Albumin (3.5-5.0) g/dL 09/27/22 09/27/22 Range/Units 05:05 06:41 WBC 17.7 H (3.8-10.6) k/uL RBC 3.25 L (3.80-5.40) m/uL Hgb 9.9 L (11.4-16.0) gm/dL Hct 31.9 L (34.0-46.0) % Neutrophils # 16.6 H (1.3-7.7) k/uL Lymphocytes # 0.6 L (1.0-4.8) k/uL ABG pH (7.35-7.45) ABG HCO3 (21-25) mmol/L ABG Total CO2 (19-24) mmol/L ABG O2 Saturation (94-97) % BUN 27 H (7-17) mg/dL Glucose 124 H (74-99) mg/dL POC Glucose (mg/dL) (70-110) mg/dL Calcium 6.5 L (8.4-10.2) mg/dL AST 74 H (14-36) U/L ALT 35 H (4-34) U/L Total Protein 5.5 L (6.3-8.2) g/dL Albumin 3.1 L (3.5-5.0) g/dL Microbiology - Last 24 Hours (Table) 09/23/22 16:50 Blood Culture - Preliminary Blood 09/23/22 17:05 Blood Culture - Preliminary Blood 09/23/22 20:38 Gram Stain - Final Sputum Sputum Culture - Final Assessment and Plan (1) Acute respiratory failure with hypoxia Narrative/Plan: 76-year-old female admitted to the hospital with severe shortness of breath who failed BiPAP and ultimately was intubated and sedated. Patient remains sedated on mechanical ventilation. ICU management wanted to place NG tube for nutrition however it was difficult to pass and place. Gastroenterology consulted as CTA thoracic aorta abdomen she reported possible Zenker's diverticulum. Patient did undergo an EGD in 2023 esophageal foreign body, at that time it was noted that there was a circumferential web involving the cervical esophagus at the site of food impaction and patient was recommended to see gastroenterology for possible elective dilation. Gastroenterology consulted for NG tube placement for nutrition. patient trialed sedation holiday, plan is for extubation today. Current Visit: Yes Status: Acute Code(s): J96.01 - ACUTE RESPIRATORY FAILURE WITH HYPOXIA SNOMED Code(s): 23247016 (2) Aortic dissection, abdominal Current Visit: Yes Status: Acute Code(s): I71.02 - DISSECTION OF ABDOMINAL AORTA SNOMED Code(s): 916040502 (3) COPD (chronic obstructive pulmonary disease) Current Visit: Yes Status: Acute Code(s): J44.9 - CHRONIC OBSTRUCTIVE PULMONARY DISEASE, UNSPECIFIED SNOMED Code(s): 08716100 Plan: 1. Continue symptomatic and supportive care 2. Protonix 40 mg daily for GI prophylaxis 3. Await speech therapy evaluation and recommendations on diet Thank you for this consultation, we will continue to follow. Dr. Sean Rodarte I agree with the dictator's note, documented as a scribe by Roseline Colbert.
[2022-09-27 11:37] LABS: Glucose,Whole Blood 168 mg/dL (70-110)
[2022-09-27] MEDS: SODIUM CHLORIDE 0.9% 1,000 ML IV SCH (12:29)
--- NOTE | 2022-09-27 12:57 | P.PN ---
Subjective Progress Note Date: 09/27/22 This is a76 years old female patient Presents because of dyspnea with acute hypoxic respiratory failure which is rapidly degenerated to the degree requiring intubation and placing patient on mechanical ventilation. Patient also with blood pressure despite 200/100 patient was placed on nitro drip. T brain shows no obvious acute intracranial process. CTA of the aorta and the thoracic abdomen pelvis reveals no obvious to a dissection. There is a small short segment of infrarenal aortic dissection in the abdomen. Also a small wedge-shaped region seen by radiology in the left kidney suspicious for infarct with an atrophic right kidney. Patient has a 9 mm lung nodule. There is a nonobstructive renal calculus. Also possible Zenker's diverticulum versus possible fluid in the upper esophagus, suspect residual fluid. 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 The systolic pressure in the 90s and heart rate 70s to 71 showing WBCs 12.5, trace of CBC is unremarkable. PH 7.2, pCO2 elevated 51. BMP is unremarkable, creatinine 1.48, baseline 1.1-1.3. Glucose 307. Neuro exam not significantly elevated. Troponin is negative at 0.017. ProBNP is 210. Viruses undetected influenza, rotavirus and RSV Patient was started on antibiotics obstruction and Zithromax and steroids were added. 09/25. Patient seen and examined. Patient currently intubated. Currently sedated on propofol The patient also has an infrarenal abdominal aortic aneurysm. The right kidney on the CAT scan showed a delayed enhancement on the left and the findings were suspicious for a left kidney infarct with decreased enhancement. There is also atrophy of the right kidney with delayed enhancement and possibility of renal artery stenosis is being entertained at this point in time. There is also possibility of a Zenker's diverticulum in the upper esophagus. 09/26. Patient seen and examined.continues to be on ventilator and sedated White count this morning 19.1, hemoglobin 10.4, platelet count 219, sodium 137, potassium 3.3. BUN 24, creatinine 1.05 09/27. Patient seen and examined. Patient extubated yesterday. Currently sitting upright in the chair. Swallow eval is pending. Labs this morning showed white count 17.7, hemoglobin 9.9, sodium 139, potassium 4.5, BUN 27, creatinine 1 Temperature 97.9, heart rate 94, respirations 70, blood pressure 158/93 PHYSICAL EXAMINATION: GENERAL: Alert and oriented, following commands HEENT: Pupils are round and equally reacting to light. EOMI. No scleral icterus. No conjunctival pallor. Normocephalic, atraumatic. No pharyngeal erythema. No thyromegaly. CARDIOVASCULAR: S1 and S2 present. No murmurs, rubs, or gallops. PULMONARY: Diminished breath sounds at the bases bilaterally ABDOMEN: Soft, nontender, nondistended, normoactive bowel sounds. No palpable organomegaly. MUSCULOSKELETAL: No joint swelling or deformity. EXTREMITIES: No cyanosis, clubbing, or pedal edema. NEUROLOGICAL: Gross neurological examination did not reveal any focal deficits. SKIN: No rashes. 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 Acute kidney injury on chronic kidney disease stage III Hyperglycemia Plan Monitor vital signs Monitor CBC Monitor CMP Continue telemetry monitoring Continue with IV Solu-Medrol Continue with bronchodilator Continue esmolol Started on clonidine patch Continue IV Rocephin and erythromycin Vascular surgery on board for for dissected aneurysm Cardiology on board Critical care following Objective - Vital Signs Vital signs: Vital Signs Temp 97.9 F 09/27/22 12:00 Pulse 94 09/27/22 12:00 Resp 17 09/27/22 12:00 BP 158/93 09/27/22 12:00 Pulse Ox 99 09/27/22 12:00 FiO2 30 09/26/22 12:00 Intake & Output 09/26/22 09/27/22 09/27/22 18:59 06:59 18:59 Intake Total 8377.701 6808.127 453.293 Output Total 900 665 330 Balance 733.754 540.127 123.293 Weight 60 kg Intake: IV 200 1000 450 .9 @ 100 200 Azithromycin 500 mg In 250 Sodium Chloride 0.9% 250 ml @ 250 mls/hr IVPB DAILY@2000 [facility] Rx#: [id number] Sodium Chloride 0.9% 1, 750 450 000 ml @ 75 mls/hr IV . [id number] [facility] Rx#:[id number] Intake, IV Titration 1433.754 205.127 3.293 Amount Esmolol in Sodium 219.289 130.127 3.293 Chloride Pmx 2.5 gm In Saline 1 250ml.bag @ 200 MCG/KG/MIN 59.874 mls/hr IV .Q4H11M [facility] Rx#: [id number] Potassium Chloride 10 meq 400 In Water For Injection 1 100ml.bag @ 100 mls/hr IVPB Q1HR [facility] Rx#: [id number] Sodium Chloride 0.9% 1, 750 75 000 ml @ 75 mls/hr IV . [id number] [facility] Rx#:[id number] propofoL 1,000 mg In 64.465 Empty Bag 1 bag @ 15 MCG/ KG/MIN 4.491 mls/hr IV . [id number] [facility] Rx#:[id number] Output: Urine 900 665 330 Other: Voiding Method Indwelling Catheter Indwelling Catheter Indwelling Catheter - Labs CBC & Chem 7: 09/27/22 06:41 09/27/22 05:05 Labs: Abnormal Lab Results - Last 24 Hours (Table) 09/26/22 09/27/22 09/27/22 Range/Units 23:51 05:05 06:41 WBC 17.7 H (3.8-10.6) k/uL RBC 3.25 L (3.80-5.40) m/uL Hgb 9.9 L (11.4-16.0) gm/dL Hct 31.9 L (34.0-46.0) % Neutrophils # 16.6 H (1.3-7.7) k/uL Lymphocytes # 0.6 L (1.0-4.8) k/uL BUN 27 H (7-17) mg/dL Glucose 124 H (74-99) mg/dL POC Glucose (mg/dL) 145 H (70-110) mg/dL Calcium 6.5 L (8.4-10.2) mg/dL AST 74 H (14-36) U/L ALT 35 H (4-34) U/L Total Protein 5.5 L (6.3-8.2) g/dL Albumin 3.1 L (3.5-5.0) g/dL 09/27/22 Range/Units 11:36 WBC (3.8-10.6) k/uL RBC (3.80-5.40) m/uL Hgb (11.4-16.0) gm/dL Hct (34.0-46.0) % Neutrophils # (1.3-7.7) k/uL Lymphocytes # (1.0-4.8) k/uL BUN (7-17) mg/dL Glucose (74-99) mg/dL POC Glucose (mg/dL) 168 H (70-110) mg/dL Calcium (8.4-10.2) mg/dL AST (14-36) U/L ALT (4-34) U/L Total Protein (6.3-8.2) g/dL Albumin (3.5-5.0) g/dL Microbiology - Last 24 Hours (Table) 09/23/22 16:50 Blood Culture - Preliminary Blood 09/23/22 17:05 Blood Culture - Preliminary Blood 09/23/22 20:38 Gram Stain - Final Sputum Sputum Culture - Final
[2022-09-27 17:07] LABS: Glucose,Whole Blood 37 mg/dL (70-110)
[2022-09-27 17:08] LABS: Glucose,Whole Blood 287 mg/dL (70-110)
[2022-09-27 17:38] LABS: Glucose,Whole Blood 128 mg/dL (70-110)
[2022-09-27 18:10] LABS: Glucose,Whole Blood 94 mg/dL (70-110)
[2022-09-27] MEDS: MELATONIN 3 MG TABLET PO SCH (19:55)
[2022-09-27 20:32] LABS: Glucose,Whole Blood 113 mg/dL (70-110)
[2022-09-28] MEDS: methylPREDNISolone SOD SUCCI 125 MG/2 ML VIAL IV SCH ×4 (00:12→17:08)
[2022-09-28] MEDS: HEPARIN SODIUM,PORCINE/PF 5,000 UNIT/0.5 ML SYRINGE SQ SCH ×3 (00:12→17:08)
[2022-09-28] MEDS: hydrALAZINE HCL 20 MG/ML 1 ML VIAL IVP PRN ×2 (04:05→20:39)
[2022-09-28] MEDS: ESMOLOL IN SODIUM CHLORIDE PMX 2.5 GM in SALINE 1 250ML.BAG IV SCH ×3 (04:06→16:59)
[2022-09-28 04:08] LABS: Basophils % (A) 0 %; Eosinophils # (A) 0.2 k/uL (0-0.7); Eosinophils % (A) 1 %; HCT 33.5 % (34.0-46.0); HGB 10.5 gm/dL (11.4-16.0); Lymphocytes # (A) 0.8 k/uL (1.0-4.8); Lymphocytes % (A) 4 %; MCH 30.3 pg (25.0-35.0); MCHC 31.3 g/dL (31.0-37.0); MCV 96.7 fL (80.0-100.0); Mean Platelet Volume 10.4; Monocytes # (A) 0.4 k/uL (0-1.0); Monocytes % (A) 2 %; Neutrophils # (A) 18.5 k/uL (1.3-7.7); Neutrophils % (A) 93 %; Platelet Count 234 k/uL (150-450); RBC 3.46 m/uL (3.80-5.40); RDW 13.9 % (11.5-15.5)
[2022-09-28 04:32] LABS: Calcium 6.2 mg/dL (8.4-10.2)
[2022-09-28] MEDS ORDERED: CALCIUM GLUCONATE IN NACL 2 GM in SALINE 1 100ML.BAG IVPB ONE (05:08)
[2022-09-28] MEDS: SODIUM CHLORIDE 0.9% 1,000 ML IV SCH (06:41)
[2022-09-28] MEDS: INSULIN ASPART (NovoLOG) 100 UNIT/ML VIAL SQ SCH ×4 (06:47→20:40)
[2022-09-28 06:48] LABS: Glucose,Whole Blood 128 mg/dL (70-110)
--- NOTE | 2022-09-28 07:22 | P.PCN ---
Date of Procedure: 09/28/22 Preoperative Diagnosis: dysphagia Postoperative Diagnosis: dysphagia Procedure(s) Performed: insertion of dobhoff Description of Procedure: Insertion of Dobhoff feeding tube #12 through right nare with IRIS technology. Successful placement within the gastric pyloris under direct visualization. Awaiting chest xray confirmation before use. Patient tolerated the procedure well without any complications
[2022-09-28] MEDS: FORMOTEROL FUMARATE 20 MCG/2 ML NEBU INHALATION SCH ×2 (07:55→20:27)
[2022-09-28] MEDS: BUDESONIDE 1 MG/2 ML NEBU INHALATION SCH ×2 (07:55→20:28)
[2022-09-28] MEDS: IPRATROPIUM-ALBUTEROL 3 ML NEB INHALATION SCH ×5 (07:55→20:27)
--- NOTE | 2022-09-28 09:04 | P.PN ---
Subjective Progress Note Date: 09/28/22 The patient is a 76-year-old female who came into the hospital with hypertensive crisis. She was found to have an infrarenal aortic dissection and was transferred to the ICU. Over the course of her hospital admission the patient was intubated. Successful extubation on September 26, however patient has failed s wallow screen and is unable to tolerate oral medications. At the time of my examination the patient appeared to be resting comfortably. She remains short of breath with congested cough. No chest pain or chest pressure. No back discomfort. GENERAL: Well-appearing, well-nourished and in no acute distress. NECK: Supple without JVD or thyromegaly. LUNGS: Breath sounds are coarse to auscultation bilaterally. Respiration equal and unlabored. Bilateral rhonchi with congested cough. HEART: Regular rate and rhythm without murmurs, rubs or gallops. Notably tachycardic. S1 and S2 heard. EXTREMITIES: Normal range of motion. +2 generalized edema. No clubbing or cyanosis. Peripheral pulses intact and strong. TELEMETRY: Sinus rhythm with controlled heart rate on Esmolol IMPRESSION: Hypertensive crisis Infrarenal aortic dissection, surgical team signed off Sinus tachycardia PLAN: Discontinue IV fluids as patient has developed edema Start oral medications via Dobbhoff Patient will need diuretics once Dobboff placement is confirmed and patient can receive oral feedings Wean off of esmolol drip as tolerated Consider starting angiotensin receptor priscila tomorrow Further recommendations to be based on clinical course I am dictating on behalf of Dr Arnav Nicholas's history/physical and assessment/plan. Objective - Vital Signs Vital signs: Vital Signs Temp 97.8 F 09/28/22 04:00 Pulse 94 09/28/22 08:17 Resp 21 09/28/22 07:00 BP 132/71 09/28/22 07:00 Pulse Ox 94 L 09/28/22 07:00 FiO2 30 09/26/22 12:00 Intake & Output 09/27/22 09/28/22 09/28/22 18:59 06:59 18:59 Intake Total 4722.898 1042.778 244.604 Output Total 805 1165 75 Balance 201.177 79.778 169.604 Weight 60 kg Intake: IV 900 900 175 Calcium Gluconate in NaCl 100 2 gm In Saline 1 100ml. bag @ 100 mls/hr IVPB ONCE ONE Rx#:[id number] Sodium Chloride 0.9% 1, 900 900 75 000 ml @ 75 mls/hr IV . [id number] [facility] Rx#:[id number] Intake, IV Titration 106.177 344.778 69.604 Amount Esmolol in Sodium 106.177 344.778 69.604 Chloride Pmx 2.5 gm In Saline 1 250ml.bag @ 200 MCG/KG/MIN 59.874 mls/hr IV .Q4H11M [facility] Rx#: [id number] Output: Urine 805 1165 75 Other: Voiding Method Indwelling Catheter Indwelling Catheter - Labs CBC & Chem 7: 09/28/22 03:39 09/28/22 03:39 Labs: Abnormal Lab Results - Last 24 Hours (Table) 09/27/22 09/27/22 09/27/22 Range/Units 11:36 17:01 17:06 WBC (3.8-10.6) k/uL RBC (3.80-5.40) m/uL Hgb (11.4-16.0) gm/dL Hct (34.0-46.0) % Neutrophils # (1.3-7.7) k/uL Lymphocytes # (1.0-4.8) k/uL Chloride (98-107) mmol/L Carbon Dioxide (22-30) mmol/L BUN (7-17) mg/dL Glucose (74-99) mg/dL POC Glucose (mg/dL) 168 H 37 L 287 H (70-110) mg/dL Calcium (8.4-10.2) mg/dL 09/27/22 09/27/22 09/28/22 Range/Units 17:36 20:30 03:39 WBC 20.0 H (3.8-10.6) k/uL RBC 3.46 L (3.80-5.40) m/uL Hgb 10.5 L (11.4-16.0) gm/dL Hct 33.5 L (34.0-46.0) % Neutrophils # 18.5 H (1.3-7.7) k/uL Lymphocytes # 0.8 L (1.0-4.8) k/uL Chloride (98-107) mmol/L Carbon Dioxide (22-30) mmol/L BUN (7-17) mg/dL Glucose (74-99) mg/dL POC Glucose (mg/dL) 128 H 113 H (70-110) mg/dL Calcium (8.4-10.2) mg/dL 09/28/22 09/28/22 Range/Units 03:39 06:46 WBC (3.8-10.6) k/uL RBC (3.80-5.40) m/uL Hgb (11.4-16.0) gm/dL Hct (34.0-46.0) % Neutrophils # (1.3-7.7) k/uL Lymphocytes # (1.0-4.8) k/uL Chloride 108 H (98-107) mmol/L Carbon Dioxide 20 L (22-30) mmol/L BUN 34 H (7-17) mg/dL Glucose 124 H (74-99) mg/dL POC Glucose (mg/dL) 128 H (70-110) mg/dL Calcium 6.2 L* (8.4-10.2) mg/dL Microbiology - Last 24 Hours (Table) 09/23/22 16:50 Blood Culture - Preliminary Blood 09/23/22 17:05 Blood Culture - Preliminary Blood 09/23/22 20:38 Gram Stain - Final Sputum Sputum Culture - Final
[2022-09-28] MEDS: ATORVASTATIN 40 MG TAB PO SCH (09:15)
[2022-09-28] MEDS: PANTOPRAZOLE 40 MG/10 ML VIAL IVP SCH (09:18)
--- NOTE | 2022-09-28 09:37 | P.PN ---
Subjective Progress Note Date: 09/28/22 This is a 76-year-old female patient with a history of chronic and ongoing tobacco dependence, chronic obstructive pulmonary disease, hypertension, hyperlipidemia, osteoarthritis. She presented to the emergency room yesterday with complaints of a 2-3 day history of worsening shortness of breath. She had a productive cough of greenish yellow sputum and sinus congestion. She stated she had no inhalers at home. She eventually failed BiPAP support and was intubated in the emergency department yesterday 09/23/2022. X-ray had revealed evidence of COPD but no acute pulmonary process. Computed tomography scan of the brain revealed no acute intracranial process. Thoracic scan revealed a short segment infrarenal abdominal aortic dissection. No aortic aneurysm. No evidence of pulmonary embolism. There is a spiculated 9 mm nodule in the right lung apex raising the possibility of malignancy. Outpatient PET scan recommended. There is decreased enhancement involving the left kidney suspicious for infarct. Atrophy of the right kidney with delayed enhancement compared to the left. Both kidneys with moderate stenosis. There is also possible Zenker's diverticulum within the upper esophagus. Staff has been unable to pass a nasogastric tube. White count 25.7. Hemoglobin 11.1. Platelets 228. Sodium 136. Potassium 4.7. Bicarb 15. BUN 32. Creatinine 1.24. Glucose 260. Pro-calcitonin 1.09. She is seen today in consultation in the intensive care unit. Current ventilator settings are assist-control mode with a rate of 22, tidal volume 350, FiO2 40% and a PEEP of 5. Morning blood gases reveal a P O2 of 168, pCO2 36 and a pH of 7.31. That was on 40% FiO2. She initially was on a nitroglycerin drip that has been discontinued. She is on esmolol at 200 mcg/kg/min. Fentanyl at 2 mcg/kg/h and propofol 50 mcg/kg/m. She's been initiated on DuoNeb inhalations, Pulmicort and Perforomist inhalations, IV Solu-Medrol. Antibiotics in the form of azithromycin. On today's evaluation of 09/25/2022, the patient is being seen for a follow-up. This is a case of COPD and the patient has an infrarenal abdominal aortic dissection this being treated conservatively. The patient is known to have a spiculated 9 mm right upper lobe lesion in addition to hypertension, hyperlipidemia and osteoarthritis. Noted the patient presented to us with respiratory failure. She had to be intubated after failing a BiPAP trial. At this point in time, the patient is sedated on propofol which is running at 20 mcg/kg/m. The patient is adequately sedated. The patient's increase of mechanical ventilator. She is on assist control at the rate of 22, tidal volume of 350, FiO2 of 30% and a PEEP of 5. The blood gas from today showed a pH of 7.25 with a pCO2 of 35 and a pO2 of 91. The patient has essentially the same metabolic acidosis. Serum bicarb is down to 14 and this is a non-anion gap metabolic acidosis. The chest x-ray from today shows hyperinflation. ET tube is a in a good location. No significant orotracheal secretions at this point in time. The patient is on bronchodilators, IV Solu-Medrol and Zithromax. The white cell count was as high as 25, dropped down to 21. Hemoglobin has stayed stable at 11.5. Sodium level is at 1:30 with a potassium level of 4.5 and a bicarb level of 14 as mentioned and the calcium level is low at 6.3. Pro- calcitonin level was at 1.09 at the time of admission and a troponin was at 0.15. The patient also has an infrarenal abdominal aortic aneurysm. The right kidney on the CAT scan showed a delayed enhancement on the left and the findings were suspicious for a left kidney infarct with decreased enhancement. There is also atrophy of the right kidney with delayed enhancement and possibility of renal artery stenosis is being entertained at this point in time. There is also possibility of a Zenker's diverticulum in the upper esophagus. The patient does not have a feeding tube for now and a technically difficult. Could be related to underlying Zenker's diverticulum. IV fluids are running in order of 0.9 at 75 mL an hour. She did have hypotension last night and she was taken off the esmolol drip and her blood pressure is stable at this point in time with a urine output of 30-50 mL an hour. IV fluids are in the form of normal saline. On 09/26/2022, the patient remains intubated on a mechanical ventilator. Earlier this morning, as the patient was being moved around doing further testing and a chest x-ray, she became slightly more tachycardic and hypertensive. Prior to that, her BP was under excellent control and her heart rate was also under excellent control. She was off the asthma low drip for the past 24 hours. I think is reasonable to restart the esmolol drip for heart rate and blood pressure control. Meanwhile, this morning, the patient remains on propofol which is running at 40 mcg/kg/m. She is successful mechanical ventilator. Some assist-control mode at the rate of 22, tidal volume of 350, F iO2 of 30% and a PEEP of 5. There is improvement in her acid base status. In fact she is slightly alkalotic today. Patient at 7.5 with a pCO2 of 37 and pO2 of 11. The chest x-ray is unchanged compared to yesterday. Orotracheal tube is in a good location. No significant infiltration. The peak airway pressure is 27. No significant orotracheal secretions. Cardiac rhythm remained sinus. She is in sinus tachycardia. She is having occasional ectopies. The white cell cause of 19 with a hemoglobin of 10.4 and a platelet count of 219. The serum bicarb is up to 27. Sodium is at 137, calcium level is low at 6.1 to be replaced. BUN is at 24 with a creatinine of 1.05. She remains on bron chodilators. She remains on steroids. She remains on empiric antibiotic coverage with Rocephin and Zithromax. Unable to insert an OG tube and the patient remains nothing by mouth for now. On 09/27/2022, the patient is extubated and she is currently on room air oxygen. Nevertheless, she still bronchospastic and wheezy. She is still very weak. She has a cough. Her swallow is poor and she is unable to swallow properly and she had some issues swallowing tablets yesterday. Based on that, the patient was kept nothing by mouth and a swallow evaluation was requested. The patient was successfully extubated yesterday after controlling and hemodynamics. She was started on esmolol drip which is currently running at 30 mcg/kg/m. Most recent heart rate is 84. Her blood pressure also is being managed although it seems to be running higher as of 3:00 this morning. Most recent BP is 161/84. Note that she is on esmolol drip. She is also on hydralazine 10 mg every 4 hours. She was started on Coreg 6.25 mg by mouth twice a day. Nevertheless, I'm not sure she is going to be able to swallow the tablets. She is still on her routine bronchodilators. Chest x-ray remains unchanged. The patient had a low ionized calcium of 4.2. Based on that, the patient was given calcium supplements. On today's blood work, the white cell count at 17 with a hemoglobin of 9.9 and a platelet count of 226. Sodium is at 139, BUN is at 27 with a creatinine of 1. LFTs are normal. Orotracheal tube and orogastric tube were both removed. IV fluids are in the form of 0.9 at the rate of 75 mL an yennifer r. 09/28/2022, the patient remains extubated and she remains on room air oxygen. She is getting progressively stronger and she was able to ambulate yesterday with some assistance. This was quite limited. She remains very weak. A swallow study was abnormal and the patient failed swallow. This morning, we achieved to insert a Dobbhoff catheter for medication and possibly some enteral feeding. The patient is not having any labored breathing at this point in time. Her chest x-ray from today shows no acute abnormalities. The Dobbhoff is in a good location. It seems to be in the small bowel. Findings are consistent with COPD. No airspace disease. No infiltrates. In terms of her pressure control, the patient remains on esmolol drip which is running at the rate of 150 mcg/kg/m. She was also given a Catapres patch 0.3 mg. She'll be started on Coreg through the Dobbhoff catheter today and as noted will be gradually weaned off. Coreg is a dose of 6.25 mg twice a day. She remains on bronchodilators patient remains on steroids. She has adequate pulses in lower extremity is bila terally. In terms of her blood work from today, the patient has a white cell count of 20 with a hemoglobin of 10.5 and a platelet count of 234. BUN is at 34 with a creatinine of 0.9 and his sodium level is at 140. Calcium level is at 6.2, uncorrected. IV fluids are running at the rate of 75 mL an hour and this was cut off today by cardiology as the patient is developing some peripheral edema. Objective - Vital Signs Vital signs: Vital Signs Temp 97.8 F 09/28/22 04:00 Pulse 88 09/28/22 09:00 Resp 19 09/28/22 09:00 BP 148/83 09/28/22 09:00 Pulse Ox 94 L 09/28/22 09:00 FiO2 30 09/26/22 12:00 Intake & Output 09/27/22 09/28/22 09/28/22 18:59 06:59 18:59 Intake Total 7316.717 8092.778 244.604 Output Total 805 1165 155 Balance 201.177 79.778 89.604 Weight 60 kg Intake: IV 900 900 175 Calcium Gluconate in NaCl 100 2 gm In Saline 1 100ml. bag @ 100 mls/hr IVPB ONCE ONE Rx#:[id number] Sodium Chloride 0.9% 1, 900 900 75 000 ml @ 75 mls/hr IV . [id number] [facility] Rx#:[id number] Intake, IV Titration 106.177 344.778 69.604 Amount Esmolol in Sodium 106.177 344.778 69.604 Chloride Pmx 2.5 gm In Saline 1 250ml.bag @ 200 MCG/KG/MIN 59.874 mls/hr IV .Q4H11M [facility] Rx#: [id number] Output: Urine 805 1165 155 Other: Voiding Method Indwelling Catheter Indwelling Catheter - Exam GENERAL EXAM: Intubated, sedated 76-year-old female, comfortable , extubated and currently she is on room air oxygen HEAD: Normocephalic. EYES: Sluggish reaction of pupils, equal size. NOSE: Clear with pink turbinates. THROAT: Oral endotracheal tube secured in place. No erythema or exudates. NECK: No masses, no JVD. CHEST: No chest wall deformity. LUNGS: Equal air entry with no crackles, wheeze, rhonchi or dullness. The patient had diffuse expiratory wheezes throughout the lung field bilaterally CVS: S1 and S2 normal with no audible murmur, regular rhythm. ABDOMEN: No hepatosplenomegaly, normal bowel sounds, no guarding or rigidity. SPINE: No scoliosis or deformity SKIN: No rashes CENTRAL NERVOUS SYSTEM: No focal deficits, tone is normal in all 4 extremities. EXTREMITIES: There is no peripheral edema. No clubbing, no cyanosis. [place] pheral pulses are intact. - Labs CBC & Chem 7: 09/28/22 03:39 09/28/22 03:39 Labs: Abnormal Lab Results - Last 24 Hours (Table) 09/27/22 09/27/22 09/27/22 Range/Units 11:36 17:01 17:06 WBC (3.8-10.6) k/uL RBC (3.80-5.40) m/uL Hgb (11.4-16.0) gm/dL Hct (34.0-46.0) % Neutrophils # (1.3-7.7) k/uL Lymphocytes # (1.0-4.8) k/uL Chloride (98-107) mmol/L Carbon Dioxide (22-30) mmol/L BUN (7-17) mg/dL Glucose (74-99) mg/dL POC Glucose (mg/dL) 168 H 37 L 287 H (70-110) mg/dL Calcium (8.4-10.2) mg/dL 09/27/22 09/27/22 09/28/22 Range/Units 17:36 20:30 03:39 WBC 20.0 H (3.8-10.6) k/uL RBC 3.46 L (3.80-5.40) m/uL Hgb 10.5 L (11.4-16.0) gm/dL Hct 33.5 L (34.0-46.0) % Neutrophils # 18.5 H (1.3-7.7) k/uL Lymphocytes # 0.8 L (1.0-4.8) k/uL Chloride (98-107) mmol/L Carbon Dioxide (22-30) mmol/L BUN (7-17) mg/dL Glucose (74-99) mg/dL POC Glucose (mg/dL) 128 H 113 H (70-110) mg/dL Calcium (8.4-10.2) mg/dL 09/28/22 09/28/22 Range/Units 03:39 06:46 WBC (3.8-10.6) k/uL RBC (3.80-5.40) m/uL Hgb (11.4-16.0) gm/dL Hct (34.0-46.0) % Neutrophils # (1.3-7.7) k/uL Lymphocytes # (1.0-4.8) k/uL Chloride 108 H (98-107) mmol/L Carbon Dioxide 20 L (22-30) mmol/L BUN 34 H (7-17) mg/dL Glucose 124 H (74-99) mg/dL POC Glucose (mg/dL) 128 H (70-110) mg/dL Calcium 6.2 L* (8.4-10.2) mg/dL Microbiology - Last 24 Hours (Table) 09/23/22 16:50 Blood Culture - Preliminary Blood 09/23/22 17:05 Blood Culture - Preliminary Blood 09/23/22 20:38 Gram Stain - Final Sputum Sputum Culture - Final Assessment and Plan Plan: Acute hypoxemic respiratory failure secondary to an acute exacerbation of c hronic obstructive pulmonary disease requiring intubation mechanical ventilatory support on 09/23/2022. No evidence of pneumonia and the patient was extubated on 09/26/2022 and currently she is on room air oxygen. She remains bronchospastic and wheezy. Chest x-ray remains free of any acute pulmonary infiltrates. The pro-calcitonin LEVEL WAS HIGH AND NEEDS TO BE RECHECKED. The patient remains on IV Zosyn as an empiric antibiotic coverage. Chest x-ray from today shows no evidence of any airspace disease. Leukocytosis secondary to above, remains elevated, essentially unchanged since yesterday. Non-gap metabolic acidosis, recovered Acute kidney injury. There is decreased enhancement involving the left kidney suspicious for infarct. Atrophy of the right kidney with delayed enhancement compared to the left. Both kidneys with moderate stenosis. The patient is producing adequate amount of urine output. Creatinine is normalized Thoracic scan revealed a short segment infrarenal abdominal aortic dissection. No aortic aneurysm. Spiculated 9 mm nodule in the right lung apex raising the possibility of malignancy. Outpatient PET scan recommended. Possible Zenker's diverticulum within the upper esophagus. Nasogastric tube unable to be passed, was able to successfully pass a Dobbhoff heparin History of CVA/TIA History of chronic and ongoing tobacco dependence Hyperlipidemia Hypertension Plan: Restart using the Dobbhoff 4 enteral feeding and medication Patient is currently on room air oxygen She is still bronchospastic and wheezy and we'll continue the bronchodilators and steroids and antibiotics , awaiting a repeat pro-calcitonin level May need to repeat a swallow evaluation with the next 24 hours as the patient is getting progressively stronger DuoNeb bedside swallow evaluation Patient will be started on oral Coreg, Catapres patch and We'll give hydralazine as needed for blood pressure control. We'll continue esmolol and gradually weaned off the drip drip subcu for DVT prophylaxis We will continue to follow and make further recommendations based on her clinical status Condition is critical and we'll continue to follow make further recommendations based on her progress.
[2022-09-28] MEDS ORDERED: lisinopriL 20 MG TAB PO SCH (09:45)
[2022-09-28] MEDS: carvediloL 6.25 MG TAB PO SCH ×2 (09:52→17:08)
[2022-09-28 11:40] LABS: Glucose,Whole Blood 134 mg/dL (70-110)
--- NOTE | 2022-09-28 11:59 | XR ---
EXAMINATION TYPE: XR chest 1V portable DATE OF EXAM: 09/28/2022 Comparison: 09/27/2022 Clinical History: 76-year-old female Dobbhoff placement Findings: The Dobbhoff tube is satisfactory, coursing below the diaphragm. Tip in the expected location of the first part of the duodenum. Heart upper limits of normal in size. Hyperinflation and interstitial den sity persists. Trace blunting of the bilateral costophrenic angles could reflect trace effusions. Mil d patchy bibasilar densities also persist. Impression: 1. Satisfactory Dobbhoff tube. 2. Similar appearance to the chest, possible mild CHF superimposed on COPD.
--- NOTE | 2022-09-28 13:17 | P.PN ---
Subjective Progress Note Date: 09/28/22 Principal diagnosis: acute hypoxia requiring mechanical ventilation 68-year-old male with a past medical history including coronary artery disease status post cardiac catheterization, atrial fibrillation on Eliquis, tachycardia induced cardiomyopathy, hypertension, hyperlipidemia and prostate disorder. Patient presented to the emergency department early yesterday morning with complaints of chest pain/epigastric pain. He states it was sharp in nature had associated nausea and vomiting as well as fever and chills. Patient called EMS and he was brought to the emergency department for further evaluation. Initial labs showed WBC 14.7 hemoglobin 16 platelet count 208,000 and INR 1.1 total bilirubin 1.6 AST 102 ALT 83 alkaline phosphatase 85. Patient had abdominal ultrasound reported distended gallbladder with few scattered gallstones and possible. Cholecystic fluid correlate with HIDA scan for cholecystitis. Gen. surgery initially consulted and started patient on IV Zosyn, with plan for possible cholecystectomy. However today's repeat bilirubin and LFTs are manuela nding upward. Gen. surgery consulted gastroenterology for possible choledocholithiasis/ERCP. Cardiology also following patient and patient was scheduled for cardioversion this Sunday, however will be rescheduled for future date. Cardiology has cleared patient from a surgical standpoint to undergo intervention with GI service and/or general surgery. Eliquis placed on hold and patient was started on a heparin drip. Last Eliquis was taken Sunday night. Patient denies any prior gallbladder problems however states about 9 years ago he had similar symptoms to this episode. He did have a spike in his temperature to 101.2 Midnight and at that time also states that he had severe abdominal pain however that, sharp in nature however resolved soon after. He currently states he has no abdominal pain, no nausea, no vomiting and has been afebrile. However patient does appear diaphoretic. 09/26/2022: Patient was initially seen this morningin the ICU and was sedated and on mechanical ventilation. Patient was having some increase in her heart rate and blood pressure, however that has been stabilized with medication. Initially there were no plans for extubation today, so patient was scheduled for EGD with NG tube placement for nutritional support.however this afternoon. Patient had been trialed for a sedation holiday and decision has been made to extubate the patient. 09/27/2022: Patient is seen and examined today in the ICU. She is sitting up in the bedside chair. Yesterday she was extubated. Went in there she was trialed on liquids however was coughing according to her nurse. Then made nothing by mouth and awaiting for speech pathologist evaluation. Denies any abdominal pain, nausea or vomiting. No prior difficulty with swallowing. Patient does appear to have a little bit of slurred speech unsure if this is her baseline. 09/28/2022: Patient was seen and examined today in the ICU. Doppler was placed yesterday for medication administration. Patient was seen by speech pathology and had improved ability to tolerate by mouth trials. They recommend initiation of dysphasia 1 diet with honey thickened liquids. Patient denies any other complaints at this time. Denies any abdominal pain, nausea or vomiting. Objective - Vital Signs Vital signs: Vital Signs Temp 97.8 F 09/28/22 04:00 Pulse 87 09/28/22 11:30 Resp 21 09/28/22 11:30 BP 135/74 09/28/22 11:30 Pulse Ox 95 09/28/22 11:30 FiO2 30 09/26/22 12:00 Intake & Output 09/27/22 09/28/22 09/28/22 18:59 06:59 18:59 Intake Total 7733.220 3522.778 361.858 Output Total 805 1165 230 Balance 201.177 79.778 131.858 Weight 60 kg 60 kg Intake: IV 900 900 175 Calcium Gluconate in NaCl 100 2 gm In Saline 1 100ml. bag @ 100 mls/hr IVPB ONCE ONE Rx#:[id number] Sodium Chloride 0.9% 1, 900 900 75 000 ml @ 75 mls/hr IV . [id number] [facility] Rx#:[id number] Intake, IV Titration 106.177 344.778 186.858 Amount Esmolol in Sodium 106.177 344.778 186.858 Chloride Pmx 2.5 gm In Saline 1 250ml.bag @ 200 MCG/KG/MIN 59.874 mls/hr IV .Q4H11M [facility] Rx#: [id number] Output: Urine 805 1165 230 Other: Voiding Method Indwelling Catheter Indwelling Catheter Indwelling Catheter - Exam General appearance: The patient is alert and oriented. HET: Head is normocephalic and atraumatic. Neck: Supple. Heart: Regular. Lungs: Equal expansion, normal respiratory effort. Abdomen: Soft, nontender, nondistended. Extremities: Palpable bilateral radial pulses. no pedal edema. Neurological: Alert and oriented. - Labs CBC & Chem 7: 09/28/22 03:39 09/28/22 03:39 Labs: Abnormal Lab Results - Last 24 Hours (Table) 09/27/22 09/27/22 09/27/22 Range/Units 17:01 17:06 17:36 WBC (3.8-10.6) k/uL RBC (3.80-5.40) m/uL Hgb (11.4-16.0) gm/dL Hct (34.0-46.0) % Neutrophils # (1.3-7.7) k/uL Lymphocytes # (1.0-4.8) k/uL Chloride (98-107) mmol/L Carbon Dioxide (22-30) mmol/L BUN (7-17) mg/dL Glucose (74-99) mg/dL POC Glucose (mg/dL) 37 L 287 H 128 H (70-110) mg/dL Calcium (8.4-10.2) mg/dL 09/27/22 09/28/22 09/28/22 Range/Units 20:30 03:39 03:39 WBC 20.0 H (3.8-10.6) k/uL RBC 3.46 L (3.80-5.40) m/uL Hgb 10.5 L (11.4-16.0) gm/dL Hct 33.5 L (34.0-46.0) % Neutrophils # 18.5 H (1.3-7.7) k/uL Lymphocytes # 0.8 L (1.0-4.8) k/uL Chloride 108 H (98-107) mmol/L Carbon Dioxide 20 L (22-30) mmol/L BUN 34 H (7-17) mg/dL Glucose 124 H (74-99) mg/dL POC Glucose (mg/dL) 113 H (70-110) mg/dL Calcium 6.2 L* (8.4-10.2) mg/dL 09/28/22 09/28/22 Range/Units 06:46 11:39 WBC (3.8-10.6) k/uL RBC (3.80-5.40) m/uL Hgb (11.4-16.0) gm/dL Hct (34.0-46.0) % Neutrophils # (1.3-7.7) k/uL Lymphocytes # (1.0-4.8) k/uL Chloride (98-107) mmol/L Carbon Dioxide (22-30) mmol/L BUN (7-17) mg/dL Glucose (74-99) mg/dL POC Glucose (mg/dL) 128 H 134 H (70-110) mg/dL Calcium (8.4-10.2) mg/dL Microbiology - Last 24 Hours (Table) 09/23/22 16:50 Blood Culture - Preliminary Blood 09/23/22 17:05 Blood Culture - Preliminary Blood 09/23/22 20:38 Gram Stain - Final Sputum Sputum Culture - Final Assessment and Plan (1) Acute respiratory failure with hypoxia Narrative/Plan: 76-year-old female admitted to the hospital with severe shortness of breath who failed BiPAP and ultimately was intubated and sedated. Patient remains sedated on mechanical ventilation. ICU management wanted to place NG tube for nutrition however it was difficult to pass and place. Gastroenterology consulted as CTA thoracic aorta abdomen she reported possible Zenker's diverticulum. Patient did undergo an EGD in 2023 esophageal foreign body, at that time it was noted that there was a circumferential web involving the cervical esophagus at the site of food impaction and patient was recommended to see gastroenterology for possible elective dilation. Gastroenterology consulted for NG tube placement for nutrition. Patient had been extubated, initially seen by speech therapy with poor ability to tolerate by mouth trial. I reevaluated today 09/28/2022 with improved ability to tolerate oral trials and recommendation for dysphasia 1. Diet. Current Visit: Yes Status: Acute Code(s): J96.01 - ACUTE RESPIRATORY FAILURE WITH HYPOXIA SNOMED Code(s): 70815331 (2) Aortic dissection, abdominal Current Visit: Yes Status: Acute Code(s): I71.02 - DISSECTION OF ABDOMINAL AORTA SNOMED Code(s): 349116191 (3) COPD (chronic obstructive pulmonary disease) Current Visit: Yes Status: Acute Code(s): J44.9 - CHRONIC OBSTRUCTIVE PULMONARY DISEASE, UNSPECIFIED SNOMED Code(s): 56893404 Plan: 1. Continue symptomatic and supportive care 2. Protonix 40 mg daily for GI prophylaxis 3. Patient has been seen by speech therapy and diet advanced. No indication for further GI workup or intervention. Thank you for this consultation, we will sign off at this time. Dr. Sean Rodarte I agree with the dictator's note, documented as a scribe by Roseline Colbert.
[2022-09-28 16:53] LABS: Glucose,Whole Blood 225 mg/dL (70-110)
[2022-09-28] MEDS ORDERED: carvediloL 6.25 MG TAB PO ONE (18:15)
[2022-09-28 20:23] LABS: Glucose,Whole Blood 202 mg/dL (70-110)
[2022-09-28] MEDS: MELATONIN 3 MG TABLET PO SCH (20:39)
[2022-09-28] MEDS: VALSARTAN 160 MG TAB PO SCH (20:40)
[2022-09-29] MEDS: methylPREDNISolone SOD SUCCI 125 MG/2 ML VIAL IV SCH ×4 (00:05→17:13)
[2022-09-29] MEDS: HEPARIN SODIUM,PORCINE/PF 5,000 UNIT/0.5 ML SYRINGE SQ SCH ×3 (00:05→17:13)
--- NOTE | 2022-09-29 01:03 | P.PN ---
Subjective Progress Note Date: 09/28/22 This is a76 years old female patient Presents with dyspnea with acute hypoxic respiratory failure which is rapidly degenerated to the degree requiring intubation and placing patient on mechanical ventilation. Patient also with blood pressure despite 200/100 patient was placed on nitro drip. T brain shows no obvious acute intracranial process. CTA of the aorta and the thoracic abdomen pelvis reveals no obvious to a dissection. There is a small short segment of infrarenal aortic dissection in the abdomen. Also a small wedge-shaped region seen by radiology in the left kidney suspicious for infarct with an atrophic right kidney. Patient has a 9 mm lung nodule. There is a nonobstructive renal calculus. Also possible Zenker's diverticulum versus possible fluid in the upper esophagus, suspect residual fluid. 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 The systolic pressure in the 90s and heart rate 70s to 71 showing WBCs 12.5, trace of CBC is unremarkable. PH 7.2, pCO2 elevated 51. BMP is unremarkable, creatinine 1.48, baseline 1.1-1.3. Glucose 307. Neuro exam not significantly elevated. Troponin is negative at 0.017. ProBNP is 210. Viruses undetected influenza, rotavirus and RSV Patient was started on antibiotics obstruction and Zithromax and steroids were added. 09/25. Patient seen and examined. Patient currently intubated. Currently sedated on propofol The patient also has an infrarenal abdominal aortic aneurysm. The right kidney on the CAT scan showed a delayed enhancement on the left and the findings were suspicious for a left kidney infarct with decreased enhancement. There is also atrophy of the right kidney with delayed enhancement and possibility of renal artery stenosis is being entertained at this point in time. There is also possibility of a Zenker's diverticulum in the upper esophagus. 09/26. Patient seen and examined.continues to be on ventilator and sedated White count this morning 19.1, hemoglobin 10.4, platelet count 219, sodium 137, potassium 3.3. BUN 24, creatinine 1.05 09/27. Patient seen and examined. Patient extubated yesterday. Currently sit ting upright in the chair. Swallow eval is pending. Labs this morning showed white count 17.7, hemoglobin 9.9, sodium 139, potassium 4.5, BUN 27, creatinine 1 Temperature 97.9, heart rate 94, respirations 70, blood pressure 158/93 09/28/2022. Patient is currently sitting in the recliner. Awake alert and oriented. Currently on tube feeding with Dobbhoff tube. Patient failed swallow evaluation. Patient is being continued on esmolol drip and also on Catapres patch. Will be started on Coreg from tomorrow a.m. as per cardiology recommendations. Chest x-ray showed satisfactory Dobboff tube. Similar appearance to the chest. Possible mild superimposed COPD. Laboratory data showed WBC 20.0 hemoglobin 10.5 and platelets 234, calcium 6.2 BUN 34 and creatinine 0.91 PHYSICAL EXAMINATION: GENERAL: Alert and oriented, following commands HEENT: Pupils are round and equally reacting to light. EOMI. No scleral icterus. No conjunctival pallor. Normocephalic, atraumatic. No pharyngeal erythema. No thyromegaly. CARDIOVASCULAR: S1 and S2 present. No murmurs, rubs, or gallops. PULMONARY: Diminished breath sounds at the bases bilaterally ABDOMEN: Soft, nontender, nondistended, normoactive bowel sounds. No palpable organomegaly. MUSCULOSKELETAL: No joint swelling or deformity. EXTREMITIES: No cyanosis, clubbing, or pedal edema. NEUROLOGICAL: Gross neurological examination did not reveal any focal deficits. SKIN: No rashes. Assessment and plan Acute hypoxic hypercapnic respiratory failure requiring intubation and mechanical ventilation. 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 Started on clonidine patch followup repeat Procalcitonin Vascular surgery on board for for dissected aneurysm Cardiology on board Critical care following Objective - Vital Signs Vital signs: Vital Signs Temp 97.8 F 09/28/22 12:00 Pulse 91 09/28/22 20:29 Resp 13 09/28/22 19:00 BP 163/76 09/28/22 19:00 Pulse Ox 96 09/28/22 19:00 FiO2 30 09/26/22 12:00 Intake & Output 09/28/22 09/28/22 09/29/22 06:59 18:59 06:59 Intake Total 1244.778 584.312 Output Total 1165 505 Balance 79.778 79.312 Weight 60 kg 60 kg Intake: IV 900 175 Calcium Gluconate in NaCl 100 2 gm In Saline 1 100ml. bag @ 100 mls/hr IVPB ONCE ONE Rx#:[id number] Sodium Chloride 0.9% 1, 900 75 000 ml @ 75 mls/hr IV . [id number] [facility] Rx#:[id number] Intake, IV Titration 344.778 209.312 Amount Esmolol in Sodium 344.778 209.312 Chloride Pmx 2.5 gm In Saline 1 250ml.bag @ 200 MCG/KG/MIN 59.874 mls/hr IV .Q4H11M [facility] Rx#: [id number] Oral 100 Other 100 Output: Urine 1165 505 Other: Voiding Method Indwelling Catheter Indwelling Catheter - Labs CBC & Chem 7: 09/28/22 03:39 09/28/22 03:39 Labs: Abnormal Lab Results - Last 24 Hours (Table) 09/28/22 09/28/22 09/28/22 Range/Units 03:39 03:39 06:46 WBC 20.0 H (3.8-10.6) k/uL RBC 3.46 L (3.80-5.40) m/uL Hgb 10.5 L (11.4-16.0) gm/dL Hct 33.5 L (34.0-46.0) % Neutrophils # 18.5 H (1.3-7.7) k/uL Lymphocytes # 0.8 L (1.0-4.8) k/uL Chloride 108 H (98-107) mmol/L Carbon Dioxide 20 L (22-30) mmol/L BUN 34 H (7-17) mg/dL Glucose 124 H (74-99) mg/dL POC Glucose (mg/dL) 128 H (70-110) mg/dL Calcium 6.2 L* (8.4-10.2) mg/dL 09/28/22 09/28/22 09/28/22 Range/Units 11:39 16:52 20:22 WBC (3.8-10.6) k/uL RBC (3.80-5.40) m/uL Hgb (11.4-16.0) gm/dL Hct (34.0-46.0) % Neutrophils # (1.3-7.7) k/uL Lymphocytes # (1.0-4.8) k/uL Chloride (98-107) mmol/L Carbon Dioxide (22-30) mmol/L BUN (7-17) mg/dL Glucose (74-99) mg/dL POC Glucose (mg/dL) 134 H 225 H 202 H (70-110) mg/dL Calcium (8.4-10.2) mg/dL Microbiology - Last 24 Hours (Table) 09/23/22 16:50 Blood Culture - Preliminary Blood 09/23/22 17:05 Blood Culture - Preliminary Blood Assessment and Plan Time with Patient: Greater than 30
[2022-09-29] MEDS: hydrALAZINE HCL 20 MG/ML 1 ML VIAL IVP PRN ×3 (04:14→20:32)
[2022-09-29 04:27] LABS: Basophils % (A) 0 %; Calcium 6.9 mg/dL (8.4-10.2); Eosinophils % (A) 0 %; HCT 33.6 % (34.0-46.0); HGB 10.8 gm/dL (11.4-16.0); Lymphocytes # (A) 0.6 k/uL (1.0-4.8); Lymphocytes % (A) 3 %; MCH 30.5 pg (25.0-35.0); MCHC 32.1 g/dL (31.0-37.0); MCV 94.8 fL (80.0-100.0); Monocytes # (A) 0.7 k/uL (0-1.0); Monocytes % (A) 3 %; Neutrophils # (A) 19.3 k/uL (1.3-7.7); Neutrophils % (A) 93 %; Platelet Count 258 k/uL (150-450); Potassium 3.7 mmol/L (3.5-5.1); RBC 3.54 m/uL (3.80-5.40); RDW 14.3 % (11.5-15.5); WBC 20.8 k/uL (3.8-10.6)
[2022-09-29 06:59] LABS: Glucose,Whole Blood 204 mg/dL (70-110)
[2022-09-29] MEDS: carvediloL 12.5 MG TAB PO SCH ×2 (07:00→17:14)
[2022-09-29] MEDS: INSULIN ASPART (NovoLOG) 100 UNIT/ML VIAL SQ SCH ×4 (07:01→20:32)
[2022-09-29] MEDS: IPRATROPIUM-ALBUTEROL 3 ML NEB INHALATION SCH ×4 (07:58→20:00)
[2022-09-29] MEDS: FORMOTEROL FUMARATE 20 MCG/2 ML NEBU INHALATION SCH ×2 (07:58→20:00)
[2022-09-29] MEDS: BUDESONIDE 1 MG/2 ML NEBU INHALATION SCH ×2 (07:59→20:00)
[2022-09-29] MEDS: VALSARTAN 160 MG TAB PO SCH ×2 (08:20→20:32)
[2022-09-29] MEDS: PANTOPRAZOLE 40 MG/10 ML VIAL IVP SCH (08:20)
[2022-09-29] MEDS: ATORVASTATIN 40 MG TAB PO SCH (08:21)
--- NOTE | 2022-09-29 08:59 | P.PN ---
Subjective Progress Note Date: 09/29/22 This is a 76-year-old female patient with a history of chronic and ongoing tobacco dependence, chronic obstructive pulmonary disease, hypertension, hyperlipidemia, osteoarthritis. She presented to the emergency room yesterday with complaints of a 2-3 day history of worsening shortness of breath. She had a productive cough of greenish yellow sputum and sinus congestion. She stated she had no inhalers at home. She eventually failed BiPAP support and was intubated in the emergency department yesterday 09/23/2022. X-ray had revealed evidence of COPD but no acute pulmonary process. Computed tomography scan of the brain revealed no acute intracranial process. Thoracic scan revealed a short segment infrarenal abdominal aortic dissection. No aortic aneurysm. No evidence of pulmonary embolism. There is a spiculated 9 mm nodule in the right lung apex raising the possibility of malignancy. Outpatient PET scan recommended. There is decreased enhancement involving the left kidney suspicious for infarct. Atrophy of the right kidney with delayed enhancement compared to the left. Both kidneys with moderate stenosis. There is also possible Zenker's diverticulum within the upper esophagus. Staff has been unable to pass a nasogastric tube. White count 25.7. Hemoglobin 11.1. Platelets 228. Sodium 136. Potassium 4.7. Bicarb 15. BUN 32. Creatinine 1.24. Glucose 260. Pro-calcitonin 1.09. She is seen today in consultation in the intensive care unit. Current ventilator settings are assist-control mode with a rate of 22, tidal volume 350, FiO2 40% and a PEEP of 5. Morning blood gases reveal a P O2 of 168, pCO2 36 and a pH of 7.31. That was on 40% FiO2. She initially was on a nitroglycerin drip that has been discontinued. She is on esmolol at 200 mcg/kg/min. Fentanyl at 2 mcg/kg/h and propofol 50 mcg/kg/m. She's been initiated on DuoNeb inhalations, Pulmicort and Perforomist inhalations, IV Solu-Medrol. Antibiotics in the form of azithromycin. On today's evaluation of 09/25/2022, the patient is being seen for a follow-up. This is a case of COPD and the patient has an infrarenal abdominal aortic dissection this being treated conservatively. The patient is known to have a spiculated 9 mm right upper lobe lesion in addition to hypertension, hyperlipidemia and osteoarthritis. Noted the patient presented to us with respiratory failure. She had to be intubated after failing a BiPAP trial. At this point in time, the patient is sedated on propofol which is running at 20 mcg/kg/m. The patient is adequately sedated. The patient's increase of mechanical ventilator. She is on assist control at the rate of 22, tidal volume of 350, FiO2 of 30% and a PEEP of 5. The blood gas from today showed a pH of 7.25 with a pCO2 of 35 and a pO2 of 91. The patient has essentially the same metabolic acidosis. Serum bicarb is down to 14 and this is a non-anion gap metabolic acidosis. The chest x-ray from today shows hyperinflation. ET tube is a in a good location. No significant orotracheal secretions at this point in time. The patient is on bronchodilators, IV Solu-Medrol and Zithromax. The white cell count was as high as 25, dropped down to 21. Hemoglobin has stayed stable at 11.5. Sodium level is at 1:30 with a potassium level of 4.5 and a bicarb level of 14 as mentioned and the calcium level is low at 6.3. Pro- calcitonin level was at 1.09 at the time of admission and a troponin was at 0.15. The patient also has an infrarenal abdominal aortic aneurysm. The right kidney on the CAT scan showed a delayed enhancement on the left and the findings were suspicious for a left kidney infarct with decreased enhancement. There is also atrophy of the right kidney with delayed enhancement and possibility of renal artery stenosis is being entertained at this point in time. There is also possibility of a Zenker's diverticulum in the upper esophagus. The patient does not have a feeding tube for now and a technically difficult. Could be related to underlying Zenker's diverticulum. IV fluids are running in order of 0.9 at 75 mL an hour. She did have hypotension last night and she was taken off the esmolol drip and her blood pressure is stable at this point in time with a urine output of 30-50 mL an hour. IV fluids are in the form of normal saline. On 09/26/2022, the patient remains intubated on a mechanical ventilator. Earlier this morning, as the patient was being moved around doing further testing and a chest x-ray, she became slightly more tachycardic and hypertensive. Prior to that, her BP was under excellent control and her heart rate was also under excellent control. She was off the asthma low drip for the past 24 hours. I think is reasonable to restart the esmolol drip for heart rate and blood pressure control. Meanwhile, this morning, the patient remains on propofol which is running at 40 mcg/kg/m. She is successful mechanical ventilator. Some assist-control mode at the rate of 22, tidal volume of 350, F iO2 of 30% and a PEEP of 5. There is improvement in her acid base status. In fact she is slightly alkalotic today. Patient at 7.5 with a pCO2 of 37 and pO2 of 11. The chest x-ray is unchanged compared to yesterday. Orotracheal tube is in a good location. No significant infiltration. The peak airway pressure is 27. No significant orotracheal secretions. Cardiac rhythm remained sinus. She is in sinus tachycardia. She is having occasional ectopies. The white cell cause of 19 with a hemoglobin of 10.4 and a platelet count of 219. The serum bicarb is up to 27. Sodium is at 137, calcium level is low at 6.1 to be replaced. BUN is at 24 with a creatinine of 1.05. She remains on bron chodilators. She remains on steroids. She remains on empiric antibiotic coverage with Rocephin and Zithromax. Unable to insert an OG tube and the patient remains nothing by mouth for now. On 09/27/2022, the patient is extubated and she is currently on room air oxygen. Nevertheless, she still bronchospastic and wheezy. She is still very weak. She has a cough. Her swallow is poor and she is unable to swallow properly and she had some issues swallowing tablets yesterday. Based on that, the patient was kept nothing by mouth and a swallow evaluation was requested. The patient was successfully extubated yesterday after controlling and hemodynamics. She was started on esmolol drip which is currently running at 30 mcg/kg/m. Most recent heart rate is 84. Her blood pressure also is being managed although it seems to be running higher as of 3:00 this morning. Most recent BP is 161/84. Note that she is on esmolol drip. She is also on hydralazine 10 mg every 4 hours. She was started on Coreg 6.25 mg by mouth twice a day. Nevertheless, I'm not sure she is going to be able to swallow the tablets. She is still on her routine bronchodilators. Chest x-ray remains unchanged. The patient had a low ionized calcium of 4.2. Based on that, the patient was given calcium supplements. On today's blood work, the white cell count at 17 with a hemoglobin of 9.9 and a platelet count of 226. Sodium is at 139, BUN is at 27 with a creatinine of 1. LFTs are normal. Orotracheal tube and orogastric tube were both removed. IV fluids are in the form of 0.9 at the rate of 75 mL an yennifer r. 09/28/2022, the patient remains extubated and she remains on room air oxygen. She is getting progressively stronger and she was able to ambulate yesterday with some assistance. This was quite limited. She remains very weak. A swallow study was abnormal and the patient failed swallow. This morning, we achieved to insert a Dobbhoff catheter for medication and possibly some enteral feeding. The patient is not having any labored breathing at this point in time. Her chest x-ray from today shows no acute abnormalities. The Dobbhoff is in a good location. It seems to be in the small bowel. Findings are consistent with COPD. No airspace disease. No infiltrates. In terms of her pressure control, the patient remains on esmolol drip which is running at the rate of 150 mcg/kg/m. She was also given a Catapres patch 0.3 mg. She'll be started on Coreg through the Dobbhoff catheter today and as noted will be gradually weaned off. Coreg is a dose of 6.25 mg twice a day. She remains on bronchodilators patient remains on steroids. She has adequate pulses in lower extremity is bila terally. In terms of her blood work from today, the patient has a white cell count of 20 with a hemoglobin of 10.5 and a platelet count of 234. BUN is at 34 with a creatinine of 0.9 and his sodium level is at 140. Calcium level is at 6.2, uncorrected. IV fluids are running at the rate of 75 mL an hour and this was cut off today by cardiology as the patient is developing some peripheral edema. 09/29/2022, the patient remains on room air oxygen. Still actively bronchospastic and wheezy. Nevertheless, is quite comfortable at rest and her breathing is nonlabored at rest. We were able to insert a Dobbhoff catheter yesterday and enteral feeding was initiated yesterday and she is receiving Jevity at 20 mL an hour. She is able to tolerate a diet without any major issues. At the same time, she did pass a swallow evaluation [place] intake is minimal mechanical technologist and we are supplementing it with enteral feeding via a Dobbhoff catheter. Otherwise, she is alert and awake and she is communicating. Blood pressure control has been an issue. We will able to give her oral medications. She is currently on Coreg and Cozaar 10. Esmolol drip has been discontinued and the patient is also receiving when necessary hydralazine. In terms of blood pressure control, she seems to be under better blood pressure control. She has no abdominal pain. She has pulses in lower extremities bilaterally. She does have an infrarenal abdominal aortic dissection which is being managed conservatively. She is still receiving her bronchodilators and steroids for now.White count of 20 with a hemoglobin of 10.8 and a platelet count of 258. BUN is 39 with a creatinine of 1.1 and sodium level is at 138. Objective - Vital Signs Vital signs: Vital Signs Temp 98.0 F 09/29/22 08:00 Pulse 86 09/29/22 08:32 Resp 13 09/29/22 08:00 BP 161/92 09/29/22 08:00 Pulse Ox 95 09/29/22 08:00 FiO2 30 09/26/22 12:00 Intake & Output 09/28/22 09/29/22 09/29/22 18:59 06:59 18:59 Intake Total 584.312 770 20 Output Total 505 680 60 Balance 79.312 90 -40 Weight 60 kg Intake: IV 175 Calcium Gluconate in NaCl 100 2 gm In Saline 1 100ml. bag @ 100 mls/hr IVPB ONCE ONE Rx#:[id number] Sodium Chloride 0.9% 1, 75 000 ml @ 75 mls/hr IV . [id number] [facility] Rx#:[id number] Intake, IV Titration 209.312 Amount Esmolol in Sodium 209.312 Chloride Pmx 2.5 gm In Saline 1 250ml.bag @ 200 MCG/KG/MIN 59.874 mls/hr IV .Q4H11M [facility] Rx#: [id number] Oral 100 250 Tube Feeding 220 20 Other 100 300 Output: Urine 505 680 60 Other: Voiding Method Indwelling Catheter Indwelling Catheter - Exam GENERAL EXAM: Intubated, sedated 76-year-old female, comfortable , extubated and currently she is on room air oxygen, and the patient currently has a Dobbhoff in place HEAD: Normocephalic. EYES: Sluggish reaction of pupils, equal size. NOSE: Clear with pink turbinates. THROAT: Oral endotracheal tube secured in place. No erythema or exudates. NECK: No masses, no JVD. CHEST: No chest wall deformity. LUNGS: Equal air entry with no crackles, wheeze, rhonchi or dullness. The patient had diffuse expiratory wheezes throughout the lung field bilaterally CVS: S1 and S2 normal with no audible murmur, regular rhythm. ABDOMEN: No hepatosplenomegaly, normal bowel sounds, no guarding or rigidity. SPINE: No scoliosis or deformity SKIN: No rashes CENTRAL NERVOUS SYSTEM: No focal deficits, tone is normal in all 4 extremities. EXTREMITIES: There is no peripheral edema. No clubbing, no cyanosis. Peripheral pulses are intact. - Labs CBC & Chem 7: 09/29/22 03:20 09/29/22 03:20 Labs: Abnormal Lab Results - Last 24 Hours (Table) 09/28/22 09/28/22 09/28/22 Range/Units 11:39 16:52 20:22 WBC (3.8-10.6) k/uL RBC (3.80-5.40) m/uL Hgb (11.4-16.0) gm/dL Hct (34.0-46.0) % Neutrophils # (1.3-7.7) k/uL Lymphocytes # (1.0-4.8) k/uL BUN (7-17) mg/dL Creatinine (0.52-1.04) mg/dL Glucose (74-99) mg/dL POC Glucose (mg/dL) 134 H 225 H 202 H (70-110) mg/dL Calcium (8.4-10.2) mg/dL 09/29/22 09/29/22 09/29/22 Range/Units 03:20 03:20 06:58 WBC 20.8 H (3.8-10.6) k/uL RBC 3.54 L (3.80-5.40) m/uL Hgb 10.8 L (11.4-16.0) gm/dL Hct 33.6 L (34.0-46.0) % Neutrophils # 19.3 H (1.3-7.7) k/uL Lymphocytes # 0.6 L (1.0-4.8) k/uL BUN 39 H (7-17) mg/dL Creatinine 1.10 H (0.52-1.04) mg/dL Glucose 196 H (74-99) mg/dL POC Glucose (mg/dL) 204 H (70-110) mg/dL Calcium 6.9 L (8.4-10.2) mg/dL Microbiology - Last 24 Hours (Table) 09/23/22 16:50 Blood Culture - Preliminary Blood 09/23/22 17:05 Blood Culture - Preliminary Blood Assessment and Plan Plan: Acute hypoxemic respiratory failure secondary to an acute exacerbation of chronic obstructive pulmonary disease requiring intubation mechanical ventilatory support on 09/23/2022. No evidence of pneumonia and the patient was extubated on 09/26/2022 and currently she is on room air oxygen. She remains bronchospastic and wheezy. Chest x-ray remains free of any acute pulmonary infiltrates. Leukocytosis secondary to above, remains elevated, essentially unchanged since yesterday. The patient completed a course of Zosyn Non-gap metabolic acidosis, recovered Acute kidney injury. There is decreased enhancement involving the left kidney suspicious for infarct. Atrophy of the right kidney with delayed enhancement compared to the left. Both kidneys with moderate stenosis. The patient is producing adequate amount of urine output. Creatinine is normalized Thoracic scan revealed a short segment infrarenal abdominal aortic dissection. No aortic aneurysm. Spiculated 9 mm nodule in the right lung apex raising the possibility of malignancy. Outpatient PET scan recommended. Possible Zenker's diverticulum within the upper esophagus. Nasogastric tube unable to be passed, was able to successfully pass a Dobbhoff catheter and the patient is receiving enteral feeding for nutritional support and the patient is currently on Jevity. History of CVA/TIA History of chronic and ongoing tobacco dependence Hyperlipidemia Hypertension Plan: Keep enteral feeding for another 24 hours Try to gradually advance oral diet Patient is currently on room air oxygen She is still bronchospastic and wheezy and we'll continue the bronchodilators and steroids and antibiotics , awaiting a repeat pro-calcitonin level DuoNeb bedside swallow evaluation Patient will be started on oral Coreg 12.5 mg by mouth twice a day, , Diovan 160 mg by mouth daily Catapres patch and We'll give hydralazine as needed for blood pressure control. subcu for DVT prophylaxis We will continue to follow and make further recommendations based on her clinical status Condition is critical and we'll continue to follow make further recommendations based on her progress.
[2022-09-29] MEDS: amLODIPine 10 MG TAB PO SCH (10:50)
--- NOTE | 2022-09-29 11:19 | PN ---
PROGRESS NOTE SUBJECTIVE: Missy is a 76-year-old lady that we are following in the ICU because of uncontrolled hypertension. At the time of my evaluation, she still has a Dobbhoff tube in, but she is taking oral medications and her blood pressure still remains somewhat poorly controlled. She is currently on Catapres patch, Coreg 12.5 b.i.d. and Diovan 160 b.i.d. She is using hydralazine on a p.r.n. basis. I will add amlodipine 10 mg daily and hopefully we can get rid of the hydralazine on as needed basis. PHYSICAL EXAMINATION: On exam, heart rate is 90 beats per minute, blood pressure is 140/76, respiratory rate 18. Chest exam reveals good air entry bilaterally. I do not hear any crackles or rhonchi. Heart exam reveals first and second heart sounds. No gallop. Exam of extremities reveals mild edema. Peripheral pulses are felt. LABORATORY DATA: Labs show a hemoglobin of 10.8, platelet count is 250, potassium is 3.7, creatinine is 1.1. ASSESSMENT AND PLAN: Uncontrolled hypertension. The patient's blood pressure is better controlled. I will add amlodipine. MMODL / IJN: [id number] /
[2022-09-29 12:43] LABS: Glucose,Whole Blood 156 mg/dL (70-110)
[2022-09-29 17:05] LABS: Glucose,Whole Blood 221 mg/dL (70-110)
[2022-09-29 20:30] LABS: Glucose,Whole Blood 311 mg/dL (70-110)
[2022-09-29] MEDS: MELATONIN 3 MG TABLET PO SCH (20:32)
[2022-09-30] MEDS: hydrALAZINE HCL 20 MG/ML 1 ML VIAL IVP PRN ×2 (00:11→04:49)
[2022-09-30] MEDS: HEPARIN SODIUM,PORCINE/PF 5,000 UNIT/0.5 ML SYRINGE SQ SCH ×3 (00:11→17:07)
[2022-09-30] MEDS: methylPREDNISolone SOD SUCCI 125 MG/2 ML VIAL IV SCH ×4 (00:11→17:07)
[2022-09-30] MEDS: carvediloL 12.5 MG TAB PO SCH ×2 (06:13→17:07)
[2022-09-30 06:14] LABS: Glucose,Whole Blood 203 mg/dL (70-110)
[2022-09-30] MEDS: INSULIN ASPART (NovoLOG) 100 UNIT/ML VIAL SQ SCH ×4 (06:16→20:55)
[2022-09-30 06:22] LABS: Basophils # (A) 0.1 k/uL (0-0.2); Basophils % (A) 0 %; Eosinophils # (A) 0.1 k/uL (0-0.7); Eosinophils % (A) 1 %; HCT 35.2 % (34.0-46.0); HGB 11.4 gm/dL (11.4-16.0); Lymphocytes # (A) 0.7 k/uL (1.0-4.8); Lymphocytes % (A) 3 %; MCH 30.6 pg (25.0-35.0); MCHC 32.4 g/dL (31.0-37.0); MCV 94.4 fL (80.0-100.0); Mean Platelet Volume 11.5; Monocytes # (A) 0.5 k/uL (0-1.0); Monocytes % (A) 2 %; Neutrophils # (A) 22.4 k/uL (1.3-7.7); Neutrophils % (A) 94 %; Platelet Count 280 k/uL (150-450); RBC 3.73 m/uL (3.80-5.40); RDW 14.1 % (11.5-15.5); WBC 23.8 k/uL (3.8-10.6)
[2022-09-30 06:37] LABS: Calcium 7.4 mg/dL (8.4-10.2); Potassium 3.6 mmol/L (3.5-5.1)
[2022-09-30] MEDS ORDERED: POTASSIUM BICARBONATE/CIT AC 20 MEQ TABLET.EFF NG-TUBE SCH (07:00)
[2022-09-30] MEDS: IPRATROPIUM-ALBUTEROL 3 ML NEB INHALATION SCH ×4 (08:19→19:49)
[2022-09-30] MEDS: BUDESONIDE 1 MG/2 ML NEBU INHALATION SCH ×2 (08:19→19:49)
[2022-09-30] MEDS: FORMOTEROL FUMARATE 20 MCG/2 ML NEBU INHALATION SCH ×2 (08:19→19:49)
--- NOTE | 2022-09-30 08:41 | P.PN ---
Subjective Progress Note Date: 09/30/22 This is a 76-year-old female patient with a history of chronic and ongoing tobacco dependence, chronic obstructive pulmonary disease, hypertension, hyperlipidemia, osteoarthritis. She presented to the emergency room yesterday with complaints of a 2-3 day history of worsening shortness of breath. She had a productive cough of greenish yellow sputum and sinus congestion. She stated she had no inhalers at home. She eventually failed BiPAP support and was intubated in the emergency department yesterday 09/23/2022. X-ray had revealed evidence of COPD but no acute pulmonary process. Computed tomography scan of the brain revealed no acute intracranial process. Thoracic scan revealed a short segment infrarenal abdominal aortic dissection. No aortic aneurysm. No evidence of pulmonary embolism. There is a spiculated 9 mm nodule in the right lung apex raising the possibility of malignancy. Outpatient PET scan recommended. There is decreased enhancement involving the left kidney suspicious for infarct. Atrophy of the right kidney with delayed enhancement compared to the left. Both kidneys with moderate stenosis. There is also possible Zenker's diverticulum within the upper esophagus. Staff has been unable to pass a nasogastric tube. White count 25.7. Hemoglobin 11.1. Platelets 228. Sodium 136. Potassium 4.7. Bicarb 15. BUN 32. Creatinine 1.24. Glucose 260. Pro-calcitonin 1.09. She is seen today in consultation in the intensive care unit. Current ventilator settings are assist-control mode with a rate of 22, tidal volume 350, FiO2 40% and a PEEP of 5. Morning blood gases reveal a P O2 of 168, pCO2 36 and a pH of 7.31. That was on 40% FiO2. She initially was on a nitroglycerin drip that has been discontinued. She is on esmolol at 200 mcg/kg/min. Fentanyl at 2 mcg/kg/h and propofol 50 mcg/kg/m. She's been initiated on DuoNeb inhalations, Pulmicort and Perforomist inhalations, IV Solu-Medrol. Antibiotics in the form of azithromycin. On today's evaluation of 09/25/2022, the patient is being seen for a follow-up. This is a case of COPD and the patient has an infrarenal abdominal aortic dissection this being treated conservatively. The patient is known to have a spiculated 9 mm right upper lobe lesion in addition to hypertension, hyperlipidemia and osteoarthritis. Noted the patient presented to us with respiratory failure. She had to be intubated after failing a BiPAP trial. At this point in time, the patient is sedated on propofol which is running at 20 mcg/kg/m. The patient is adequately sedated. The patient's increase of mechanical ventilator. She is on assist control at the rate of 22, tidal volume of 350, FiO2 of 30% and a PEEP of 5. The blood gas from today showed a pH of 7.25 with a pCO2 of 35 and a pO2 of 91. The patient has essentially the same metabolic acidosis. Serum bicarb is down to 14 and this is a non-anion gap metabolic acidosis. The chest x-ray from today shows hyperinflation. ET tube is a in a good location. No significant orotracheal secretions at this point in time. The patient is on bronchodilators, IV Solu-Medrol and Zithromax. The white cell count was as high as 25, dropped down to 21. Hemoglobin has stayed stable at 11.5. Sodium level is at 1:30 with a potassium level of 4.5 and a bicarb level of 14 as mentioned and the calcium level is low at 6.3. Pro- calcitonin level was at 1.09 at the time of admission and a troponin was at 0.15. The patient also has an infrarenal abdominal aortic aneurysm. The right kidney on the CAT scan showed a delayed enhancement on the left and the findings were suspicious for a left kidney infarct with decreased enhancement. There is also atrophy of the right kidney with delayed enhancement and possibility of renal artery stenosis is being entertained at this point in time. There is also possibility of a Zenker's diverticulum in the upper esophagus. The patient does not have a feeding tube for now and a technically difficult. Could be related to underlying Zenker's diverticulum. IV fluids are running in order of 0.9 at 75 mL an hour. She did have hypotension last night and she was taken off the esmolol drip and her blood pressure is stable at this point in time with a urine output of 30-50 mL an hour. IV fluids are in the form of normal saline. On 09/26/2022, the patient remains intubated on a mechanical ventilator. Earlier this morning, as the patient was being moved around doing further testing and a chest x-ray, she became slightly more tachycardic and hypertensive. Prior to that, her BP was under excellent control and her heart rate was also under excellent control. She was off the asthma low drip for the past 24 hours. I think is reasonable to restart the esmolol drip for heart rate and blood pressure control. Meanwhile, this morning, the patient remains on propofol which is running at 40 mcg/kg/m. She is successful mechanical ventilator. Some assist-control mode at the rate of 22, tidal volume of 350, F iO2 of 30% and a PEEP of 5. There is improvement in her acid base status. In fact she is slightly alkalotic today. Patient at 7.5 with a pCO2 of 37 and pO2 of 11. The chest x-ray is unchanged compared to yesterday. Orotracheal tube is in a good location. No significant infiltration. The peak airway pressure is 27. No significant orotracheal secretions. Cardiac rhythm remained sinus. She is in sinus tachycardia. She is having occasional ectopies. The white cell cause of 19 with a hemoglobin of 10.4 and a platelet count of 219. The serum bicarb is up to 27. Sodium is at 137, calcium level is low at 6.1 to be replaced. BUN is at 24 with a creatinine of 1.05. She remains on bron chodilators. She remains on steroids. She remains on empiric antibiotic coverage with Rocephin and Zithromax. Unable to insert an OG tube and the patient remains nothing by mouth for now. On 09/27/2022, the patient is extubated and she is currently on room air oxygen. Nevertheless, she still bronchospastic and wheezy. She is still very weak. She has a cough. Her swallow is poor and she is unable to swallow properly and she had some issues swallowing tablets yesterday. Based on that, the patient was kept nothing by mouth and a swallow evaluation was requested. The patient was successfully extubated yesterday after controlling and hemodynamics. She was started on esmolol drip which is currently running at 30 mcg/kg/m. Most recent heart rate is 84. Her blood pressure also is being managed although it seems to be running higher as of 3:00 this morning. Most recent BP is 161/84. Note that she is on esmolol drip. She is also on hydralazine 10 mg every 4 hours. She was started on Coreg 6.25 mg by mouth twice a day. Nevertheless, I'm not sure she is going to be able to swallow the tablets. She is still on her routine bronchodilators. Chest x-ray remains unchanged. The patient had a low ionized calcium of 4.2. Based on that, the patient was given calcium supplements. On today's blood work, the white cell count at 17 with a hemoglobin of 9.9 and a platelet count of 226. Sodium is at 139, BUN is at 27 with a creatinine of 1. LFTs are normal. Orotracheal tube and orogastric tube were both removed. IV fluids are in the form of 0.9 at the rate of 75 mL an yennifer r. 09/28/2022, the patient remains extubated and she remains on room air oxygen. She is getting progressively stronger and she was able to ambulate yesterday with some assistance. This was quite limited. She remains very weak. A swallow study was abnormal and the patient failed swallow. This morning, we achieved to insert a Dobbhoff catheter for medication and possibly some enteral feeding. The patient is not having any labored breathing at this point in time. Her chest x-ray from today shows no acute abnormalities. The Dobbhoff is in a good location. It seems to be in the small bowel. Findings are consistent with COPD. No airspace disease. No infiltrates. In terms of her pressure control, the patient remains on esmolol drip which is running at the rate of 150 mcg/kg/m. She was also given a Catapres patch 0.3 mg. She'll be started on Coreg through the Dobbhoff catheter today and as noted will be gradually weaned off. Coreg is a dose of 6.25 mg twice a day. She remains on bronchodilators patient remains on steroids. She has adequate pulses in lower extremity is bila terally. In terms of her blood work from today, the patient has a white cell count of 20 with a hemoglobin of 10.5 and a platelet count of 234. BUN is at 34 with a creatinine of 0.9 and his sodium level is at 140. Calcium level is at 6.2, uncorrected. IV fluids are running at the rate of 75 mL an hour and this was cut off today by cardiology as the patient is developing some peripheral edema. 09/29/2022, the patient remains on room air oxygen. Still actively bronchospastic and wheezy. Nevertheless, is quite comfortable at rest and her breathing is nonlabored at rest. We were able to insert a Dobbhoff catheter yesterday and enteral feeding was initiated yesterday and she is receiving Jevity at 20 mL an hour. She is able to tolerate a diet without any major issues. 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 Otherwise, she is alert and awake and she is communicating. Blood pressure control has been an issue. We will able to give her oral medications. She is currently on Coreg and Cozaar 10. Esmolol drip has been discontinued and the patient is also receiving when necessary hydralazine. In terms of blood pressure control, she seems to be under better blood pressure control. She has no abdominal pain. She has pulses in lower extremities bilaterally. She does have an infrarenal abdominal aortic dissection which is being managed conservatively. She is still receiving her bronchodilators and steroids for now.White count of 20 with a hemoglobin of 10.8 and a platelet count of 258. BUN is 39 with a creatinine of 1.1 and sodium level is at 138. On 09/30/2022, the patient remains on room air oxygen. She is calm and comfortable. Still bronchospastic and wheezy. She remains on bronchodilators and steroids. I kept the Dobbhoff in yesterday for enteral feeding and nutritional support. The patient is still receiving Jevity at 20 mL an hour. The patient is also offered soft diet and she is on a one-to-one supervision while eating. At the same time, the patient did have episodes of diarrhea yesterday total of 3. Stool for C. diff needs to be checked. The white cell count 23 with a hemoglobin 11.4 and a platelet count of 280. BUN is 39 with a creatinine of 0.8 and sodium level is at 139. Chest x-ray from 09/28/2022 showed no acute abnormalities. Dobbhoff catheter is in a good location. Another active issue is her blood pressure control. The patient is awaiting dissection infrarenal and the patient is to be undetectable pressure control. She is currently on a combination of Catapres patch, Norvasc 10 mg, Coreg 12.5 mg twice a day and Diovan and hydralazine. Most recent blood pressure is 156/84. No nausea. No vomiting. No abdominal pain. No other complaints. Objective - Vital Signs Vital signs: Vital Signs Temp 97.5 F L 09/30/22 04:00 Pulse 98 09/30/22 08:31 Resp 16 09/30/22 07:00 BP 171/78 09/30/22 07:00 Pulse Ox 94 L 09/30/22 07:00 FiO2 30 09/26/22 12:00 Intake & Output 09/29/22 09/30/22 09/30/22 18:59 06:59 18:59 Intake Total 540 540 20 Output Total 60 0 0 Balance 480 540 20 Weight 63.4 kg 59.9 kg Intake: Tube Feeding 240 240 20 Other 300 300 Output: Urine 60 0 0 Other: Voiding Method Indwelling Catheter Indwelling Catheter # Voids 1 # Bowel Movements 1 - Exam GENERAL EXAM: Intubated, sedated 76-year-old female, comfortable , extubated and currently she is on room air oxygen, and the patient currently has a Dobbhoff in place HEAD: Normocephalic. EYES: Sluggish reaction of pupils, equal size. NOSE: Clear with pink turbinates. THROAT: Oral endotracheal tube secured in place. No erythema or exudates. NECK: No masses, no JVD. CHEST: No chest wall deformity. LUNGS: Equal air entry with no crackles, wheeze, rhonchi or dullness. The patient had diffuse expiratory wheezes throughout the lung field bilaterally CVS: S1 and S2 normal with no audible murmur, regular rhythm. ABDOMEN: No hepatosplenomegaly, normal bowel sounds, no guarding or rigidity. SPINE: No scoliosis or deformity SKIN: No rashes CENTRAL NERVOUS SYSTEM: No focal deficits, tone is normal in all 4 extremities. EXTREMITIES: There is no peripheral edema. No clubbing, no cyanosis. Peripheral pulses are intact. - Labs CBC & Chem 7: 09/30/22 05:33 09/30/22 05:33 Labs: Abnormal Lab Results - Last 24 Hours (Table) 09/29/22 09/29/22 09/29/22 Range/Units 03:20 12:41 17:03 WBC (3.8-10.6) k/uL RBC (3.80-5.40) m/uL Neutrophils # (1.3-7.7) k/uL Lymphocytes # (1.0-4.8) k/uL BUN (7-17) mg/dL Glucose (74-99) mg/dL POC Glucose (mg/dL) 156 H 221 H (70-110) mg/dL Calcium (8.4-10.2) mg/dL Procalcitonin 0.14 H (0.02-0.09) ng/mL 09/29/22 09/30/22 09/30/22 Range/Units 20:30 05:33 05:33 WBC 23.8 H (3.8-10.6) k/uL RBC 3.73 L (3.80-5.40) m/uL Neutrophils # 22.4 H (1.3-7.7) k/uL Lymphocytes # 0.7 L (1.0-4.8) k/uL BUN 39 H (7-17) mg/dL Glucose 182 H (74-99) mg/dL POC Glucose (mg/dL) 311 H (70-110) mg/dL Calcium 7.4 L (8.4-10.2) mg/dL Procalcitonin (0.02-0.09) ng/mL 09/30/22 Range/Units 06:13 WBC (3.8-10.6) k/uL RBC (3.80-5.40) m/uL Neutrophils # (1.3-7.7) k/uL Lymphocytes # (1.0-4.8) k/uL BUN (7-17) mg/dL Glucose (74-99) mg/dL POC Glucose (mg/dL) 203 H (70-110) mg/dL Calcium (8.4-10.2) mg/dL Procalcitonin (0.02-0.09) ng/mL Microbiology - Last 24 Hours (Table) 09/23/22 16:50 Blood Culture - Final Blood 09/23/22 17:05 Blood Culture - Final Blood Assessment and Plan Plan: Acute hypoxemic respiratory failure secondary to an acute exacerbation of chronic obstructive pulmonary disease requiring intubation mechanical ventilatory support on 09/23/2022. No evidence of pneumonia and the patient was extubated on 09/26/2022 and currently she is on room air oxygen. She remains bronchospastic and wheezy. Chest x-ray remains free of any acute pulmonary infiltrates. Leukocytosis secondary to above, remains elevated, essentially unchanged since yesterday. The patient completed a course of Zosyn Non-gap metabolic acidosis, recovered Acute kidney injury. There is decreased enhancement involving the left kidney suspicious for infarct. Atrophy of the right kidney with delayed enhancement compared to the left. Both kidneys with moderate stenosis. The patient is producing adequate amount of urine output. Creatinine is normalized Thoracic scan revealed a short segment infrarenal abdominal aortic dissection. No aortic aneurysm. Spiculated 9 mm nodule in the right lung apex raising the possibility of malignancy. Outpatient PET scan recommended. Possible Zenker's diverticulum within the upper esophagus. Nasogastric tube unable to be passed, was able to successfully pass a Dobbhoff catheter and the patient is receiving enteral feeding for nutritional support and the patient is currently on Jevity. History of CVA/TIA History of chronic and ongoing tobacco dependence Hyperlipidemia Hypertension Enteral feeding via Dobbhoff to meet caloric requirements Diarrhea, rule out C. diff colitis. Plan: Keep enteral feeding for another 24 hours, currently on Jevity at 20 mL an hour Monitor diary and check stool for C. diff Try to gradually advance oral diet Patient is currently on room air oxygen She is still bronchospastic and wheezy and we'll continue the bronchodilators and steroids and antibiotics , repeat pro-calcitonin is at 0.14 and the level is essentially improving Patient will be started on oral Coreg 12.5 mg by mouth twice a day, , Diovan 160 mg by mouth by mouth twice a day, Norvasc 10 mg by mouth daily and switch to Catapres 2.3 mg 3 times a day and discontinue the Catapres patch and monitor the blood pressure control. The patient is not requiring any drips for now. subcu for DVT prophylaxis We will continue to follow and make further recommendations based on her clinical status Condition is critical and we'll continue to follow make further recommendations based on her progress. We'll give the patient the intensive care unit for another 24 hours. During this time, we'll going to achieve better blood pressure control. We'll continue monitoring her nutritional status. Her breathing is still borderline and will continue bronchodilators and steroids. No antibiotics for now. Will monitor diarrhea.
[2022-09-30] MEDS: ATORVASTATIN 40 MG TAB PO SCH (09:54)
[2022-09-30] MEDS: amLODIPine 10 MG TAB PO SCH (09:54)
[2022-09-30] MEDS: PANTOPRAZOLE 40 MG/10 ML VIAL IVP SCH (09:54)
[2022-09-30] MEDS: VALSARTAN 160 MG TAB PO SCH ×2 (09:54→20:51)
[2022-09-30] MEDS: cloNIDine HCL 0.1 MG TAB PO SCH ×3 (09:54→20:52)
[2022-09-30 11:25] LABS: Glucose,Whole Blood 282 mg/dL (70-110)
--- NOTE | 2022-09-30 13:27 | P.PN ---
Subjective Progress Note Date: 09/30/22 The patient is a 76-year-old female who came into the hospital with hypertensive crisis. She was found to have an infrarenal aortic dissection and was transferred to the ICU. Over the course of her hospital admission the patient was intubated. Over the last several days she is now able to tolerate oral medications after speech evaluation. Blood pressure is improving. At the time of my examination the patient appeared to be resting comfortably. She remains short of breath with congested cough. No chest pain or chest pressure. No back discomfort. GENERAL: Well-appearing, well-nourished and in no acute distress. NECK: Supple without JVD or thyromegaly. LUNGS: Breath sounds are diminished to auscultation bilaterally. Respiration equal and unlabored. Bilateral inspiratory and expiratory wheezes HEART: Regular rate and rhythm without murmurs, rubs or gallops. S1 and S2 heard. EXTREMITIES: Normal range of motion. Mild generalized edema. No clubbing or cyanosis. Peripheral pulses intact and strong. TELEMETRY: Sinus rhythm with heart rate in the 70s IMPRESSION: Hypertensive crisis Infrarenal aortic dissection, surgical team signed off Sinus tachycardia, improved with oral beta priscila PLAN: Continue current medication regimen Consider increasing carvedilol if needed, however patient is currently hypotensive at rest Aggressive pulmonary hygiene Further recommendations to be based on clinical course I am dictating on behalf of Dr Arnav Nicholas's history/physical and assessmen t/plan. Objective - Vital Signs Vital signs: Vital Signs Temp 97.5 F L 09/30/22 12:00 Pulse 81 09/30/22 13:00 Resp 21 09/30/22 13:00 BP 96/57 09/30/22 13:00 Pulse Ox 94 L 09/30/22 13:00 FiO2 30 09/26/22 12:00 Intake & Output 09/29/22 09/30/22 09/30/22 18:59 06:59 18:59 Intake Total 540 540 340 Output Total 60 0 0 Balance 480 540 340 Weight 63.4 kg 59.9 kg Intake: Tube Feeding 240 240 140 Other 300 300 200 Output: Urine 60 0 0 Other: Voiding Method Indwelling Catheter Indwelling Catheter Incontinent # Voids 1 1 # Bowel Movements 1 - Labs CBC & Chem 7: 09/30/22 05:33 05/13/23 05:33 Labs: Abnormal Lab Results - Last 24 Hours (Table) 09/29/22 09/29/22 09/30/22 Range/Units 17:03 20:30 05:33 WBC 23.8 H (3.8-10.6) k/uL RBC 3.73 L (3.80-5.40) m/uL Neutrophils # 22.4 H (1.3-7.7) k/uL Lymphocytes # 0.7 L (1.0-4.8) k/uL BUN (7-17) mg/dL Glucose (74-99) mg/dL POC Glucose (mg/dL) 221 H 311 H (70-110) mg/dL Calcium (8.4-10.2) mg/dL 09/30/22 09/30/22 09/30/22 Range/Units 05:33 06:13 11:23 WBC (3.8-10.6) k/uL RBC (3.80-5.40) m/uL Neutrophils # (1.3-7.7) k/uL Lymphocytes # (1.0-4.8) k/uL BUN 39 H (7-17) mg/dL Glucose 182 H (74-99) mg/dL POC Glucose (mg/dL) 203 H 282 H (70-110) mg/dL Calcium 7.4 L (8.4-10.2) mg/dL Microbiology - Last 24 Hours (Table) 09/23/22 16:50 Blood Culture - Final Blood 09/23/22 17:05 Blood Culture - Final Blood
--- NOTE | 2022-09-30 14:34 | P.PN ---
Subjective Progress Note Date: 09/29/22 76 years old female patient Presents with dyspnea with acute hypoxic respiratory failure which is rapidly degenerated to the degree requiring intubation and placing patient on mechanical ventilation. Patient also with blood pressure despite 200/100 patient was placed on nitro drip. T brain shows no obvious acute intracranial process. CTA of the aorta and the thoracic abdomen pelvis reveals no obvious to a dissection. There is a small short segment of infrarenal aortic dissection in the abdomen. Also a small wedge-shaped region seen by radiology in the left kidney suspicious for infarct with an atrophic right kidney. Patient has a 9 mm lung nodule. There is a nonobstructive renal calculus. Also possible Zenker's diverticulum versus possible fluid in the upper esophagus, suspect residual fluid. 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 The systolic pressure in the 90s and heart rate 70s to 71 showing WBCs 12.5, trace of CBC is unremarkable. PH 7.2, pCO2 elevated 51. BMP is unremarkable, creatinine 1.48, baseline 1.1-1.3. Glucose 307. Neuro exam not significantly elevated. Troponin is negative at 0.017. ProBNP is 210. Viruses undetected influenza, rotavirus and RSV Patient was started on antibiotics obstruction and Zithromax and steroids were added. Objective - Vital Signs Vital signs: Vital Signs Temp 98.0 F 09/29/22 08:00 Pulse 90 09/29/22 09:00 Resp 21 09/29/22 09:00 BP 141/76 09/29/22 09:00 Pulse Ox 95 09/29/22 09:00 FiO2 30 09/26/22 12:00 Intake & Output 09/28/22 09/29/22 09/29/22 18:59 06:59 18:59 Intake Total 584.312 770 60 Output Total 505 680 60 Balance 79.312 90 0 Weight 60 kg 60 kg Intake: IV 175 Calcium Gluconate in NaCl 100 2 gm In Saline 1 100ml. bag @ 100 mls/hr IVPB ONCE ONE Rx#:[id number] Sodium Chloride 0.9% 1, 75 000 ml @ 75 mls/hr IV . [id number] [facility] [place] Rx#:[id number] Intake, IV Titration 209.312 Amount Esmolol in Sodium 209.312 Chloride Pmx 2.5 gm In Saline 1 250ml.bag @ 200 MCG/KG/MIN 59.874 mls/hr IV .[id number] [facility] [place] Rx#: [id number] Oral 100 250 Tube Feeding 220 60 Other 100 300 Output: Urine 505 680 60 Other: Voiding Method Indwelling Catheter Indwelling Catheter - Exam GENERAL: Alert and oriented, following commands HEENT: Pupils are round and equally reacting to light. EOMI. No scleral icterus. No conjunctival pallor. Normocephalic, atraumatic. No pharyngeal erythema. No thyromegaly. CARDIOVASCULAR: S1 and S2 present. No murmurs, rubs, or gallops. PULMONARY: Diminished breath sounds at the bases bilaterally ABDOMEN: Soft, nontender, nondistended, normoactive bowel sounds. No palpable organomegaly. MUSCULOSKELETAL: No joint swelling or deformity. EXTREMITIES: No cyanosis, clubbing, or pedal edema. NEUROLOGICAL: Gross neurological examination did not reveal any focal deficits. - Labs CBC & Chem 7: 09/30/22 05:33 09/30/22 05:33 Labs: Abnormal Lab Results - Last 24 Hours (Table) 09/28/22 09/28/22 09/28/22 Range/Units 11:39 16:52 20:22 WBC (3.8-10.6) k/uL RBC (3.80-5.40) m/uL Hgb (11.4-16.0) gm/dL Hct (34.0-46.0) % Neutrophils # (1.3-7.7) k/uL Lymphocytes # (1.0-4.8) k/uL BUN (7-17) mg/dL Creatinine (0.52-1.04) mg/dL Glucose (74-99) mg/dL POC Glucose (mg/dL) 134 H 225 H 202 H (70-110) mg/dL Calcium (8.4-10.2) mg/dL Procalcitonin (0.02-0.09) ng/mL 09/29/22 09/29/22 09/29/22 Range/Units 03:20 03:20 03:20 WBC 20.8 H (3.8-10.6) k/uL RBC 3.54 L (3.80-5.40) m/uL Hgb 10.8 L (11.4-16.0) gm/dL Hct 33.6 L (34.0-46.0) % Neutrophils # 19.3 H (1.3-7.7) k/uL Lymphocytes # 0.6 L (1.0-4.8) k/uL BUN 39 H (7-17) mg/dL Creatinine 1.10 H (0.52-1.04) mg/dL Glucose 196 H (74-99) mg/dL POC Glucose (mg/dL) (70-110) mg/dL Calcium 6.9 L (8.4-10.2) mg/dL Procalcitonin 0.14 H (0.02-0.09) ng/mL 09/29/22 Range/Units 06:58 WBC (3.8-10.6) k/uL RBC (3.80-5.40) m/uL Hgb (11.4-16.0) gm/dL Hct (34.0-46.0) % Neutrophils # (1.3-7.7) k/uL Lymphocytes # (1.0-4.8) k/uL BUN (7-17) mg/dL Creatinine (0.52-1.04) mg/dL Glucose (74-99) mg/dL POC Glucose (mg/dL) 204 H (70-110) mg/dL Calcium (8.4-10.2) mg/dL Procalcitonin (0.02-0.09) ng/mL Microbiology - Last 24 Hours (Table) 09/23/22 16:50 Blood Culture - Final Blood 09/23/22 17:05 Blood Culture - Final Blood Assessment and Plan Assessment: Acute hypoxic hypercapnic respiratory failure requiring intubation and mechanical ventilation. 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 Started on clonidine patch followup repeat Procalcitonin Vascular surgery on board for for dissected aneurysm Cardiology on board Critical care following
--- NOTE | 2022-09-30 14:37 | P.PN ---
Subjective Progress Note Date: 09/30/22 76 years old female patient Presents with dyspnea with acute hypoxic respiratory failure which is rapidly degenerated to the degree requiring intubation and placing patient on mechanical ventilation. Patient also with blood pressure despite 200/100 patient was placed on nitro drip. T brain shows no obvious acute intracranial process. CTA of the aorta and the thoracic abdomen pelvis reveals no obvious to a dissection. There is a small short segment of infrarenal aortic dissection in the abdomen. Also a small wedge-shaped region seen by radiology in the left kidney suspicious for infarct with an atrophic right kidney. Patient has a 9 mm lung nodule. There is a nonobstructive renal calculus. Also possible Zenker's diverticulum versus possible fluid in the upper esophagus, suspect residual fluid. 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 The systolic pressure in the 90s and heart rate 70s to 71 showing WBCs 12.5, trace of CBC is unremarkable. PH 7.2, pCO2 elevated 51. BMP is unremarkable, creatinine 1.48, baseline 1.1-1.3. Glucose 307. Neuro exam not significantly elevated. Troponin is negative at 0.017. ProBNP is 210. Viruses undetected influenza, rotavirus and RSV Patient was started on antibiotics obstruction and Zithromax and steroids were added. 09/30/2022 the patient is seen and evaluated in ICU at bedside; remains on room air oxygen. She is calm and comfortable. - remains on bronchodilators and steroids; Dobbhoff for enteral feeding and nutritional support. The patient is still receiving Jevity at 20 mL an hour. The patient is also offered soft diet and she is on a one-to-one supervision while eating. At the same time, the patient did have episodes of diarrhea yesterday total of 3. Stool for C. diff needs to be checked. The white cell count 23 with a hemoglobin 11.4 and a platelet count of 280. BUN is 39 with a creatinine of 0.8 and sodium level is at 139. Chest x-ray from 09/28/2022 showed no acute abnormalities. Dobbhoff catheter is in a good location. Another active issue is her blood pressure control. The patient is awaiting dissection infrarenal and the patient is to be undetectable pressure control. She is currently on a combination of Catapres patch, Norvasc 10 mg, Coreg 12.5 mg twice a day and Diovan and hydralazine. Keep enteral feeding for another 24 hours, currently on Jevity at 20 mL an hour Monitor diary and check stool for C. diff Try to gradually advance oral diet Objective - Vital Signs Vital signs: Vital Signs Temp 97.5 F L 09/30/22 08:00 Pulse 71 09/30/22 12:00 Resp 15 09/30/22 12:00 BP 125/76 09/30/22 12:00 Pulse Ox 95 09/30/22 12:00 FiO2 30 09/26/22 12:00 Intake & Output 09/29/22 09/30/22 09/30/22 18:59 06:59 18:59 Intake Total 540 540 200 Output Total 60 0 0 Balance 480 540 200 Weight 63.4 kg 59.9 kg Intake: Tube Feeding 240 240 100 Other 300 300 100 Output: Urine 60 0 0 Other: Voiding Method Indwelling Catheter Indwelling Catheter Incontinent # Voids 1 1 # Bowel Movements 1 - Exam GENERAL: Alert and oriented, following commands HEENT: Pupils are round and equally reacting to light. EOMI. No scleral icterus. No conjunctival pallor. Normocephalic, atraumatic. No pharyngeal erythema. No th yromegaly. CARDIOVASCULAR: S1 and S2 present. No murmurs, rubs, or gallops. PULMONARY: Diminished breath sounds at the bases bilaterally ABDOMEN: Soft, nontender, nondistended, normoactive bowel sounds. No palpable organomegaly. MUSCULOSKELETAL: No joint swelling or deformity. EXTREMITIES: No cyanosis, clubbing, or pedal edema. NEUROLOGICAL: Gross neurological examination did not reveal any focal deficits. - Labs CBC & Chem 7: 09/30/22 05:33 09/30/22 05:33 Labs: Abnormal Lab Results - Last 24 Hours (Table) 09/29/22 09/29/22 09/29/22 Range/Units 12:41 17:03 20:30 WBC (3.8-10.6) k/uL RBC (3.80-5.40) m/uL Neutrophils # (1.3-7.7) k/uL Lymphocytes # (1.0-4.8) k/uL BUN (7-17) mg/dL Glucose (74-99) mg/dL POC Glucose (mg/dL) 156 H 221 H 311 H (70-110) mg/dL Calcium (8.4-10.2) mg/dL 09/30/22 09/30/22 09/30/22 Range/Units 05:33 05:33 06:13 WBC 23.8 H (3.8-10.6) k/uL RBC 3.73 L (3.80-5.40) m/uL Neutrophils # 22.4 H (1.3-7.7) k/uL Lymphocytes # 0.7 L (1.0-4.8) k/uL BUN 39 H (7-17) mg/dL Glucose 182 H (74-99) mg/dL POC Glucose (mg/dL) 203 H (70-110) mg/dL Calcium 7.4 L (8.4-10.2) mg/dL 09/30/22 Range/Units 11:23 WBC (3.8-10.6) k/uL RBC (3.80-5.40) m/uL Neutrophils # (1.3-7.7) k/uL Lymphocytes # (1.0-4.8) k/uL BUN (7-17) mg/dL Glucose (74-99) mg/dL POC Glucose (mg/dL) 282 H (70-110) mg/dL Calcium (8.4-10.2) mg/dL Microbiology - Last 24 Hours (Table) 09/23/22 16:50 Blood Culture - Final Blood 09/23/22 17:05 Blood Culture - Final Blood Assessment and Plan Assessment: Acute hypoxic hypercapnic respiratory failure requiring intubation and mechanical ventilation. 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 Started on clonidine patch followup repeat Procalcitonin Vascular surgery on board for for dissected aneurysm Cardiology on board Critical care following
--- NOTE | 2022-09-30 14:56 | US ---
EXAMINATION TYPE: US venous doppler duplex UE RT DATE OF EXAM: 09/30/2022 COMPARISON: NONE CLINICAL INDICATION: Female, 76 years old with history of r/o clot; right arm edema SIDE PERFORMED: right Right Arm: No evidence of DVT as visualized IMPRESSION: 1. Right upper extremity ultrasound negative for deep venous thrombosis.
[2022-09-30 16:56] LABS: Glucose,Whole Blood 239 mg/dL (70-110)
[2022-09-30 20:48] LABS: Glucose,Whole Blood 229 mg/dL (70-110)
[2022-09-30] MEDS: MELATONIN 3 MG TABLET PO SCH (20:51)
[2022-10-01] MEDS: methylPREDNISolone SOD SUCCI 125 MG/2 ML VIAL IV SCH ×2 (00:03→05:55)
[2022-10-01] MEDS: HEPARIN SODIUM,PORCINE/PF 5,000 UNIT/0.5 ML SYRINGE SQ SCH ×4 (00:03→23:33)
[2022-10-01 06:31] LABS: Basophils % (A) 0 %; Eosinophils % (A) 0 %; HCT 31.7 % (34.0-46.0); HGB 10.4 gm/dL (11.4-16.0); Lymphocytes # (A) 0.9 k/uL (1.0-4.8); Lymphocytes % (A) 4 %; MCH 31.1 pg (25.0-35.0); MCHC 32.8 g/dL (31.0-37.0); MCV 94.6 fL (80.0-100.0); Mean Platelet Volume 10.8; Monocytes # (A) 0.5 k/uL (0-1.0); Monocytes % (A) 2 %; Neutrophils # (A) 19.2 k/uL (1.3-7.7); Neutrophils % (A) 92 %; Platelet Count 234 k/uL (150-450); RBC 3.35 m/uL (3.80-5.40); RDW 14.1 % (11.5-15.5); WBC 20.8 k/uL (3.8-10.6)
[2022-10-01 06:41] LABS: Glucose,Whole Blood 207 mg/dL (70-110)
[2022-10-01] MEDS: INSULIN ASPART (NovoLOG) 100 UNIT/ML VIAL SQ SCH ×4 (06:47→20:51)
[2022-10-01] MEDS: carvediloL 12.5 MG TAB PO SCH ×2 (06:47→17:55)
[2022-10-01 06:49] LABS: Calcium 7.7 mg/dL (8.4-10.2); Potassium 4.3 mmol/L (3.5-5.1)
--- NOTE | 2022-10-01 08:13 | P.PN ---
Subjective Progress Note Date: 10/01/22 This is a 76-year-old female patient with a history of chronic and ongoing tobacco dependence, chronic obstructive pulmonary disease, hypertension, hyperlipidemia, osteoarthritis. She presented to the emergency room yesterday with complaints of a 2-3 day history of worsening shortness of breath. She had a productive cough of greenish yellow sputum and sinus congestion. She stated she had no inhalers at home. She eventually failed BiPAP support and was intubated in the emergency department yesterday 09/23/2022. X-ray had revealed evidence of COPD but no acute pulmonary process. Computed tomography scan of the brain revealed no acute intracranial process. Thoracic scan revealed a short segment infrarenal abdominal aortic dissection. No aortic aneurysm. No evidence of pulmonary embolism. There is a spiculated 9 mm nodule in the right lung apex raising the possibility of malignancy. Outpatient PET scan recommended. There is decreased enhancement involving the left kidney suspicious for infarct. Atrophy of the right kidney with delayed enhancement compared to the left. Both kidneys with moderate stenosis. There is also possible Zenker's diverticulum within the upper esophagus. Staff has been unable to pass a nasogastric tube. White count 25.7. Hemoglobin 11.1. Platelets 228. Sodium 136. Potassium 4.7. Bicarb 15. BUN 32. Creatinine 1.24. Glucose 260. Pro-calcitonin 1.09. She is seen today in consultation in the intensive care unit. Current ventilator settings are assist-control mode with a rate of 22, tidal volume 350, FiO2 40% and a PEEP of 5. Morning blood gases reveal a P O2 of 168, pCO2 36 and a pH of 7.31. That was on 40% FiO2. She initially was on a nitroglycerin drip that has been discontinued. She is on esmolol at 200 mcg/kg/min. Fentanyl at 2 mcg/kg/h and propofol 50 mcg/kg/m. She's been initiated on DuoNeb inhalations, Pulmicort and Perforomist inhalations, IV Solu-Medrol. Antibiotics in the form of azithromycin. On today's evaluation of 09/25/2022, the patient is being seen for a follow-up. This is a case of COPD and the patient has an infrarenal abdominal aortic dissection this being treated conservatively. The patient is known to have a spiculated 9 mm right upper lobe lesion in addition to hypertension, hyperlipidemia and osteoarthritis. Noted the patient presented to us with respiratory failure. She had to be intubated after failing a BiPAP trial. At this point in time, the patient is sedated on propofol which is running at 20 mcg/kg/m. The patient is adequately sedated. The patient's increase of mechanical ventilator. She is on assist control at the rate of 22, tidal volume of 350, FiO2 of 30% and a PEEP of 5. The blood gas from today showed a pH of 7.25 with a pCO2 of 35 and a pO2 of 91. The patient has essentially the same metabolic acidosis. Serum bicarb is down to 14 and this is a non-anion gap metabolic acidosis. The chest x-ray from today shows hyperinflation. ET tube is a in a good location. No significant orotracheal secretions at this point in time. The patient is on bronchodilators, IV Solu-Medrol and Zithromax. The white cell count was as high as 25, dropped down to 21. Hemoglobin has stayed stable at 11.5. Sodium level is at 1:30 with a potassium level of 4.5 and a bicarb level of 14 as mentioned and the calcium level is low at 6.3. Pro- calcitonin level was at 1.09 at the time of admission and a troponin was at 0.15. The patient also has an infrarenal abdominal aortic aneurysm. The right kidney on the CAT scan showed a delayed enhancement on the left and the findings were suspicious for a left kidney infarct with decreased enhancement. There is also atrophy of the right kidney with delayed enhancement and possibility of renal artery stenosis is being entertained at this point in time. There is also possibility of a Zenker's diverticulum in the upper esophagus. The patient does not have a feeding tube for now and a technically difficult. Could be related to underlying Zenker's diverticulum. IV fluids are running in order of 0.9 at 75 mL an hour. She did have hypotension last night and she was taken off the esmolol drip and her blood pressure is stable at this point in time with a urine output of 30-50 mL an hour. IV fluids are in the form of normal saline. On 09/26/2022, the patient remains intubated on a mechanical ventilator. Earlier this morning, as the patient was being moved around doing further testing and a chest x-ray, she became slightly more tachycardic and hypertensive. Prior to that, her BP was under excellent control and her heart rate was also under excellent control. She was off the asthma low drip for the past 24 hours. I think is reasonable to restart the esmolol drip for heart rate and blood pressure control. Meanwhile, this morning, the patient remains on propofol which is running at 40 mcg/kg/m. She is successful mechanical ventilator. Some assist-control mode at the rate of 22, tidal volume of 350, F iO2 of 30% and a PEEP of 5. There is improvement in her acid base status. In fact she is slightly alkalotic today. Patient at 7.5 with a pCO2 of 37 and pO2 of 11. The chest x-ray is unchanged compared to yesterday. Orotracheal tube is in a good location. No significant infiltration. The peak airway pressure is 27. No significant orotracheal secretions. Cardiac rhythm remained sinus. She is in sinus tachycardia. She is having occasional ectopies. The white cell cause of 19 with a hemoglobin of 10.4 and a platelet count of 219. The serum bicarb is up to 27. Sodium is at 137, calcium level is low at 6.1 to be replaced. BUN is at 24 with a creatinine of 1.05. She remains on bron chodilators. She remains on steroids. She remains on empiric antibiotic coverage with Rocephin and Zithromax. Unable to insert an OG tube and the patient remains nothing by mouth for now. On 09/27/2022, the patient is extubated and she is currently on room air oxygen. Nevertheless, she still bronchospastic and wheezy. She is still very weak. She has a cough. Her swallow is poor and she is unable to swallow properly and she had some issues swallowing tablets yesterday. Based on that, the patient was kept nothing by mouth and a swallow evaluation was requested. The patient was successfully extubated yesterday after controlling and hemodynamics. She was started on esmolol drip which is currently running at 30 mcg/kg/m. Most recent heart rate is 84. Her blood pressure also is being managed although it seems to be running higher as of 3:00 this morning. Most recent BP is 161/84. Note that she is on esmolol drip. She is also on hydralazine 10 mg every 4 hours. She was started on Coreg 6.25 mg by mouth twice a day. Nevertheless, I'm not sure she is going to be able to swallow the tablets. She is still on her routine bronchodilators. Chest x-ray remains unchanged. The patient had a low ionized calcium of 4.2. Based on that, the patient was given calcium supplements. On today's blood work, the white cell count at 17 with a hemoglobin of 9.9 and a platelet count of 226. Sodium is at 139, BUN is at 27 with a creatinine of 1. LFTs are normal. Orotracheal tube and orogastric tube were both removed. IV fluids are in the form of 0.9 at the rate of 75 mL an yennifer r. 09/28/2022, the patient remains extubated and she remains on room air oxygen. She is getting progressively stronger and she was able to ambulate yesterday with some assistance. This was quite limited. She remains very weak. A swallow study was abnormal and the patient failed swallow. This morning, we achieved to insert a Dobbhoff catheter for medication and possibly some enteral feeding. The patient is not having any labored breathing at this point in time. Her chest x-ray from today shows no acute abnormalities. The Dobbhoff is in a good location. It seems to be in the small bowel. Findings are consistent with COPD. No airspace disease. No infiltrates. In terms of her pressure control, the patient remains on esmolol drip which is running at the rate of 150 mcg/kg/m. She was also given a Catapres patch 0.3 mg. She'll be started on Coreg through the Dobbhoff catheter today and as noted will be gradually weaned off. Coreg is a dose of 6.25 mg twice a day. She remains on bronchodilators patient remains on steroids. She has adequate pulses in lower extremity is bila terally. In terms of her blood work from today, the patient has a white cell count of 20 with a hemoglobin of 10.5 and a platelet count of 234. BUN is at 34 with a creatinine of 0.9 and his sodium level is at 140. Calcium level is at 6.2, uncorrected. IV fluids are running at the rate of 75 mL an hour and this was cut off today by cardiology as the patient is developing some peripheral edema. 09/29/2022, the patient remains on room air oxygen. Still actively bronchospastic and wheezy. Nevertheless, is quite comfortable at rest and her breathing is nonlabored at rest. We were able to insert a Dobbhoff catheter yesterday and enteral feeding was initiated yesterday and she is receiving Jevity at 20 mL an hour. She is able to tolerate a diet without any major issues. 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 Otherwise, she is alert and awake and she is communicating. Blood pressure control has been an issue. We will able to give her oral medications. She is currently on Coreg and Cozaar 10. Esmolol drip has been discontinued and the patient is also receiving when necessary hydralazine. In terms of blood pressure control, she seems to be under better blood pressure control. She has no abdominal pain. She has pulses in lower extremities bilaterally. She does have an infrarenal abdominal aortic dissection which is being managed conservatively. She is still receiving her bronchodilators and steroids for now.White count of 20 with a hemoglobin of 10.8 and a platelet count of 258. BUN is 39 with a creatinine of 1.1 and sodium level is at 138. On 09/30/2022, the patient remains on room air oxygen. She is calm and comfortable. Still bronchospastic and wheezy. She remains on bronchodilators and steroids. I kept the Dobbhoff in yesterday for enteral feeding and nutritional support. The patient is still receiving Jevity at 20 mL an hour. The patient is also offered soft diet and she is on a one-to-one supervision while eating. At the same time, the patient did have episodes of diarrhea yesterday total of 3. Stool for C. diff needs to be checked. The white cell count 23 with a hemoglobin 11.4 and a platelet count of 280. BUN is 39 with a creatinine of 0.8 and sodium level is at 139. Chest x-ray from 09/28/2022 showed no acute abnormalities. Dobbhoff catheter is in a good location. Another active issue is her blood pressure control. The patient is awaiting dissection infrarenal and the patient is to be undetectable pressure control. She is currently on a combination of Catapres patch, Norvasc 10 mg, Coreg 12.5 mg twice a day and Diovan and hydralazine. Most recent blood pressure is 156/84. No nausea. No vomiting. No abdominal pain. No other complaints. 10/01/2022, the patient is much more comfortable less bronchospastic and wheezy compared to yesterday and she remains on room air oxygen. She improved her ability to swallow food and the patient was receiving enteral feeding and I removed the Dobbhoff catheter yesterday as needed advancing her diet. Her breathing is comfortable and she is hemodynamically stable. She was having some episodes of diarrhea yesterday and this is also improving. She is afebrile. No significant respiratory distress. Her blood pressure is under better control for now as the patient is receiving a combination of antihypertensive medications and she is on a combination of Correctol 0.5 mg by mouth twice a day, Norvasc 10 mg by mouth daily, clonidine 0.3 mg 3 times a day and hydralazine on an as needed basis. blood pressure control is being achieved as the patient has a infrarenal aortic dissection. Her hemoglobin remained stable at 10.4. The white cell count is down to 20.8. BUN is at 47 with a creatinine of 1 and his sodium level of 139. Pro-calcitonin level is at 0.14. Venous Doppler of the right upper extremity was negative for DVT. CULTURES were negative. Objective - Vital Signs Vital signs: Vital Signs Temp 97.9 F 10/01/22 04:00 Pulse 73 10/01/22 07:00 Resp 13 10/01/22 07:00 BP 122/60 10/01/22 07:00 Pulse Ox 95 10/01/22 07:00 FiO2 30 09/26/22 12:00 Intake & Output 09/30/22 10/01/22 10/01/22 18:59 06:59 18:59 Intake Total 500 300 Output Total 0 0 Balance 500 0 300 Weight 63.5 kg Intake: Oral 300 Tube Feeding 200 Other 300 Output: Urine 0 0 Other: Voiding Method Incontinent Incontinent # Voids 1 1 0 - Exam GENERAL EXAM: Intubated, sedated 76-year-old female, comfortable , extubated and currently she is on room air oxygen, and patient is calm and comfortable HEAD: Normocephalic. EYES: Sluggish reaction of pupils, equal size. NOSE: Clear with pink turbinates. THROAT: Oral endotracheal tube secured in place. No erythema or exudates. NECK: No masses, no JVD. CHEST: No chest wall deformity. LUNGS: Equal air entry with no crackles, wheeze, rhonchi or dullness. The patient had diffuse expiratory wheezes throughout the lung field bilaterally CVS: S1 and S2 normal with no audible murmur, regular rhythm. ABDOMEN: No hepatosplenomegaly, normal bowel sounds, no guarding or rigidity. SPINE: No scoliosis or deformity SKIN: No rashes CENTRAL NERVOUS SYSTEM: No focal deficits, tone is normal in all 4 extremities. EXTREMITIES: There is no peripheral edema. No clubbing, no cyanosis. Peripheral pulses are intact. - Labs CBC & Chem 7: 10/01/22 06:16 10/01/22 06:16 Labs: Abnormal Lab Results - Last 24 Hours (Table) 09/30/22 09/30/22 09/30/22 Range/Units 11:23 16:53 20:47 WBC (3.8-10.6) k/uL RBC (3.80-5.40) m/uL Hgb (11.4-16.0) gm/dL Hct (34.0-46.0) % Neutrophils # (1.3-7.7) k/uL Lymphocytes # (1.0-4.8) k/uL BUN (7-17) mg/dL Glucose (74-99) mg/dL POC Glucose (mg/dL) 282 H 239 H 229 H (70-110) mg/dL Calcium (8.4-10.2) mg/dL 10/01/22 10/01/22 10/01/22 Range/Units 06:16 06:16 06:39 WBC 20.8 H (3.8-10.6) k/uL RBC 3.35 L (3.80-5.40) m/uL Hgb 10.4 L (11.4-16.0) gm/dL Hct 31.7 L (34.0-46.0) % Neutrophils # 19.2 H (1.3-7.7) k/uL Lymphocytes # 0.9 L (1.0-4.8) k/uL BUN 47 H (7-17) mg/dL Glucose 198 H (74-99) mg/dL POC Glucose (mg/dL) 207 H (70-110) mg/dL Calcium 7.7 L (8.4-10.2) mg/dL Assessment and Plan Plan: Acute hypoxemic respiratory failure secondary to an acute exacerbation of chronic obstructive pulmonary disease requiring intubation mechanical v entilatory support on 09/23/2022. No evidence of pneumonia and the patient was extubated on 09/26/2022 and currently she is on room air oxygen. She remains bronchospastic and wheezy. Chest x-ray remains free of any acute pulmonary infiltrates. Leukocytosis secondary to above, remains elevated, essentially unchanged since yesterday. The patient completed a course of Zosyn Acute kidney injury. There is decreased enhancement involving the left kidney suspicious for infarct. Atrophy of the right kidney with delayed enhancement compared to the left. Both kidneys with moderate stenosis. The patient is producing adequate amount of urine output. Creatinine is normalized Thoracic scan revealed a short segment infrarenal abdominal aortic dissection. No aortic aneurysm. Spiculated 9 mm nodule in the right lung apex raising the possibility of malignancy. Outpatient PET scan recommended. Possible Zenker's diverticulum within the upper esophagus. Nasogastric tube unable to be passed, was able to successfully pass a Dobbhoff catheter and the patient is receiving enteral feeding for nutritional support and the patient is currently on Jevity. The Dobbhoff catheter was removed yesterday and the patient is currently receiving oral feeds History of CVA/TIA History of chronic and ongoing tobacco dependence Hyperlipidemia Hypertension Diarrhea, rule out C. diff colitis. Plan: Advance oral intake, that he has subsided Try to gradually advance oral diet Patient is currently on room air oxygen Dropped Solu-Medrol 40 mg every 12 hours Continue Coreg 12.5 mg by mouth twice a day, , Diovan 160 mg by mouth by mouth twice a day, Norvasc 10 mg by mouth daily and switch to Catapres 2.3 mg 3 times a day and discontinue the Catapres patch and monitor the blood pressure control. The patient is not requiring any drips for now. BP is under better control subcu for DVT prophylaxis We will continue to follow and make further recommendations based on her clinical status She can be transferred to medical surgical floor with remote telemetry.
[2022-10-01] MEDS: IPRATROPIUM-ALBUTEROL 3 ML NEB INHALATION SCH ×5 (08:38→20:05)
[2022-10-01] MEDS: BUDESONIDE 1 MG/2 ML NEBU INHALATION SCH ×2 (08:38→20:05)
[2022-10-01] MEDS: FORMOTEROL FUMARATE 20 MCG/2 ML NEBU INHALATION SCH ×2 (08:38→20:05)
[2022-10-01] MEDS: VALSARTAN 160 MG TAB PO SCH ×2 (09:35→20:37)
[2022-10-01] MEDS: PANTOPRAZOLE 40 MG/10 ML VIAL IVP SCH (09:35)
[2022-10-01] MEDS: ATORVASTATIN 40 MG TAB PO SCH (09:35)
[2022-10-01] MEDS: amLODIPine 10 MG TAB PO SCH (09:35)
[2022-10-01] MEDS: cloNIDine HCL 0.1 MG TAB PO SCH (09:35)
[2022-10-01 11:52] LABS: Glucose,Whole Blood 152 mg/dL (70-110)
--- NOTE | 2022-10-01 12:58 | P.PN ---
Subjective Progress Note Date: 10/01/22 The patient is a 76-year-old female who came into the hospital with hypertensive crisis. She was found to have an infrarenal aortic dissection and was transferred to the ICU. Over the course of her hospital admission the patient was intubated. Over the last several days she is now able to tolerate oral medications after speech evaluation. Blood pressure has improved over the course of her admission and is now developing hypotension. At the time of my examination, the patient was sitting up in the recliner chair. She is lethargic and difficult to arouse. Nursing staff states she sleeps often during the day. GENERAL: Well-appearing, well-nourished and in no acute distress. NECK: Supple without JVD or thyromegaly. LUNGS: Breath sounds are diminished to auscultation bilaterally. Respiration equal and unlabored. Bilateral inspiratory and expiratory wheezes HEART: Regular rate and rhythm without murmurs, rubs or gallops. S1 and S2 heard. EXTREMITIES: Normal range of motion. Mild generalized edema. No clubbing or cyanosis. Peripheral pulses intact and strong. TELEMETRY: Sinus rhythm with heart rate in the 60s IMPRESSION: Hypertensive crisis Infrarenal aortic dissection, surgical team signed off Sinus tachycardia, improved with oral beta priscila PLAN: Reduce clonidine to 0.2 mg 3 times a day and wean down as needed Aggressive pulmonary hygiene Further recommendations to be based on clinical course I am dictating on behalf of Dr Arnav Nicholas's history/physical and assessme nt/plan. Objective - Vital Signs Vital signs: Vital Signs Temp 97.4 F L 10/01/22 08:00 Pulse 68 10/01/22 09:10 Resp 16 10/01/22 08:00 BP 104/53 10/01/22 08:00 Pulse Ox 95 10/01/22 08:00 FiO2 30 09/26/22 12:00 Intake & Output 09/30/22 10/01/22 10/01/22 18:59 06:59 18:59 Intake Total 500 300 Output Total 0 0 Balance 500 0 300 Weight 63.5 kg Intake: Oral 300 Tube Feeding 200 Other 300 Output: Urine 0 0 Other: Voiding Method Incontinent Incontinent # Voids 1 1 1 - Labs CBC & Chem 7: 10/01/22 06:16 10/01/22 06:16 Labs: Abnormal Lab Results - Last 24 Hours (Table) 09/30/22 09/30/22 10/01/22 Range/Units 16:53 20:47 06:16 WBC 20.8 H (3.8-10.6) k/uL RBC 3.35 L (3.80-5.40) m/uL Hgb 10.4 L (11.4-16.0) gm/dL Hct 31.7 L (34.0-46.0) % Neutrophils # 19.2 H (1.3-7.7) k/uL Lymphocytes # 0.9 L (1.0-4.8) k/uL BUN (7-17) mg/dL Glucose (74-99) mg/dL POC Glucose (mg/dL) 239 H 229 H (70-110) mg/dL Calcium (8.4-10.2) mg/dL 10/01/22 10/01/22 10/01/22 Range/Units 06:16 06:39 11:49 WBC (3.8-10.6) k/uL RBC (3.80-5.40) m/uL Hgb (11.4-16.0) gm/dL Hct (34.0-46.0) % Neutrophils # (1.3-7.7) k/uL Lymphocytes # (1.0-4.8) k/uL BUN 47 H (7-17) mg/dL Glucose 198 H (74-99) mg/dL POC Glucose (mg/dL) 207 H 152 H (70-110) mg/dL Calcium 7.7 L (8.4-10.2) mg/dL
--- NOTE | 2022-10-01 15:40 | P.PN ---
Subjective Progress Note Date: 10/01/22 Principal diagnosis: Acute hypoxemic respiratory failure secondary to an acute exacerbation of chronic obstructive pulmonary disease requiring intubation mechanical ve ntilatory support on 09/23/2022 76 years old female patient Presents with dyspnea with acute hypoxic respiratory failure which is rapidly degenerated to the degree requiring intubation and placing patient on mechanical ventilation. Patient also with blood pressure despite 200/100 patient was placed on nitro drip. T brain shows no obvious acute intracranial process. CTA of the aorta and the thoracic abdomen pelvis reveals no obvious to a dissection. There is a small short segment of infrarenal aortic dissection in the abdomen. Also a small wedge-shaped region seen by radiology in the left kidney suspicious for infarct with an atrophic right kidney. Patient has a 9 mm lung nodule. There is a nonobstructive renal calculus. Also possible Zenker's diverticulum versus possible fluid in the upper esophagus, suspect residual fluid. 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 The systolic pressure in the 90s and heart rate 70s to 71 showing WBCs 12.5, trace of CBC is unremarkable. PH 7.2, pCO2 elevated 51. BMP is unremarkable, creatinine 1.48, baseline 1.1-1.3. Glucose 307. Neuro exam not significantly elevated. Troponin is negative at 0.017. ProBNP is 210. Viruses undetected influenza, rotavirus and RSV Patient was started on antibiotics obstruction and Zithromax and steroids were added. 09/30/2022 the patient is seen and evaluated in ICU at bedside; remains on room air oxygen. She is calm and comfortable. - remains on bronchodilators and steroids; Dobbhoff for enteral feeding and nutritional support. The patient is still receiving Jevity at 20 mL an hour. The patient is also offered soft diet and she is on a one-to-one supervision while eating. At the same time, the patient did have episodes of diarrhea yesterday total of 3. Stool for C. diff needs to be checked. The white cell count 23 with a hemoglobin 11.4 and a platelet count of 280. BUN is 39 with a creatinine of 0.8 and sodium level is at 139. Chest x-ray from 09/28/2022 showed no acute abnormalities. Dobbhoff catheter is in a good location. Another active issue is her blood pressure control. The patient is awaiting dissection infrarenal and the patient is to be undetectable pressure control. She is currently on a combination of Catapres patch, Norvasc 10 mg, Coreg 12.5 mg twice a day and Diovan and hydralazine. Keep enteral feeding for another 24 hours, currently on Jevity at 20 mL an hour Monitor diary and check stool for C. diff Try to gradually advance oral diet 10/01/2022 --patient is seen and evaluated in ICU; much more comfortable less bronchospastic and wheezy compared to yesterday and she remains on room air oxygen. -- Patient is improved her ability to swallow food and the patient was receiving enteral feeding; the Dobbhoff catheter was removed yesterday as needed advancing her diet. Her breathing is comfortable and she is hemodynamically stable. She was having some episodes of diarrhea yesterday and this is also improving. She is afebrile. No significant respiratory distress. Her blood pressure is under better control for now as the patient is receiving a combination of antihypertensive medications and she is on a combination of Correctol 0.5 mg by mouth twice a day, Norvasc 10 mg by mouth daily, clonidine 0.3 mg 3 times a day and hydralazine on an as needed basis. blood pressure control is being achieved as the patient has a infrarenal aortic dissection. - hemoglobin remained stable at 10.4. The white cell count is down to 20.8. BUN is at 47 with a creatinine of 1 and his sodium level of 139. Pro-calcitonin level is at 0.14. Venous Doppler of the right upper extremity was negative for DVT. CULTURES were negative. -- Try to gradually advance oral diet - Critical care on hold Solu-Medrol 40 mg every 12 hours Continue Coreg 12.5 mg by mouth twice a day, , Diovan 160 mg by mouth by mouth twice a day, Norvasc 10 mg by mouth daily and switch to Catapres 2.3 mg 3 times a day and discontinue the Catapres patch and monitor the blood pressure control. The Objective - Vital Signs Vital signs: Vital Signs Temp 97.4 F L 10/01/22 13:31 Pulse 75 10/01/22 13:31 Resp 19 10/01/22 13:31 BP 99/60 10/01/22 13:31 Pulse Ox 96 10/01/22 13:31 FiO2 30 09/26/22 12:00 Intake & Output 09/30/22 10/01/22 10/01/22 18:59 06:59 18:59 Intake Total 500 300 Output Total 0 0 Balance 500 0 300 Weight 63.5 kg Intake: Oral 300 Tube Feeding 200 Other 300 Output: Urine 0 0 Other: Voiding Method Incontinent Incontinent # Voids 1 1 1 - Exam GENERAL: Alert and oriented, following commands HEENT: Pupils are round and equally reacting to light. EOMI. No scleral icterus. No conjunctival pallor. Normocephalic, atraumatic. No pharyngeal erythema. No thyromegaly. CARDIOVASCULAR: S1 and S2 present. No murmurs, rubs, or gallops. PULMONARY: Diminished breath sounds at the bases bilaterally ABDOMEN: Soft, nontender, nondistended, normoactive bowel sounds. No palpable organomegaly. MUSCULOSKELETAL: No joint swelling or deformity. EXTREMITIES: No cyanosis, clubbing, or pedal edema. NEUROLOGICAL: Gross neurological examination did not reveal any focal deficits. - Labs CBC & Chem 7: 10/01/22 06:16 10/01/22 06:16 Labs: Abnormal Lab Results - Last 24 Hours (Table) 09/30/22 09/30/22 10/01/22 Range/Units 16:53 20:47 06:16 WBC 20.8 H (3.8-10.6) k/uL RBC 3.35 L (3.80-5.40) m/uL Hgb 10.4 L (11.4-16.0) gm/dL Hct 31.7 L (34.0-46.0) % Neutrophils # 19.2 H (1.3-7.7) k/uL Lymphocytes # 0.9 L (1.0-4.8) k/uL BUN (7-17) mg/dL Glucose (74-99) mg/dL POC Glucose (mg/dL) 239 H 229 H (70-110) mg/dL Calcium (8.4-10.2) mg/dL 10/01/22 10/01/22 10/01/22 Range/Units 06:16 06:39 11:49 WBC (3.8-10.6) k/uL RBC (3.80-5.40) m/uL Hgb (11.4-16.0) gm/dL Hct (34.0-46.0) % Neutrophils # (1.3-7.7) k/uL Lymphocytes # (1.0-4.8) k/uL BUN 47 H (7-17) mg/dL Glucose 198 H (74-99) mg/dL POC Glucose (mg/dL) 207 H 152 H (70-110) mg/dL Calcium 7.7 L (8.4-10.2) mg/dL Assessment and Plan Assessment: Acute hypoxic hypercapnic respiratory failure requiring intubation and mechanical ventilation. 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 Started on clonidine patch followup repeat Procalcitonin Vascular surgery on board for for dissected aneurysm Cardiology on board Critical care following
[2022-10-01 16:29] LABS: Glucose,Whole Blood 235 mg/dL (70-110)
[2022-10-01 17:53] LABS: Glucose,Whole Blood 246 mg/dL (70-110)
[2022-10-01] MEDS: cloNIDine HCL 0.2 MG TAB PO SCH ×2 (17:55→20:37)
[2022-10-01 20:36] LABS: Glucose,Whole Blood 130 mg/dL (70-110)
[2022-10-01] MEDS: methylPREDNISolone SOD SUCCI 40 MG/ML 1 ML VIAL IV SCH (20:36)
[2022-10-01] MEDS: MELATONIN 3 MG TABLET PO SCH (20:37)
[2022-10-02 06:15] LABS: Glucose,Whole Blood 169 mg/dL (70-110)
[2022-10-02] MEDS: INSULIN ASPART (NovoLOG) 100 UNIT/ML VIAL SQ SCH ×5 (06:47→20:38)
[2022-10-02] MEDS: carvediloL 12.5 MG TAB PO SCH ×2 (06:48→16:52)
[2022-10-02] MEDS: IPRATROPIUM-ALBUTEROL 3 ML NEB INHALATION SCH ×4 (08:02→20:32)
[2022-10-02] MEDS: BUDESONIDE 1 MG/2 ML NEBU INHALATION SCH ×2 (08:02→20:32)
[2022-10-02] MEDS: FORMOTEROL FUMARATE 20 MCG/2 ML NEBU INHALATION SCH ×2 (08:02→20:32)
[2022-10-02] MEDS: ATORVASTATIN 40 MG TAB PO SCH (09:35)
[2022-10-02] MEDS: HEPARIN SODIUM,PORCINE/PF 5,000 UNIT/0.5 ML SYRINGE SQ SCH ×3 (09:35→23:56)
[2022-10-02] MEDS: VALSARTAN 160 MG TAB PO SCH ×2 (09:35→20:32)
[2022-10-02] MEDS: amLODIPine 10 MG TAB PO SCH (09:35)
[2022-10-02] MEDS: PANTOPRAZOLE 40 MG/10 ML VIAL IVP SCH (09:35)
[2022-10-02] MEDS: cloNIDine HCL 0.2 MG TAB PO SCH ×3 (09:36→20:32)
[2022-10-02] MEDS: methylPREDNISolone SOD SUCCI 40 MG/ML 1 ML VIAL IV SCH (10:17)
[2022-10-02 11:43] LABS: Glucose,Whole Blood 136 mg/dL (70-110)
--- NOTE | 2022-10-02 12:27 | P.PN ---
Subjective Progress Note Date: 10/02/22 Principal diagnosis: Acute hypoxic respiratory failure secondary to acute exacerbation of COPD 10/01/2022, the patient is much more comfortable less bronchospastic and wheezy compared to yesterday and she remains on room air oxygen. She improved her ability to swallow food and the patient was receiving enteral feeding and I removed the Dobbhoff catheter yesterday as needed advancing her diet. Her breathing is comfortable and she is hemodynamically stable. She was having some episodes of diarrhea yesterday and this is also improving. She is afebrile. No significant respiratory distress. Her blood pressure is under better control for now as the patient is receiving a combination of antihypertensive medications and she is on a combination of Correctol 0.5 mg by mouth twice a day, Norvasc 10 mg by mouth daily, clonidine 0.3 mg 3 times a day and hydralazine on an as needed basis. blood pressure control is being achieved as the patient has a infrarenal aortic dissection. Her hemoglobin remained stable at 10.4. The white cell count is down to 20.8. BUN is at 47 with a creatinine of 1 and his sodium level of 139. Pro-calcitonin level is at 0.14. Venous Doppler of the right upper extremity was negative for DVT. CULTURES were negative. Patient was reevaluated today on 10/02/2022, patient remains in the ICU as an overflow, she is on room air, not in any distress, hardly any pulmonary symptoms, no cough no wheezing no shortness of breath, hence am recommending that we transfer the patient to a medical surgical floor. Patient was extubated on 09/28 and tolerated the extubation so far quite well. Blood pressure remains significantly high, requiring multiple medications for blood pressure control. Her leukocytosis is improving, WBC count today is 20.8 hemoglobin is 10.4. Electrolytes are normal renal profile is normal last chest x-ray from 511 showed minimal congestive changes otherwise unremarkable. Venous Doppler done recently showed no evidence of DVT in right arm Objective - Vital Signs Vital signs: Vital Signs Temp 98.1 F 10/02/22 08:00 Pulse 64 10/02/22 11:56 Resp 16 10/02/22 08:00 BP 120/63 10/02/22 08:00 Pulse Ox 94 L 10/02/22 08:05 FiO2 30 09/26/22 12:00 Intake & Output 10/01/22 10/02/22 10/02/22 18:59 06:59 18:59 Intake Total 300 Output Total 1 Balance 300 -1 Weight 63.3 kg Intake: Oral 300 Output: Stool 1 Other: # Voids 1 1 # Bowel Movements 1 - Exam GENERAL EXAM: Revealed 76-year-old female in no distress, on room air. Head: Atraumatic, normocephalic. EENT: PERRLA, EOMI, nonicteric, no neck masses no JVD. CHEST: No chest wall deformity. LUNGS: Equal air entry with no crackles, no rhonchi and no wheezes. Clear bilaterally. Diminished at the bases CVS: S1 and S2 normal with no audible murmur, regular rhythm. ABDOMEN: No hepatosplenomegaly, normal bowel sounds, no guarding or rigidity. SKIN: No rashes CENTRAL NERVOUS SYSTEM: No focal deficits, tone is normal in all 4 extremities. EXTREMITIES: There is no peripheral edema. No clubbing, no cyanosis. Peripheral pulses are intact. - Labs CBC & Chem 7: 10/01/22 06:16 10/01/22 06:16 Labs: Abnormal Lab Results - Last 24 Hours (Table) 10/01/22 10/01/22 10/01/22 Range/Units 16:28 17:52 20:35 POC Glucose (mg/dL) 235 H 246 H 130 H (70-110) mg/dL 10/02/22 10/02/22 Range/Units 06:13 11:41 POC Glucose (mg/dL) 169 H 136 H (70-110) mg/dL Assessment and Plan Assessment: Impression: Acute hypoxic respiratory failure secondary to acute exacerbation of COPD resolved. Acute kidney injury, improving Leukocytosis secondary to above. 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 Recommendation: Continue nutritional support Continue broad related dilators and switched Solu-Medrol to prednisone burst and taper Continue bronchodilators Continue blood pressure medications including Coreg, Diovan, Norvasc, Catapres, Continue DVT prophylaxis Will transfer the patient out of the ICU to a regular medical floor We will continue to follow Time with Patient: Less than 30
[2022-10-02 13:54] VITALS: BMI 26.4
[2022-10-02 16:52] LABS: Glucose,Whole Blood 134 mg/dL (70-110)
[2022-10-02] MEDS: MELATONIN 3 MG TABLET PO SCH (20:32)
--- NOTE | 2022-10-02 22:41 | PN ---
PROGRESS NOTE SUBJECTIVE: Missy is a 76-year-old lady, whom we are following because of uncontrolled hypertension. She remains in ICU and still having some swallowing problems. MEDICATIONS: Currently on: 1. Norvasc 10 daily. 2. Lipitor. 3. Coreg 12.5 b.i.d. 4. Catapres 0.2 t.i.d. 5. Diovan. OBJECTIVE: GENERAL: Comfortable at rest. VITAL SIGNS: Stable. CHEST: Reveals good air entry bilaterally. HEART: Reveals first and second heart sounds. No gallop. No murmur. ABDOMEN: Soft. EXTREMITIES: Did not reveal any edema. Peripheral pulses are felt. LABORATORY DATA: Show that the hemoglobin is 10.4. Potassium is 4.3 and creatinine is 1. ASSESSMENT AND PLAN: Hypertension. Blood pressure is well controlled on multiple medications. We will continue the same. MMODL / IJN: [id number] /
--- NOTE | 2022-10-03 01:26 | P.PN ---
Subjective 76 years old female patient Presents with dyspnea with acute hypoxic respiratory failure which is rapidly degenerated to the degree requiring intubation and placing patient on mechanical ventilation. Patient also with blood pressure despite 200/100 patient was placed on nitro drip. T brain shows no obvious acute intracranial process. CTA of the aorta and the thoracic abdomen pelvis reveals no obvious to a dissection. There is a small short segment of infrarenal aortic dissection in the abdomen. Also a small wedge-shaped region seen by radiology in the left kidney suspicious for infarct with an atrophic right kidney. Patient has a 9 mm lung nodule. There is a nonobstructive renal calculus. Also possible Zenker's diverticulum versus possible fluid in the upper esophagus, suspect residual fluid. 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 The systolic pressure in the 90s and heart rate 70s to 71 showing WBCs 12.5, trace of CBC is unremarkable. PH 7.2, pCO2 elevated 51. BMP is unremarkable, creatinine 1.48, baseline 1.1-1.3. Glucose 307. Neuro exam not significantly elevated. Troponin is negative at 0.017. ProBNP is 210. Viruses undetected influenza, rotavirus and RSV Patient was started on antibiotics obstruction and Zithromax and steroids were added. 09/30/2022 the patient is seen and evaluated in ICU at bedside; remains on room air oxygen. She is calm and comfortable. - remains on bronchodilators and steroids; Dobbhoff for enteral feeding and nutritional support. The patient is still receiving Jevity at 20 mL an hour. The patient is also offered soft diet and she is on a one-to-one supervision while eating. At the same time, the patient did have episodes of diarrhea yesterday total of 3. Stool for C. diff needs to be checked. The white cell count 23 with a hemoglobin 11.4 and a platelet count of 280. BUN is 39 with a creatinine of 0.8 and sodium level is at 139. Chest x-ray from 09/28/2022 showed no acute abnormalities. Dobbhoff catheter is in a good location. Another active issue is her blood pressure control. The patient is awaiting dissection infrarenal and the patient is to be undetectable pressure control. She is currently on a combination of Catapres patch, Norvasc 10 mg, Coreg 12.5 mg twice a day and Diovan and hydralazine. Keep enteral feeding for another 24 hours, currently on Jevity at 20 mL an hour Monitor diary and check stool for C. diff Try to gradually advance oral diet 10/01/2022 --patient is seen and evaluated in ICU; much more comfortable less bronchospastic and wheezy compared to yesterday and she remains on room air oxygen. -- Patient is improved her ability to swallow food and the patient was receiving enteral feeding; the Dobbhoff catheter was removed yesterday as needed advancing her diet. Her breathing is comfortable and she is hemodynamically stable. She was having some episodes of diarrhea yesterday and this is also improving. She is afebrile. No significant respiratory distress. Her blood pressure is under better control for now as the patient is receiving a combination of antihypertensive medications and she is on a combination of Correctol 0.5 mg by mouth twice a day, Norvasc 10 mg by mouth daily, clonidine 0.3 mg 3 times a day and hydralazine on an as needed basis. blood pressure control is being achieved as the patient has a infrarenal aortic dissection. - hemoglobin remained stable at 10.4. The white cell count is down to 20.8. BUN is at 47 with a creatinine of 1 and his sodium level of 139. Pro-calcitonin level is at 0.14. Venous Doppler of the right upper extremity was negative for DVT. CULTURES were negative. -- Try to gradually advance oral diet - Critical care on hold Solu-Medrol 40 mg every 12 hours Continue Coreg 12.5 mg by mouth twice a day, , Diovan 160 mg by mouth by mouth twice a day, Norvasc 10 mg by mouth daily and switch to Catapres 2.3 mg 3 times a day and discontinue the Catapres patch and monitor the blood pressure control. The 10/02/2022 Patient is a pleasant 76 years old female presents with acute COPD exacerbation, currently she is breathing quietly, significantly improved, close to baseline. She is on prednisone 30 mg and improving slowly and gradually Vitals and labs are stable. Patient has right upper lung nodule that needs close outpatient follow-up Pulmonary cartilage team on the case PT/OT, social security benefits interviewer for placement, possible subacute rehab Possible discharge in 24-48 hours Objective - Vital Signs Vital signs: Vital Signs Temp 98.1 F 10/02/22 08:00 Pulse 66 10/02/22 11:44 Resp 16 10/02/22 08:00 BP 120/63 10/02/22 08:00 Pulse Ox 94 L 10/02/22 08:05 FiO2 30 09/26/22 12:00 Intake & Output 10/01/22 10/02/22 10/02/22 18:59 06:59 18:59 Intake Total 300 Output Total 1 Balance 300 -1 Weight 63.3 kg Intake: Oral 300 Output: Stool 1 Other: # Voids 1 1 # Bowel Movements 1 - Exam GENERAL: The patient is alert and oriented x3, not in any acute distress. Well developed, well nourished. HEENT: Pupils are round and equally reacting to light. EOMI. No scleral icterus. No conjunctival pallor. Normocephalic, atraumatic. No pharyngeal erythema. No thyromegaly. CARDIOVASCULAR: S1 and S2 present. No murmurs, rubs, or gallops. PULMONARY: Chest is clear to auscultation, no wheezing . no crackles. ABDOMEN: Soft, nontender, nondistended, normoactive bowel sounds. No palpable organomegaly. MUSCULOSKELETAL: No joint swelling or deformity. EXTREMITIES: No cyanosis, clubbing, or pedal edema. NEUROLOGICAL: Gross neurological examination did not reveal any focal deficits. SKIN: No rashes. no petechiae. - Labs CBC & Chem 7: 10/01/22 06:16 10/01/22 06:16 Labs: Abnormal Lab Results - Last 24 Hours (Table) 10/01/22 10/01/22 10/01/22 Range/Units 11:49 16:28 17:52 POC Glucose (mg/dL) 152 H 235 H 246 H (70-110) mg/dL 10/01/22 10/02/22 10/02/22 Range/Units 20:35 06:13 11:41 POC Glucose (mg/dL) 130 H 169 H 136 H (70-110) mg/dL Assessment and Plan Assessment: acute COPD exacerbation Acute hypoxic hypercapnic respiratory failure requiring intubation and me chanical ventilation, currently extubated Acute hypoxic respiratory failure, improved Respiratory acidosis Hypertension with urgency/emergency, currently stable Short segment of dissected descending aorta Renal infarct Acute kidney injury on chronic kidney disease stage III Hyperglycemia Plan: Continue with oral prednisone Continue with bronchodilator pulmonary cartilage team on the case Labs and medication were reviewed.. Continue same treatment. Continue with sy mptomatic treatment. Resume home medication. Monitor labs and vitals. DVT and GI prophylaxis. Further recommendations as per clinical course of the patient DVT prophylaxis: Subcutaneous heparin GI Prophylaxis: Pepcid PT/OT: that she had Prognosis is guarded
[2022-10-03 05:51] LABS: Basophils # (A) 0.1 k/uL (0-0.2); Basophils % (A) 0 %; Eosinophils # (A) 0.1 k/uL (0-0.7); Eosinophils % (A) 1 %; HCT 32.4 % (34.0-46.0); HGB 10.5 gm/dL (11.4-16.0); Lymphocytes # (A) 1.5 k/uL (1.0-4.8); Lymphocytes % (A) 11 %; MCHC 32.4 g/dL (31.0-37.0); MCV 98.8 fL (80.0-100.0); Monocytes # (A) 0.7 k/uL (0-1.0); Monocytes % (A) 5 %; Neutrophils % (A) 82 %; Platelet Count 197 k/uL (150-450); RBC 3.29 m/uL (3.80-5.40); RDW 13.8 % (11.5-15.5); WBC 14.6 k/uL (3.8-10.6)
[2022-10-03 06:05] LABS: Albumin 2.7 g/dL (3.5-5.0); Bilirubin, Delta 0.1 mg/dL (0.0-0.2); Bilirubin,Unconjugated 0.7 mg/dL (0.0-1.1); Potassium 4.1 mmol/L (3.5-5.1); Total Bilirubin 0.8 mg/dL (0.2-1.3); Total Protein 4.9 g/dL (6.3-8.2)
[2022-10-03] MEDS: INSULIN ASPART (NovoLOG) 100 UNIT/ML VIAL SQ SCH ×3 (06:07→16:43)
[2022-10-03] MEDS: carvediloL 12.5 MG TAB PO SCH ×2 (06:26→16:43)
[2022-10-03 06:37] LABS: Glucose,Whole Blood 97 mg/dL (70-110)
[2022-10-03] MEDS: IPRATROPIUM-ALBUTEROL 3 ML NEB INHALATION SCH ×3 (08:32→15:50)
[2022-10-03] MEDS: FORMOTEROL FUMARATE 20 MCG/2 ML NEBU INHALATION SCH (08:32)
[2022-10-03] MEDS: BUDESONIDE 1 MG/2 ML NEBU INHALATION SCH (08:32)
[2022-10-03] MEDS: PANTOPRAZOLE 40 MG/10 ML VIAL IVP SCH (08:59)
[2022-10-03] MEDS: HEPARIN SODIUM,PORCINE/PF 5,000 UNIT/0.5 ML SYRINGE SQ SCH ×2 (08:59→16:42)
[2022-10-03] MEDS: ATORVASTATIN 40 MG TAB PO SCH (09:00)
[2022-10-03] MEDS: amLODIPine 10 MG TAB PO SCH (09:00)
[2022-10-03] MEDS: cloNIDine HCL 0.2 MG TAB PO SCH ×2 (09:00→16:43)
[2022-10-03] MEDS: VALSARTAN 160 MG TAB PO SCH (09:00)
[2022-10-03] MEDS ORDERED: predniSONE 10 MG TAB PO SCH (09:00)
[2022-10-03 09:22] VITALS: BP 136/77; TEMP 97.8
[2022-10-03] MEDS: CEPHALEXIN 500 MG CAP PO SCH ×2 (10:49→16:43)
[2022-10-03 11:30] LABS: Glucose,Whole Blood 183 mg/dL (70-110)
--- NOTE | 2022-10-03 11:37 | P.PN ---
Subjective Progress Note Date: 10/03/22 Principal diagnosis: Acute hypoxic respiratory failure secondary to acute exacerbation of COPD 10/01/2022, the patient is much more comfortable less bronchospastic and wheezy compared to yesterday and she remains on room air oxygen. She improved her ability to swallow food and the patient was receiving enteral feeding and I removed the Dobbhoff catheter yesterday as needed advancing her diet. Her breathing is comfortable and she is hemodynamically stable. She was having some episodes of diarrhea yesterday and this is also improving. She is afebrile. No significant respiratory distress. Her blood pressure is under better control for now as the patient is receiving a combination of antihypertensive medications and she is on a combination of Correctol 0.5 mg by mouth twice a day, Norvasc 10 mg by mouth daily, clonidine 0.3 mg 3 times a day and hydralazine on an as needed basis. blood pressure control is being achieved as the patient has a infrarenal aortic dissection. Her hemoglobin remained stable at 10.4. The white cell count is down to 20.8. BUN is at 47 with a creatinine of 1 and his sodium level of 139. Pro-calcitonin level is at 0.14. Venous Doppler of the right upper extremity was negative for DVT. CULTURES were negative. Patient was reevaluated today on 10/02/2022, patient remains in the ICU as an overflow, she is on room air, not in any distress, hardly any pulmonary symptoms, no cough no wheezing no shortness of breath, hence am recommending that we transfer the patient to a medical surgical floor. Patient was extubated on 09/28 and tolerated the extubation so far quite well. Blood pressure remains significantly high, requiring multiple medications for blood pressure control. Her leukocytosis is improving, WBC count today is 20.8 hemoglobin is 10.4. Electrolytes are normal renal profile is normal last chest x-ray from 511 showed minimal congestive changes otherwise unremarkable. Venous Doppler done recently showed no evidence of DVT in right arm Reevaluated today on 10/03/2022, patient remains in the ICU as an overflow, doing well, she is on room air, not in any distress, patient is hemodynamically stable. WBC count is 14.6 hemoglobin 10.5. Normal renal profile is normal blood sugar ranging between 97 up to 183. Patient is relatively asymptomatic, and I plan to transfer the patient out of the ICU to a regular medical floor, and if not available patient could be considered for discharge to rehab Objective - Vital Signs Vital signs: Vital Signs Temp 97.8 F 10/03/22 08:00 Pulse 75 10/03/22 08:52 Resp 16 10/03/22 08:00 BP 136/77 10/03/22 08:00 Pulse Ox 97 10/03/22 08:00 FiO2 30 09/26/22 12:00 Intake & Output 10/02/22 10/03/22 10/03/22 18:59 06:59 18:59 Output Total 2 Balance -2 Weight 63.3 kg 64 kg Output: Urine 2 Other: Voiding Method Bedside Commode Diaper Incontinent # Voids 2 1 # Bowel Movements 1 - Exam GENERAL EXAM: Revealed 76-year-old female in no distress, on room air. Head: Atraumatic, normocephalic. EENT: PERRLA, EOMI, nonicteric, no neck masses no JVD. CHEST: No chest wall deformity. LUNGS: Equal air entry with no crackles, no rhonchi and no wheezes. CVS: S1 and S2 normal with no audible murmur, regular rhythm. ABDOMEN: No hepatosplenomegaly, normal bowel sounds, no guarding or rigidity. SKIN: No rashes CENTRAL NERVOUS SYSTEM: No focal deficits, alert and oriented 3 EXTREMITIES: No clubbing edema or cyanosis - Labs CBC & Chem 7: 10/03/22 05:22 10/03/22 05:22 Labs: Abnormal Lab Results - Last 24 Hours (Table) 10/02/22 10/02/22 10/03/22 Range/Units 11:41 16:51 05:22 WBC 14.6 H (3.8-10.6) k/uL RBC 3.29 L (3.80-5.40) m/uL Hgb 10.5 L (11.4-16.0) gm/dL Hct 32.4 L (34.0-46.0) % Neutrophils # 12.0 H (1.3-7.7) k/uL Sodium (137-145) mmol/L BUN (7-17) mg/dL POC Glucose (mg/dL) 136 H 134 H (70-110) mg/dL Calcium (8.4-10.2) mg/dL AST (14-36) U/L ALT (4-34) U/L Total Protein (6.3-8.2) g/dL Albumin (3.5-5.0) g/dL 10/03/22 10/03/22 Range/Units 05:22 11:29 WBC (3.8-10.6) k/uL RBC (3.80-5.40) m/uL Hgb (11.4-16.0) gm/dL Hct (34.0-46.0) % Neutrophils # (1.3-7.7) k/uL Sodium 135 L (137-145) mmol/L BUN 43 H (7-17) mg/dL POC Glucose (mg/dL) 183 H (70-110) mg/dL Calcium 8.0 L (8.4-10.2) mg/dL AST 61 H (14-36) U/L ALT 58 H (4-34) U/L Total Protein 4.9 L (6.3-8.2) g/dL Albumin 2.7 L (3.5-5.0) g/dL Assessment and Plan Assessment: Impression: Acute hypoxic respiratory failure secondary to acute exacerbation of COPD resolved. Acute kidney injury, improving Leukocytosis secondary to above. 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 Recommendation: Advanced diet as tolerated Prednisone burst and taper Continue bronchodilators Continue to monitor blood pressure and continue blood pressure medications as listed Continue DVT prophylaxis We'll clear the patient for discharge planning if rehab is available for this patient. We will continue to follow, while inpatient Time with Patient: Less than 30
[2022-10-03 12:36] LABS: Glucose,Whole Blood 232 mg/dL (70-110)
[2022-10-03 12:36] LABS: Glucose,Whole Blood 262 mg/dL (70-110)
--- NOTE | 2022-10-03 14:20 | PN ---
PROGRESS NOTE SUBJECTIVE: Missy is in the ICU with complex and multiple medical problems and we have been following her for hypertension, blood pressure is well controlled. She is able to swallow things well and is free of symptoms. OBJECTIVE: GENERAL: Comfortable at rest. VITAL SIGNS: Stable. CHEST: Reveals good air entry bilaterally. HEART: Reveals first and second heart sounds. No gallop. EXTREMITIES: Exam of extremities did not reveal any edema. She is currently on Norvasc 10 daily, Lipitor, Coreg 12.5 b.i.d., Catapres 0.2 t.i.d. and Diovan 160 b.i.d. ASSESSMENT AND PLAN: Hypertension. Blood pressure is well controlled. Continue current medications. Arrange followup with Dr. Ceja and discharge. MMODL / IJN: [id number] /
--- NOTE | 2022-10-03 14:29 | US ---
EXAMINATION TYPE: US venous doppler duplex UE RT DATE OF EXAM: 10/03/2022 COMPARISON: NONE CLINICAL INDICATION: Female, 76 years old with history of right arm swelling; ICU patient with swelli ng in the arm has improved, being discharged for rehab, reassess for DVT SIDE PERFORMED: Right Grayscale, color doppler, spectral doppler imaging performed of the deep veins of the upper extremiti es. FINDINGS: There is normal flow, compressibility and vascular waveforms. Right Arm: Negative for DVT IMPRESSION: No sonographic evidence for DVT within the right upper extremity.
[2022-10-03 14:40] VITALS: RESP 14
--- NOTE | 2022-10-03 15:07 | P.DS ---
Providers Date of admission: 09/23/22 22:48 Attending physician: Jeremiah St Consults: 09/23/22 22:44 Consult Physician Routine Consulting Provider: [facility] Consult Reason/Comments: hypertensive emergency Do you want consulting provider notified?: Yes Consult Physician Stat Consulting Provider: Fernando Bryant Consult Reason/Comments: type b aortic dissection, hypertensive emergency, copd, bronchitis, hypoxia Do you want consulting provider notified?: Already Contacted Primary care physician: Alton Valencia [facility] Course: Diagnoses: acute COPD exacerbation Acute hypoxic hypercapnic respiratory failure requiring intubation and mechanical ventilation, currently extubated. Resolved Spiculated Right upper lobe nodule, 9 mm, suspicious for malignancy, we recommend PET scan as an outpatient. Respiratory acidosis Hypertension with urgency/emergency, currently stable Short segment of dissected descending aorta. Follow-up with vascular surgery as an outpatient Renal infarct Acute kidney injury on chronic kidney disease stage III Hyperglycemia Hospital course: 76 years old female patient Presents with dyspnea with acute hypoxic respiratory failure which is rapidly degenerated to the degree requiring intubation and placing patient on mechanical ventilation. Patient was diagnosed with acute COPD exacerbation and she was treated with steroids and bronchodilator, pulmonary/critical care team are following her closely. Patient showed interval improvement, eventually she got extubated and currently she is awake and alert and on room air. This morning she was saturating 97% on room air. She is not tachypneic. No overt respiratory symptoms, Patient denies chest pain. No abdominal pain vomiting or diarrhea. No urinary complaints. She has some right forearm swelling, mild tenderness, mild increased warmth, little or no erythema. No loss of function, she has strong and equal, sensation is intact. Pulses intact. Venous Doppler was negative. There is suspicion of mild cellulitis therefore were going to give her short course of Keflex. Leukocytosis improving down to 14.6. Hemoglobin stable temp 10.5. Liver enzymes mildly elevated but stable. Basic metabolic panel is unremarkable Patient currently on burst taper prednisone on discharge Patient was cleared for discharge by pulmonary service Problems and management plan were discussed with the patient and he verbalized understanding and acceptance Patient was found stable and can be discharged home in guarded prognosis however he needs follow-up as an outpatient. Patient was instructed to follow up with PCP within one week and patient agrees Patient also recommended to follow-up with information technology associate dr. bryant in 2 weeks after discharge and she verbalized understanding and acceptance. Patient informed about her right upper lung nodule in suspicious for cancers and that it for PET scan as an outpatient and she agrees We recommend patient follow up with Dr. Chowdhury in 1-2 weeks after discharge for her abdominal aortic aneurysm Also patient recommended to follow up with chain splitter Dr. Tim in 2 weeks and patient agrees I talked to the patient and her caregiver at bedside margareth Rosas (patient gave me verbal consent to talk to him about her health issues) both the patient and marked agreed to the appointments made for the patient including Dr. Bryant on 10/18, both aware of long nodule and possibility of cancer and they stated they will follow up on this date and appointment time at 8:30 in the morning. Also they agreed with the appointments made for her with Dr. Valencia on 10/[address] Chowdhury vascular surgeon for her aortic aneurysm on 10/25 with follow-up. Physical exam Gen: patient is a AAOx3, no distress CVS: S1-S2, RRR, no murmur Lungs: B/L CTA, no wheezing Abdomen: soft, no distention, no tenderness, positive bowel sounds -Extremity: no leg edema or induration. Right forearm swollen and mildly tender Time spent more than 35 minutes Patient Condition at Discharge: Critical Plan - Discharge Summary New Discharge Prescriptions: New Valsartan [Diovan] 160 mg PO BID tab Cephalexin [Keflex] 500 mg PO TID 5 Days #19 cap amLODIPine [Norvasc] 10 mg PO DAILY tab predniSONE 10 mg PO DIRECTED #18 tab cloNIDine HCL [Catapres] 0.2 mg PO TID tab carvediloL [Coreg*] 12.5 mg PO BID-W/MEALS tab Atorvastatin [Lipitor] 40 mg PO DAILY tab Melatonin 6 mg PO HS PRN tab PRN Reason: Insomnia Formoterol Fumarate [Perforomist] 20 mcg INHALATION RT-BID ml Pantoprazole [Protonix] 40 mg PO DAILY #30 tab Albuterol Inhaler [Ventolin Hfa Inhaler] 2 puff INHALATION Q6H PRN #1 each PRN Reason: Shortness Of Breath Or Wheezing Continue Ergocalciferol [Vitamin D2 (1250 Mcg = 00858 Iu)] 1,250 mcg PO FR Denosumab [Prolia] 60 mg SQ Q180D Changed Docusate [Colace] 100 mg PO BID PRN 30 Days #30 tab PRN Reason: Constipation Discontinued HYDROcodone/APAP 7.5-325MG [George 7.5-325] 1 tab PO QID PRN PRN Reason: Pain Aspirin EC [Ecotrin Low Dose] 81 mg PO PC-LUNCH atenoloL [Tenormin] 25 mg PO PC-LUNCH Famotidine [Pepcid] 20 mg PO DAILY #15 tablet lisinopriL [Zestril] 20 mg PO PC-LUNCH Discharge Medication List Denosumab [Prolia] 60 mg SQ Q180D 04/12/21 [History] Ergocalciferol [Vitamin D2 (1250 Mcg = 10940 Iu)] 1,250 mcg PO FR 09/23/22 [History] Albuterol Inhaler [Ventolin Hfa Inhaler] 2 puff INHALATION Q6H PRN #1 each 10/03/22 [Rx] Atorvastatin [Lipitor] 40 mg PO DAILY tab 10/03/22 [Rx] Cephalexin [Keflex] 500 mg PO TID 5 Days #19 cap 10/03/22 [Rx] Docusate [Colace] 100 mg PO BID PRN 30 Days #30 tab 10/03/22 [Rx] Formoterol Fumarate [Perforomist] 20 mcg INHALATION RT-BID ml 10/03/22 [Rx] Melatonin 6 mg PO HS PRN tab 10/03/22 [Rx] Pantoprazole [Protonix] 40 mg PO DAILY #30 tab 10/03/22 [Rx] Valsartan [Diovan] 160 mg PO BID tab 10/03/22 [Rx] amLODIPine [Norvasc] 10 mg PO DAILY tab 10/03/22 [Rx] carvediloL [Coreg*] 12.5 mg PO BID-W/MEALS tab 10/03/22 [Rx] cloNIDine HCL [Catapres] 0.2 mg PO TID tab 10/03/22 [Rx] predniSONE 10 mg PO DIRECTED #18 tab 10/03/22 [Rx] Follow up Appointment(s)/Referral(s): Marco Tim MD [STAFF PHYSICIAN] - 2 Weeks (Office to call with appointment date and time.) Marisela hCowdhury DO [STAFF PHYSICIAN] - 10/25/22 11:30 am Fernando Bryant DO [Doctor of Osteopathic Medicine] - 10/18/22 8:30 am (Appointment to reference need PET scan for lung nodule) Alton Valencia DO [Primary Care Provider] - 10/11/22 10:00 am Activity/Diet/Wound Care/Special Instructions: Heart healthy diet Activity is as tolerated prolia home medication can be taken after pt finishes her rehab in 2-3 weeks Discharge Disposition: TRANSFER TO SNF/ECF
[2022-10-03 16:03] VITALS: PULSE 72
[2022-10-03 16:39] LABS: Glucose,Whole Blood 162 mg/dL (70-110)
== END 2022-10-03 17:18 | DRG 208 ==
LOC: EC 16:28 → 2SICU 22:48
PROVIDERS: ADMIT Hospitalist; ATTEND Hospitalist
PROC: 5A1945Z Respiratory Ventilation, 24-96 Consecutive Hours (ICD-10-PCS; principal; 2022-09-23)
PROC: 0BH17EZ Insertion of Endotracheal Airway into Trachea, Via Natural or Artificial Opening (ICD-10-PCS; principal; 2022-09-23)
PROC: 5A09357 Assistance with Respiratory Ventilation, Less than 24 Consecutive Hours, Continuous Positive Airway Pressure (ICD-10-PCS; 2022-09-23)
PROC: 0D9670Z Drainage of Stomach with Drainage Device, Via Natural or Artificial Opening (ICD-10-PCS; 2022-09-23)
PROC: 0DH97UZ Insertion of Feeding Device into Duodenum, Via Natural or Artificial Opening (ICD-10-PCS; 2022-09-28)
PROC: 3E0G76Z Introduction of Nutritional Substance into Upper GI, Via Natural or Artificial Opening (ICD-10-PCS; 2022-09-28)
PROC: 05HF33Z Insertion of Infusion Device into Left Cephalic Vein, Percutaneous Approach (ICD-10-PCS; 2022-09-28)
DX: J96.01 Acute respiratory failure with hypoxia (principal); I71.02 Dissection of abdominal aorta; J44.1 Chronic obstructive pulmonary disease with (acute) exacerbation; N17.9 Acute kidney failure, unspecified; N28.0 Ischemia and infarction of kidney; I16.1 Hypertensive emergency; I42.8 Other cardiomyopathies; E87.3 Alkalosis; I95.9 Hypotension, unspecified; E11.51 Type 2 diabetes mellitus with diabetic peripheral angiopathy without gangrene; E11.22 Type 2 diabetes mellitus with diabetic chronic kidney disease; J96.02 Acute respiratory failure with hypercapnia; N18.30 Chronic kidney disease, stage 3 unspecified; E11.65 Type 2 diabetes mellitus with hyperglycemia; I48.91 Unspecified atrial fibrillation; Z66 Do not resuscitate; Z20.822 Contact with and (suspected) exposure to COVID-19; Z28.310 Unvaccinated for COVID-19; I12.9 Hypertensive chronic kidney disease with stage 1 through stage 4 chronic kidney disease, or unspecified chronic kidney disease; R91.1 Solitary pulmonary nodule; N20.0 Calculus of kidney; K22.5 Diverticulum of esophagus, acquired; E78.5 Hyperlipidemia, unspecified; I25.2 Old myocardial infarction; M19.90 Unspecified osteoarthritis, unspecified site; K80.20 Calculus of gallbladder without cholecystitis without obstruction; I25.10 Atherosclerotic heart disease of native coronary artery without angina pectoris; K52.9 Noninfective gastroenteritis and colitis, unspecified; R47.81 Slurred speech; R32 Unspecified urinary incontinence; F17.200 Nicotine dependence, unspecified, uncomplicated; Z79.620 Long term (current) use of immunosuppressive biologic; Z79.899 Other long term (current) drug therapy; Z86.73 Personal history of transient ischemic attack (TIA), and cerebral infarction without residual deficits; Z88.8 Allergy status to other drugs, medicaments and biological substances
CPT/HCPCS: 31500; 36410; 36415; 36600; 70450; 71045; 71046; 71275; 74174; 76937; 80048; 80053; 80076; 82330; 82803; 82805; 83036; 83605; 83735; 83880; 84132; 84145; 84484; 85025; 85610; 85730; 87070; 87205; 87635; 87636; 93005; 93306; 94003; 94640; 94660; 96361; 96365; 96367; 96368; 96375; 99291; 99292

== ENCOUNTER → 2023-03-22 | Outpatient (CLI) | payer MEDICARE, OTHER ==
--- NOTE | 2023-03-22 10:02 | US ---
EXAMINATION TYPE: US duplex aorta DATE OF EXAM: 03/22/2023 COMPARISON: 09/23/2022 CT CLINICAL INDICATION: Female, 77 years old with history of Z72.0 TOBACCO USE; TECHNIQUE: Multiple sonographic images of the abdominal aorta are obtained. FINDINGS: EXAM MEASUREMENTS: Abdominal Aorta: Proximal: 2.0 x 2.5 cm Mid: 1.6 x 1.9 cm Distal: 1.3 x 1.1 cm Bifurcation: 0.7 x 1.6 cm 1.1 x 1.6 cm ASSISTANT ACCOUNT EXECUTIVE NOTES: Calcified plaque seen through out entire abdominal aorta and bilateral iliacs. IMPRESSION: No evidence for aortic aneurysm.
== END | disposition home or self-care (01) ==
LOC: RADUSWWP 09:02
PROVIDERS: ATTEND Family Medicine
DX: Z72.0 Tobacco use (principal)
CPT/HCPCS: 93979

== ENCOUNTER → 2023-04-02 | Outpatient (CLI) | payer MEDICARE, OTHER ==
--- NOTE | 2023-04-02 14:17 | BD ---
EXAMINATION TYPE: Axial Bone Density DATE OF EXAM: 04/02/2023 CLINICAL HISTORY: 77 years old Female. ICD-10 CODE: M81.0 age related osteoporosis Height: 4 ft 11 in Weight: 106 FRAX RISK QUESTIONS: Alcohol (3 or more units per day): no Family History (Parent hip fracture): no Glucocorticoids (More than 3mos): no (Ex: prednisone, prednisolone, methylprednisolone, dexamethasone, and hydrocortisone). History of Fracture in Adulthood: yes Secondary Osteoporosis: 1. Type 1 Diabetes: no 2. Hyperthyroidism: no 3. Menopause before 45: no 4. Malnutrition: no 5. Chronic liver disease: no Rheumatoid Arthritis: no Current Tobacco Use: yes RISK FACTORS HISTORY OF: Hip Fracture (Right/Left): rt hip When: 2018 History of Wrist Fracture: rt wrist When: 8 years ago Surgery to Spine/Hip(right/left)/Wrist (right/left): rt hip When: 2018 Family History of Osteoporosis: no Active: no Diet low in dairy products/other sources of calcium: no Postmenopausal woman: yes Take estrogen and/or progesterone medications: no Lost more than 2 inches in height since high school: yes Frequent falls: unsteady uses a walker Poor Health: good Hyperparathyroidism: no Adrenal Insufficiency: no MEDICATIONS: Additional Medications: unknown Additional History: poor historian EXAM MEASUREMENTS: Bone mineral densitometry was performed using the [employer] System. Bone mineral density as measured about the Lumbar spine is: ----- L1-L4(G/cm2): 0.943 T Score Values are as follows: ----- L1: -2.4 ----- L2: -3.3 ----- L3: -2.2 ----- L4: -0.4 ----- L1-L4: -2.0 Z Score Values are as follows: ----- L1: 0.0 ----- L2: -0.9 ----- L3: 0.2 ----- L4: 2.0 ----- L1-L4: 0.4 Bone mineral density has: increased 6.2 % since study of: 2020 Bone mineral density about the L hip (g/cm2): 0.487 T Score values are as follows: -----L Neck: -4.0 -----L Total: -3.9 Z Score values are as follows: -----L Neck: -1.5 -----L Total: -1.5 Bone mineral density has: increased 0.4 % since study of: 2020 FRAX%s: The graph provided illustrates a 48.7 % chance for a major osteoporotic fx and a 34.8 % chanc e for the hips probability for fx in 10 years time. IMPRESSION: Osteoporosis (T Score less than -2.5). There is increased fracture risk and therapy is usually indicated based on age. Re-Screen 1-2 years. NOTE: T-SCORE=SD OF THE YOUNG ADULT MEAN.
== END | disposition home or self-care (01) ==
LOC: RADBDWWP 13:27
PROVIDERS: ATTEND Family Medicine
DX: M81.0 Age-related osteoporosis without current pathological fracture (principal); Z78.0 Asymptomatic menopausal state
CPT/HCPCS: 77080

== ENCOUNTER → 2023-04-25 | Outpatient (CLI) | payer MEDICARE, OTHER ==
[2023-04-25 15:06] LABS: African American GFR (CKD) 27 (>60 ml/min/1.73 sqM); Blood Urea Nitrogen 39 mg/dL (7-17); Non-African American GFR(CKD) 23 (>60 ml/min/1.73 sqM)
--- NOTE | 2023-04-30 22:04 | CT ---
EXAMINATION TYPE: CT chest wo con DATE OF EXAM: 04/25/2023 COMPARISON: 12/08/2022 PET/CT and CT chest 09/23/2022 HISTORY: 77-year-old female R9 1.1 pulmonary nodule TECHNIQUE: Contiguous axial scanning of the chest without IV contrast. Coronal/sagittal reconstructi ons performed. CT DLP: 228.0mGycm. Automatic exposure control utilized for a dose reduction. FINDINGS: The heart is upper limits of normal in size without pericardial effusion. Extensive three-vessel tomy nary artery calcifications are present. Mild to moderate atherosclerotic arch calcifications with conventional arch vessel branching anatomy. Calcified precarinal lymph node compatible with prior granulomatous disease. No thoracic lymphadenopa thy by CT size criteria. There is tracheobronchial airway narrowing possibly reflecting some underlying bronchomalacia. Strandy atelectasis and scarring in the lower lungs. Mild diffuse bronchial wall thickening. Stable 9 mm spiculated nodule anterior right apex compared to 09/23/2022, stable for 7 months. Addition al 9-12 month follow-up recommended to demonstrate more long-term stability. No consolidation or pleural effusion. Benign calcified granuloma periphery of the right base. There is a small to moderate-sized hiatal hernia. Visualized upper abdomen also demonstrates prominen t splenic artery calcifications. Bones: Accentuated thoracic kyphosis. No osseous destructive process. IMPRESSION: 1. 9 mm spiculated nodule anterior right apex remains stable for 7 months. An additional 9-12 month f ollow-up CT is recommended to demonstrate more long-term stability. 2. Strandy scarring and atelectasis in the lower lungs. Bronchial wall thickening suggests bronchitis or chronic asthma. Additional evidence of prior granulomatous disease. 3. Extensive three-vessel coronary artery calcifications. 4. Small to moderate size hiatal hernia. . Follow-up recommendations based on Fleischner Society guidelines.
== END | disposition home or self-care (01) ==
LOC: RADCTMAIN 14:32
PROVIDERS: ATTEND Internal Medicine Critical Care Medicine
DX: I25.10 Atherosclerotic heart disease of native coronary artery without angina pectoris (principal); K44.9 Diaphragmatic hernia without obstruction or gangrene; J98.11 Atelectasis; J98.09 Other diseases of bronchus, not elsewhere classified; J98.4 Other disorders of lung; R91.1 Solitary pulmonary nodule
CPT/HCPCS: 71250; 82565; 84520

== ENCOUNTER → 2023-06-11 | Outpatient (CLI) | payer MEDICARE, OTHER ==
[~2023-06-11] MED LIST changes: -DENOSUMAB 60 MG/ML 1 ML SYRINGE SQ NR; -DENOSUMAB 60 MG/ML SQ ONE
[2023-06-11 14:18] VITALS: BP 84/53; PULSE 66; RESP 15; TEMP 97.7
== END ==
LOC: PROCWHC3 13:31
PROVIDERS: ATTEND Family Medicine
DX: M81.0 Age-related osteoporosis without current pathological fracture (principal)
CPT/HCPCS: 96372; J0897

== ENCOUNTER 2023-06-28 10:32 | Inpatient (IN) | payer MEDICARE, OTHER ==
[2023-06-28] MEDS: SODIUM CHLORIDE 0.9% 1,000 ML IV STA (10:53)
--- NOTE | 2023-06-28 10:57 | ED ---
General Adult HPI - General Chief complaint: Weakness Stated complaint: ALTERED MENTAL Time Seen by Provider: 06/28/23 10:39 Source: patient, EMS Mode of arrival: EMS Limitations: altered mental status - History of Present Illness Initial comments: Dictation was produced using [employer] dictation software. please excuse any grammatical, word or spelling errors. Chief Complaint: 77-year-old female presents emergency department for altered mental status History of Present Illness: Patient is a 69-year-old female presents to the emergency department for altered mental status. Patient has been symptomatic for the last 3 to 4 days. History of present illness obtained completely from EMS. Patient is an unreliable historian. Patient herself has no complaints. EMS states that for last 3 to 4 days patient has been altered. She allegedly is baseline alert and oriented x 4. EMS noted soft blood pressure and no hypoglycemia. Unable to obtain ROS secondary to patient's mental status - Related Data Home Medications Medication Instructions Recorded Confirmed Ergocalciferol [Vitamin D2 (1250 1,250 mcg PO FR 09/23/22 06/28/23 Mcg = 44749 Iu)] Aspirin [[place] Aspirin EC] 81 mg PO DAILY 06/22/23 06/28/23 Budesonide-Formot 160-4.5 Mcg 2 puff INHALATION RT-BID 06/22/23 06/28/23 [Symbicort 160-4.5 Mcg Inhaler] Famotidine 20 mg PO DAILY 06/22/23 06/28/23 HYDROcodone/APAP 5-325MG [[place] 1 tab PO QID 06/22/23 06/28/23 5-325] lisinopriL [Zestril] 20 mg PO DAILY 06/22/23 06/28/23 Albuterol Inhaler [Ventolin Hfa 2 puff INHALATION RT-QID PRN 06/28/23 06/28/23 Inhaler] Atorvastatin [Lipitor] 40 mg PO HS 06/28/23 06/28/23 Naloxone HCl [Narcan] 4 mg NASAL DIRECTED PRN 06/28/23 06/28/23 Previous Rx's Medication Instructions Recorded amLODIPine [Norvasc] 10 mg PO DAILY tab 10/03/22 Allergies Allergy/AdvReac Type Severity Reaction Status Date / Time iodine Allergy Itching Verified 06/28/23 11:27 Review of Systems ROS Statement: Those systems with pertinent positive or pertinent negative responses have been documented in the HPI. ROS Other: All systems not noted in ROS Statement are negative. Past Medical History Past Medical History: COPD, CVA/TIA, Hyperlipidemia, Hypertension, Myocardial Infarction ([place]), Osteoarthritis ([place]) Additional Past Medical History / Comment(s): TIA - September 2013, past history of abcess/cellulitis left cheek. Patient is poor historian of her [facility]. 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 Past Anesthesia/Blood Transfusion Reactions: No Reported Reaction Past Psychological History: No Psychological Hx Reported Smoking Status: Former smoker - Past Family History Son(s) Family Medical History: No Reported History Additional Family Medical History / Comment(s): 4 sons all reported healthy per patient Mother Family Medical History: CVA/TIA Additional Family Medical History / Comment(s): General Exam - General Exam Comments Initial Comments: PHYSICAL EXAM: General Impression: Alert and oriented x2/4, not in acute distress, slow to respond HEENT: Normocephalic atraumatic, extra-ocular movements intact, pupils equal and reactive to light bilaterally, mucous membranes moist. Cardiovascular: Heart regular rate and rhythm Chest: Able to complete full sentences, no retractions, no tachypnea Abdomen: abdomen soft, non-tender, non-distended, no organomegaly Musculoskeletal: Pulses present and equal in all extremities, no peripheral edema Motor: no focal deficits noted Neurological: CN II-XII grossly intact, no focal motor or sensory deficits noted Skin: Intact with no visualized rashes Psych: Normal affect and mood Limitations: altered mental status Course Vital Signs 06/28/23 06/28/23 06/28/23 10:38 10:39 11:00 Temperature 98.3 F Pulse Rate 84 87 Respiratory 12 16 16 Rate Blood Pressure 88/45 101/52 O2 Sat by Pulse 87 L 97 96 Oximetry 06/28/23 06/28/23 06/28/23 11:15 11:20 11:30 Temperature Pulse Rate 95 Respiratory 16 16 16 Rate Blood Pressure 91/62 91/62 O2 Sat by Pulse 95 96 Oximetry 06/28/23 12:30 Temperature Pulse Rate 86 Respiratory 14 Rate Blood Pressure 97/53 O2 Sat by Pulse Oximetry EKG Findings - EKG Comments: EKG Findings:: 94, sinus rhythm, PA interval 143, cures 78, QTc 396 Medical Decision Making - Medical Decision Making Was pt. sent in by a medical professional or institution (, MIRLANDE, [employer] SHINGLE INSPECTOR, urgent care, hospital, or fpc...) When possible be specific @ -No Did you speak to anyone other than the patient for history (EMS, parent, family, police, friend...)? What history was obtained from this source @ -No Did you review nursing and triage notes (agree or disagree)? Why? @ -I reviewed and agree with nursing and triage notes Were old charts reviewed (outside hosp., previous admission, EMS record, old EKG, old radiological studies, urgent care reports/EKG's, fpc records)? Report findings @ -No old charts were reviewed Differential Diagnosis (chest pain, altered mental status, abdominal pain women, abdominal pain men, vaginal bleeding, musculoskeletal, weakness, fever, dyspnea, syncope, headache, dizziness, GI bleed, back pain, seizure, CVA, palpatations, mental health)? @ -Differential Altered Mental Status: Hypoglycemia, DKA, hypercapnia, ETOH, overdose, CO poisoning, trauma, myxedema coma, HTN encephalopathy, infection, encephalitis, psychosis, intercranial hemorrhage, hepatic encephalopathy, meningitis, CVA, this is not meant to be an all-inclusive list EKG interpreted by me (3pts min.). @ -See above X-rays interpreted by me (1pt min.). @ -Chest x-ray is nonacute CT interpreted by me (1pt min.). @ -CT scan the brain is unremarkable for any acute processes U/S interpreted by me (1pt. min.). @ -None done What testing was considered but not performed or refused? (CT, X-rays, U/S, labs)? Why? @ -None What meds were considered but not given or refused? Why? @ -None Did you discuss the management of the patient with other professionals (professionals i.e. MIRLANDE [place], [employer] SHINGLE INSPECTOR, lab, RT, psych nurse, director of social services, casing sewer, teacher, deputy juvenile officer, case monitor)? Give summary @ -Case discussed with hospitalist for admission Was smoking cessation discussed for >3mins.? @ -No Was critical care preformed (if so, how long)? @ -No Were there social determinants of health that impacted care today? How? (Homelessness, low income, unemployed, alcoholism, drug addiction, transportation, low edu. Level, literacy, decrease access to med. care, care home, rehab)? @ -No Was there de-escalation of care discussed even if they declined (Discuss DNR or withdrawal of care, Hospice)? DNR status @ -No What co-morbidities impacted this encounter? (DM, HTN, Smoking, COPD, CAD, Cancer, CVA, ARF, Chemo, Hep., AIDS, mental health diagnosis, sleep apnea, morbid obesity)? @ -None Was patient admitted / discharged? Hospital course, mention meds given and route, prescriptions, significant lab abnormalities, going to OR and other pertinent info. @ -69-year-old female brought to the emergency department for altered mental status. Vital signs are stable. Patient in no acute distress. Laboratory evaluation obtained. CBC, coag panel and metabolic panel was obtained. She has new acute kidney injury with a creatinine of 5.16. Troponin elevated 0.067 likely related to acute kidney injury. Influenza A positive. Imaging studies are negative. Patient given fluids. Patient be admitted. Undiagnosed new problem with uncertain prognosis? @ -No Drug Therapy requiring intensive monitoring for toxicity (Heparin, Nitro, Insulin, Cardizem)? @ -No Were any procedures done? @ -No Diagnosis/symptom? Acute, or Chronic, or Acute on Chronic? Uncomplicated (without systemic symptoms) or Complicated (systemic symptoms)? @ -Acute kidney injury, influenza Side effects of treatment? @ -No Exacerbation, Progression, or Severe Exacerbation? @ -No Poses a threat to life or bodily function? How? (Chest pain, [place], [place], pneumonia, PE, COPD, DKA, ARF, appy, cholecystitis, CVA, Diverticulitis, Homicidal, Suic idal, threat to staff... and all critical care pts) @ -yes - Lab Data Result diagrams: 06/28/23 10:46 06/28/23 10:46 Lab Results 06/28/23 06/28/23 06/28/23 Range/Units 10:46 10:46 10:46 WBC 10.8 H (3.8-10.6) k/uL RBC 3.57 L (3.80-5.40) m/uL Hgb 11.0 L (11.4-16.0) gm/dL Hct 33.0 L (34.0-46.0) % MCV 92.4 (80.0-100.0) fL MCH 30.7 (25.0-35.0) pg MCHC 33.2 (31.0-37.0) g/dL RDW 14.2 (11.5-15.5) % Plt Count 235 (150-450) k/uL MPV 11.5 Neutrophils % 84 % Lymphocytes % 9 % Monocytes % 5 % Eosinophils % 0 % Basophils % 0 % Neutrophils # 9.1 H (1.3-7.7) k/uL Lymphocytes # 0.9 L (1.0-4.8) k/uL Monocytes # 0.5 (0-1.0) k/uL Eosinophils # 0.0 (0-0.7) k/uL Basophils # 0.0 (0-0.2) k/uL PT 10.4 (10.0-12.5) sec INR 0.9 (<1.2) APTT 25.8 (22.0-30.0) sec Sodium 136 L (137-145) mmol/L Potassium 4.2 (3.5-5.1) mmol/L Chloride 103 (98-107) mmol/L Carbon Dioxide 17 L (22-30) mmol/L Anion Gap 16 mmol/L BUN 68 H (7-17) mg/dL Creatinine 5.16 H (0.52-1.04) mg/dL Est GFR (CKD-EPI)AfAm 9 (>60 ml/min/1.73 sqM) Est GFR (CKD-EPI)NonAf 7 (>60 ml/min/1.73 sqM) Glucose 185 H (74-99) mg/dL Plasma Lactic Acid Mario (0.7-2.0) mmol/L Calcium 8.6 (8.4-10.2) mg/dL Magnesium 1.9 (1.6-2.3) mg/dL Total Bilirubin 0.8 (0.2-1.3) mg/dL AST 43 H (14-36) U/L ALT 20 (4-34) U/L Alkaline Phosphatase 59 (38-126) U/L Troponin I (0.000-0.034) ng/mL Total Protein 7.3 (6.3-8.2) g/dL Albumin 4.3 (3.5-5.0) g/dL Influenza Type A (PCR) (Not Detectd) Influenza Type B (PCR) (Not Detectd) RSV (PCR) (Not Detectd) SARS-CoV-2 (PCR) (Not Detectd) 06/28/23 06/28/23 06/28/23 Range/Units 10:46 10:46 10:46 WBC (3.8-10.6) k/uL RBC (3.80-5.40) m/uL Hgb (11.4-16.0) gm/dL Hct (34.0-46.0) % MCV (80.0-100.0) fL MCH (25.0-35.0) pg MCHC (31.0-37.0) g/dL RDW (11.5-15.5) % Plt Count (150-450) k/uL MPV Neutrophils % % Lymphocytes % % Monocytes % % Eosinophils % % Basophils % % Neutrophils # (1.3-7.7) k/uL Lymphocytes # (1.0-4.8) k/uL Monocytes # (0-1.0) k/uL Eosinophils # (0-0.7) k/uL Basophils # (0-0.2) k/uL PT (10.0-12.5) sec INR (<1.2) APTT (22.0-30.0) sec Sodium (137-145) mmol/L Potassium (3.5-5.1) mmol/L Chloride (98-107) mmol/L Carbon Dioxide (22-30) mmol/L Anion Gap mmol/L BUN (7-17) mg/dL Creatinine (0.52-1.04) mg/dL Est GFR (CKD-EPI)AfAm (>60 ml/min/1.73 sqM) Est GFR (CKD-EPI)NonAf (>60 ml/min/1.73 sqM) Glucose (74-99) mg/dL Plasma Lactic Acid Mario 1.8 (0.7-2.0) mmol/L Calcium (8.4-10.2) mg/dL Magnesium (1.6-2.3) mg/dL Total Bilirubin (0.2-1.3) mg/dL AST (14-36) U/L ALT (4-34) U/L Alkaline Phosphatase (38-126) U/L Troponin I 0.067 H* (0.000-0.034) ng/mL Total Protein (6.3-8.2) g/dL Albumin (3.5-5.0) g/dL Influenza Type A (PCR) Detected A (Not Detectd) Influenza Type B (PCR) Not Detected (Not Detectd) RSV (PCR) Not Detected (Not Detectd) SARS-CoV-2 (PCR) Not Detected (Not Detectd) Disposition Clinical Impression: CELIA (acute kidney injury), Influenza Disposition: ADMITTED IP TO THIS [facility] Condition: Fair Referrals: None,Stated [Primary Care Provider] - 1-2 days Decision Time: 13:20
[2023-06-28 11:01] LABS: Basophils % (A) 0 %; Eosinophils % (A) 0 %; Lymphocytes # (A) 0.9 k/uL (1.0-4.8); Lymphocytes % (A) 9 %; MCH 30.7 pg (25.0-35.0); MCHC 33.2 g/dL (31.0-37.0); MCV 92.4 fL (80.0-100.0); Mean Platelet Volume 11.5; Monocytes # (A) 0.5 k/uL (0-1.0); Monocytes % (A) 5 %; Neutrophils # (A) 9.1 k/uL (1.3-7.7); Neutrophils % (A) 84 %; Platelet Count 235 k/uL (150-450); RBC 3.57 m/uL (3.80-5.40); RDW 14.2 % (11.5-15.5); WBC 10.8 k/uL (3.8-10.6)
[2023-06-28 11:08] LABS: ALT 20 U/L (4-34); AST 43 U/L (14-36); African American GFR (CKD) 9 (>60 ml/min/1.73 sqM); Albumin 4.3 g/dL (3.5-5.0); Alkaline Phosphatase 59 U/L (38-126); Anion Gap 16 mmol/L; Blood Urea Nitrogen 68 mg/dL (7-17); Calcium 8.6 mg/dL (8.4-10.2); Carbon Dioxide 17 mmol/L (22-30); Chloride 103 mmol/L (98-107); Glucose 185 mg/dL (74-99); Magnesium 1.9 mg/dL (1.6-2.3); Non-African American GFR(CKD) 7 (>60 ml/min/1.73 sqM); Potassium 4.2 mmol/L (3.5-5.1); Sodium 136 mmol/L (137-145); Total Bilirubin 0.8 mg/dL (0.2-1.3); Total Protein 7.3 g/dL (6.3-8.2)
[2023-06-28 11:09] LABS: INR 0.9 (<1.2); Partial Thromboplastin Time 25.8 sec (22.0-30.0); Prothrombin Time 10.4 sec (10.0-12.5)
--- NOTE | 2023-06-28 11:56 | CT ---
EXAMINATION TYPE: CT brain wo con CT DLP: 1167.8 mGycm, Automated exposure control for dose reduction was used. DATE OF EXAM: 06/28/2023 11:40 AM COMPARISON: 09/23/2022. CLINICAL INDICATION:Female, 77 years old with history of ams, AMS TECHNIQUE: Brain: Axial CT images of the brain were obtained with coronal and sagittal reformats created and rev iewed. Contrast used: None. Oral contrast used: None. FINDINGS: Brain: Extra-axial spaces: No abnormal extra-axial fluid collections. Ventricular system: Dilatation in proportion to cerebral atrophy. Cerebral parenchyma: Cerebral atrophy. No acute intraparenchymal hemorrhage or mass effect. The vivar -white junction is well differentiated. Scattered hypoattenuating areas are seen within the white mat ter. Cerebellum: Unremarkable. Mass effect: No evidence of midline shift. Intracranial vasculature: Atherosclerotic calcifications of the intracranial vessels. Soft tissues: Normal. Calvarium/osseous structures: No depressed skull fracture. Paranasal sinuses and mastoid air cells: Mild scattered paranasal sinus disease. Visualized orbits: Bilateral aphakia IMPRESSION: 1. No acute intracranial process. 2. Nonspecific white matter changes, likely secondary to chronic small vessel ischemic disease. 3. Extensive paranasal sinus disease.
--- NOTE | 2023-06-28 11:58 | XR ---
EXAMINATION TYPE: XR chest 1V portable DATE OF EXAM: 06/28/2023 11:47 AM CLINICAL INDICATION:Female, 77 years old with history of ams; COMPARISON: Chest radiographs from 09/28/2022 TECHNIQUE: XR chest 1V portable Frontal view of the chest. FINDINGS: Lungs/Pleura: Prominent interstitial lung markings are seen scattered throughout the lungs with pranav ening of the diaphragm and increased lucency of the lung apices. No evidence of focal consolidation, pneumothorax or pleural effusion. Pulmonary vascularity: Unremarkable. Heart/mediastinum: Cardiomediastinal silhouette is unremarkable. Musculoskeletal: No acute osseous pathology. IMPRESSION: Chronic changes without acute pulmonary process. No significant change from prior.
[2023-06-28] MEDS ORDERED: NALOXONE 0.4 MG/ML 1 ML VIAL IV PRN (13:14)
--- NOTE | 2023-06-28 14:06 | US ---
EXAMINATION TYPE: US renals and bladder DATE OF EXAM: 06/28/2023 COMPARISON: US Aorta - 03/22/2023 CT 08/13/2018 CLINICAL INDICATION: Female, 77 years old with history of catherine; Confusion and weakness EXAM MEASUREMENTS: Right Kidney: 7.1 x 3.5 x 3.1 cm Left Kidney: 10.5 x 5.7 x 5.3 cm Post Void Residual Volume: NA mL Right Kidney: Atrophic Left Kidney: Limited visualization Bladder: Not fully distended Bilateral Jets seen: Not able to assess Normal Post Void Residual: NA There is no evidence for hydronephrosis at this point in time. No nephrolithiasis is seen. No norberto s are identified. Patient not able to hold breath or roll onto sides. IMPRESSION: Atrophic changes of the right kidney.
[2023-06-28 14:16] LABS: Appearance,Urine Turbid (Clear); Bacteria,Urine Many /hpf; Bilirubin,Urine Negative (Negative); Blood,Urine Small (Negative); Color,Urine Yellow; Glucose,Urine (UA) Negative (Negative); Ketones,Urine Negative (Negative); Leukocyte Esterase,Urine Large (Negative); Mucus,Urine Few /hpf; Nitrite,Urine Negative (Negative); PH, Urine 7.5 (5.0-8.0); Protein,Urine 2+ (Negative); RBC,Urine 4 /hpf (0-5); Specific Gravity,Urine 1.016 (1.001-1.035); Squamous Epithelial Cell,Urine 2 /hpf (0-4); Urobilinogen,Urine <2.0 mg/dL (<2.0); WBC,Urine >182 /hpf (0-5)
[2023-06-28] MEDS: SODIUM CHLORIDE 0.9% 1,000 ML IV SCH (14:17)
[2023-06-28] MEDS: ASPIRIN 81 MG PO SCH (16:30)
--- NOTE | 2023-06-28 16:43 | P.HPIM ---
History of Present Illness This is a pleasant 77 years old female with past medical history of COPD, last year requiring intubation and mechanical ventilation before she is improved. Other medical problems including hypertension, dissecting descending aorta, renal infarction, chronic kidney disease stage III Patient states she came to the hospital because she fell however patient history is somewhat limited, on admission patient has been documented to be confused and feeling weak for the last 2 days. Patient says she was going to open the door when she fell, she was feeling dizzy and she was not sure if she passed out. She thinks she hit her head but denies any tenderness for now. No chest pain but patient looks little bit tachypneic although she denies significant dyspnea. She is complaining of from suprapubic abdominal pain and dysuria with decreased frequency of urination She had diarrhea all the day yesterday but not today, no vomiting. No other abdominal pain as per patient She smokes about half pack per day and she was counseled to quit but she declines. No alcohol or illicit drugs. Her blood pressure is on the low side 97/53, rest of Vitas looks stable and patient is afebrile She has mild leukocytosis 10.8, hemoglobin 11, creatinine is significantly elevated at 5.1. Potassium and sodium within the reference range Influenza a test came back positive While covid test is negative Chest x-ray showed COPD changes with no acute changes EKG showing sinus rhythm at [address]-T changes CT of the brain is negative for acute process but showed extensive paranasal sinus disease Renal ultrasound showing atrophic right kidney with no hydronephrosis Review of Systems Review of systems CONSTITUTIONAL: No fever, no malaise, no fatigue. HEENT: No recent visual problems or hearing problems. Denied any sore throat. CARDIOVASCULAR: No orthopnea, PND, no palpitations, no syncope. PULMONARY: No chest wall tenderness, no hemoptysis. GASTROINTESTINAL: No diarrhea, no nausea, no vomiting, no abdominal pain. Normoactive bowel sounds. NEUROLOGICAL: No headaches, no weakness, no numbness. HEMATOLOGICAL: Denies any bleeding or petechiae. GENITOURINARY: Denies any burning micturition, frequency, or urgency. MUSCULOSKELETAL/RHEUMATOLOGICAL: Denies any joint pain, swelling, or any muscle pain. ENDOCRINE: Denies any polyuria or polydipsia. Past Medical History Past Medical History: COPD, CVA/TIA, Hyperlipidemia, Hypertension, Myocardial Infarction ([place]), Osteoarthritis (OA) Additional Past Medical History / Comment(s): TIA - September 2013, past history of abcess/cellulitis left cheek. Patient is poor historian of her PM. 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 Past Anesthesia/Blood Transfusion Reactions: No Reported Reaction Past Psychological History: No Psychological Hx Reported Smoking Status: Former smoker - Past Family History Son(s) Family Medical History: No Reported History Additional Family Medical History / Comment(s): 4 sons all reported healthy per patient Mother Family Medical History: CVA/TIA Additional Family Medical History / Comment(s): Medications and Allergies Home Medications Medication Instructions Recorded Confirmed Type Ergocalciferol [Vitamin D2 (1250 1,250 mcg PO FR 09/23/22 06/28/23 History Mcg = 63019 Iu)] amLODIPine [Norvasc] 10 mg PO DAILY tab 10/03/22 06/28/23 Rx Aspirin [[place] Aspirin EC] 81 mg PO DAILY 06/22/23 06/28/23 History Budesonide-Formot 160-4.5 Mcg 2 puff INHALATION RT-BID 06/22/23 06/28/23 History [Symbicort 160-4.5 Mcg Inhaler] Famotidine 20 mg PO DAILY 06/22/23 06/28/23 History HYDROcodone/APAP 5-325MG [[place] 1 tab PO QID 06/22/23 06/28/23 History 5-325] lisinopriL [Zestril] 20 mg PO DAILY 06/22/23 06/28/23 History Albuterol Inhaler [Ventolin Hfa 2 puff INHALATION RT-QID PRN 06/28/23 06/28/23 History Inhaler] Atorvastatin [Lipitor] 40 mg PO HS 06/28/23 06/28/23 History Naloxone HCl [Narcan] 4 mg NASAL DIRECTED PRN 06/28/23 06/28/23 History Allergies Allergy/AdvReac Type Severity Reaction Status Date / Time iodine Allergy Itching Verified 06/28/23 11:27 Physical Exam Vitals: Vital Signs Temp Pulse Resp BP Pulse Ox 06/28/23 12:30 86 14 97/53 06/28/23 11:30 16 91/62 96 06/28/23 11:20 16 06/28/23 11:15 95 16 91/62 95 06/28/23 11:00 87 16 101/52 96 06/28/23 10:39 84 16 97 06/28/23 10:38 98.3 F 12 88/45 87 L Intake and Output 06/28/23 06/28/23 06/28/23 06:59 14:59 22:59 Other: Weight 44.906 kg -GENERAL: The patient is alert and oriented x2-3, mildly confused, not in any acute distress. Well developed, well nourished. Generally weak HEENT: Pupils are round and equally reacting to light. EOMI. No scleral icterus. No conjunctival pallor. Normocephalic, atraumatic. No pharyngeal erythema. No thyromegaly. CARDIOVASCULAR: S1 and S2 present. No murmurs, rubs, or gallops. -PULMONARY: Chest is clear to auscultation, bilateral expiratory wheezing , no crackles. -ABDOMEN: Soft, suprapubic tenderness , nondistended, normoactive bowel sounds. No palpable organomegaly. MUSCULOSKELETAL: No joint swelling or deformity. EXTREMITIES: No cyanosis, clubbing, or pedal edema. NEUROLOGICAL: Gross neurological examination did not reveal any focal deficits. SKIN: No rashes. no petechiae. Results CBC & Chem 7: 06/28/23 10:46 06/28/23 10:46 Labs: Abnormal Lab Results - Last 24 Hours (Table) 06/28/23 06/28/23 06/28/23 Range/Units 10:46 10:46 10:46 WBC 10.8 H (3.8-10.6) k/uL RBC 3.57 L (3.80-5.40) m/uL Hgb 11.0 L (11.4-16.0) gm/dL Hct 33.0 L (34.0-46.0) % Neutrophils # 9.1 H (1.3-7.7) k/uL Lymphocytes # 0.9 L (1.0-4.8) k/uL Sodium 136 L (137-145) mmol/L Carbon Dioxide 17 L (22-30) mmol/L BUN 68 H (7-17) mg/dL Creatinine 5.16 H (0.52-1.04) mg/dL Glucose 185 H (74-99) mg/dL AST 43 H (14-36) U/L Troponin I (0.000-0.034) ng/mL Urine Appearance Turbid H (Clear) Urine Protein 2+ H (Negative) Urine Blood Small H (Negative) Ur Leukocyte Esterase Large H (Negative) Urine WBC >182 H (0-5) /hpf Urine WBC Clumps Many H (None) /hpf Urine Bacteria Many H (None) /hpf Urine Mucus Few H (None) /hpf Influenza Type A (PCR) (Not Detectd) 06/28/23 06/28/23 Range/Units 10:46 10:46 WBC (3.8-10.6) k/uL RBC (3.80-5.40) m/uL Hgb (11.4-16.0) gm/dL Hct (34.0-46.0) % Neutrophils # (1.3-7.7) k/uL Lymphocytes # (1.0-4.8) k/uL Sodium (137-145) mmol/L Carbon Dioxide (22-30) mmol/L BUN (7-17) mg/dL Creatinine (0.52-1.04) mg/dL Glucose (74-99) mg/dL AST (14-36) U/L Troponin I 0.067 H* (0.000-0.034) ng/mL Urine Appearance (Clear) Urine Protein (Negative) Urine Blood (Negative) Ur Leukocyte Esterase (Negative) Urine WBC (0-5) /hpf Urine WBC Clumps (None) /hpf Urine Bacteria (None) /hpf Urine Mucus (None) /hpf Influenza Type A (PCR) Detected A (Not Detectd) Assessment and Plan Assessment: Acute influenza infection Acute chronic tract infection Acute hypotension secondary to above Acute COPD exacerbation Acute kidney injury on chronic kidney disease stage III Mild metabolic/toxic encephalopathy Hypertension, currently hypotensive Mildly elevated troponin Early weak and fell at home Plan: Start ceftriaxone Start Tamiflu renal dose Start IV Solu-Medrol 40 mg Continue with normal saline Given bolus of normal saline follow-up creatinine Check bladder scan Nephrology consult cardiology consult for elevated troponin and hypotension Hold lisinopril. Hold Norvasc Labs and medication were reviewed.. Continue same treatment. Continue with symptomatic treatment. Resume home medication. Monitor labs and vitals. DVT and GI prophylaxis. Further recommendations as per clinical course of the patient DVT prophylaxis: Subcutaneous heparin GI Prophylaxis: Pepcid PT/OT: Pending Prognosis is guarded
[2023-06-28] MEDS: SODIUM CHLORIDE 0.9% 500 ML 500 ML IV ONE (17:12)
[2023-06-28] MEDS: methylPREDNISolone SOD SUCCI 40 MG/ML 1 ML VIAL IV SCH (17:12)
[2023-06-28] MEDS: MIDODRINE 5 MG TAB PO SCH (17:12)
[2023-06-28] MEDS: OSELTAMIVIR 60 MG/10 ML ORAL SYRINGE PO SCH (17:28)
[2023-06-28] MEDS: SYMBICORT 160-4.5 MCG INHALER INHALATION SCH (21:28)
[2023-06-28] MEDS: ALBUTEROL NEBULIZED 2.5 MG/3 ML INHALATION PRN (21:28)
[2023-06-28] MEDS: HEPARIN SODIUM,PORCINE 5,000 UNIT/ML 1 ML VIAL SQ SCH (21:34)
[2023-06-28] MEDS: ATORVASTATIN 40 MG TAB PO SCH (21:34)
--- NOTE | 2023-06-29 06:10 | XR ---
EXAM: XR Chest, 1 View CLINICAL HISTORY: ITS.REASON XR Reason: Worsening lung sounds. Increase in O2 use. TECHNIQUE: Frontal view of the chest. COMPARISON: CT chest dated 04/25/23 FINDINGS: Lungs: Small right apical opacity may correlate with the right apical nodule seen on CT. Pleural space: Unremarkable. No pneumothorax. Heart: Unremarkable. No cardiomegaly. Mediastinum: Unremarkable. Normal mediastinal contour. Bones/joints: Unremarkable. No acute fracture. IMPRESSION: 1. No evidence of acute cardiopulmonary disease. 2. Small right apical opacity may correlate with the right apical nodule seen on CT.
[2023-06-29] MEDS ORDERED: IOPAMIDOL CONTRAST (ORAL USE) VIAL PO PRN (06:33)
--- NOTE | 2023-06-29 07:12 | P.PN ---
Subjective This is a pleasant 77 years old female with past medical history of COPD, last year requiring intubation and mechanical ventilation before she is improved. Other medical problems including hypertension, dissecting descending aorta, renal infarction, chronic kidney disease stage III Patient states she came to the hospital because she fell however patient history is somewhat limited, on admission patient has been documented to be confused and feeling weak for the last 2 days. Patient says she was going to open the door when she fell, she was feeling dizzy and she was not sure if she passed out. She thinks she hit her head but denies any tenderness for now. No chest pain but patient looks little bit tachypneic although she denies significant dyspnea. She is complaining of from suprapubic abdominal pain and dysuria with decreased frequency of urination She had diarrhea all the day yesterday but not today, no vomiting. No other abdominal pain as per patient She smokes about half pack per day and she was counseled to quit but she decli casi. No alcohol or illicit drugs. Her blood pressure is on the low side 97/53, rest of Vitas looks stable and patient is afebrile She has mild leukocytosis 10.8, hemoglobin 11, creatinine is significantly elevated at 5.1. Potassium and sodium within the reference range Influenza a test came back positive While covid test is negative Chest x-ray showed COPD changes with no acute changes EKG showing sinus rhythm at [address]-T changes CT of the brain is negative for acute process but showed extensive paranasal sinus disease Renal ultrasound showing atrophic right kidney with no hydronephrosis 06/29/2023 Patient awake alert and states that her breathing is better today, she still has wheezing but less significant with better air entry on both sides. She denies chest pain today. No significant abdominal pain but on exam she has mild tenderness in the right upper quadrant and left lower quadrant of unknown significance but patient did not have bowel movement On the top of that her bladder scan showing only 10 mL, she has external urine catheter and she is not making much urine therefore we are going to order CT of the abdomen and pelvis with oral contrast only. Patient with no vomiting and she tolerates diet well. Blood pressure still borderline 94/58, she was saturating 94% on 5 L, repeat chest x-ray in the morning showing same COPD changes with no fluid overload Labs showing elevated protein S calcitonin at 2.25. ProBNP 2460. Echocardiogram and CT of the abdomen are pending Patient on Tamiflu and ceftriaxone 2 g and fluids was switched to sodium bicarbonate 100 mL today Review of systems CONSTITUTIONAL: No fever, no malaise, no fatigue. HEENT: No recent visual problems or hearing problems. Denied any sore throat. CARDIOVASCULAR: No orthopnea, PND, no palpitations, no syncope. MUSCULOSKELETAL/RHEUMATOLOGICAL: Denies any joint pain, swelling, or any muscle pain. ENDOCRINE: Denies any polyuria or polydipsia. Active Medications Generic Name Dose Route Start Last Admin Trade Name Freq PRN Reason Stop Dose Admin Hydrocodone Bitart/Acetaminophen 1 each 06/28/23 18:00 Hydrocodone/Apap 5-325mg 1 Each Tab PO QID PRN Pain Albuterol Sulfate 2.5 mg 06/28/23 15:47 06/28/23 21:28 Albuterol Nebulized 2.5 Mg/3 Ml INHALATION 2.5 mg RT-QID PRN Administration Shortness Of Breath Or Wheezing Aspirin 81 mg 06/28/23 16:00 06/28/23 16:30 Aspirin 81 Mg PO 81 mg DAILY YURI Administration Atorvastatin Calcium 40 mg 06/28/23 21:00 06/28/23 21:34 Atorvastatin 40 Mg Tab PO 40 mg HS YURI Administration Budesonide/Formoterol Fumarate 2 puff 06/28/23 20:00 06/28/23 21:28 Symbicort 160-4.5 Mcg Inhaler INHALATION 2 puff RT-BID YURI Administration Famotidine 20 mg 06/29/23 09:00 Famotidine 20 Mg Tab PO DAILY YURI Heparin Sodium (Porcine) 5,000 unit 06/28/23 21:00 06/28/23 21:34 Heparin Sodium,Porcine 5,000 Unit/Ml 1 Ml Vial SQ 5,000 unit Q12HR YURI Administration Ceftriaxone Sodium 2 gm/ 50 mls @ 100 mls/hr 06/28/23 16:00 06/28/23 16:31 Sodium Chloride IVPB 100 mls/hr Q24HR YURI Administration Protocol Sodium Bicarbonate 100 ml/ 1,100 mls @ 100 mls/hr 06/29/23 08:00 Dextrose/Water IV .Q11H YURI Iopamidol 30 ml 06/29/23 06:33 Iopamidol Contrast (Oral Use) Vial PO 06/30/23 06:[address] Scan Methylprednisolone Sodium Succinate 40 mg 06/28/23 16:45 06/29/23 00:48 Methylprednisolone Sod Succi 40 Mg/Ml 1 Ml Vial IV 40 mg Q8HR YURI Administration Midodrine 5 mg 06/28/23 17:30 06/29/23 06:50 Midodrine 5 Mg Tab PO 5 mg AC-TID YURI Administration Naloxone HCl 0.2 mg 06/28/23 13:14 Naloxone 0.4 Mg/Ml 1 Ml Vial IV Q2M PRN Opioid Reversal Oseltamivir Phosphate 30 mg 06/28/23 17:00 06/28/23 17:28 Oseltamivir 60 Mg/10 Ml Oral Syringe PO 07/02/23 17:01 30 mg DAILY@1700 YURI Administration Protocol Objective - Vital Signs Vital signs: Vital Signs Temp 98.0 F 06/29/23 04:00 Pulse 91 06/29/23 04:00 Resp 18 06/29/23 04:00 BP 99/58 06/29/23 04:00 Pulse Ox 94 L 06/29/23 04:00 FiO2 Intake & Output 06/28/23 06/29/23 06/29/23 18:59 06:59 18:59 Weight 44.906 kg 44.906 kg Other: Voiding Method External Catheter # Voids 1 - Exam GENERAL: The patient is alert and oriented x3, not in any acute distress. Well developed, well nourished. HEENT: Pupils are round and equally reacting to light. EOMI. No scleral icterus. No conjunctival pallor. Normocephalic, atraumatic. No pharyngeal erythema. No t hyromegaly. CARDIOVASCULAR: S1 and S2 present. No murmurs, rubs, or gallops. -PULMONARY: Limited but improving bilateral air entry , no crackles. -ABDOMEN: Soft, mild RUQ and LLQ tenderness with no guarding or rebound tenderness nondistended, normoactive bowel sounds. No palpable organomegaly. MUSCULOSKELETAL: No joint swelling or deformity. EXTREMITIES: No cyanosis, clubbing, or pedal edema. NEUROLOGICAL: Gross neurological examination did not reveal any focal deficits. SKIN: No rashes. no petechiae. - Labs CBC & Chem 7: 06/28/23 10:46 06/28/23 10:46 Labs: Abnormal Lab Results - Last 24 Hours (Table) 06/28/23 06/28/23 06/28/23 Range/Units 10:46 10:46 10:46 WBC 10.8 H (3.8-10.6) k/uL RBC 3.57 L (3.80-5.40) m/uL Hgb 11.0 L (11.4-16.0) gm/dL Hct 33.0 L (34.0-46.0) % Neutrophils # 9.1 H (1.3-7.7) k/uL Lymphocytes # 0.9 L (1.0-4.8) k/uL Sodium 136 L (137-145) mmol/L Carbon Dioxide 17 L (22-30) mmol/L BUN 68 H (7-17) mg/dL Creatinine 5.16 H (0.52-1.04) mg/dL Glucose 185 H (74-99) mg/dL AST 43 H (14-36) U/L Troponin I (0.000-0.034) ng/mL Procalcitonin (0.02-0.09) ng/mL Urine Appearance Turbid H (Clear) Urine Protein 2+ H (Negative) Urine Blood Small H (Negative) Ur Leukocyte Esterase Large H (Negative) Urine WBC >182 H (0-5) /hpf Urine WBC Clumps Many H (None) /hpf Urine Bacteria Many H (None) /hpf Urine Mucus Few H (None) /hpf Influenza Type A (PCR) (Not Detectd) 06/28/23 06/28/23 06/28/23 Range/Units 10:46 10:46 17:02 WBC (3.8-10.6) k/uL RBC (3.80-5.40) m/uL Hgb (11.4-16.0) gm/dL Hct (34.0-46.0) % Neutrophils # (1.3-7.7) k/uL Lymphocytes # (1.0-4.8) k/uL Sodium (137-145) mmol/L Carbon Dioxide (22-30) mmol/L BUN (7-17) mg/dL Creatinine (0.52-1.04) mg/dL Glucose (74-99) mg/dL AST (14-36) U/L Troponin I 0.067 H* 0.090 H* (0.000-0.034) ng/mL Procalcitonin (0.02-0.09) ng/mL Urine Appearance (Clear) Urine Protein (Negative) Urine Blood (Negative) Ur Leukocyte Esterase (Negative) Urine WBC (0-5) /hpf Urine WBC Clumps (None) /hpf Urine Bacteria (None) /hpf Urine Mucus (None) /hpf Influenza Type A (PCR) Detected A (Not Detectd) 06/28/23 Range/Units 17:02 WBC (3.8-10.6) k/uL RBC (3.80-5.40) m/uL Hgb (11.4-16.0) gm/dL Hct (34.0-46.0) % Neutrophils # (1.3-7.7) k/uL Lymphocytes # (1.0-4.8) k/uL Sodium (137-145) mmol/L Carbon Dioxide (22-30) mmol/L BUN (7-17) mg/dL Creatinine (0.52-1.04) mg/dL Glucose (74-99) mg/dL AST (14-36) U/L Troponin I (0.000-0.034) ng/mL Procalcitonin 2.25 H (0.02-0.09) ng/mL Urine Appearance (Clear) Urine Protein (Negative) Urine Blood (Negative) Ur Leukocyte Esterase (Negative) Urine WBC (0-5) /hpf Urine WBC Clumps (None) /hpf Urine Bacteria (None) /hpf Urine Mucus (None) /hpf Influenza Type A (PCR) (Not Detectd) Assessment and Plan Assessment: Acute kidney injury on chronic kidney disease stage III Acute influenza infection Acute chronic tract infection Acute hypotension secondary to above. Blood pressure is borderline Acute COPD exacerbation Mild metabolic/toxic encephalopathy Hypertension, currently hypotensive Mildly elevated troponin Generally nd fell at home Plan: Start ceftriaxone Start Tamiflu renal dose Start IV Solu-Medrol 40 mg Attention fluids to sodium bicarb at 200 mL per hour follow-up creatinine Nephrology consult cardiology consult for elevated troponin and hypotension Hold lisinopril. Hold Norvasc Follow-up CT of the abdomen and pelvis Labs and medication were reviewed.. Continue same treatment. Continue with symptomatic treatment. Resume home medication. Monitor labs and vitals. DVT and GI prophylaxis. Further recommendations as per clinical course of the p atient DVT prophylaxis: Subcutaneous heparin GI Prophylaxis: Pepcid PT/OT: Pending Prognosis is guarded
[2023-06-29] MEDS: FAMOTIDINE 20 MG TAB PO SCH (08:38)
[2023-06-29] MEDS: DEXTROSE 5% IN WATER 1,000 ML with SODIUM BICARB (1 MEQ/ML) 100 ML IV SCH (08:38)
--- NOTE | 2023-06-29 10:30 | P.NPCON ---
History of Present Illness - Reason for Consult acute renal failure - History of Present Illness Patient is a 77-year-old female with history of COPD who was admitted to the hospital with complaints of increased weakness as well as confusion. Patient was dizzy. She did sustain a fall. Patient tested positive for influenza A. Patient states she has been voiding. Blood pressure was low with systolic blood pressure in the 80s on initial admission. Maintained on LEXIS inhibitors prior to admission, currently on hold. Serum creatinine was 5.1 on admission yesterday. Previous creatinine 2.0 on 04/25/2023 and 0.9 on 10/03/2022 Patient has an external catheter with no urine output documented. Review of Systems As per HPI Past Medical History Past Medical History: COPD, CVA/TIA, Hyperlipidemia, Hypertension, Myocardial Infarction ([place]), Osteoarthritis (OA) Additional Past Medical History / Comment(s): TIA - September 2013, past history of abcess/cellulitis left cheek. Patient is poor historian of her [facility]. 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 Past Anesthesia/Blood Transfusion Reactions: No Reported Reaction Past Psychological History: No Psychological Hx Reported Smoking Status: Former smoker Past Alcohol Use History: None Reported Additional Past Alcohol Use History / Comment(s): 3-4 beers/week. quit november 2017 Past Drug Use History: None Reported - Past Family History Son(s) Family Medical History: No Reported History Additional Family Medical History / Comment(s): 4 sons all reported healthy per patient Mother Family Medical History: CVA/TIA Additional Family Medical History / Comment(s): Medications and Allergies Home Medications Medication Instructions Recorded Confirmed Type Ergocalciferol [Vitamin D2 (1250 1,250 mcg PO FR 09/23/22 06/28/23 History Mcg = 26668 Iu)] amLODIPine [Norvasc] 10 mg PO DAILY tab 10/03/22 06/28/23 Rx Aspirin [[place] Aspirin EC] 81 mg PO DAILY 06/22/23 06/28/23 History Budesonide-Formot 160-4.5 Mcg 2 puff INHALATION RT-BID 06/22/23 06/28/23 History [Symbicort 160-4.5 Mcg Inhaler] Famotidine 20 mg PO DAILY 06/22/23 06/28/23 History HYDROcodone/APAP 5-325MG [[place] 1 tab PO QID 06/22/23 06/28/23 History 5-325] lisinopriL [Zestril] 20 mg PO DAILY 06/22/23 06/28/23 History Albuterol Inhaler [Ventolin Hfa 2 puff INHALATION RT-QID PRN 06/28/23 06/28/23 History Inhaler] Atorvastatin [Lipitor] 40 mg PO HS 06/28/23 06/28/23 History Naloxone HCl [Narcan] 4 mg NASAL DIRECTED PRN 06/28/23 06/28/23 History Allergies Allergy/AdvReac Type Severity Reaction Status Date / Time iodine Allergy Itching Verified 06/28/23 11:27 Physical Exam Vitals: Vital Signs Temp Pulse Pulse Resp BP BP Pulse Ox 06/29/23 08:00 97.9 F 73 16 96/47 99 06/29/23 04:00 98.0 F 91 18 99/58 94 L 06/29/23 00:00 98.2 F 88 18 101/57 93 L 06/28/23 22:00 97.8 F 78 19 97/55 98 06/28/23 21:36 80 06/28/23 21:29 78 06/28/23 19:00 98.0 F 92 19 101/66 97 06/28/23 16:00 81 16 110/60 95 06/28/23 15:00 86 15 106/51 06/28/23 14:00 87 14 92/52 97 06/28/23 12:30 86 14 97/53 06/28/23 11:30 16 91/62 96 06/28/23 11:20 16 06/28/23 11:15 95 16 91/62 95 06/28/23 11:00 87 16 101/52 96 06/28/23 10:39 84 16 97 06/28/23 10:38 98.3 F 12 88/45 87 L Intake and Output 06/28/23 06/29/23 06/29/23 22:59 06:59 14:59 Other: Voiding Method External Catheter # Voids 1 Weight 44.906 kg Patient is awake comfortable no acute distress Examination of the heart S1 and S2 Examination of the lungs decreased breath sounds at the bases, transmitted air sounds heard Abdomen is soft nontender Examination of lower extremities shows no evidence of edema Results - Lab Results Most recent lab results Calcium 8.6 mg/dL (8.4-10.2) 06/28/23 10:46 Magnesium 1.9 mg/dL (1.6-2.3) 06/28/23 10:46 06/28/23 10:46 06/28/23 10:46 Assessment and Plan Assessment: 1. Acute kidney injury, ATN. Rule out urine retention. Check bladder scan. UA shows 2+ protein and small blood and WBCs more than 182. Ultrasound shows right kidney 7.1 cm and left kidney 10.5 cm. No hydronephrosis noted patient has atrophic right kidney. 2. Influenza A infection maintained on Tamiflu 3. Hypotension secondary to underlying infection and hypovolemia 4. Anion gap metabolic acidosis maintained on IV sodium bicarb. Etiology is acute kidney injury. 5. Pyuria rule out UTI 6. Atrophic right kidney Plan: Check bladder scan Repeat labs today Continue with IV bicarb Continue with midodrine Continue to avoid diuretics and LEXIS inhibitors. Thank you for the consultation. We will continue to follow the patient with you during her hospitalization.
--- NOTE | 2023-06-29 11:00 | P.CRDCN ---
History of Present Illness History of present illness: HISTORY OF PRESENT ILLNESS: This is a 77-year-old female with a past medical history significant for hypertension, hyperlipidemia, COPD, and TIA. Patient follows in the office with Dr. Tim. We have been asked to see the patient in consultation for elevated troponins. Patient apparently presented to the hospital due to altered mental status. Patient examined at the bedside. Patient currently denies any chest pain or pressure. She denies shortness of breath. She is currently receiving antibiotics and IV steroids. Telemetry reveals sinus mechanism. Vital signs are stable. Most recent blood pressure 96/47. She is on 4 L nasal cannula with oxygen saturations greater than 92% DIAGNOSTICS: - EKG reveals sinus mechanism with no signs of acute ischemia. - Chest xray chronic changes without acute pulmonary process. - Renal ultrasound: Atrophic changes of right kidney - CT of the brain: Negative for acute intracranial process. Nonspecific white matter changes, likely secondary to chronic small vessel ischemic disease. Extensive paranasal sinus disease - Laboratory data: WBC 10.8. Hemoglobin 11.0. Platelet count 235. Sodium 136. Potassium 4.2. BUN 68. Creatinine 5.16. Lactic acid 1.8. Troponin 0.067. 0.090. 0.070. proBNP 2560. Procalcitonin 2.25 - Current home cardiac medications include lisinopril 20 mg daily, amlodipine 10 mg daily, Lipitor 40 mg at night, and aspirin 81 mg daily. - Most recent echocardiogram obtained in September 2022 revealed EF 60 to 65% with trace to mild TR - Patient underwent Lexiscan stress test in December 2022 which was negative for ischemia REVIEW OF SYSTEMS: At the time of my exam: CONSTITUTIONAL: Denies fever or chills. HEENT: Denies blurred vision, vision changes, or eye pain. Denies hemoptysis CARDIOVASCULAR: Denies chest pain. Denies orthopnea. Denies PND. Denies palpitations RESPIRATORY: Denies shortness of breath. GASTROINTESTINAL: Denies abdominal pain. Denies nausea or vomiting. HEMATOLOGIC: Denies bleeding disorders. GENITOURINARY: Denies any blood in urine. SKIN: Denies pruitis. Denies rash. PHYSICAL EXAM: VITAL SIGNS: Reviewed. GENERAL: Well-developed in no acute distress. HEENT: Head is normocephalic. Pupils are equal, round. Sclerae anicteric. Mucous membranes of the mouth are moist. Neck supple. No JVD or thyromegaly LUNGS: Respirations even and unlabored. Lungs essentially clear to auscultation bilaterally. HEART: Regular rate and rhythm. S1 and S2 heard. ABDOMEN: Soft. Nondistended. Nontender. EXTREMITIES: Normal range of motion. No clubbing or cyanosis. Peripheral pulses intact. No lower extremity edema NEUROLOGIC: Awake and alert. Oriented x 1-2. ASSESSMENT: Altered mental status Generalized weakness Acute influenza A Acute COPD exacerbation Acute renal failure Abnormal troponins, flat, likely secondary to above History of hypertension History of hyperlipidemia History of TIA PLAN: An acute coronary event has been ruled out 2D echo has been ordered. Await results Continue current home cardiac medications No further inpatient recommendations from a cardiology standpoint We will sign off. Please reconsult if needed. Nurse practitioner note has been reviewed by physician. Signing provider agrees with the documented findings, assessment, and plan of care documented by SYSTEM SPECIALIST as a scribe. Past Medical History Past Medical History: COPD, CVA/TIA, Hyperlipidemia, Hypertension, Myocardial Infarction ([place]), Osteoarthritis (OA) Additional Past Medical History / Comment(s): TIA - September 2013, past history of abcess/cellulitis left cheek. Patient is poor historian of her PM[facility]. 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 Past Anesthesia/Blood Transfusion Reactions: No Reported Reaction Past Psychological History: No Psychological Hx Reported Smoking Status: Former smoker Past Alcohol Use History: None Reported Additional Past Alcohol Use History / Comment(s): 3-4 beers/week. quit november 2017 Past Drug Use History: None Reported - Past Family History Son(s) Family Medical History: No Reported History Additional Family Medical History / Comment(s): 4 sons all reported healthy per patient Mother Family Medical History: CVA/TIA Additional Family Medical History / Comment(s): Medications and Allergies Home Medications Medication Instructions Recorded Confirmed Type Ergocalciferol [Vitamin D2 (1250 1,250 mcg PO FR 09/23/22 06/28/23 History Mcg = 35505 Iu)] amLODIPine [Norvasc] 10 mg PO DAILY tab 10/03/22 06/28/23 Rx Aspirin [[place] Aspirin EC] 81 mg PO DAILY 06/22/23 06/28/23 History Budesonide-Formot 160-4.5 Mcg 2 puff INHALATION RT-BID 06/22/23 06/28/23 History [Symbicort 160-4.5 Mcg Inhaler] Famotidine 20 mg PO DAILY 06/22/23 06/28/23 History HYDROcodone/APAP 5-325MG [[place] 1 tab PO QID 06/22/23 06/28/23 History 5-325] lisinopriL [Zestril] 20 mg PO DAILY 06/22/23 06/28/23 History Albuterol Inhaler [Ventolin Hfa 2 puff INHALATION RT-QID PRN 06/28/23 06/28/23 History Inhaler] Atorvastatin [Lipitor] 40 mg PO HS 06/28/23 06/28/23 History Naloxone HCl [Narcan] 4 mg NASAL DIRECTED PRN 06/28/23 06/28/23 History Allergies Allergy/AdvReac Type Severity Reaction Status Date / Time iodine Allergy Itching Verified 06/28/23 11:27 Physical Exam Vitals: Vital Signs Temp Pulse Pulse Resp BP BP Pulse Ox 06/29/23 04:00 98.0 F 91 18 99/58 94 L 06/29/23 00:00 98.2 F 88 18 101/57 93 L 06/28/23 22:00 97.8 F 78 19 97/55 98 06/28/23 21:36 80 06/28/23 21:29 78 06/28/23 19:00 98.0 F 92 19 101/66 97 06/28/23 16:00 81 16 110/60 95 06/28/23 15:00 86 15 106/51 06/28/23 14:00 87 14 92/52 97 06/28/23 12:30 86 14 97/53 06/28/23 11:30 16 91/62 96 06/28/23 11:20 16 06/28/23 11:15 95 16 91/62 95 06/28/23 11:00 87 16 101/52 96 06/28/23 10:39 84 16 97 06/28/23 10:38 98.3 F 12 88/45 87 L Intake and Output 06/28/23 06/29/23 06/29/23 22:59 06:59 14:59 Other: Voiding Method External Catheter # Voids 1 Weight 44.906 kg Results 06/28/23 10:46 06/28/23 10:46 Cardiac Enzymes 06/28/23 06/28/23 06/28/23 Range/Units 10:46 10:46 17:02 AST 43 H (14-36) U/L Troponin I 0.067 H* 0.090 H* (0.000-0.034) ng/mL 06/29/23 Range/Units 06:56 AST (14-36) U/L Troponin I 0.070 H* (0.000-0.034) ng/mL Coagulation 06/28/23 Range/Units 10:46 PT 10.4 (10.0-12.5) sec APTT 25.8 (22.0-30.0) sec CBC 06/28/23 Range/Units 10:46 WBC 10.8 H (3.8-10.6) k/uL RBC 3.57 L (3.80-5.40) m/uL Hgb 11.0 L (11.4-16.0) gm/dL Hct 33.0 L (34.0-46.0) % Plt Count 235 (150-450) k/uL Comprehensive Metabolic Panel 06/28/23 Range/Units 10:46 Sodium 136 L (137-145) mmol/L Potassium 4.2 (3.5-5.1) mmol/L Chloride 103 (98-107) mmol/L Carbon Dioxide 17 L (22-30) mmol/L BUN 68 H (7-17) mg/dL Creatinine 5.16 H (0.52-1.04) mg/dL Glucose 185 H (74-99) mg/dL Calcium 8.6 (8.4-10.2) mg/dL AST 43 H (14-36) U/L ALT 20 (4-34) U/L Alkaline Phosphatase 59 (38-126) U/L Total Protein 7.3 (6.3-8.2) g/dL Albumin 4.3 (3.5-5.0) g/dL Current Medications Generic Name Dose Route Start Last Admin Trade Name Freq PRN Reason Stop Dose Admin Hydrocodone Bitart/Acetaminophen 1 each 06/28/23 18:00 Hydrocodone/Apap 5-325mg 1 Each Tab PO QID PRN Pain Albuterol Sulfate 2.5 mg 06/28/23 15:47 06/28/23 21:28 Albuterol Nebulized 2.5 Mg/3 Ml INHALATION 2.5 mg RT-QID PRN Administration Shortness Of Breath Or Wheezing Aspirin 81 mg 06/28/23 16:00 06/28/23 16:30 Aspirin 81 Mg PO 81 mg DAILY YURI Administration Atorvastatin Calcium 40 mg 06/28/23 21:00 06/28/23 21:34 Atorvastatin 40 Mg Tab PO 40 mg HS YURI Administration Budesonide/Formoterol Fumarate 2 puff 06/28/23 20:00 06/28/23 21:28 Symbicort 160-4.5 Mcg Inhaler INHALATION 2 puff RT-BID YURI Administration Famotidine 20 mg 06/29/23 09:00 Famotidine 20 Mg Tab PO DAILY YURI Heparin Sodium (Porcine) 5,000 unit 06/28/23 21:00 06/28/23 21:34 Heparin Sodium,Porcine 5,000 Unit/Ml 1 Ml Vial SQ 5,000 unit Q12HR YURI Administration Ceftriaxone Sodium 2 gm/ 50 mls @ 100 mls/hr 06/28/23 16:00 06/28/23 16:31 Sodium Chloride IVPB 100 mls/hr Q24HR YURI Administration Protocol Sodium Bicarbonate 100 ml/ 1,100 mls @ 100 mls/hr 06/29/23 08:00 Dextrose/Water IV .Q11H YURI Iopamidol 30 ml 06/29/23 06:33 Iopamidol Contrast (Oral Use) Vial PO 06/30/23 06:[address] Scan Methylprednisolone Sodium Succinate 40 mg 06/28/23 16:45 06/29/23 00:48 Methylprednisolone Sod Succi 40 Mg/Ml 1 Ml Vial IV 40 mg Q8HR YURI Administration Midodrine 5 mg 06/28/23 17:30 06/29/23 06:50 Midodrine 5 Mg Tab PO 5 mg AC-TID YURI Administration Naloxone HCl 0.2 mg 06/28/23 13:14 Naloxone 0.4 Mg/Ml 1 Ml Vial IV Q2M PRN Opioid Reversal Oseltamivir Phosphate 30 mg 06/28/23 17:00 06/28/23 17:28 Oseltamivir 60 Mg/10 Ml Oral Syringe PO 07/02/23 17:01 30 mg DAILY@1700 [facility] Administration Protocol Intake and Output 06/28/23 06/29/23 06/29/23 22:59 06:59 14:59 Other: Voiding Method External Catheter # Voids 1 Weight 44.906 kg 06/28/23 10:46 06/28/23 10:46
[2023-06-29 11:02] LABS: Basophils # (A) 0.01 X 10*3/uL (0.00-0.10); Basophils % (A) 0.1 %; Eosinophils # (A) 0 X 10*3/uL (0.04-0.35); Eosinophils % (A) 0 %; HCT 29.2 % (37.2-46.3); HGB 9.3 g/dL (12.0-15.0); Lymphocytes # (A) 0.62 X 10*3/uL (0.90-5.00); Lymphocytes % (A) 5.8 %; MCH 30.1 pg (27.0-32.0); MCHC 31.8 g/dL (32.0-37.0); MCV 94.5 FL (80.0-97.0); Mean Platelet Volume 12.8 FL (9.5-12.2); Monocytes # (A) 0.22 X 10*3/uL (0.20-1.00); Monocytes % (A) 2.1 %; NRBC Per 100 WBC 0 X 10*3/uL (0.00-0.01); Neutrophils # (A) 9.71 X 10*3/uL (1.80-7.70); Neutrophils % (A) 91.5 %; Platelet Count 179 X 10*3/uL (140-440); RBC 3.09 X 10*6/uL (4.10-5.20); RDW 14.8 % (11.5-14.5); WBC 10.61 X 10*3/uL (4.50-10.00)
--- NOTE | 2023-06-29 12:28 | CA ---
Transthoracic Echo Report Name: Missy Thomas Age: 77 Gender: F : 1945 Exam Date: 06/29/2023 08:22 Exam Location: [facility] Ht (in): 61 Wt (lb): 128 Ordering Physician: Santy Booth MD Attending/Referring Phys: [id number], Leobardo Casing Trimmer Noah Ortega RDCS Procedure CPT: Indications: Rule out heart disease Cardiac Hx: Technical Quality: Fair Contrast 1: Total Dose (mL): Contrast 2: Total Dose (mL): MEASUREMENTS (Male / Female) Normal Values 2D ECHO LV Diastolic Diameter PLAX 2.9 cm 4.2 - 5.9 / 3.9 - 5.3 cm LV Systolic Diameter PLAX 2.5 cm IVS Diastolic Thickness 1.0 cm 0.6 - 1.0 / 0.6 - 0.9 cm LVPW Diastolic Thickness 0.9 cm 0.6 - 1.0 / 0.6 - 0.9 cm LV Relative Wall Thickness 0.6 Aortic Root Diameter 3.0 cm LA Systolic Diameter LX 3.6 cm 3.0 - 4.0 / 2.7 - 3.8 cm DOPPLER AV Peak Velocity 148.2 cm/s AV Peak Gradient 8.8 mmHg AV Mean Velocity 103.3 cm/s AV Mean Gradient 4.7 mmHg AV Velocity Time Integral 33.8 cm LVOT Peak Velocity 92.6 cm/s LVOT Peak Gradient 3.4 mmHg LVOT Velocity Time Integral 25.5 cm Mitral E Point Velocity 102.6 cm/s Mitral A Point Velocity 116.0 cm/s Mitral E to A Ratio 0.9 MV Deceleration Time 238.9 ms MV E' Velocity 5.3 cm/s Mitral E to MV E' Ratio 19.5 FINDINGS Left Ventricle Left ventricular ejection fraction is estimated at 55-60 %.Normal left ventricular systolic function with no obvious regional wall motion abnormalities. Left ventricular cavity size normal. Right Ventricle Normal right ventricular size. Right Atrium Normal right atrial size. Left Atrium Normal left atrial size. Mitral Valve Trace mitral regurgitation.mitral annular calcification. Aortic Valve Aortic valve not well visualized. Tricuspid Valve mild tricuspid regurgitation.structurally normal tricuspid valve. Pulmonic Valve No pulmonic regurgitation.pulmonic valve not well visualized. Pericardium No pericardial effusion. Aorta Normal size aortic root and proximal ascending aorta. CONCLUSIONS Technically difficult study. Normal left ventricular size and systolic function Trace mitral with mild tricuspid regurgitation Previewed by: Dr. Marco Tim MD (Electronically Signed) Final Date: 29 June 2023 12:27
[2023-06-29 12:44] LABS: BUN/Creat Ratio 13.18 Ratio (12.00-20.00); Blood Urea Nitrogen 75.1 mg/dL (9.0-27.0); Calcium 7.1 mg/dL (8.7-10.3); Chloride 101 mmol/L (96-109); Glucose 205 mg/dL (70-110); Potassium 4.5 mmol/L (3.5-5.5); Sodium 133 mmol/L (135-145)
--- NOTE | 2023-06-29 13:28 | CDI ---
Documentation Clarification Form Date: From: Nicky Kelly Phone: [phone] Admit Date: 06/28/2023 01:16:00 PM Patient Name: Missy Thomas Visit Number: [id number] Discharge Date: ATTENTION: The Clinical Documentation Specialists (CDI) and [facility] Coding Staff appreciate your assistance in clarifying documentation. Please respond to the clarification below the line at the bottom and electronically sign. The CDI & [facility] Coding staff will review the response and follow-up if needed. Please note: Queries are made part of the Legal Health Record. If you have any questions, please contact the author of this message via ITS. Dr. Madera E Sheet Patient has a documented BMI of 18.7kg/m2. Additional clarification is requested. History/Risk Factors: "77-year-old female presents emergency department for altered mental status" - Per ED Note on 06/28 Clinical Indicators: "Well developed, well nourished. Generally weak" - Per Medical H&P on 06/28 Patients weight is 44.906kg Patients height is 5'1" Calculated BMI is 18.7kg/m2 Treatments: Per Orders: Renal Diet, dysphagia level 1, 1:1 supervision Dietary Consult per protocol Please clarify, is there is an additional diagnosis that is clinically appropriate for this patient? [ ] Underweight [ x ] Malnutrition, (further specify severity and type) [ ] Other, please specify [ ] Unable to determine MTDD
[2023-06-29 13:37] VITALS: BMI 18.7
--- NOTE | 2023-06-29 13:38 | CDI ---
Documentation Clarification Form Date: From: Nicky Kelly Phone: [phone] Admit Date: 06/28/2023 01:16:00 PM Patient Name: Missy Thomas Visit Number: [id number] Discharge Date: ATTENTION: The Clinical Documentation Specialists (CDI) and [facility] Coding Staff appreciate your assistance in clarifying documentation. Please respond to the clarification below the line at the bottom and electronically sign. The CDI & [facility] Coding staff will review the response and follow-up if needed. Please note: Queries are made part of the Legal Health Record. If you have any questions, please contact the author of this message via ITS. Dr. Marco Tim Your patient has elevated troponin levels documented. Please clarify if there is an additional diagnosis and/or clinical significance related to this value. Patient history/risk factors: "77-year-old female with a past medical history significant for hypertension, hyperlipidemia, COPD, and TIA." "Patient apparently presented to the hospital due to altered mental status." - Per Cardiology Consult note on 06/29 Clinical indicators: - Per Cardiology Consult note on 06/29 "EKG reveals sinus mechanism with no signs of acute ischemia." "Most recent echocardiogram obtained in September 2022 revealed EF 60 to 65% with trace to mild TR" "CARDIOVASCULAR: Denies chest pain. Denies orthopnea. Denies PND. Denies palpitations" "RESPIRATORY: Denies shortness of breath." "Acute renal failure Abnormal troponins, flat, likely secondary to above" Troponin I: 06/28 - 0.067, 0.090, 06/29 - 0.070 Treatment: Per Cardiology Consult note on 06/29 "2D echo has been ordered. Await results Continue current home cardiac medications No further inpatient recommendations from a cardiology standpoint" Is there an additional diagnosis and/or clinical significance related to the above lab result/information: [ ] Non-ischemic with acute myocardial injury [ xx ] No additional diagnosis/Not clinically significant [ ] Other, please specify [ ] Unable to determine MTDD
[2023-06-30] MEDS: HYDROcodone/APAP 5-325MG 1 EACH TAB PO PRN (03:01)
--- NOTE | 2023-06-30 09:45 | CT ---
EXAMINATION TYPE: CT brain wo con DATE OF EXAM: 06/30/2023 COMPARISON: 06/28/2023 HISTORY: AMS CT DLP: 1183.4 mGycm Automated exposure control for dose reduction was used. FINDINGS: The ventricles, basal cisterns and sulci over the convexities are moderately enlarged consistent with moderate generalized atrophy. There is marked decreased density in the periventricular white matter consistent with chronic ischemi c white matter demyelination. There is no acute intra or extra-axial hemorrhage. There is no mass effect or shift of the midline structures. The posterior fossa including the brainstem, fourth ventricle and cerebellopontine angles are grossly normal. Intraorbital contents appear normal and symmetric. There are multiple air-fluid levels in maxillary and sphenoid sinuses consistent with acute sinusitis . There is fluid in the right mastoid air cells. There is poor pneumatization of the left mastoid air cells. There is fluid in the right middle ear cavity IMPRESSION: 1. No acute bleed or mass effect. 2. Moderate atrophy and marked ischemic white matter demyelination. 3. Acute pansinusitis and right mastoiditis and right otitis media.
--- NOTE | 2023-06-30 09:51 | CT ---
EXAMINATION TYPE: CT abdomen pelvis wo con DATE OF EXAM: 06/30/2023 COMPARISON: 08/13/2018 HISTORY: RUQ and LLQ abdominal tenderness CT DLP: 428.8 mGycm Automated exposure control for dose reduction was used. TECHNIQUE: Helical acquisition of images was performed from the lung bases through the pelvis. FINDINGS: There is mild chronic interstitial changes in the right lung base. The gallbladder is contracted but there are no gallstones. There is no organomegaly involving the liver, pancreas, spleen or right adrenal gland. There is a sma ll left adrenal adenoma. The right kidney is markedly atrophic. There is a tiny nonobstructing calculus in the inferior pole w hich was seen previously and is stable. There is marked hypertrophy of the left kidney but no left re nal calculus or hydronephrosis. Caliber of the abdominal aorta is normal and there is no evidence of aneurysm. There is no retroperit beal adenopathy or hemorrhage. The bowel loops are normal in caliber and there is no obstruction. No inflammatory changes identified in the bowel wall or mesentery. There is no free intraperitoneal air or fluid. There is no pelvic mass or adenopathy. There is been fixation of a right femoral neck fracture. No focal osseous lesions are seen. IMPRESSION: No acute changes within the abdomen or pelvis as described above.
[2023-06-30 09:54] LABS: Basophils # (A) 0.1 k/uL (0-0.2); Basophils % (A) 0 %; Eosinophils # (A) 0.1 k/uL (0-0.7); Eosinophils % (A) 1 %; HCT 29.8 % (34.0-46.0); Hypochromasia Slight; Lymphocytes # (A) 0.8 k/uL (1.0-4.8); Lymphocytes % (A) 5 %; MCH 30.9 pg (25.0-35.0); MCHC 31.8 g/dL (31.0-37.0); MCV 97.2 fL (80.0-100.0); Mean Platelet Volume 10.9; Monocytes # (A) 0.5 k/uL (0-1.0); Monocytes % (A) 3 %; Neutrophils # (A) 15.5 k/uL (1.3-7.7); Neutrophils % (A) 90 %; Platelet Count 210 k/uL (150-450); RBC 3.07 m/uL (3.80-5.40); RDW 14.1 % (11.5-15.5); WBC 17.2 k/uL (3.8-10.6)
[2023-06-30 09:58] LABS: HGB 9.5 gm/dL (11.4-16.0)
[2023-06-30 10:15] LABS: African American GFR (CKD) 9 (>60 ml/min/1.73 sqM); Anion Gap 14 mmol/L; Blood Urea Nitrogen 98 mg/dL (7-17); Calcium 7.2 mg/dL (8.4-10.2); Carbon Dioxide 19 mmol/L (22-30); Chloride 97 mmol/L (98-107); Glucose 335 mg/dL (74-99); Non-African American GFR(CKD) 8 (>60 ml/min/1.73 sqM); Potassium 4.1 mmol/L (3.5-5.1); Sodium 130 mmol/L (137-145)
--- NOTE | 2023-06-30 10:47 | P.PN ---
Subjective Patient is seen for follow-up for acute kidney injury. She is comfortable. No acute distress. Renal function has improved slightly with creatinine down to 4.8. Currently maintained on bicarb drip. Urine output not charted. Blood pressure was low yesterday with systolic in the 90s but improved today. Maintained on midodrine. Objective - Vital Signs Vital signs: Vital Signs Temp 98.0 F 06/29/23 19:37 Pulse 92 06/30/23 03:04 Resp 18 06/30/23 03:04 BP 123/73 06/30/23 03:04 Pulse Ox 94 L 06/30/23 03:04 FiO2 Intake & Output 06/29/23 06/30/23 06/30/23 18:59 06:59 18:59 Intake Total 110 Balance 110 Weight 44.906 kg Intake: Oral 110 Other: Voiding Method External Catheter # Voids 1 1 # Bowel Movements 1 - Exam Patient is awake comfortable no acute distress Examination of the heart S1 and S2 Examination of the lungs decreased breath sounds at the bases, transmitted air sounds from upper airways heard Abdomen is soft nontender Examination of lower extremities shows no evidence of edema - Labs CBC & Chem 7: 06/30/23 09:37 06/30/23 09:37 Labs: Abnormal Lab Results - Last 24 Hours (Table) 06/29/23 06/29/23 06/30/23 Range/Units 06:56 06:56 09:37 WBC 10.61 H 17.2 H (4.50-10.00) X 10*3/uL RBC 3.09 L 3.07 L (4.10-5.20) X 10*6/uL Hgb 9.3 L 9.5 L D (12.0-15.0) g/dL Hct 29.2 L 29.8 L (37.2-46.3) % MCHC 31.8 L (32.0-37.0) g/dL RDW 14.8 H (11.5-14.5) % MPV 12.8 H (9.5-12.2) FL Immature Gran # 0.05 H (0.00-0.04) X 10*3/uL Neutrophils # 9.71 H 15.5 H (1.80-7.70) X 10*3/uL Lymphocytes # 0.62 L 0.8 L (0.90-5.00) X 10*3/uL Eosinophils # 0 L (0.04-0.35) X 10*3/uL Sodium 133 L (135-145) mmol/L Chloride (98-107) mmol/L Carbon Dioxide 15.0 L (21.6-31.8) mmol/L Anion Gap 17.00 H (4.00-12.00) mmol/L BUN 75.1 H (9.0-27.0) mg/dL Creatinine 5.7 H (0.6-1.5) mg/dL Est GFR (CKD-EPI) 7 L (>=60) Glucose 205 H (70-110) mg/dL Calcium 7.1 L (8.7-10.3) mg/dL 06/30/23 Range/Units 09:37 WBC (4.50-10.00) X 10*3/uL RBC (4.10-5.20) X 10*6/uL Hgb (12.0-15.0) g/dL Hct (37.2-46.3) % MCHC (32.0-37.0) g/dL RDW (11.5-14.5) % MPV (9.5-12.2) FL Immature Gran # (0.00-0.04) X 10*3/uL Neutrophils # (1.80-7.70) X 10*3/uL Lymphocytes # (0.90-5.00) X 10*3/uL Eosinophils # (0.04-0.35) X 10*3/uL Sodium 130 L (135-145) mmol/L Chloride 97 L (98-107) mmol/L Carbon Dioxide 19 L (21.6-31.8) mmol/L Anion Gap (4.00-12.00) mmol/L BUN 98 H (9.0-27.0) mg/dL Creatinine 4.80 H (0.6-1.5) mg/dL Est GFR (CKD-EPI) (>=60) Glucose 335 H (70-110) mg/dL Calcium 7.2 L (8.7-10.3) mg/dL Assessment and Plan Assessment: 1. Acute kidney injury, ATN secondary to hypotension and underlying infection. UA shows 2+ protein and small blood and WBCs more than 182. Ultrasound shows right kidney 7.1 cm and left kidney 10.5 cm. No hydronephrosis noted patient has atrophic right kidney. 2. Influenza A infection maintained on Tamiflu 3. Hypotension secondary to underlying infection and hypovolemia 4. Anion gap metabolic acidosis maintained on IV sodium bicarb. Etiology is acute kidney injury. 5. Pyuria rule out UTI 6. Atrophic right kidney Plan: Continue with IV bicarb Continue with midodrine Check urine culture Continue with empiric antibiotics Continue to avoid diuretics and LEXIS inhibitors.
--- NOTE | 2023-06-30 16:58 | P.PN ---
Subjective This is a pleasant 77 years old female with past medical history of COPD, last year requiring intubation and mechanical ventilation before she is improved. Other medical problems including hypertension, dissecting descending aorta, renal infarction, chronic kidney disease stage III Patient states she came to the hospital because she fell however patient history is somewhat limited, on admission patient has been documented to be confused and feeling weak for the last 2 days. Patient says she was going to open the door when she fell, she was feeling dizzy and she was not sure if she passed out. She thinks she hit her head but denies any tenderness for now. No chest pain but patient looks little bit tachypneic although she denies significant dyspnea. She is complaining of from suprapubic abdominal pain and dysuria with decreased frequency of urination She had diarrhea all the day yesterday but not today, no vomiting. No other abdominal pain as per patient She smokes about half pack per day and she was counseled to quit but she decli casi. No alcohol or illicit drugs. Her blood pressure is on the low side 97/53, rest of Vitas looks stable and patient is afebrile She has mild leukocytosis 10.8, hemoglobin 11, creatinine is significantly elevated at 5.1. Potassium and sodium within the reference range Influenza a test came back positive While covid test is negative Chest x-ray showed COPD changes with no acute changes EKG showing sinus rhythm at [address]-T changes CT of the brain is negative for acute process but showed extensive paranasal sinus disease Renal ultrasound showing atrophic right kidney with no hydronephrosis 06/29/2023 Patient awake alert and states that her breathing is better today, she still has wheezing but less significant with better air entry on both sides. She denies chest pain today. No significant abdominal pain but on exam she has mild tenderness in the right upper quadrant and left lower quadrant of unknown significance but patient did not have bowel movement On the top of that her bladder scan showing only 10 mL, she has external urine catheter and she is not making much urine therefore we are going to order CT of the abdomen and pelvis with oral contrast only. Patient with no vomiting and she tolerates diet well. Blood pressure still borderline 94/58, she was saturating 94% on 5 L, repeat chest x-ray in the morning showing same COPD changes with no fluid overload Labs showing elevated protein S calcitonin at 2.25. ProBNP 2460. Echocardiogram and CT of the abdomen are pending Patient on Tamiflu and ceftriaxone 2 g and fluids was switched to sodium bicarbonate 100 mL today 06/30/2023 Patient is improving, currently she is on room air and her steroid switched to prednisone 40 mg from tomorrow She has mild leukocytosis due to steroid effect. No more fever. Urine culture is pending Creatinine down to 4.8 Treatments and sodium bicarb and ceftriaxone [address] of the abdomen and pelvis is negative for acute process. CT of the brain repeated because patient was more confused yesterday and she fell at home which was negative for delayed hemorrhage Objective - Vital Signs Vital signs: Vital Signs Temp 98.0 F 06/29/23 19:37 Pulse 92 06/30/23 03:04 Resp 18 06/30/23 03:04 BP 123/73 06/30/23 03:04 Pulse Ox 94 L 06/30/23 03:04 FiO2 Intake & Output 06/29/23 06/30/23 06/30/23 18:59 06:59 18:59 Intake Total 220 Balance 220 Weight 44.906 kg Intake: Oral 220 Other: Voiding Method External Catheter # Voids 1 1 2 # Bowel Movements 1 - Exam GENERAL: The patient is alert and oriented x3, not in any acute distress. Well developed, well nourished. HEENT: Pupils are round and equally reacting to light. EOMI. No scleral icterus. No conjunctival pallor. Normocephalic, atraumatic. No pharyngeal erythema. No thyromegaly. CARDIOVASCULAR: S1 and S2 present. No murmurs, rubs, or gallops. -PULMONARY: Limited but improving bilateral air entry , no crackles. -ABDOMEN: Soft, mild RUQ and LLQ tenderness with no guarding or rebound tenderness nondistended, normoactive bowel sounds. No palpable organomegaly. MUSCULOSKELETAL: No joint swelling or deformity. EXTREMITIES: No cyanosis, clubbing, or pedal edema. NEUROLOGICAL: Gross neurological examination did not reveal any focal deficits. SKIN: No rashes. no petechiae. - Labs CBC & Chem 7: 06/30/23 09:37 06/30/23 09:37 Labs: Abnormal Lab Results - Last 24 Hours (Table) 06/30/23 06/30/23 Range/Units 09:37 09:37 WBC 17.2 H (3.8-10.6) k/uL RBC 3.07 L (3.80-5.40) m/uL Hgb 9.5 L D (11.4-16.0) gm/dL Hct 29.8 L (34.0-46.0) % Neutrophils # 15.5 H (1.3-7.7) k/uL Lymphocytes # 0.8 L (1.0-4.8) k/uL Sodium 130 L (137-145) mmol/L Chloride 97 L (98-107) mmol/L Carbon Dioxide 19 L (22-30) mmol/L BUN 98 H (7-17) mg/dL Creatinine 4.80 H (0.52-1.04) mg/dL Glucose 335 H (74-99) mg/dL Calcium 7.2 L (8.4-10.2) mg/dL Assessment and Plan Assessment: Acute kidney injury on chronic kidney disease stage III Acute influenza infection Acute chronic tract infection Acute hypotension secondary to above. Blood pressure is borderline Acute COPD exacerbation Mild metabolic/toxic encephalopathy Hypertension, currently hypotensive Mildly elevated troponin Generally nd fell at home Plan: Start ceftriaxone Start Tamiflu renal dose Switch steroids to prednisone 20 mg Attention fluids to sodium bicarb at 100 mL per hour follow-up creatinine Nephrology consult cardiology consult for elevated troponin and hypotension. signed off Hold lisinopril. Hold Norvasc Labs and medication were reviewed.. Continue same treatment. Continue with symptomatic treatment. Resume home medication. Monitor labs and vitals. DVT and GI prophylaxis. Further recommendations as per clinical course of the patient DVT prophylaxis: Subcutaneous heparin GI Prophylaxis: Pepcid PT/OT: Pending Prognosis is guarded
[2023-07-01] MEDS: predniSONE 20 MG TAB PO SCH (08:07)
[2023-07-01 09:38] LABS: African American GFR (CKD) 11 (>60 ml/min/1.73 sqM); Anion Gap 14 mmol/L; Blood Urea Nitrogen 90 mg/dL (7-17); Calcium 7.3 mg/dL (8.4-10.2); Carbon Dioxide 27 mmol/L (22-30); Chloride 89 mmol/L (98-107); Glucose 380 mg/dL (74-99); Non-African American GFR(CKD) 10 (>60 ml/min/1.73 sqM); Potassium 4.1 mmol/L (3.5-5.1); Sodium 130 mmol/L (137-145)
[2023-07-01 09:43] LABS: Basophils % (A) 0 %; Eosinophils % (A) 0 %; HCT 27.2 % (34.0-46.0); HGB 9.5 gm/dL (11.4-16.0); Lymphocytes # (A) 0.8 k/uL (1.0-4.8); Lymphocytes % (A) 5 %; MCH 31.6 pg (25.0-35.0); MCV 90.4 fL (80.0-100.0); Mean Platelet Volume 13.1; Monocytes # (A) 0.9 k/uL (0-1.0); Monocytes % (A) 5 %; Neutrophils # (A) 15.1 k/uL (1.3-7.7); Neutrophils % (A) 89 %; Platelet Count 227 k/uL (150-450); RBC 3.01 m/uL (3.80-5.40); RDW 14.3 % (11.5-15.5)
[2023-07-01 10:01] LABS: Large Platelets Present; RBC Morphology Normal
--- NOTE | 2023-07-01 11:19 | P.PN ---
Subjective Patient is seen for follow-up for acute kidney injury. Tested positive for influenza A, maintained on Tamiflu. She is comfortable. No acute distress. Renal function has improved slightly with creatinine down to 4.18. Currently maintained on normal saline at 75 mL an hour. Urine output not charted accurately. Blood pressure was low yesterday with systolic in the 90s but improved today. Maintained on midodrine. Objective - Vital Signs Vital signs: Vital Signs Temp 98.2 F 07/01/23 08:00 Pulse 84 07/01/23 08:00 Resp 18 07/01/23 08:00 BP 138/76 07/01/23 08:00 Pulse Ox 98 07/01/23 08:00 FiO2 Intake & Output 06/30/23 07/01/23 07/01/23 18:59 06:59 18:59 Intake Total 460 240 Output Total 700 Balance 460 -700 240 Intake: Oral 460 240 Output: Urine 700 Other: Voiding Method External Catheter Bedside Commode Bedside Commode Diaper Diaper # Voids 1 5 - Exam Patient is awake comfortable no acute distress Examination of the heart S1 and S2 Examination of the lungs decreased breath sounds at the bases Abdomen is soft nontender Examination of lower extremities shows no evidence of edema - Labs CBC & Chem 7: 07/01/23 07:55 07/01/23 07:55 Labs: Abnormal Lab Results - Last 24 Hours (Table) 07/01/23 07/01/23 Range/Units 07:55 07:55 WBC 17.0 H (3.8-10.6) k/uL RBC 3.01 L (3.80-5.40) m/uL Hgb 9.5 L (11.4-16.0) gm/dL Hct 27.2 L (34.0-46.0) % Neutrophils # 15.1 H (1.3-7.7) k/uL Lymphocytes # 0.8 L (1.0-4.8) k/uL Sodium 130 L (137-145) mmol/L Chloride 89 L (98-107) mmol/L BUN 90 H (7-17) mg/dL Creatinine 4.18 H (0.52-1.04) mg/dL Glucose 380 H (74-99) mg/dL Calcium 7.3 L (8.4-10.2) mg/dL Assessment and Plan Assessment: 1. Acute kidney injury, ATN secondary to hypotension and underlying infection. UA shows 2+ protein and small blood and WBCs more than 182. Ultrasound shows right kidney 7.1 cm and left kidney 10.5 cm. No hydronephrosis noted patient has atrophic right kidney. 2. Influenza A infection maintained on Tamiflu 3. Hypotension secondary to underlying infection and hypovolemia 4. Anion gap metabolic acidosis maintained on IV sodium bicarb. Etiology is acute kidney injury. 5. Pyuria rule out UTI 6. Atrophic right kidney Plan: Continue with IV fluids Continue with midodrine Check urine culture Continue with empiric antibiotics Continue to avoid diuretics and LEXIS inhibitors. Encourage increased oral intake
[2023-07-01] MEDS: SODIUM CHLORIDE 0.9% 1,000 ML IV SCH (12:21)
--- NOTE | 2023-07-01 14:53 | P.PN ---
Subjective This is a pleasant 77 years old female with past medical history of COPD, last year requiring intubation and mechanical ventilation before she is improved. Other medical problems including hypertension, dissecting descending aorta, renal infarction, chronic kidney disease stage III Patient states she came to the hospital because she fell however patient history is somewhat limited, on admission patient has been documented to be confused and feeling weak for the last 2 days. Patient says she was going to open the door when she fell, she was feeling dizzy and she was not sure if she passed out. She thinks she hit her head but denies any tenderness for now. No chest pain but patient looks little bit tachypneic although she denies significant dyspnea. She is complaining of from suprapubic abdominal pain and dysuria with decreased frequency of urination She had diarrhea all the day yesterday but not today, no vomiting. No other abdominal pain as per patient She smokes about half pack per day and she was counseled to quit but she decli casi. No alcohol or illicit drugs. Her blood pressure is on the low side 97/53, rest of Vitas looks stable and patient is afebrile She has mild leukocytosis 10.8, hemoglobin 11, creatinine is significantly elevated at 5.1. Potassium and sodium within the reference range Influenza a test came back positive While covid test is negative Chest x-ray showed COPD changes with no acute changes EKG showing sinus rhythm at [address]-T changes CT of the brain is negative for acute process but showed extensive paranasal sinus disease Renal ultrasound showing atrophic right kidney with no hydronephrosis 06/29/2023 Patient awake alert and states that her breathing is better today, she still has wheezing but less significant with better air entry on both sides. She denies chest pain today. No significant abdominal pain but on exam she has mild tenderness in the right upper quadrant and left lower quadrant of unknown significance but patient did not have bowel movement On the top of that her bladder scan showing only 10 mL, she has external urine catheter and she is not making much urine therefore we are going to order CT of the abdomen and pelvis with oral contrast only. Patient with no vomiting and she tolerates diet well. Blood pressure still borderline 94/58, she was saturating 94% on 5 L, repeat chest x-ray in the morning showing same COPD changes with no fluid overload Labs showing elevated protein S calcitonin at 2.25. ProBNP 2460. Echocardiogram and CT of the abdomen are pending Patient on Tamiflu and ceftriaxone 2 g and fluids was switched to sodium bicarbonate 100 mL today 06/30/2023 Patient is improving, currently she is on room air and her steroid switched to prednisone 40 mg from tomorrow She has mild leukocytosis due to steroid effect. No more fever. Urine culture is pending Creatinine down to 4.8 Treatments and sodium bicarb and ceftriaxone [address] of the abdomen and pelvis is negative for acute process. CT of the brain repeated because patient was more confused yesterday and she fell at home which was negative for delayed hemorrhage 07/01/2023 Patient improving. No specific symptoms Feels generally weak Still has leukocytosis 17,000, prednisone 30 mg which can be tapered upon discharge Protein S calcitonin trending down and she is currently on ceftriaxone Also she is on Tamiflu for her influenza Creatinine coming down to 4.1, currently on normal saline 75 mL per hour Dietary consult for malnutrition Discussed with patient and she is agreeable Objective - Vital Signs Vital signs: Vital Signs Temp 98.2 F 07/01/23 08:00 Pulse 99 07/01/23 11:35 Resp 16 07/01/23 11:35 BP 157/75 07/01/23 11:35 Pulse Ox 96 07/01/23 11:35 FiO2 Intake & Output 06/30/23 07/01/23 07/01/23 18:59 06:59 18:59 Intake Total 460 350 Output Total 700 Balance 460 -700 350 Intake: Oral 460 350 Output: Urine 700 Other: Voiding Method External Catheter Bedside Commode Bedside Commode Diaper Diaper # Voids 1 5 - Exam GENERAL: The patient is alert and oriented x3, not in any acute distress. Well developed, well nourished. HEENT: Pupils are round and equally reacting to light. EOMI. No scleral icterus. No conjunctival pallor. Normocephalic, atraumatic. No pharyngeal erythema. No thyromegaly. CARDIOVASCULAR: S1 and S2 present. No murmurs, rubs, or gallops. -PULMONARY: Limited but improving bilateral air entry , no crackles. -ABDOMEN: Soft, mild RUQ and LLQ tenderness with no guarding or rebound tenderness nondistended, normoactive bowel sounds. No palpable organomegaly. MUSCULOSKELETAL: No joint swelling or deformity. EXTREMITIES: No cyanosis, clubbing, or pedal edema. NEUROLOGICAL: Gross neurological examination did not reveal any focal deficits. SKIN: No rashes. no petechiae. - Labs CBC & Chem 7: 07/01/23 07:55 07/01/23 07:55 Labs: Abnormal Lab Results - Last 24 Hours (Table) 07/01/23 07/01/23 07/01/23 Range/Units 07:55 07:55 07:55 WBC 17.0 H (3.8-10.6) k/uL RBC 3.01 L (3.80-5.40) m/uL Hgb 9.5 L (11.4-16.0) gm/dL Hct 27.2 L (34.0-46.0) % Neutrophils # 15.1 H (1.3-7.7) k/uL Lymphocytes # 0.8 L (1.0-4.8) k/uL Sodium 130 L (137-145) mmol/L Chloride 89 L (98-107) mmol/L BUN 90 H (7-17) mg/dL Creatinine 4.18 H (0.52-1.04) mg/dL Glucose 380 H (74-99) mg/dL Calcium 7.3 L (8.4-10.2) mg/dL Procalcitonin 0.92 H (0.02-0.09) ng/mL Assessment and Plan Assessment: Acute kidney injury on chronic kidney disease stage III Acute influenza infection Mild calories and protein malnutrition Acute chronic tract infection Acute hypotension secondary to above. Blood pressure is borderline Acute COPD exacerbation Mild metabolic/toxic encephalopathy Hypertension, currently hypotensive Mildly elevated troponin Generally nd fell at home Plan: Start ceftriaxone Start Tamiflu renal dose Switch steroids to prednisone 30 mg, c/w with taper upon discharge diet consult fluid changed to NS at 75 ml per hr follow-up creatinine Nephrology consult cardiology consult for elevated troponin and hypotension. signed off Hold lisinopril. Hold Norvasc Labs and medication were reviewed.. Continue same treatment. Continue with symptomatic treatment. Resume home medication. Monitor labs and vitals. DVT and GI prophylaxis. Further recommendations as per clinical course of the patient DVT prophylaxis: Subcutaneous heparin GI Prophylaxis: Pepcid PT/OT: Pending Prognosis is guarded
[2023-07-02] MEDS: predniSONE 10 MG TAB PO SCH (09:31)
--- NOTE | 2023-07-02 10:16 | P.PN ---
Subjective Patient is seen in follow-up for acute kidney injury. Creatinine 4.18 yesterday. Resting in bed. Poor historian. Receiving IV fluids. Hemodynam ically stable. Incontinent. Vital signs are stable. General: Lethargic. HEENT: Head exam is unremarkable. LUNGS: No audible rhonchi or wheezes. HEART: Rate and Rhythm are regular. ABDOMEN: Nontender. Edema. Edema. EXTREMITITES: No edema. Objective - Vital Signs Vital signs: Vital Signs Temp 98.6 F 07/02/23 09:30 Pulse 80 07/02/23 09:30 Resp 18 07/02/23 09:30 BP 126/75 07/02/23 09:30 Pulse Ox 96 07/02/23 09:30 FiO2 Intake & Output 07/01/23 07/02/23 07/02/23 18:59 06:59 18:59 Intake Total 572 540 Output Total 300 Balance 272 540 Intake: Oral 572 540 Output: Urine 300 Other: Voiding Method Bedside Commode Bedside Commode Bedside Commode Diaper Diaper Diaper # Voids 1 6 # Bowel Movements 3 - Labs CBC & Chem 7: 07/01/23 07:55 07/01/23 07:55 Labs: Abnormal Lab Results - Last 24 Hours (Table) 07/01/23 07/01/23 Range/Units 07:55 07:55 Neutrophils # 15.1 H (1.3-7.7) k/uL Lymphocytes # 0.8 L (1.0-4.8) k/uL Procalcitonin 0.92 H (0.02-0.09) ng/mL Microbiology - Last 24 Hours (Table) 06/30/23 20:30 Urine Culture - Preliminary Urine,Voided Gram Neg Bacilli Group D Enterococcus Assessment and Plan Plan: Assessment: 1. Acute kidney injury secondary to ATN secondary to severe sepsis. Creatinine peaked at 5.7 and down to 4.[address] scan showed atrophic right kidney. No hydronephrosis. Creatinine near 1 in September 2022. 2. Hyponatremia secondary to acute kidney injury. 3. Metabolic acidosis secondary to acute kidney injury. Status post IV bicarb. Improved. 4. Influenza A infection maintained on Tamiflu. 5. UTI on antibiotics. Urine culture positive for group D Enterococcus/gram- negative bacilli. Plan: Maintain IV fluids. Maintain midodrine. Hold for systolic blood pressure greater than 115. Avoid nephrotoxins. Encouraged oral intake. Strict I's and O's. Morning labs pending. Continue to assess daily for need for renal replacement therapy.
[2023-07-02 11:12] LABS: African American GFR (CKD) 16 (>60 ml/min/1.73 sqM); Anion Gap 8 mmol/L; Blood Urea Nitrogen 75 mg/dL (7-17); Calcium 7.4 mg/dL (8.4-10.2); Carbon Dioxide 32 mmol/L (22-30); Chloride 97 mmol/L (98-107); Glucose 228 mg/dL (74-99); Magnesium 1.3 mg/dL (1.6-2.3); Non-African American GFR(CKD) 14 (>60 ml/min/1.73 sqM); Potassium 3.7 mmol/L (3.5-5.1); Sodium 137 mmol/L (137-145)
--- NOTE | 2023-07-02 11:27 | P.PN ---
Subjective Progress Note Date: 07/02/23 This is a pleasant 77 years old female with past medical history of COPD, last year requiring intubation and mechanical ventilation before she is improved. Other medical problems including hypertension, dissecting descending aorta, renal infarction, chronic kidney disease stage III Patient states she came to the hospital because she fell however patient history is somewhat limited, on admission patient has been documented to be confused and feeling weak for the last 2 days. Patient says she was going to open the door when she fell, she was feeling dizzy and she was not sure if she passed out. She thinks she hit her head but denies any tenderness for now. No chest pain but patient looks little bit tachypneic although she denies significant dyspnea. She is complaining of from suprapubic abdominal pain and dysuria with decreased frequency of urination She had diarrhea all the day yesterday but not today, no vomiting. No other abdominal pain as per patient She smokes about half pack per day and she was counseled to quit but she declines. No alcohol or illicit drugs. Her blood pressure is on the low side 97/53, rest of Vitas looks stable and patient is afebrile She has mild leukocytosis 10.8, hemoglobin 11, creatinine is significantly elevated at 5.1. Potassium and sodium within the reference range Influenza a test came back positive While covid test is negative Chest x-ray showed COPD changes with no acute changes EKG showing sinus rhythm at [address]-T changes CT of the brain is negative for acute process but showed extensive paranasal sinus disease Renal ultrasound showing atrophic right kidney with no hydronephrosis 06/29/2023 Patient awake alert and states that her breathing is better today, she still has wheezing but less significant with better air entry on both sides. She denies chest pain today. No significant abdominal pain but on exam she has mild tenderness in the right upper quadrant and left lower quadrant of unknown significance but patient did not have bowel movement On the top of that her bladder scan showing only 10 mL, she has external urine catheter and she is not making much urine therefore we are going to order CT of the abdomen and pelvis with oral contrast only. Patient with no vomiting and she tolerates diet well. Blood pressure still borderline 94/58, she was saturating 94% on 5 L, repeat chest x-ray in the morning showing same COPD changes with no fluid overload Labs showing elevated protein S calcitonin at 2.25. ProBNP 2460. Echocardiogram and CT of the abdomen are pending Patient on Tamiflu and ceftriaxone 2 g and fluids was switched to sodium bicarbonate 100 mL today 06/30/2023 Patient is improving, currently she is on room air and her steroid switched to prednisone 40 mg from tomorrow She has mild leukocytosis due to steroid effect. No more fever. Urine culture is pending Creatinine down to 4.8 Treatments and sodium bicarb and ceftriaxone [address] of the abdomen and pelvis is negative for acute process. CT of the brain repeated because patient was more confused yesterday and she fell at home which was negative for delayed hemorrhage 07/01/2023 Patient improving. No specific symptoms Feels generally weak Still has leukocytosis 17,000, prednisone 30 mg which can be tapered upon discharge Protein S calcitonin trending down and she is currently on ceftriaxone Also she is on Tamiflu for her influenza Creatinine coming down to 4.1, currently on normal saline 75 mL per hour Dietary consult for malnutrition Discussed with patient and she is agreeable 07/02. Patient seen and examined. WBC 17, hemoglobin 9.5, platelet count 227, sodium 130, potassium 4.1, BUN 19, creatinine 4.18. Complaining of chest congestion and wheezing. REVIEW OF SYSTEMS: CONSTITUTIONAL: No fever, no malaise,. CARDIOVASCULAR: No chest pain, no palpitations, no syncope. PULMONARY: Mentioned above GASTROINTESTINAL: No diarrhea, no nausea, no vomiting, no abdominal pain. NEUROLOGICAL: No headaches, no weakness, PHYSICAL EXAMINATION: GENERAL: The patient is alert and oriented x3, not in any acute distress. Well developed, well nourished. HEENT: Pupils are round and equally reacting to light. EOMI. No scleral icterus. No conjunctival pallor. Normocephalic, atraumatic. No pharyngeal erythema. No thyromegaly. CARDIOVASCULAR: S1 and S2 present. No murmurs, rubs, or gallops. PULMONARY: Coarse breath sound bilaterally, expiratory wheeze audible ABDOMEN: Soft, nontender, nondistended, normoactive bowel sounds. No palpable organomegaly. MUSCULOSKELETAL: No joint swelling or deformity. EXTREMITIES: No cyanosis, clubbing, or pedal edema. NEUROLOGICAL: Gross neurological examination did not reveal any focal deficits. SKIN: No rashes. Assessment and plan Acute kidney injury on chronic kidney disease stage III Acute influenza infection Mild calories and protein malnutrition Acute chronic tract infection Acute hypotension secondary to above. Blood pressure is borderline Acute COPD exacerbation Mild metabolic/toxic encephalopathy Hypertension, currently hypotensive Mildly elevated troponin Generally nd fell at home Monitor vital signs Monitor CBC Monitor CMP DC antibiotic Continue Tamiflu Continue prednisone 30 mg, c/w with taper upon discharge diet consult Continue IV fluids cardiology consult for elevated troponin and hypotension. signed off Hold lisinopril. Hold Norvasc Nephrology following Pulmonology consulted Labs and medication were reviewed.. Continue same treatment. Continue with symptomatic treatment. Resume home medication. Monitor labs and vitals. DVT and GI prophylaxis. Further recommendations as per clinical course of the patient Dictation was produced using [employer] dictation software. please excuse any grammatical, word or spelling errors. Objective - Vital Signs Vital signs: Vital Signs Temp 97.9 F 07/01/23 20:00 Pulse 73 07/02/23 08:42 Resp 16 07/02/23 04:00 BP 159/82 07/02/23 04:00 Pulse Ox 97 07/02/23 04:00 FiO2 Intake & Output 07/01/23 07/02/23 07/02/23 18:59 06:59 18:59 Intake Total 572 540 Output Total 300 Balance 272 540 Intake: Oral 572 540 Output: Urine 300 Other: Voiding Method Bedside Commode Bedside Commode Diaper Diaper # Voids 1 6 # Bowel Movements 3 - Labs CBC & Chem 7: 07/01/23 07:55 07/02/23 10:15 Labs: Abnormal Lab Results - Last 24 Hours (Table) 07/01/23 07/01/23 Range/Units 07:55 07:55 WBC 17.0 H (3.8-10.6) k/uL RBC 3.01 L (3.80-5.40) m/uL Hgb 9.5 L (11.4-16.0) gm/dL Hct 27.2 L (34.0-46.0) % Neutrophils # 15.1 H (1.3-7.7) k/uL Lymphocytes # 0.8 L (1.0-4.8) k/uL Procalcitonin 0.92 H (0.02-0.09) ng/mL Microbiology - Last 24 Hours (Table) 06/30/23 20:30 Urine Culture - Preliminary Urine,Voided Gram Neg Bacilli Group D Enterococcus
[2023-07-02] MEDS: AMPICILLIN-SULBACTAM 1.5 GM in SODIUM CHLORIDE 0.9% 50 ML IVPB SCH (12:26)
[2023-07-02] MEDS: methylPREDNISolone SOD SUCCI 125 MG/2 ML VIAL IV SCH (12:28)
[2023-07-02] MEDS: MAGNESIUM SULFATE-D5W PMX 1 GM in DEXTROSE/WATER 1 100ML.BAG IVPB SCH (14:23)
--- NOTE | 2023-07-02 14:30 | P.CNPUL ---
History of Present Illness Consult date: 07/02/23 Requesting physician: Santy E Sheet Reason for consult: COPD Chief complaint: Altered mental status and weakness. History of present illness: This is a 77-year-old female with history of multiple medical problems, including COPD, previous CVA, hypertension, previous [place], TIA, hypertension, dissecting descending aortic aneurysm, chronic kidney disease stage III, patient presented to the ER on 06/28/2023, apparently she presented with confusion, mental status change, weakness, borderline blood pressure, and she was noted to have acute renal failure will creatinine of 5.1. Patient tested positive for influenza A, chest x-ray showed mostly COPD changes, CT of the brain showed negative findings. Except for extensive paranasal sinus disease. Patient has been seen by many consultants since admission, today we were asked to see the patient for her underlying COPD. Indeed on physical examination the patient had diffuse crackles rhonchi and wheezes bilaterally. Chest x-ray on admission sh owed no evidence of acute cardiopulmonary process, however she did have a small right apical opacity, questionable right apical nodule clearly the patient is not in any shape for any surgical intervention, and I believe the nodule could be addressed on outpatient basis I reviewed the chest x-ray myself, and the findings are very nonspecific. Nephrology evaluated the patient for her acute kidney injury which was felt to be secondary to severe sepsis, blood cultures have been negative, however the urine cultures are positive for gram-negative bacilli and group D Enterococcus. Initiated the patient on Unasyn, and recommended infectious disease Consultation Review of Systems ROS unobtainable: due to mental status (Patient is not a great historian, could not get much information she is lethargic, could not get a good review of systems) Past Medical History Past Medical History: COPD, CVA/TIA, Hyperlipidemia, Hypertension, Myocardial Infarction ([place]), Osteoarthritis (OA) Additional Past Medical History / Comment(s): TIA - September 2013, past history of abcess/cellulitis left cheek. Patient is poor historian of her PMH. 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 Past Anesthesia/Blood Transfusion Reactions: No Reported Reaction Past Psychological History: No Psychological Hx Reported Smoking Status: Former smoker Past Alcohol Use History: None Reported Additional Past Alcohol Use History / Comment(s): 3-4 beers/week. quit november 2017 Past Drug Use History: None Reported - Past Family History Son(s) Family Medical History: No Reported History Additional Family Medical History / Comment(s): 4 sons all reported healthy per patient Mother Family Medical History: CVA/TIA Additional Family Medical History / Comment(s): Medications and Allergies Home Medications Medication Instructions Recorded Confirmed Type Ergocalciferol [Vitamin D2 (1250 1,250 mcg PO FR 09/23/22 06/28/23 History Mcg = 49987 Iu)] amLODIPine [Norvasc] 10 mg PO DAILY tab 10/03/22 06/28/23 Rx Aspirin [[place] Aspirin EC] 81 mg PO DAILY 06/22/23 06/28/23 History Budesonide-Formot 160-4.5 Mcg 2 puff INHALATION RT-BID 06/22/23 06/28/23 History [Symbicort 160-4.5 Mcg Inhaler] Famotidine 20 mg PO DAILY 06/22/23 06/28/23 History HYDROcodone/APAP 5-325MG [[place] 1 tab PO QID 06/22/23 06/28/23 History 5-325] lisinopriL [Zestril] 20 mg PO DAILY 06/22/23 06/28/23 History Albuterol Inhaler [Ventolin Hfa 2 puff INHALATION RT-QID PRN 06/28/23 06/28/23 History Inhaler] Atorvastatin [Lipitor] 40 mg PO HS 06/28/23 06/28/23 History Naloxone HCl [Narcan] 4 mg NASAL DIRECTED PRN 06/28/23 06/28/23 History Allergies Allergy/AdvReac Type Severity Reaction Status Date / Time iodine Allergy Itching Verified 06/28/23 11:27 Physical Exam Vitals: Vital Signs Temp Pulse Pulse Pulse Resp BP Pulse Ox 07/02/23 11:20 98 F 91 20 156/84 94 L 07/02/23 09:30 98.6 F 80 18 126/75 96 07/02/23 08:42 73 07/02/23 08:35 83 07/02/23 04:00 99 16 159/82 97 07/01/23 23:32 97 16 139/68 94 L 07/01/23 20:00 97.9 F 89 16 147/80 96 07/01/23 16:00 98.7 F 91 18 130/70 96 Intake and Output 07/01/23 07/02/23 07/02/23 22:59 06:59 14:59 Intake Total 222 540 Output Total 300 Balance -78 540 Intake: Oral 222 540 Output: Urine 300 Other: Voiding Method Bedside Commode Bedside Commode Bedside Commode Diaper Diaper Diaper # Voids 1 6 # Bowel Movements 3 -GENERAL: Revealed an elderly female, not in distress, on room air, confused, arousable, follows simple instructions but very slow and confused. HEENT: PERRLA, EOMI, nonicteric, no neck masses, no JVD. CARDIOVASCULAR: Normal S1 and S2 present. No murmurs, rubs, or gallops. -PULMONARY: Crackles bilaterally with rhonchi and wheezes noted. -ABDOMEN: Soft nontender no megaly no rebound no guarding. MUSCULOSKELETAL: No deformities and no limitation range of motion EXTREMITIES: No clubbing edema or cyanosis. NEUROLOGICAL: Patient is extremely lethargic, confused, arousable, follows simple instructions but confused SKIN: No rashes. no petechiae. Results - Laboratory Findings CBC and BMP: 07/01/23 07:55 07/02/23 10:15 PT/INR, D-dimer PT 10.4 sec (10.0-12.5) 06/28/23 10:46 INR 0.9 (<1.2) 06/28/23 10:46 Abnormal lab findings: Abnormal Labs 06/28/23 06/28/23 06/28/23 10:46 10:46 10:46 WBC 10.8 H RBC 3.57 L Hgb 11.0 L Hct 33.0 L MCHC RDW MPV Immature Gran # Neutrophils # 9.1 H Lymphocytes # 0.9 L Eosinophils # Sodium 136 L Chloride Carbon Dioxide 17 L Anion Gap BUN 68 H Creatinine 5.16 H Est GFR (CKD-EPI) Glucose 185 H Calcium Magnesium AST 43 H Troponin I Procalcitonin Urine Appearance Turbid H Urine Protein 2+ H Urine Blood Small H Ur Leukocyte Esterase Large H Urine WBC >182 H Urine WBC Clumps Many H Urine Bacteria Many H Urine Mucus Few H Influenza Type A (PCR) 06/28/23 06/28/23 06/28/23 10:46 10:46 17:02 WBC RBC Hgb Hct MCHC RDW MPV Immature Gran # Neutrophils # Lymphocytes # Eosinophils # Sodium Chloride Carbon Dioxide Anion Gap BUN Creatinine Est GFR (CKD-EPI) Glucose Calcium Magnesium AST Troponin I 0.067 H* 0.090 H* Procalcitonin Urine Appearance Urine Protein Urine Blood Ur Leukocyte Esterase Urine WBC Urine WBC Clumps Urine Bacteria Urine Mucus Influenza Type A (PCR) Detected A 06/28/23 06/29/23 06/29/23 17:02 06:56 06:56 WBC 10.61 H RBC 3.09 L Hgb 9.3 L Hct 29.2 L MCHC 31.8 L RDW 14.8 H MPV 12.8 H Immature Gran # 0.05 H Neutrophils # 9.71 H Lymphocytes # 0.62 L Eosinophils # 0 L Sodium Chloride Carbon Dioxide Anion Gap BUN Creatinine Est GFR (CKD-EPI) Glucose Calcium Magnesium AST Troponin I 0.070 H* Procalcitonin 2.25 H Urine Appearance Urine Protein Urine Blood Ur Leukocyte Esterase Urine WBC Urine WBC Clumps Urine Bacteria Urine Mucus Influenza Type A (PCR) 06/29/23 06/30/23 06/30/23 06:56 09:37 09:37 WBC 17.2 H RBC 3.07 L Hgb 9.5 L D Hct 29.8 L MCHC RDW MPV Immature Gran # Neutrophils # 15.5 H Lymphocytes # 0.8 L Eosinophils # Sodium 133 L 130 L Chloride 97 L Carbon Dioxide 15.0 L 19 L Anion Gap 17.00 H BUN 75.1 H 98 H Creatinine 5.7 H 4.80 H Est GFR (CKD-EPI) 7 L Glucose 205 H 335 H Calcium 7.1 L 7.2 L Magnesium AST Troponin I Procalcitonin Urine Appearance Urine Protein Urine Blood Ur Leukocyte Esterase Urine WBC Urine WBC Clumps Urine Bacteria Urine Mucus Influenza Type A (PCR) 07/01/23 07/01/23 07/01/23 07:55 07:55 07:55 WBC 17.0 H RBC 3.01 L Hgb 9.5 L Hct 27.2 L MCHC RDW MPV Immature Gran # Neutrophils # 15.1 H Lymphocytes # 0.8 L Eosinophils # Sodium 130 L Chloride 89 L Carbon Dioxide Anion Gap BUN 90 H Creatinine 4.18 H Est GFR (CKD-EPI) Glucose 380 H Calcium 7.3 L Magnesium AST Troponin I Procalcitonin 0.92 H Urine Appearance Urine Protein Urine Blood Ur Leukocyte Esterase Urine WBC Urine WBC Clumps Urine Bacteria Urine Mucus Influenza Type A (PCR) 07/02/23 10:15 WBC RBC Hgb Hct MCHC RDW MPV Immature Gran # Neutrophils # Lymphocytes # Eosinophils # Sodium Chloride 97 L Carbon Dioxide 32 H Anion Gap BUN 75 H Creatinine 3.12 H Est GFR (CKD-EPI) Glucose 228 H Calcium 7.4 L Magnesium 1.3 L AST Troponin I Procalcitonin Urine Appearance Urine Protein Urine Blood Ur Leukocyte Esterase Urine WBC Urine WBC Clumps Urine Bacteria Urine Mucus Influenza Type A (PCR) - Diagnostic Findings Chest x-ray: image reviewed (Noted in HPI) Assessment and Plan Assessment: Impression: Acute exacerbation of COPD Acute influenza A tracheobronchitis Acute on chronic urinary tract infection Acute on chronic kidney disease stage III. Strongly suspect sepsis secondary to urinary tract infection Acute toxic metabolic encephalopathy secondary to sepsis Benign essential hypertension Profound weakness and confusion secondary to sepsis Recommendations: Considering the initial report on her urine culture, will recommend Rocephin and Unasyn Will recommend infectious disease consultation. Continue Tamiflu for now. Continue bronchodilators and Solu-Medrol. IV fluids and monitor closely Renal profile on a daily basis and address accordingly, nephrology is following Hold blood pressure medications since her blood pressure is marginal DVT prophylaxis/subcu heparin GI prophylaxis/Pepcid Check blood cultures and find the final report on the urine cultures and address accordingly Will continue to follow Time with Patient: Greater than 30
[2023-07-02 16:09] LABS: Glucose,Whole Blood 435 mg/dL (70-110)
[2023-07-02] MEDS ORDERED: DEXTROSE 50% SYRINGE 50 ML IVP PRN ×2 (17:07)
[2023-07-02] MEDS: INSULIN ASPART (NovoLOG) 100 UNIT/ML VIAL SQ SCH (17:50)
[2023-07-02 20:06] LABS: Glucose,Whole Blood 350 mg/dL (70-110)
[2023-07-02] MEDS: INSULIN ASPART (NovoLOG) 100 UNIT/ML VIAL SQ ONE (20:06)
[2023-07-02 23:11] LABS: Glucose,Whole Blood 88 mg/dL (70-110)
[2023-07-03 02:53] LABS: Glucose,Whole Blood 109 mg/dL (70-110)
[2023-07-03 05:25] LABS: Glucose,Whole Blood 182 mg/dL (70-110)
--- NOTE | 2023-07-03 07:07 | P.CONS ---
History of Present Illness - Reason for Consult Consult date: 07/02/23 UTI Requesting physician: Oliva Hoyt - Chief Complaint Mental status changes x few days - History of Present Illness Patient is a 77-year-old female with a past medical history significant for hypertension hyperlipidemia COPD CVA TIA [place] presented to the hospital about 5 days ago for evaluation of mental status changes patient symptom has been going on for about 3 to 4 days before the patient was brought into the hospital on arrival to the ER patient was afebrile and no fever have recorded during this hospital stay patient was not hypotensive, was hypoxic on presentation to the ER however currently doing well on room air patient did have a white count of 10.8 on admission however the white count is up to 17,000 as of yesterday no CBC was done today BUN/creatinine has been elevated troponins were elevated on admission patient did have a positive UA urine is growing Enterococcus and gram-negative bacilli patient also tested positive for influenza A COVID and RSV was negative patient did have a chest x-ray chronic changes without acute pulmonary process CT of the brain was negative for any bleed patient also have abdominal pelvis CT chronic interstitial changes in the right lung base no acute change within the abdominal pelvis patient was started on Unasyn for her UTI infectious was consulted for further management of antibiotic therapy, most information has been obtained from Review of her chart as the patient herself is not good historian, patient when asked specifically not clear why she was here in the hospital denies any headache no chest pain shortness with occasional cough denies any nausea vomiting abdominal pain and no diarrhea has been reported Review of Systems Positive point and negatives has been mentioned in the HPI, complete review of systems was performed and all other systems are negative Past Medical History Past Medical History: COPD, CVA/TIA, Hyperlipidemia, Hypertension, Myocardial Infarction ([place]), Osteoarthritis ([place]) Additional Past Medical History / Comment(s): TIA - September 2013, past history of abcess/cellulitis left cheek. Patient is poor historian of her PMH. Last Myocardial Infarction Date:: 2013 History of Any Multi-Drug Resistant Organisms: None Reported Past Surgical History: Appendectomy, Bladder Surgery, Hysterectomy, Tubal Liga tion Additional Past Surgical History / Comment(s): Cataracts, benign tumor removed from head, right hip fracture with repair. Past Anesthesia/Blood Transfusion Reactions: No Reported Reaction Past Psychological History: No Psychological Hx Reported Smoking Status: Former smoker Past Alcohol Use History: None Reported Additional Past Alcohol Use History / Comment(s): 3-4 beers/week. quit november 2017 Past Drug Use History: None Reported - Past Family History Son(s) Family Medical History: No Reported History Additional Family Medical History / Comment(s): 4 sons all reported healthy per patient Mother Family Medical History: CVA/TIA Additional Family Medical History / Comment(s): Medications and Allergies Home Medications Medication Instructions Recorded Confirmed Type Ergocalciferol [Vitamin D2 (1250 1,250 mcg PO FR 09/23/22 06/28/23 History Mcg = 55704 Iu)] amLODIPine [Norvasc] 10 mg PO DAILY tab 10/03/22 06/28/23 Rx Aspirin [[place] Aspirin EC] 81 mg PO DAILY 06/22/23 06/28/23 History Budesonide-Formot 160-4.5 Mcg 2 puff INHALATION RT-BID 06/22/23 06/28/23 History [Symbicort 160-4.5 Mcg Inhaler] Famotidine 20 mg PO DAILY 06/22/23 06/28/23 History lisinopriL [Zestril] 20 mg PO DAILY 06/22/23 06/28/23 History Albuterol Inhaler [Ventolin Hfa 2 puff INHALATION RT-QID PRN 06/28/23 06/28/23 History Inhaler] Atorvastatin [Lipitor] 40 mg PO HS 06/28/23 06/28/23 History Naloxone HCl [Narcan] 4 mg NASAL DIRECTED PRN 06/28/23 06/28/23 History Calcium Carb-Vit D 500Mg-5Mcg 1 each PO TID-W/MEALS 10 Days #30 07/07/23 Rx [[place] 500+D 5 Mcg (200 Iu)] tab HYDROcodone/APAP 5-325MG [[place] 1 tab PO QID 3 Days #12 tab 07/07/23 Rx 5-325] methylPREDNISolone Dose Pack 4 mg PO DIRECTED #21 tab 07/07/23 Rx [Medrol Dose Pack] Allergies Allergy/AdvReac Type Severity Reaction Status Date / Time iodine Allergy Itching Verified 06/28/23 11:27 Physical Exam Vitals: Vital Signs Temp Pulse Pulse Pulse Resp BP Pulse Ox 07/02/23 09:30 98.6 F 80 18 126/75 96 07/02/23 08:42 73 07/02/23 08:35 83 07/02/23 04:00 99 16 159/82 97 07/01/23 23:32 97 16 139/68 94 L 07/01/23 20:00 97.9 F 89 16 147/80 96 07/01/23 16:00 98.7 F 91 18 130/70 96 07/01/23 11:35 99 16 157/75 96 Intake and Output 07/01/23 07/02/23 07/02/23 22:59 06:59 14:59 Intake Total 222 540 Output Total 300 Balance -78 540 Intake: Oral 222 540 Output: Urine 300 Other: Voiding Method Bedside Commode Bedside Commode Bedside Commode Diaper Diaper Diaper # Voids 1 6 # Bowel Movements 3 GENERAL DESCRIPTION: Elderly female lying in bed, no distress. No tachypnea or accessory muscle of respiration use. HEENT: Shows Pallor , no scleral icterus. Oral mucous membrane is dry. No pharyngeal erythema or thrush NECK: Trachea central, no thyromegaly. LUNGS: Unlabored breathing. Clear to auscultation anteriorly. No wheeze or crackle. HEART: S1, S2, regular rate and rhythm. No loud murmur ABDOMEN: Soft, no tenderness , EXTREMITIES: No edema of feet. SKIN: No rash, no masses palpable. NEUROLOGICAL: The patient is awake, alert, oriented x2, mood and affect normal. Results CBC & Chem 7: 07/06/23 07:45 07/06/23 07:45 Labs: Abnormal Lab Results - Last 24 Hours (Table) 07/01/23 07/02/23 Range/Units 07:55 10:15 Chloride 97 L (98-107) mmol/L Carbon Dioxide 32 H (22-30) mmol/L BUN 75 H (7-17) mg/dL Creatinine 3.12 H (0.52-1.04) mg/dL Glucose 228 H (74-99) mg/dL Calcium 7.4 L (8.4-10.2) mg/dL Magnesium 1.3 L (1.6-2.3) mg/dL Procalcitonin 0.92 H (0.02-0.09) ng/mL Microbiology - Last 24 Hours (Table) 06/30/23 20:30 Urine Culture - Preliminary Urine,Voided Gram Neg Bacilli Group D Enterococcus Assessment and Plan (1) UTI (urinary tract infection) Status: Acute Code(s): N39.0 - URINARY TRACT INFECTION, SITE NOT SPECIFIED SNOMED Code(s): 99234718 Plan: 1patient presented to hospital with mental status changes and weakness which is likely multifactorial patient did tested positive for influenza and did have a positive UA unfortunately culture was not drawn initially UA with a culture done on 06/30/2023 is growing Enterococcus and gram-negative bacilli 2patient with renal insufficiency high risk of nephrotoxicity 3agree with discontinuation of Rocephin and starting Unasyn while waiting for the culture to finalize dosage adjusted to the kidney function We will follow on clinical condition and cultures to further adjust medication if needed Thank you for this consultation we will follow the patient along with you Dictation was produced using [employer] dictation software. please excuse any grammatical, word or spelling errors. Time with Patient: Greater than 30
[2023-07-03 08:52] LABS: Basophils % (A) 0 %; Eosinophils % (A) 0 %; HCT 30.5 % (34.0-46.0); HGB 10.2 gm/dL (11.4-16.0); Lymphocytes # (A) 0.8 k/uL (1.0-4.8); Lymphocytes % (A) 5 %; MCH 31.4 pg (25.0-35.0); MCHC 33.4 g/dL (31.0-37.0); MCV 93.9 fL (80.0-100.0); Monocytes # (A) 0.4 k/uL (0-1.0); Monocytes % (A) 3 %; Neutrophils # (A) 13.8 k/uL (1.3-7.7); Neutrophils % (A) 91 %; Platelet Count 279 k/uL (150-450); RBC 3.25 m/uL (3.80-5.40); RDW 13.9 % (11.5-15.5); WBC 15.1 k/uL (3.8-10.6)
[2023-07-03 09:09] LABS: ALT 34 U/L (4-34); AST 42 U/L (14-36); African American GFR (CKD) 24 (>60 ml/min/1.73 sqM); Albumin 3.1 g/dL (3.5-5.0); Alkaline Phosphatase 58 U/L (38-126); Anion Gap 8 mmol/L; Blood Urea Nitrogen 61 mg/dL (7-17); Calcium 7.2 mg/dL (8.4-10.2); Carbon Dioxide 32 mmol/L (22-30); Chloride 101 mmol/L (98-107); Glucose 174 mg/dL (74-99); Magnesium 1.8 mg/dL (1.6-2.3); Non-African American GFR(CKD) 21 (>60 ml/min/1.73 sqM); Potassium 3.4 mmol/L (3.5-5.1); Sodium 141 mmol/L (137-145); Total Bilirubin 0.6 mg/dL (0.2-1.3); Total Protein 5.8 g/dL (6.3-8.2)
--- NOTE | 2023-07-03 10:54 | P.PN ---
Subjective Patient is seen in follow-up for acute kidney injury. Renal function improving. Creatinine 2.2 today. Resting in bed. Poor historian. Receiving IV fluids. Hemodynamically stable. Incontinent. Vital signs are stable. General: Lethargic. HEENT: Head exam is unremarkable. LUNGS: No audible rhonchi or wheezes. HEART: Rate and Rhythm are regular. ABDOMEN: Nontender. Edema. Edema. EXTREMITITES: No edema. Objective - Vital Signs Vital signs: Vital Signs Temp 97.3 F L 07/03/23 04:00 Pulse 89 07/03/23 04:00 Resp 18 07/03/23 04:00 BP 153/67 07/03/23 04:00 Pulse Ox 95 07/03/23 04:00 FiO2 Intake & Output 07/02/23 07/03/23 07/03/23 18:59 06:59 18:59 Intake Total 118 1750 Output Total 2050 Balance 118 -300 Intake: Intake, IV Titration 1150 Amount Ampicillin-Sulbactam 1.5 50 gm In Sodium Chloride 0.9 % 50 ml @ 100 mls/hr IVPB Q12H [facility] Rx#:[id number] Magnesium Sulfate-D5w Pmx 200 1 gm In Dextrose/Water 1 100ml.bag @ 100 mls/hr IVPB Q1H [facility] Rx#: [id number] Sodium Chloride 0.9% 1, 900 000 ml @ 75 mls/hr IV . [id number] [facility] Rx#:[id number] Oral 118 600 Output: Urine 0 Other: Voiding Method Bedside Commode Diaper Diaper External Catheter # Voids 3 1 # Bowel Movements 1 - Labs CBC & Chem 7: 07/03/23 07:52 07/03/23 07:52 Labs: Abnormal Lab Results - Last 24 Hours (Table) 07/02/23 07/02/23 07/02/23 Range/Units 10:15 16:08 20:04 WBC (3.8-10.6) k/uL RBC (3.80-5.40) m/uL Hgb (11.4-16.0) gm/dL Hct (34.0-46.0) % Neutrophils # (1.3-7.7) k/uL Lymphocytes # (1.0-4.8) k/uL Potassium (3.5-5.1) mmol/L Chloride 97 L (98-107) mmol/L Carbon Dioxide 32 H (22-30) mmol/L BUN 75 H (7-17) mg/dL Creatinine 3.12 H (0.52-1.04) mg/dL Glucose 228 H (74-99) mg/dL POC Glucose (mg/dL) 435 H 350 H (70-110) mg/dL Calcium 7.4 L (8.4-10.2) mg/dL Magnesium 1.3 L (1.6-2.3) mg/dL AST (14-36) U/L Total Protein (6.3-8.2) g/dL Albumin (3.5-5.0) g/dL 07/03/23 07/03/23 07/03/23 Range/Units 05:23 07:52 07:52 WBC 15.1 H (3.8-10.6) k/uL RBC 3.25 L (3.80-5.40) m/uL Hgb 10.2 L (11.4-16.0) gm/dL Hct 30.5 L (34.0-46.0) % Neutrophils # 13.8 H (1.3-7.7) k/uL Lymphocytes # 0.8 L (1.0-4.8) k/uL Potassium 3.4 L (3.5-5.1) mmol/L Chloride (98-107) mmol/L Carbon Dioxide 32 H (22-30) mmol/L BUN 61 H (7-17) mg/dL Creatinine 2.21 H (0.52-1.04) mg/dL Glucose 174 H (74-99) mg/dL POC Glucose (mg/dL) 182 H (70-110) mg/dL Calcium 7.2 L (8.4-10.2) mg/dL Magnesium (1.6-2.3) mg/dL AST 42 H (14-36) U/L Total Protein 5.8 L (6.3-8.2) g/dL Albumin 3.1 L (3.5-5.0) g/dL Microbiology - Last 24 Hours (Table) 06/30/23 20:30 Urine Culture - Preliminary Urine,Voided Gram Neg Bacilli Group D Enterococcus Assessment and Plan Plan: Assessment: 1. Acute kidney injury secondary to ATN secondary to severe sepsis. Creatinine peaked at 5.7 and down to 2.[address] scan showed atrophic right kidney. No hydronephrosis. Creatinine near 1 in September 2022. 2. Hyponatremia secondary to acute kidney injury and hypovolemia. Improved. 3. Metabolic acidosis secondary to acute kidney injury. Status post IV bicarb. Improved. 4. Influenza A infection maintained on Tamiflu. 5. UTI on antibiotics. Urine culture positive for group D Enterococcus/gram- negative bacilli. 6. Hypokalemia from poor intake. 7. Hypomagnesemia from poor intake. Replaced. Better. Plan: Maintain IV fluids. Avoid nephrotoxins. Encouraged oral intake. Strict I's and O's. Replace potassium.
[2023-07-03 11:55] LABS: Glucose,Whole Blood 206 mg/dL (70-110)
--- NOTE | 2023-07-03 12:14 | P.PN ---
Subjective Progress Note Date: 07/03/23 Principal diagnosis: Reason for follow-up is urinary tract infection Patient is a 77-year-old female with a past medical history significant for hypertension hyperlipidemia COPD CVA TIA [place] presented to the hospital for evaluation of mental status changes patient did tested positive for influenza A did have a positive UA concerning for a symptomatic urinary tract infection. On today's evaluation that is 07/03/2023, Patient is afebrile , patient is currently on room air and denies having any shortness of breath, the patient denies any chest pain or cough, the patient denies any nausea vomiting did not have any abdominal pain and no diarrhea. Patient white count is down to 15.1, creatinine is 2.21 urine showing gram- negative and Enterococcus Objective - Vital Signs Vital signs: Vital Signs Temp 97.5 F L 07/03/23 08:00 Pulse 99 07/03/23 08:00 Resp 18 07/03/23 08:00 BP 155/66 07/03/23 08:00 Pulse Ox 96 07/03/23 08:00 FiO2 Intake & Output 07/02/23 07/03/23 07/03/23 18:59 06:59 18:59 Intake Total 118 1750 Output Total 2050 Balance 118 -300 Intake: Intake, IV Titration 1150 Amount Ampicillin-Sulbactam 1.5 50 gm In Sodium Chloride 0.9 % 50 ml @ 100 mls/hr IVPB Q12H [facility] Rx#:[id number] Magnesium Sulfate-D5w Pmx 200 1 gm In Dextrose/Water 1 100ml.bag @ 100 mls/hr IVPB Q1H [facility] Rx#: [id number] Sodium Chloride 0.9% 1, 900 000 ml @ 75 mls/hr IV . [id number] [facility] Rx#:[id number] Oral 118 600 Output: Urine 2050 Other: Voiding Method Bedside Commode Diaper Diaper Diaper External Catheter External Catheter # Voids 3 1 # Bowel Movements 1 - Exam GENERAL DESCRIPTION: An elderly female lying in bed in no distress RESPIRATORY SYSTEM: Unlabored breathing , decreased breath sounds at bases HEART: S1 S2 regular rate and rhythm , ABDOMEN: Soft , no tenderness EXTREMITIES: No edema feet - Labs CBC & Chem 7: 07/03/23 07:52 07/03/23 07:52 Labs: Abnormal Lab Results - Last 24 Hours (Table) 07/02/23 07/02/23 07/03/23 Range/Units 16:08 20:04 05:23 WBC (3.8-10.6) k/uL RBC (3.80-5.40) m/uL Hgb (11.4-16.0) gm/dL Hct (34.0-46.0) % Neutrophils # (1.3-7.7) k/uL Lymphocytes # (1.0-4.8) k/uL Potassium (3.5-5.1) mmol/L Carbon Dioxide (22-30) mmol/L BUN (7-17) mg/dL Creatinine (0.52-1.04) mg/dL Glucose (74-99) mg/dL POC Glucose (mg/dL) 435 H 350 H 182 H (70-110) mg/dL Calcium (8.4-10.2) mg/dL AST (14-36) U/L Total Protein (6.3-8.2) g/dL Albumin (3.5-5.0) g/dL 07/03/23 07/03/23 07/03/23 Range/Units 07:52 07:52 11:52 WBC 15.1 H (3.8-10.6) k/uL RBC 3.25 L (3.80-5.40) m/uL Hgb 10.2 L (11.4-16.0) gm/dL Hct 30.5 L (34.0-46.0) % Neutrophils # 13.8 H (1.3-7.7) k/uL Lymphocytes # 0.8 L (1.0-4.8) k/uL Potassium 3.4 L (3.5-5.1) mmol/L Carbon Dioxide 32 H (22-30) mmol/L BUN 61 H (7-17) mg/dL Creatinine 2.21 H (0.52-1.04) mg/dL Glucose 174 H (74-99) mg/dL POC Glucose (mg/dL) 206 H (70-110) mg/dL Calcium 7.2 L (8.4-10.2) mg/dL AST 42 H (14-36) U/L Total Protein 5.8 L (6.3-8.2) g/dL Albumin 3.1 L (3.5-5.0) g/dL Microbiology - Last 24 Hours (Table) 06/30/23 20:30 Urine Culture - Preliminary Urine,Voided Gram Neg Bacilli Group D Enterococcus Assessment and Plan (1) UTI (urinary tract infection) Current Visit: No Status: Acute Code(s): N39.0 - URINARY TRACT INFECTION, SITE NOT SPECIFIED SNOMED Code(s): 28209701 Plan: 1patient presented to hospital with mental status changes and weakness which is likely multifactorial patient did tested positive for influenza and did have a positive UA unfortunately culture was not drawn initially UA with a culture done on 06/30/2023 is growing Enterococcus and gram-negative bacilli 2patient with renal insufficiency high risk of nephrotoxicity 3patient to continue with Unasyn while waiting for the culture to finalize and monitor clinical course closely Dictation was produced using [employer] dictation software. please excuse any grammatical, word or spelling errors. Time with Patient: Less than 30
[2023-07-03] MEDS: POTASSIUM CHLORIDE ER 20 MEQ TAB.ER PO STA (12:57)
--- NOTE | 2023-07-03 13:34 | P.PN ---
Subjective Progress Note Date: 07/03/23 Principal diagnosis: Acute exacerbation of COPD and acute influenza tracheobronchitis This is a 77-year-old female with history of multiple medical problems, including COPD, previous CVA, hypertension, previous [place], TIA, hypertension, dissecting descending aortic aneurysm, chronic kidney disease stage III, patient presented to the ER on 06/28/2023, apparently she presented with confusion, mental status change, weakness, borderline blood pressure, and she was noted to have acute renal failure will creatinine of 5.1. Patient tested positive for influenza A, chest x-ray showed mostly COPD changes, CT of the brain showed negative findings. Except for extensive paranasal sinus disease. Patient has been seen by many consultants since admission, today we were asked to see the patient for her underlying COPD. Indeed on physical examination the patient had diffuse crackles rhonchi and wheezes bilaterally. Chest x-ray on admission showed no evidence of acute cardiopulmonary process, however she did have a small right apical opacity, questionable right apical nodule clearly the patient is not in any shape for any surgical intervention, and I believe the nodule could be addressed on outpatient basis I reviewed the chest x-ray myself, and the findings are very nonspecific. Nephrology evaluated the patient for her acute kidney injury which was felt to be secondary to severe sepsis, blood cultures have been negative, however the urine cultures are positive for gram- negative bacilli and group D Enterococcus. Initiated the patient on Unasyn, and recommended infectious disease Consultation Patient was reevaluated today on 07/03/23, patient is feeling better today, she is even less lethargic today, blood pressure is 155/66 O2 saturation 96% on room air. Patient was placed yesterday on Unasyn for her Enterococcus and gram- negative infection in the urine, patient was seen by infectious disease and continued the same. However now the patient seems to have ESBL E. coli in the urine, and Enterococcus faecalis also. Antibiotics are being addressed by infectious disease on the case. Pulmonary noble the patient is feeling better, breathing easier, less cough less wheezing less shortness of breath noted today, she remains on room air. WBC count is 15.1 hemoglobin 10.2 basic metabolic profile is normal BUN is 61 creatinine 2.21, steadily improving considering the patient came in with a creatinine of 5.7 on admission Objective - Vital Signs Vital signs: Vital Signs Temp 97.5 F L 07/03/23 08:00 Pulse 99 07/03/23 08:00 Resp 18 07/03/23 08:00 BP 155/66 07/03/23 08:00 Pulse Ox 96 07/03/23 08:00 FiO2 Intake & Output 07/02/23 07/03/23 07/03/23 18:59 06:59 18:59 Intake Total 118 1750 Output Total 2050 Balance 118 -300 Intake: Intake, IV Titration 1150 Amount Ampicillin-Sulbactam 1.5 50 gm In Sodium Chloride 0.9 % 50 ml @ 100 mls/hr IVPB Q12H [facility] Rx#:[id number] Magnesium Sulfate-D5w Pmx 200 1 gm In Dextrose/Water 1 100ml.bag @ 100 mls/hr IVPB Q1H [facility] Rx#: [id number] Sodium Chloride 0.9% 1, 900 000 ml @ 75 mls/hr IV . [id number] [facility] Rx#:[id number] Oral 118 600 Output: Urine 0 Other: Voiding Method Bedside Commode Diaper Diaper Diaper External Catheter External Catheter # Voids 3 1 # Bowel Movements 1 - Exam -GENERAL: Revealed an elderly female, not in distress, on room air, more awake, and less confused today HEENT: PERRLA, EOMI, nonicteric, no neck masses, no JVD. CARDIOVASCULAR: Normal S1 and S2 present. No murmurs, rubs, or gallops. Pulmonary: Diminished breath sound bilaterally no crackles rhonchi or wheezes -ABDOMEN: Soft nontender no megaly no rebound no guarding. MUSCULOSKELETAL: No deformities and no limitation range of motion EXTREMITIES: No clubbing edema or cyanosis. NEUROLOGICAL: Alert and oriented x 3, no gross focal deficits. SKIN: No rashes. no petechiae. - Labs CBC & Chem 7: 07/03/23 07:52 07/03/23 07:52 Labs: Abnormal Lab Results - Last 24 Hours (Table) 07/02/23 07/02/23 07/03/23 Range/Units 16:08 20:04 05:23 WBC (3.8-10.6) k/uL RBC (3.80-5.40) m/uL Hgb (11.4-16.0) gm/dL Hct (34.0-46.0) % Neutrophils # (1.3-7.7) k/uL Lymphocytes # (1.0-4.8) k/uL Potassium (3.5-5.1) mmol/L Carbon Dioxide (22-30) mmol/L BUN (7-17) mg/dL Creatinine (0.52-1.04) mg/dL Glucose (74-99) mg/dL POC Glucose (mg/dL) 435 H 350 H 182 H (70-110) mg/dL Calcium (8.4-10.2) mg/dL AST (14-36) U/L Total Protein (6.3-8.2) g/dL Albumin (3.5-5.0) g/dL 07/03/23 07/03/23 07/03/23 Range/Units 07:52 07:52 11:52 WBC 15.1 H (3.8-10.6) k/uL RBC 3.25 L (3.80-5.40) m/uL Hgb 10.2 L (11.4-16.0) gm/dL Hct 30.5 L (34.0-46.0) % Neutrophils # 13.8 H (1.3-7.7) k/uL Lymphocytes # 0.8 L (1.0-4.8) k/uL Potassium 3.4 L (3.5-5.1) mmol/L Carbon Dioxide 32 H (22-30) mmol/L BUN 61 H (7-17) mg/dL Creatinine 2.21 H (0.52-1.04) mg/dL Glucose 174 H (74-99) mg/dL POC Glucose (mg/dL) 206 H (70-110) mg/dL Calcium 7.2 L (8.4-10.2) mg/dL AST 42 H (14-36) U/L Total Protein 5.8 L (6.3-8.2) g/dL Albumin 3.1 L (3.5-5.0) g/dL Microbiology - Last 24 Hours (Table) 06/30/23 20:30 Urine Culture - Final Urine,Voided Escherichia coli Enterococcus faecalis Assessment and Plan Assessment: Impression: Acute exacerbation of COPD Acute influenza A tracheobronchitis Acute on chronic urinary tract infection, secondary to ESBL E. coli and enterococcal faecalis infection Acute on chronic kidney disease stage III. Renal status is improving since admission sepsis secondary to urinary tract infection Acute toxic metabolic encephalopathy secondary to sepsis, improving. Benign essential hypertension Profound weakness and confusion secondary to sepsis Recommendations: Continue antibiotics as per ID on the case. Continue Tamiflu for now. Continue bronchodilators and Solu-Medrol. IV fluids and monitor closely DVT prophylaxis/subcu heparin GI prophylaxis/Pepcid Will continue to follow. Time with Patient: Less than 30
[2023-07-03 17:27] LABS: Glucose,Whole Blood 353 mg/dL (70-110)
[2023-07-03 23:35] LABS: Glucose,Whole Blood 140 mg/dL (70-110)
[2023-07-04 00:22] LABS: Glucose,Whole Blood 140 mg/dL (70-110)
[2023-07-04 05:53] LABS: Glucose,Whole Blood 242 mg/dL (70-110)
[2023-07-04 08:32] LABS: Basophils % (A) 0 %; Eosinophils % (A) 0 %; HCT 28.4 % (34.0-46.0); HGB 9.3 gm/dL (11.4-16.0); Lymphocytes # (A) 0.6 k/uL (1.0-4.8); Lymphocytes % (A) 4 %; MCH 30.8 pg (25.0-35.0); MCHC 32.9 g/dL (31.0-37.0); MCV 93.5 fL (80.0-100.0); Mean Platelet Volume 10.1; Monocytes # (A) 0.6 k/uL (0-1.0); Monocytes % (A) 4 %; Neutrophils # (A) 14.8 k/uL (1.3-7.7); Neutrophils % (A) 92 %; Platelet Count 253 k/uL (150-450); RBC 3.03 m/uL (3.80-5.40); RDW 14.1 % (11.5-15.5); WBC 16.1 k/uL (3.8-10.6)
[2023-07-04 09:04] LABS: ALT 33 U/L (4-34); AST 38 U/L (14-36); African American GFR (CKD) 37 (>60 ml/min/1.73 sqM); Alkaline Phosphatase 51 U/L (38-126); Anion Gap 5 mmol/L; Blood Urea Nitrogen 48 mg/dL (7-17); Calcium 6.7 mg/dL (8.4-10.2); Carbon Dioxide 33 mmol/L (22-30); Chloride 103 mmol/L (98-107); Glucose 176 mg/dL (74-99); Magnesium 1.4 mg/dL (1.6-2.3); Non-African American GFR(CKD) 32 (>60 ml/min/1.73 sqM); Potassium 3.7 mmol/L (3.5-5.1); Sodium 141 mmol/L (137-145); Total Bilirubin 0.8 mg/dL (0.2-1.3); Total Protein 5.5 g/dL (6.3-8.2)
[2023-07-04] MEDS: MAGNESIUM SULFATE-D5W PMX 1 GM in DEXTROSE/WATER 1 100ML.BAG IVPB SCH (10:11)
--- NOTE | 2023-07-04 11:12 | P.PN ---
Subjective Progress Note Date: 07/04/23 Principal diagnosis: Reason for follow-up is urinary tract infection Patient is a 77-year-old female with a past medical history significant for hypertension hyperlipidemia COPD CVA TIA CT presented to the hospital for evaluation of mental status changes patient did tested positive for influenza A did have a positive UA concerning for a symptomatic urinary tract infection. On today's evaluation that is 07/04/2023,the patient denies any fever or any chills, patient is breathing comfortably on room air, the patient denies chest pain shortness of breath and no significant cough, patient denies abdominal pain, no nausea vomiting or diarrhea. Patient white count is 16.1 today, creatinine is 1.55 urine with ESBL E. coli in addition to Enterococcus faecalis Objective - Vital Signs Vital signs: Vital Signs Temp 97.6 F 07/04/23 08:00 Pulse 103 H 07/04/23 08:00 Resp 18 07/04/23 08:00 BP 147/75 07/04/23 08:00 Pulse Ox 97 07/04/23 08:00 FiO2 Intake & Output 07/03/23 07/04/23 07/04/23 18:59 06:59 18:59 Intake Total 236 150 180 Output Total 500 500 Balance -264 -350 180 Weight 44.906 kg Intake: Oral 236 150 180 Output: Urine 500 500 Other: Voiding Method Diaper Diaper Diaper External Catheter External Catheter External Catheter # Voids 1 # Bowel Movements 1 1 1 - Exam GENERAL DESCRIPTION: An elderly female lying in bed in no distress RESPIRATORY SYSTEM: Unlabored breathing , decreased breath sounds at bases HEART: S1 S2 regular rate and rhythm , ABDOMEN: Soft , no tenderness EXTREMITIES: No edema feet - Labs CBC & Chem 7: 07/04/23 07:43 07/04/23 07:43 Labs: Abnormal Lab Results - Last 24 Hours (Table) 07/03/23 07/03/23 07/03/23 Range/Units 07:52 11:52 17:26 WBC (3.8-10.6) k/uL RBC (3.80-5.40) m/uL Hgb (11.4-16.0) gm/dL Hct (34.0-46.0) % Neutrophils # (1.3-7.7) k/uL Lymphocytes # (1.0-4.8) k/uL Carbon Dioxide (22-30) mmol/L BUN (7-17) mg/dL Creatinine (0.52-1.04) mg/dL Glucose (74-99) mg/dL POC Glucose (mg/dL) 206 H 353 H (70-110) mg/dL Hemoglobin A1c 7.2 H (<=6.0) % Calcium (8.4-10.2) mg/dL Magnesium (1.6-2.3) mg/dL AST (14-36) U/L Total Protein (6.3-8.2) g/dL Albumin (3.5-5.0) g/dL 07/03/23 07/04/23 07/04/23 Range/Units 23:33 00:14 05:51 WBC (3.8-10.6) k/uL RBC (3.80-5.40) m/uL Hgb (11.4-16.0) gm/dL Hct (34.0-46.0) % Neutrophils # (1.3-7.7) k/uL Lymphocytes # (1.0-4.8) k/uL Carbon Dioxide (22-30) mmol/L BUN (7-17) mg/dL Creatinine (0.52-1.04) mg/dL Glucose (74-99) mg/dL POC Glucose (mg/dL) 140 H 140 H 242 H (70-110) mg/dL Hemoglobin A1c (<=6.0) % Calcium (8.4-10.2) mg/dL Magnesium (1.6-2.3) mg/dL AST (14-36) U/L Total Protein (6.3-8.2) g/dL Albumin (3.5-5.0) g/dL 07/04/23 07/04/23 Range/Units 07:43 07:43 WBC 16.1 H (3.8-10.6) k/uL RBC 3.03 L (3.80-5.40) m/uL Hgb 9.3 L (11.4-16.0) gm/dL Hct 28.4 L (34.0-46.0) % Neutrophils # 14.8 H (1.3-7.7) k/uL Lymphocytes # 0.6 L (1.0-4.8) k/uL Carbon Dioxide 33 H (22-30) mmol/L BUN 48 H (7-17) mg/dL Creatinine 1.55 H (0.52-1.04) mg/dL Glucose 176 H (74-99) mg/dL POC Glucose (mg/dL) (70-110) mg/dL Hemoglobin A1c (<=6.0) % Calcium 6.7 L (8.4-10.2) mg/dL Magnesium 1.4 L (1.6-2.3) mg/dL AST 38 H (14-36) U/L Total Protein 5.5 L (6.3-8.2) g/dL Albumin 3.0 L (3.5-5.0) g/dL Microbiology - Last 24 Hours (Table) 06/30/23 20:30 Urine Culture - Final Urine,Voided Escherichia coli Enterococcus faecalis Assessment and Plan (1) UTI (urinary tract infection) Current Visit: No Status: Acute Code(s): N39.0 - URINARY TRACT INFECTION, SITE NOT SPECIFIED SNOMED Code(s): 21947897 Plan: 1patient presented to hospital with mental status changes and weakness which is likely multifactorial patient did tested positive for influenza and did have a positive UA unfortunately culture was not drawn initially UA with a culture done on 06/30/2023 is growing Enterococcus and ESBL E. coli 2patient with renal insufficiency high risk of nephrotoxicity 3with the culture finding showing ESBL E. coli Enterococcus and the patient also noticed a worsening of the white count, we will discontinue Unasyn and start the patient on Invanz and see clinical response Dictation was produced using [employer] dictation software. please excuse any grammatical, word or spelling errors. Time with Patient: Less than 30
[2023-07-04 11:36] LABS: Glucose,Whole Blood 300 mg/dL (70-110)
--- NOTE | 2023-07-04 12:26 | P.PN ---
Subjective Progress Note Date: 07/04/23 Principal diagnosis: Acute exacerbation of COPD and acute influenza tracheobronchitis This is a 77-year-old female with history of multiple medical problems, including COPD, previous CVA, hypertension, previous [place], TIA, hypertension, dissecting descending aortic aneurysm, chronic kidney disease stage III, patient presented to the ER on 06/28/2023, apparently she presented with confusion, mental status change, weakness, borderline blood pressure, and she was noted to have acute renal failure will creatinine of 5.1. Patient tested positive for influenza A, chest x-ray showed mostly COPD changes, CT of the brain showed negative findings. Except for extensive paranasal sinus disease. Patient has been seen by many consultants since admission, today we were asked to see the patient for her underlying COPD. Indeed on physical examination the patient had diffuse crackles rhonchi and wheezes bilaterally. Chest x-ray on admission showed no evidence of acute cardiopulmonary process, however she did have a small right apical opacity, questionable right apical nodule clearly the patient is not in any shape for any surgical intervention, and I believe the nodule could be addressed on outpatient basis I reviewed the chest x-ray myself, and the findings are very nonspecific. Nephrology evaluated the patient for her acute kidney injury which was felt to be secondary to severe sepsis, blood cultures have been negative, however the urine cultures are positive for gram- negative bacilli and group D Enterococcus. Initiated the patient on Unasyn, and recommended infectious disease Consultation Patient was reevaluated today on 07/03/23, patient is feeling better today, she is even less lethargic today, blood pressure is 155/66 O2 saturation 96% on room air. Patient was placed yesterday on Unasyn for her Enterococcus and gram- negative infection in the urine, patient was seen by infectious disease and continued the same. However now the patient seems to have ESBL E. coli in the urine, and Enterococcus faecalis also. Antibiotics are being addressed by infectious disease on the case. Pulmonary noble the patient is feeling better, breathing easier, less cough less wheezing less shortness of breath noted today, she remains on room air. WBC count is 15.1 hemoglobin 10.2 basic metabolic profile is normal BUN is 61 creatinine 2.21, steadily improving considering the patient came in with a creatinine of 5.7 on admission Patient was reevaluated today on 07/04/2023 clinically the patient is feeling better, her urine cultures are positive for ESBL E. coli, and Enterococcus faecalis, her antibiotics was changed to Invanz by infectious disease, overall the patient is improving with present treatment. Remains on bronchodilators, remains on methylprednisolone, and I will cut down the dose. Patient is steadily getting better. But now that she has ESBL E. coli in the urine, her treatment with IV antibiotics may take a longer time Objective - Vital Signs Vital signs: Vital Signs Temp 97.6 F 07/04/23 08:00 Pulse 103 H 07/04/23 08:00 Resp 18 07/04/23 08:00 BP 147/75 07/04/23 08:00 Pulse Ox 97 07/04/23 08:00 FiO2 Intake & Output 07/03/23 07/04/23 07/04/23 18:59 06:59 18:59 Intake Total 236 150 180 Output Total 500 500 Balance -264 -350 180 Weight 44.906 kg Intake: Oral 236 150 180 Output: Urine 500 500 Other: Voiding Method Diaper Diaper Diaper External Catheter External Catheter External Catheter # Voids 1 # Bowel Movements 1 1 1 - Exam -GENERAL: Revealed an elderly female, not in distress, on room air, alert and oriented x 3 HEENT: PERRLA, EOMI, nonicteric, no neck masses, no JVD. CARDIOVASCULAR: Normal S1 and S2 present. No murmurs, rubs, or gallops. Pulmonary: Diminished breath sound bilaterally no crackles rhonchi or wheezes -ABDOMEN: Soft nontender no megaly no rebound no guarding. MUSCULOSKELETAL: No deformities and no limitation range of motion EXTREMITIES: No clubbing edema or cyanosis. NEUROLOGICAL: Alert and oriented x 3, no gross focal deficits. SKIN: No rashes. no petechiae. - Labs CBC & Chem 7: 07/04/23 07:43 07/04/23 07:43 Labs: Abnormal Lab Results - Last 24 Hours (Table) 07/03/23 07/03/23 07/03/23 Range/Units 07:52 17:26 23:33 WBC (3.8-10.6) k/uL RBC (3.80-5.40) m/uL Hgb (11.4-16.0) gm/dL Hct (34.0-46.0) % Neutrophils # (1.3-7.7) k/uL Lymphocytes # (1.0-4.8) k/uL Carbon Dioxide (22-30) mmol/L BUN (7-17) mg/dL Creatinine (0.52-1.04) mg/dL Glucose (74-99) mg/dL POC Glucose (mg/dL) 353 H 140 H (70-110) mg/dL Hemoglobin A1c 7.2 H (<=6.0) % Calcium (8.4-10.2) mg/dL Magnesium (1.6-2.3) mg/dL AST (14-36) U/L Total Protein (6.3-8.2) g/dL Albumin (3.5-5.0) g/dL 07/04/23 07/04/23 07/04/23 Range/Units 00:14 05:51 07:43 WBC 16.1 H (3.8-10.6) k/uL RBC 3.03 L (3.80-5.40) m/uL Hgb 9.3 L (11.4-16.0) gm/dL Hct 28.4 L (34.0-46.0) % Neutrophils # 14.8 H (1.3-7.7) k/uL Lymphocytes # 0.6 L (1.0-4.8) k/uL Carbon Dioxide (22-30) mmol/L BUN (7-17) mg/dL Creatinine (0.52-1.04) mg/dL Glucose (74-99) mg/dL POC Glucose (mg/dL) 140 H 242 H (70-110) mg/dL Hemoglobin A1c (<=6.0) % Calcium (8.4-10.2) mg/dL Magnesium (1.6-2.3) mg/dL AST (14-36) U/L Total Protein (6.3-8.2) g/dL Albumin (3.5-5.0) g/dL 07/04/23 07/04/23 Range/Units 07:43 11:35 WBC (3.8-10.6) k/uL RBC (3.80-5.40) m/uL Hgb (11.4-16.0) gm/dL Hct (34.0-46.0) % Neutrophils # (1.3-7.7) k/uL Lymphocytes # (1.0-4.8) k/uL Carbon Dioxide 33 H (22-30) mmol/L BUN 48 H (7-17) mg/dL Creatinine 1.55 H (0.52-1.04) mg/dL Glucose 176 H (74-99) mg/dL POC Glucose (mg/dL) 300 H (70-110) mg/dL Hemoglobin A1c (<=6.0) % Calcium 6.7 L (8.4-10.2) mg/dL Magnesium 1.4 L (1.6-2.3) mg/dL AST 38 H (14-36) U/L Total Protein 5.5 L (6.3-8.2) g/dL Albumin 3.0 L (3.5-5.0) g/dL Microbiology - Last 24 Hours (Table) 06/30/23 20:30 Urine Culture - Final Urine,Voided Escherichia coli Enterococcus faecalis Assessment and Plan Assessment: Impression: Acute exacerbation of COPD Acute influenza A tracheobronchitis Acute on chronic urinary tract infection, secondary to ESBL E. coli and enterococcal faecalis infection, patient is now on Invanz Acute on chronic kidney disease stage III. Renal status is improving since admission sepsis secondary to urinary tract infection Acute toxic metabolic encephalopathy secondary to sepsis, improving. Benign essential hypertension Profound weakness and confusion secondary to sepsis Recommendations: Continue antibiotics 5-day course of Tamiflu was given Continue bronchodilators and Solu-Medrol. However cut down Solu-Medrol to 40 mg IV push every 12 hours IV fluids and monitor closely DVT prophylaxis/subcu heparin GI prophylaxis/Pepcid Will continue to follow. Time with Patient: Less than 30
--- NOTE | 2023-07-04 12:44 | P.PN ---
Subjective Patient is seen in follow-up for acute kidney injury. Renal function improving. Creatinine 1.55 today. Resting in bed. Mentation better today. Receiving IV fluids. Hemodynamically stable. Incontinent. Vital signs are stable. General: Lethargic. HEENT: Head exam is unremarkable. LUNGS: No audible rhonchi or wheezes. HEART: Rate and Rhythm are regular. ABDOMEN: Nontender. Edema. Edema. EXTREMITITES: No edema. Objective - Vital Signs Vital signs: Vital Signs Temp 97.6 F 07/04/23 08:00 Pulse 103 H 07/04/23 08:00 Resp 18 07/04/23 08:00 BP 147/75 07/04/23 08:00 Pulse Ox 97 07/04/23 08:00 FiO2 Intake & Output 07/03/23 07/04/23 07/04/23 18:59 06:59 18:59 Intake Total 236 150 180 Output Total 500 500 Balance -264 -350 180 Weight 44.906 kg Intake: Oral 236 150 180 Output: Urine 500 500 Other: Voiding Method Diaper Diaper Diaper External Catheter External Catheter External Catheter # Voids 1 # Bowel Movements 1 1 1 - Labs CBC & Chem 7: 07/04/23 07:43 07/04/23 07:43 Labs: Abnormal Lab Results - Last 24 Hours (Table) 07/03/23 07/03/23 07/03/23 Range/Units 07:52 17:26 23:33 WBC (3.8-10.6) k/uL RBC (3.80-5.40) m/uL Hgb (11.4-16.0) gm/dL Hct (34.0-46.0) % Neutrophils # (1.3-7.7) k/uL Lymphocytes # (1.0-4.8) k/uL Carbon Dioxide (22-30) mmol/L BUN (7-17) mg/dL Creatinine (0.52-1.04) mg/dL Glucose (74-99) mg/dL POC Glucose (mg/dL) 353 H 140 H (70-110) mg/dL Hemoglobin A1c 7.2 H (<=6.0) % Calcium (8.4-10.2) mg/dL Magnesium (1.6-2.3) mg/dL AST (14-36) U/L Total Protein (6.3-8.2) g/dL Albumin (3.5-5.0) g/dL 07/04/23 07/04/23 07/04/23 Range/Units 00:14 05:51 07:43 WBC 16.1 H (3.8-10.6) k/uL RBC 3.03 L (3.80-5.40) m/uL Hgb 9.3 L (11.4-16.0) gm/dL Hct 28.4 L (34.0-46.0) % Neutrophils # 14.8 H (1.3-7.7) k/uL Lymphocytes # 0.6 L (1.0-4.8) k/uL Carbon Dioxide (22-30) mmol/L BUN (7-17) mg/dL Creatinine (0.52-1.04) mg/dL Glucose (74-99) mg/dL POC Glucose (mg/dL) 140 H 242 H (70-110) mg/dL Hemoglobin A1c (<=6.0) % Calcium (8.4-10.2) mg/dL Magnesium (1.6-2.3) mg/dL AST (14-36) U/L Total Protein (6.3-8.2) g/dL Albumin (3.5-5.0) g/dL 07/04/23 07/04/23 Range/Units 07:43 11:35 WBC (3.8-10.6) k/uL RBC (3.80-5.40) m/uL Hgb (11.4-16.0) gm/dL Hct (34.0-46.0) % Neutrophils # (1.3-7.7) k/uL Lymphocytes # (1.0-4.8) k/uL Carbon Dioxide 33 H (22-30) mmol/L BUN 48 H (7-17) mg/dL Creatinine 1.55 H (0.52-1.04) mg/dL Glucose 176 H (74-99) mg/dL POC Glucose (mg/dL) 300 H (70-110) mg/dL Hemoglobin A1c (<=6.0) % Calcium 6.7 L (8.4-10.2) mg/dL Magnesium 1.4 L (1.6-2.3) mg/dL AST 38 H (14-36) U/L Total Protein 5.5 L (6.3-8.2) g/dL Albumin 3.0 L (3.5-5.0) g/dL Microbiology - Last 24 Hours (Table) 06/30/23 20:30 Urine Culture - Final Urine,Voided Escherichia coli Enterococcus faecalis Assessment and Plan Plan: Assessment: 1. Acute kidney injury secondary to ATN secondary to severe sepsis. Creatinine peaked at 5.7 and down to 1.[address] scan showed atrophic right kidney. No hydronephrosis. Creatinine near 1 in September 2022. 2. Hyponatremia secondary to acute kidney injury and hypovolemia. Improved. 3. Metabolic acidosis secondary to acute kidney injury. Status post IV bicarb. Resolved. 4. Influenza A infection maintained s/p Tamiflu. 5. UTI on antibiotics. Urine culture positive for group D Enterococcus/gram- negative bacilli. 6. Hypokalemia from poor intake. Replaced. Better. 7. Hypomagnesemia from poor intake. Plan: Maintain IV fluids. Avoid nephrotoxins. Encouraged oral intake. Strict I's and O's. Replace potassium and magnesium. Add oral magnesium oxide. Repeat BMP and magnesium level 2 to 3 days postdischarge. Follow-up outpatient in 1 week. Awaits discharge to rehab.
--- NOTE | 2023-07-04 13:04 | P.PN ---
Subjective Progress Note Date: 07/04/23 This is a pleasant 77 years old female with past medical history of COPD, last year requiring intubation and mechanical ventilation before she is improved. Other medical problems including hypertension, dissecting descending aorta, renal infarction, chronic kidney disease stage III Patient states she came to the hospital because she fell however patient history is somewhat limited, on admission patient has been documented to be confused and feeling weak for the last 2 days. Patient says she was going to open the door when she fell, she was feeling dizzy and she was not sure if she passed out. She thinks she hit her head but denies any tenderness for now. No chest pain but patient looks little bit tachypneic although she denies significant dyspnea. She is complaining of from suprapubic abdominal pain and dysuria with decreased frequency of urination She had diarrhea all the day yesterday but not today, no vomiting. No other abdominal pain as per patient She smokes about half pack per day and she was counseled to quit but she declines. No alcohol or illicit drugs. Her blood pressure is on the low side 97/53, rest of Vitas looks stable and patient is afebrile She has mild leukocytosis 10.8, hemoglobin 11, creatinine is significantly elevated at 5.1. Potassium and sodium within the reference range Influenza a test came back positive While covid test is negative Chest x-ray showed COPD changes with no acute changes EKG showing sinus rhythm at [address]-T changes CT of the brain is negative for acute process but showed extensive paranasal sinus disease Renal ultrasound showing atrophic right kidney with no hydronephrosis 06/29/2023 Patient awake alert and states that her breathing is better today, she still has wheezing but less significant with better air entry on both sides. She denies chest pain today. No significant abdominal pain but on exam she has mild tenderness in the right upper quadrant and left lower quadrant of unknown significance but patient did not have bowel movement On the top of that her bladder scan showing only 10 mL, she has external urine catheter and she is not making much urine therefore we are going to order CT of the abdomen and pelvis with oral contrast only. Patient with no vomiting and she tolerates diet well. Blood pressure still borderline 94/58, she was saturating 94% on 5 L, repeat chest x-ray in the morning showing same COPD changes with no fluid overload Labs showing elevated protein S calcitonin at 2.25. ProBNP 2460. Echocardiogram and CT of the abdomen are pending Patient on Tamiflu and ceftriaxone 2 g and fluids was switched to sodium bicarbonate 100 mL today 06/30/2023 Patient is improving, currently she is on room air and her steroid switched to prednisone 40 mg from tomorrow She has mild leukocytosis due to steroid effect. No more fever. Urine culture is pending Creatinine down to 4.8 Treatments and sodium bicarb and ceftriaxone [address] of the abdomen and pelvis is negative for acute process. CT of the brain repeated because patient was more confused yesterday and she fell at home which was negative for delayed hemorrhage 07/01/2023 Patient improving. No specific symptoms Feels generally weak Still has leukocytosis 17,000, prednisone 30 mg which can be tapered upon discharge Protein S calcitonin trending down and she is currently on ceftriaxone Also she is on Tamiflu for her influenza Creatinine coming down to 4.1, currently on normal saline 75 mL per hour Dietary consult for malnutrition Discussed with patient and she is agreeable 07/02. Patient seen and examined. WBC 17, hemoglobin 9.5, platelet count 227, sodium 130, potassium 4.1, BUN 19, creatinine 4.18. Complaining of chest congestion and wheezing. 07/03. Patient seen and examined. No acute issues overnight. 07/04. Patient seen and examined. Labs done this morning showed WBC 7.1, hemoglobin 9.3, sodium 141, potassium 3.7, BUN 48, creatinine 1.55. Urine culture finding showing ESBL E. coli .continues to complain of lethargy REVIEW OF SYSTEMS: CONSTITUTIONAL: No fever, no malaise,. CARDIOVASCULAR: No chest pain, no palpitations, no syncope. PULMONARY: Mentioned above GASTROINTESTINAL: No diarrhea, no nausea, no vomiting, no abdominal pain. NEUROLOGICAL: No headaches, no weakness, PHYSICAL EXAMINATION: GENERAL: The patient is alert , not in any acute distress. Chronically ill looking HEENT: Pupils are round and equally reacting to light. EOMI. No scleral icterus. No conjunctival pallor. Normocephalic, atraumatic. No pharyngeal erythema. No thyromegaly. CARDIOVASCULAR: S1 and S2 present. No murmurs, rubs, or gallops. PULMONARY: Coarse breath sound bilaterally, expiratory wheeze audible ABDOMEN: Soft, nontender, nondistended, normoactive bowel sounds. No palpable organomegaly. MUSCULOSKELETAL: No joint swelling or deformity. EXTREMITIES: No cyanosis, clubbing, or pedal edema. NEUROLOGICAL: Gross neurological examination did not reveal any focal deficits. SKIN: No rashes. Assessment and plan Acute kidney injury on chronic kidney disease stage III Acute exacerbation of COPD Acute influenza A tracheobronchitis Acute on chronic urinary tract infection, secondary to ESBL E. coli and enterococcal faecalis infection sepsis secondary to urinary tract infection Acute toxic metabolic encephalopathy secondary to sepsis, improving. Mild calories and protein malnutrition Hypomagnesemia Hypertension Mildly elevated troponin Fall Monitor vital signs Monitor CBC Monitor CMP Follow-up on urine culture Completed Tamiflu Continue Solu-Medrol Continue IV fluids DC Unasyn, started on ertapenem cardiology consult for elevated troponin and hypotension. signed off Hold lisinopril. Hold Norvasc Nephrology following Pulmonology following ID following Labs and medication were reviewed.. Continue same treatment. Continue with symptomatic treatment. Resume home medication. Monitor labs and vitals. DVT and GI prophylaxis. Further recommendations as per clinical course of the patient Dictation was produced using [employer] dictation software. please excuse any grammatical, word or spelling errors. Objective - Vital Signs Vital signs: Vital Signs Temp 98.0 F 07/04/23 03:13 Pulse 86 07/04/23 03:13 Resp 18 07/04/23 03:13 BP 155/76 07/04/23 03:13 Pulse Ox 95 07/04/23 03:13 FiO2 Intake & Output 07/03/23 07/04/23 07/04/23 18:59 06:59 18:59 Intake Total 236 150 180 Output Total 500 500 Balance -264 -350 180 Weight 44.906 kg Intake: Oral 236 150 180 Output: Urine 500 500 Other: Voiding Method Diaper Diaper External Catheter External Catheter # Voids 1 # Bowel Movements 1 1 1 - Labs CBC & Chem 7: 07/04/23 07:43 07/04/23 07:43 Labs: Abnormal Lab Results - Last 24 Hours (Table) 07/03/23 07/03/23 07/03/23 Range/Units 07:52 11:52 17:26 WBC (3.8-10.6) k/uL RBC (3.80-5.40) m/uL Hgb (11.4-16.0) gm/dL Hct (34.0-46.0) % Neutrophils # (1.3-7.7) k/uL Lymphocytes # (1.0-4.8) k/uL Carbon Dioxide (22-30) mmol/L BUN (7-17) mg/dL Creatinine (0.52-1.04) mg/dL Glucose (74-99) mg/dL POC Glucose (mg/dL) 206 H 353 H (70-110) mg/dL Hemoglobin A1c 7.2 H (<=6.0) % Calcium (8.4-10.2) mg/dL Magnesium (1.6-2.3) mg/dL AST (14-36) U/L Total Protein (6.3-8.2) g/dL Albumin (3.5-5.0) g/dL 07/03/23 07/04/23 07/04/23 Range/Units 23:33 00:14 05:51 WBC (3.8-10.6) k/uL RBC (3.80-5.40) m/uL Hgb (11.4-16.0) gm/dL Hct (34.0-46.0) % Neutrophils # (1.3-7.7) k/uL Lymphocytes # (1.0-4.8) k/uL Carbon Dioxide (22-30) mmol/L BUN (7-17) mg/dL Creatinine (0.52-1.04) mg/dL Glucose (74-99) mg/dL POC Glucose (mg/dL) 140 H 140 H 242 H (70-110) mg/dL Hemoglobin A1c (<=6.0) % Calcium (8.4-10.2) mg/dL Magnesium (1.6-2.3) mg/dL AST (14-36) U/L Total Protein (6.3-8.2) g/dL Albumin (3.5-5.0) g/dL 07/04/23 07/04/23 Range/Units 07:43 07:43 WBC 16.1 H (3.8-10.6) k/uL RBC 3.03 L (3.80-5.40) m/uL Hgb 9.3 L (11.4-16.0) gm/dL Hct 28.4 L (34.0-46.0) % Neutrophils # 14.8 H (1.3-7.7) k/uL Lymphocytes # 0.6 L (1.0-4.8) k/uL Carbon Dioxide 33 H (22-30) mmol/L BUN 48 H (7-17) mg/dL Creatinine 1.55 H (0.52-1.04) mg/dL Glucose 176 H (74-99) mg/dL POC Glucose (mg/dL) (70-110) mg/dL Hemoglobin A1c (<=6.0) % Calcium 6.7 L (8.4-10.2) mg/dL Magnesium 1.4 L (1.6-2.3) mg/dL AST 38 H (14-36) U/L Total Protein 5.5 L (6.3-8.2) g/dL Albumin 3.0 L (3.5-5.0) g/dL Microbiology - Last 24 Hours (Table) 06/30/23 20:30 Urine Culture - Final Urine,Voided Escherichia coli Enterococcus faecalis
[2023-07-04] MEDS: ERTAPENEM 1 GM in SODIUM CHLORIDE 0.9% 50 ML IVPB SCH (13:33)
[2023-07-04] MEDS: POTASSIUM CHLORIDE ER 20 MEQ TAB.ER PO STA (13:40)
[2023-07-04 16:44] LABS: Glucose,Whole Blood 187 mg/dL (70-110)
[2023-07-04] MEDS: methylPREDNISolone SOD SUCCI 40 MG/ML 1 ML VIAL IV SCH (20:24)
[2023-07-05 00:45] LABS: Glucose,Whole Blood 222 mg/dL (70-110)
[2023-07-05 05:55] LABS: Glucose,Whole Blood 140 mg/dL (70-110)
[2023-07-05 09:23] LABS: Basophils % (A) 0 %; Eosinophils % (A) 0 %; HCT 28.8 % (34.0-46.0); HGB 9.3 gm/dL (11.4-16.0); Lymphocytes # (A) 0.8 k/uL (1.0-4.8); Lymphocytes % (A) 5 %; MCH 30.4 pg (25.0-35.0); MCHC 32.4 g/dL (31.0-37.0); MCV 93.8 fL (80.0-100.0); Mean Platelet Volume 10.6; Monocytes # (A) 0.8 k/uL (0-1.0); Monocytes % (A) 5 %; Neutrophils # (A) 15.5 k/uL (1.3-7.7); Neutrophils % (A) 90 %; Platelet Count 255 k/uL (150-450); RBC 3.07 m/uL (3.80-5.40); RDW 13.9 % (11.5-15.5); WBC 17.2 k/uL (3.8-10.6)
[2023-07-05] MEDS: MAGNESIUM OXIDE 400 MG TAB PO SCH (09:52)
[2023-07-05] MEDS: ERTAPENEM 0.5 GM in SODIUM CHLORIDE 0.9% 50 ML IVPB SCH (09:53)
[2023-07-05 10:03] LABS: ALT 41 U/L (4-34); AST 45 U/L (14-36); African American GFR (CKD) 53 (>60 ml/min/1.73 sqM); Albumin 3.2 g/dL (3.5-5.0); Alkaline Phosphatase 61 U/L (38-126); Anion Gap 7 mmol/L; Blood Urea Nitrogen 37 mg/dL (7-17); Carbon Dioxide 28 mmol/L (22-30); Chloride 104 mmol/L (98-107); Glucose 159 mg/dL (74-99); Non-African American GFR(CKD) 46 (>60 ml/min/1.73 sqM); Potassium 3.5 mmol/L (3.5-5.1); Sodium 139 mmol/L (137-145); Total Protein 5.7 g/dL (6.3-8.2)
--- NOTE | 2023-07-05 10:21 | P.PN ---
Subjective Patient is seen in follow-up for acute kidney injury. Renal function improving. Creatinine 1.55 yesterday. Sitting up in chair. Mentation improved. Awake and alert. Receiving IV fluids. Hemodynamically stable. Vital signs are stable. General: Lethargic. HEENT: Head exam is unremarkable. LUNGS: No audible rhonchi or wheezes. HEART: Rate and Rhythm are regular. ABDOMEN: Nontender. Edema. Edema. EXTREMITITES: No edema. Objective - Vital Signs Vital signs: Vital Signs Temp 97.9 F 07/04/23 20:21 Pulse 79 07/05/23 05:09 Resp 14 07/05/23 05:09 BP 170/80 07/05/23 05:09 Pulse Ox 96 07/05/23 05:09 FiO2 Intake & Output 07/04/23 07/05/23 07/05/23 18:59 06:59 18:59 Intake Total 360 240 Balance 360 240 Intake: Oral 360 240 Other: Voiding Method Diaper Diaper External Catheter External Catheter # Voids 1 # Bowel Movements 1 - Labs CBC & Chem 7: 07/05/23 08:12 07/04/23 07:43 Labs: Abnormal Lab Results - Last 24 Hours (Table) 07/04/23 07/04/23 07/05/23 Range/Units 11:35 16:42 00:43 WBC (3.8-10.6) k/uL RBC (3.80-5.40) m/uL Hgb (11.4-16.0) gm/dL Hct (34.0-46.0) % Neutrophils # (1.3-7.7) k/uL Lymphocytes # (1.0-4.8) k/uL POC Glucose (mg/dL) 300 H 187 H 222 H (70-110) mg/dL 07/05/23 07/05/23 Range/Units 05:53 08:12 WBC 17.2 H (3.8-10.6) k/uL RBC 3.07 L (3.80-5.40) m/uL Hgb 9.3 L (11.4-16.0) gm/dL Hct 28.8 L (34.0-46.0) % Neutrophils # 15.5 H (1.3-7.7) k/uL Lymphocytes # 0.8 L (1.0-4.8) k/uL POC Glucose (mg/dL) 140 H (70-110) mg/dL Assessment and Plan Plan: Assessment: 1. Acute kidney injury secondary to ATN secondary to severe sepsis. Creatinine peaked at 5.7 and down to 1.[address] scan showed atrophic right kidney. No hydronephrosis. Creatinine near 1 in September 2022. 2. Hyponatremia secondary to acute kidney injury and hypovolemia. Improved. 3. Metabolic acidosis secondary to acute kidney injury. Status post IV bicarb. Resolved. 4. Influenza A infection maintained s/p Tamiflu. 5. UTI on antibiotics. Urine culture positive for group D Enterococcus/gram- negative bacilli. 6. Hypokalemia from poor intake. Replaced. Better. 7. Hypomagnesemia from poor intake. On oral magnesium oxide. Plan: Maintain IV fluids. Avoid nephrotoxins. Encouraged oral intake. Strict I's and O's. Replace potassium and magnesium as needed. Repeat BMP and magnesium level 2 to 3 days postdischarge. Follow-up outpatient in 1 week. Awaits discharge to rehab.
[2023-07-05 10:23] LABS: Calcium 6.2 mg/dL (8.4-10.2)
[2023-07-05 11:34] LABS: Glucose,Whole Blood 198 mg/dL (70-110)
[2023-07-05] MEDS ORDERED: Potassium Replacement Protocol 1 EACH MISC MISCELLANE PRN (11:35)
--- NOTE | 2023-07-05 12:43 | P.PN ---
Subjective Progress Note Date: 07/05/23 Principal diagnosis: Reason for follow-up is urinary tract infection Patient is a 77-year-old female with a past medical history significant for hypertension hyperlipidemia COPD CVA TIA ID presented to the hospital for evaluation of mental status changes patient did tested positive for influenza A did have a positive UA concerning for a symptomatic urinary tract infection. On today's evaluation that is 07/05/2023,the patient remains to be afebrile, patient is on room air not requiring supplemental oxygen and denies any shortness of breath no chest pain or cough.Patient denies having any nausea or vomiting, no abdominal pain and no diarrhea has been reported, no new symptoms. Patient white count is 17.2, creatinine is 1.15 Objective - Vital Signs Vital signs: Vital Signs Temp 98.1 F 07/05/23 12:00 Pulse 101 H 07/05/23 12:00 Resp 18 07/05/23 12:00 BP 203/104 07/05/23 12:00 Pulse Ox 93 L 07/05/23 12:00 FiO2 Intake & Output 07/04/23 07/05/23 07/05/23 18:59 06:59 18:59 Intake Total 360 380 Balance 360 380 Intake: Oral 360 380 Other: Voiding Method Diaper Diaper Toilet External Catheter External Catheter Bedside Commode Diaper # Voids 1 2 # Bowel Movements 1 - Exam GENERAL DESCRIPTION: An elderly female lying in bed in no distress RESPIRATORY SYSTEM: Unlabored breathing , decreased breath sounds at bases HEART: S1 S2 regular rate and rhythm , ABDOMEN: Soft , no tenderness EXTREMITIES: No edema feet - Labs CBC & Chem 7: 07/05/23 08:12 07/05/23 08:12 Labs: Abnormal Lab Results - Last 24 Hours (Table) 07/04/23 07/05/23 07/05/23 Range/Units 16:42 00:43 05:53 WBC (3.8-10.6) k/uL RBC (3.80-5.40) m/uL Hgb (11.4-16.0) gm/dL Hct (34.0-46.0) % Neutrophils # (1.3-7.7) k/uL Lymphocytes # (1.0-4.8) k/uL BUN (7-17) mg/dL Creatinine (0.52-1.04) mg/dL Glucose (74-99) mg/dL POC Glucose (mg/dL) 187 H 222 H 140 H (70-110) mg/dL Calcium (8.4-10.2) mg/dL Magnesium (1.6-2.3) mg/dL AST (14-36) U/L ALT (4-34) U/L Total Protein (6.3-8.2) g/dL Albumin (3.5-5.0) g/dL 07/05/23 07/05/23 07/05/23 Range/Units 08:12 08:12 10:46 WBC 17.2 H (3.8-10.6) k/uL RBC 3.07 L (3.80-5.40) m/uL Hgb 9.3 L (11.4-16.0) gm/dL Hct 28.8 L (34.0-46.0) % Neutrophils # 15.5 H (1.3-7.7) k/uL Lymphocytes # 0.8 L (1.0-4.8) k/uL BUN 37 H (7-17) mg/dL Creatinine 1.15 H (0.52-1.04) mg/dL Glucose 159 H (74-99) mg/dL POC Glucose (mg/dL) (70-110) mg/dL Calcium 6.2 L* (8.4-10.2) mg/dL Magnesium 1.4 L (1.6-2.3) mg/dL AST 45 H (14-36) U/L ALT 41 H (4-34) U/L Total Protein 5.7 L (6.3-8.2) g/dL Albumin 3.2 L (3.5-5.0) g/dL 07/05/23 Range/Units 11:33 WBC (3.8-10.6) k/uL RBC (3.80-5.40) m/uL Hgb (11.4-16.0) gm/dL Hct (34.0-46.0) % Neutrophils # (1.3-7.7) k/uL Lymphocytes # (1.0-4.8) k/uL BUN (7-17) mg/dL Creatinine (0.52-1.04) mg/dL Glucose (74-99) mg/dL POC Glucose (mg/dL) 198 H (70-110) mg/dL Calcium (8.4-10.2) mg/dL Magnesium (1.6-2.3) mg/dL AST (14-36) U/L ALT (4-34) U/L Total Protein (6.3-8.2) g/dL Albumin (3.5-5.0) g/dL Assessment and Plan (1) UTI (urinary tract infection) Current Visit: No Status: Acute Code(s): N39.0 - URINARY TRACT INFECTION, SITE NOT SPECIFIED SNOMED Code(s): 58835329 Plan: 1patient presented to hospital with mental status changes and weakness which is likely multifactorial patient did tested positive for influenza and did have a positive UA unfortunately culture was not drawn initially UA with a culture done on 06/30/2023 is growing Enterococcus and ESBL E. coli 2patient with renal insufficiency high risk of nephrotoxicity 3with the culture finding showing ESBL E. coli Enterococcus, patient to continue Invanz plan for a 3-day course as behaving more of his cystitis rather than deep infection 4-Leukocytosis more likely steroid related and will monitor closely Dictation was produced using [employer] dictation software. please excuse any grammatical, word or spelling errors. Time with Patient: Less than 30
[2023-07-05] MEDS: CALCIUM CARB-VIT D 500 MG-5 MCG TAB PO SCH (12:46)
[2023-07-05] MEDS: POTASSIUM CHLORIDE ER 20 MEQ TAB.ER PO STA (12:46)
--- NOTE | 2023-07-05 12:57 | P.PN ---
Subjective Progress Note Date: 07/05/23 This is a pleasant 77 years old female with past medical history of COPD, last year requiring intubation and mechanical ventilation before she is improved. Other medical problems including hypertension, dissecting descending aorta, renal infarction, chronic kidney disease stage III Patient states she came to the hospital because she fell however patient history is somewhat limited, on admission patient has been documented to be confused and feeling weak for the last 2 days. Patient says she was going to open the door when she fell, she was feeling dizzy and she was not sure if she passed out. She thinks she hit her head but denies any tenderness for now. No chest pain but patient looks little bit tachypneic although she denies significant dyspnea. She is complaining of from suprapubic abdominal pain and dysuria with decreased frequency of urination She had diarrhea all the day yesterday but not today, no vomiting. No other abdominal pain as per patient She smokes about half pack per day and she was counseled to quit but she declines. No alcohol or illicit drugs. Her blood pressure is on the low side 97/53, rest of Vitas looks stable and patient is afebrile She has mild leukocytosis 10.8, hemoglobin 11, creatinine is significantly elevated at 5.1. Potassium and sodium within the reference range Influenza a test came back positive While covid test is negative Chest x-ray showed COPD changes with no acute changes EKG showing sinus rhythm at [address]-T changes CT of the brain is negative for acute process but showed extensive paranasal sinus disease Renal ultrasound showing atrophic right kidney with no hydronephrosis 06/29/2023 Patient awake alert and states that her breathing is better today, she still has wheezing but less significant with better air entry on both sides. She denies chest pain today. No significant abdominal pain but on exam she has mild tenderness in the right upper quadrant and left lower quadrant of unknown significance but patient did not have bowel movement On the top of that her bladder scan showing only 10 mL, she has external urine catheter and she is not making much urine therefore we are going to order CT of the abdomen and pelvis with oral contrast only. Patient with no vomiting and she tolerates diet well. Blood pressure still borderline 94/58, she was saturating 94% on 5 L, repeat chest x-ray in the morning showing same COPD changes with no fluid overload Labs showing elevated protein S calcitonin at 2.25. ProBNP 2460. Echocardiogram and CT of the abdomen are pending Patient on Tamiflu and ceftriaxone 2 g and fluids was switched to sodium bicarbonate 100 mL today 06/30/2023 Patient is improving, currently she is on room air and her steroid switched to prednisone 40 mg from tomorrow She has mild leukocytosis due to steroid effect. No more fever. Urine culture is pending Creatinine down to 4.8 Treatments and sodium bicarb and ceftriaxone [address] of the abdomen and pelvis is negative for acute process. CT of the brain repeated because patient was more confused yesterday and she fell at home which was negative for delayed hemorrhage 07/01/2023 Patient improving. No specific symptoms Feels generally weak Still has leukocytosis 17,000, prednisone 30 mg which can be tapered upon discharge Protein S calcitonin trending down and she is currently on ceftriaxone Also she is on Tamiflu for her influenza Creatinine coming down to 4.1, currently on normal saline 75 mL per hour Dietary consult for malnutrition Discussed with patient and she is agreeable 07/02. Patient seen and examined. WBC 17, hemoglobin 9.5, platelet count 227, sodium 130, potassium 4.1, BUN 19, creatinine 4.18. Complaining of chest congestion and wheezing. 07/03. Patient seen and examined. No acute issues overnight. 07/04. Patient seen and examined. Labs done this morning showed WBC 7.1, hemoglobin 9.3, sodium 141, potassium 3.7, BUN 48, creatinine 1.55. Urine culture finding showing ESBL E. coli .continues to complain of lethargy 07/05. Patient seen and examined. Sitting upright in the chair. Mentation has improved. Currently on ertapenem, ID recommends 3 days of ertapenem to complete a course REVIEW OF SYSTEMS: CONSTITUTIONAL: No fever, no malaise,. CARDIOVASCULAR: No chest pain, no palpitations, no syncope. PULMONARY: Mentioned above GASTROINTESTINAL: No diarrhea, no nausea, no vomiting, no abdominal pain. NEUROLOGICAL: No headaches, no weakness, PHYSICAL EXAMINATION: GENERAL: The patient is alert , not in any acute distress. Chronically ill looking HEENT: Pupils are round and equally reacting to light. EOMI. No scleral icterus. No conjunctival pallor. Normocephalic, atraumatic. No pharyngeal erythema. No thyromegaly. CARDIOVASCULAR: S1 and S2 present. No murmurs, rubs, or gallops. PULMONARY: Coarse breath sound bilaterally, expiratory wheeze audible ABDOMEN: Soft, nontender, nondistended, normoactive bowel sounds. No palpable organomegaly. MUSCULOSKELETAL: No joint swelling or deformity. EXTREMITIES: No cyanosis, clubbing, or pedal edema. NEUROLOGICAL: Gross neurological examination did not reveal any focal deficits. SKIN: No rashes. Assessment and plan Acute kidney injury on chronic kidney disease stage III Acute exacerbation of COPD Acute influenza A tracheobronchitis Acute on chronic urinary tract infection, secondary to ESBL E. coli and enterococcal faecalis infection sepsis secondary to urinary tract infection Acute toxic metabolic encephalopathy secondary to sepsis, improving. Mild calories and protein malnutrition Hypomagnesemia Hypertension Mildly elevated troponin Fall Monitor vital signs Monitor CBC Monitor CMP Follow-up on urine culture Completed Tamiflu Continue Solu-Medrol Continue IV fluids Continue ertapenem complete 3-day course cardiology consult for elevated troponin and hypotension. signed off Hold lisinopril. Hold Norvasc Nephrology following Pulmonology following ID following Labs and medication were reviewed.. Continue same treatment. Continue with symptomatic treatment. Resume home medication. Monitor labs and vitals. DVT and GI prophylaxis. Further recommendations as per clinical course of the patient Dictation was produced using [employer] dictation software. please excuse any grammatical, word or spelling errors. Objective - Vital Signs Vital signs: Vital Signs Temp 97.4 F L 07/05/23 08:00 Pulse 89 07/05/23 08:00 Resp 18 07/05/23 08:00 BP 180/93 07/05/23 08:00 Pulse Ox 97 07/05/23 08:00 FiO2 Intake & Output 07/04/23 07/05/23 07/05/23 18:59 06:59 18:59 Intake Total 360 240 Balance 360 240 Intake: Oral 360 240 Other: Voiding Method Diaper Diaper External Catheter External Catheter # Voids 1 # Bowel Movements 1 - Labs CBC & Chem 7: 07/05/23 08:12 07/05/23 08:12 Labs: Abnormal Lab Results - Last 24 Hours (Table) 07/04/23 07/04/23 07/05/23 Range/Units 11:35 16:42 00:43 WBC (3.8-10.6) k/uL RBC (3.80-5.40) m/uL Hgb (11.4-16.0) gm/dL Hct (34.0-46.0) % Neutrophils # (1.3-7.7) k/uL Lymphocytes # (1.0-4.8) k/uL BUN (7-17) mg/dL Creatinine (0.52-1.04) mg/dL Glucose (74-99) mg/dL POC Glucose (mg/dL) 300 H 187 H 222 H (70-110) mg/dL Calcium (8.4-10.2) mg/dL AST (14-36) U/L ALT (4-34) U/L Total Protein (6.3-8.2) g/dL Albumin (3.5-5.0) g/dL 07/05/23 07/05/23 07/05/23 Range/Units 05:53 08:12 08:12 WBC 17.2 H (3.8-10.6) k/uL RBC 3.07 L (3.80-5.40) m/uL Hgb 9.3 L (11.4-16.0) gm/dL Hct 28.8 L (34.0-46.0) % Neutrophils # 15.5 H (1.3-7.7) k/uL Lymphocytes # 0.8 L (1.0-4.8) k/uL BUN 37 H (7-17) mg/dL Creatinine 1.15 H (0.52-1.04) mg/dL Glucose 159 H (74-99) mg/dL POC Glucose (mg/dL) 140 H (70-110) mg/dL Calcium 6.2 L* (8.4-10.2) mg/dL AST 45 H (14-36) U/L ALT 41 H (4-34) U/L Total Protein 5.7 L (6.3-8.2) g/dL Albumin 3.2 L (3.5-5.0) g/dL
--- NOTE | 2023-07-05 13:36 | P.PN ---
Subjective Progress Note Date: 07/05/23 Principal diagnosis: Acute exacerbation of COPD and acute influenza tracheobronchitis This is a 77-year-old female with history of multiple medical problems, including COPD, previous CVA, hypertension, previous [place], TIA, hypertension, dissecting descending aortic aneurysm, chronic kidney disease stage III, patient presented to the ER on 06/28/2023, apparently she presented with confusion, mental status change, weakness, borderline blood pressure, and she was noted to have acute renal failure will creatinine of 5.1. Patient tested positive for influenza A, chest x-ray showed mostly COPD changes, CT of the brain showed negative findings. Except for extensive paranasal sinus disease. Patient has been seen by many consultants since admission, today we were asked to see the patient for her underlying COPD. Indeed on physical examination the patient had diffuse crackles rhonchi and wheezes bilaterally. Chest x-ray on admission showed no evidence of acute cardiopulmonary process, however she did have a small right apical opacity, questionable right apical nodule clearly the patient is not in any shape for any surgical intervention, and I believe the nodule could be addressed on outpatient basis I reviewed the chest x-ray myself, and the findings are very nonspecific. Nephrology evaluated the patient for her acute kidney injury which was felt to be secondary to severe sepsis, blood cultures have been negative, however the urine cultures are positive for gram- negative bacilli and group D Enterococcus. Initiated the patient on Unasyn, and recommended infectious disease Consultation Patient was reevaluated today on 07/03/23, patient is feeling better today, she is even less lethargic today, blood pressure is 155/66 O2 saturation 96% on room air. Patient was placed yesterday on Unasyn for her Enterococcus and gram- negative infection in the urine, patient was seen by infectious disease and continued the same. However now the patient seems to have ESBL E. coli in the urine, and Enterococcus faecalis also. Antibiotics are being addressed by infectious disease on the case. Pulmonary noble the patient is feeling better, breathing easier, less cough less wheezing less shortness of breath noted today, she remains on room air. WBC count is 15.1 hemoglobin 10.2 basic metabolic profile is normal BUN is 61 creatinine 2.21, steadily improving considering the patient came in with a creatinine of 5.7 on admission Patient was reevaluated today on 07/04/2023 clinically the patient is feeling better, her urine cultures are positive for ESBL E. coli, and Enterococcus faecalis, her antibiotics was changed to Invanz by infectious disease, overall the patient is improving with present treatment. Remains on bronchodilators, remains on methylprednisolone, and I will cut down the dose. Patient is steadily getting better. But now that she has ESBL E. coli in the urine, her treatment with IV antibiotics may take a longer time Patient was reevaluated today on 07/05/2023, doing well, feeling better, pulmonary onble patient does not have any shortness of breath, she has occasional cough and wheezing,Patient is on room air with O2 saturation 97%, remains on Invanz for her urinary tract infection secondary to ESBL E. coli, and she also Enterococcus faecalis in the urine that is being addressed by infectious disease on the case Objective - Vital Signs Vital signs: Vital Signs Temp 98.1 F 07/05/23 12:00 Pulse 101 H 07/05/23 12:00 Resp 18 07/05/23 12:00 BP 203/104 07/05/23 12:00 Pulse Ox 93 L 07/05/23 12:00 FiO2 Intake & Output 07/04/23 07/05/23 07/05/23 18:59 06:59 18:59 Intake Total 360 616 Balance 360 616 Intake: Oral 360 616 Other: Voiding Method Diaper Diaper Toilet External Catheter External Catheter Bedside Commode Diaper # Voids 1 2 # Bowel Movements 1 1 - Exam -GENERAL: Revealed an elderly female, not in distress, on room air, HEENT: PERRLA, EOMI, nonicteric, no neck masses, no JVD. CARDIOVASCULAR: Normal S1 and S2 present. No murmurs, rubs, or gallops. Pulmonary: Diminished breath sound bilaterally no crackles rhonchi or wheezes -ABDOMEN: Soft nontender no megaly no rebound no guarding. MUSCULOSKELETAL: No deformities and no limitation range of motion EXTREMITIES: No clubbing edema or cyanosis. NEUROLOGICAL: Alert and oriented x 3, no gross focal deficits. SKIN: No rashes. no petechiae. - Labs CBC & Chem 7: 07/05/23 08:12 07/05/23 08:12 Labs: Abnormal Lab Results - Last 24 Hours (Table) 07/04/23 07/05/23 07/05/23 Range/Units 16:42 00:43 05:53 WBC (3.8-10.6) k/uL RBC (3.80-5.40) m/uL Hgb (11.4-16.0) gm/dL Hct (34.0-46.0) % Neutrophils # (1.3-7.7) k/uL Lymphocytes # (1.0-4.8) k/uL BUN (7-17) mg/dL Creatinine (0.52-1.04) mg/dL Glucose (74-99) mg/dL POC Glucose (mg/dL) 187 H 222 H 140 H (70-110) mg/dL Calcium (8.4-10.2) mg/dL Magnesium (1.6-2.3) mg/dL AST (14-36) U/L ALT (4-34) U/L Total Protein (6.3-8.2) g/dL Albumin (3.5-5.0) g/dL 07/05/23 07/05/23 07/05/23 Range/Units 08:12 08:12 10:46 WBC 17.2 H (3.8-10.6) k/uL RBC 3.07 L (3.80-5.40) m/uL Hgb 9.3 L (11.4-16.0) gm/dL Hct 28.8 L (34.0-46.0) % Neutrophils # 15.5 H (1.3-7.7) k/uL Lymphocytes # 0.8 L (1.0-4.8) k/uL BUN 37 H (7-17) mg/dL Creatinine 1.15 H (0.52-1.04) mg/dL Glucose 159 H (74-99) mg/dL POC Glucose (mg/dL) (70-110) mg/dL Calcium 6.2 L* (8.4-10.2) mg/dL Magnesium 1.4 L (1.6-2.3) mg/dL AST 45 H (14-36) U/L ALT 41 H (4-34) U/L Total Protein 5.7 L (6.3-8.2) g/dL Albumin 3.2 L (3.5-5.0) g/dL 07/05/23 Range/Units 11:33 WBC (3.8-10.6) k/uL RBC (3.80-5.40) m/uL Hgb (11.4-16.0) gm/dL Hct (34.0-46.0) % Neutrophils # (1.3-7.7) k/uL Lymphocytes # (1.0-4.8) k/uL BUN (7-17) mg/dL Creatinine (0.52-1.04) mg/dL Glucose (74-99) mg/dL POC Glucose (mg/dL) 198 H (70-110) mg/dL Calcium (8.4-10.2) mg/dL Magnesium (1.6-2.3) mg/dL AST (14-36) U/L ALT (4-34) U/L Total Protein (6.3-8.2) g/dL Albumin (3.5-5.0) g/dL Assessment and Plan Assessment: Impression: Acute exacerbation of COPD Acute influenza A tracheobronchitis Acute on chronic urinary tract infection, secondary to ESBL E. coli and enteroco ccal faecalis infection, patient is now on Invanz Acute on chronic kidney disease stage III. Renal status is improving since admission sepsis secondary to urinary tract infection Acute toxic metabolic encephalopathy secondary to sepsis, improving. Benign essential hypertension Profound weakness and confusion secondary to sepsis Recommendations: Continue antibiotics, as per infectious disease on the case. 5-day course of Tamiflu was given Continue bronchodilators change Solu-Medrol to a Medrol Dosepak. IV fluids and monitor closely DVT prophylaxis/subcu heparin GI prophylaxis/Pepcid Will continue to follow. Time with Patient: Less than 30
[2023-07-05] MEDS: MAGNESIUM SULFATE-D5W PMX 1 GM in DEXTROSE/WATER 1 100ML.BAG IVPB SCH (15:01)
[2023-07-05] MEDS: hydrALAZINE HCL 20 MG/ML 1 ML VIAL IVP PRN (15:02)
[2023-07-05] MEDS: methylPREDNISolone 4 MG TAB TAPER PO SCH (16:29)
[2023-07-05] MEDS: CALCIUM GLUCONATE IN NACL 1 GM in SALINE 1 100ML.BAG IVPB ONE (16:30)
[2023-07-05 16:49] LABS: Glucose,Whole Blood 300 mg/dL (70-110)
[2023-07-06 00:17] LABS: Glucose,Whole Blood 159 mg/dL (70-110)
[2023-07-06 05:58] LABS: Glucose,Whole Blood 79 mg/dL (70-110)
[2023-07-06 06:28] LABS: Glucose,Whole Blood 101 mg/dL (70-110)
[2023-07-06] MEDS: methylPREDNISolone 4 MG TAB TAPER PO SCH ×2 (09:05→09:26)
[2023-07-06 09:26] LABS: HCT 27.2 % (34.0-46.0); MCH 30.6 pg (25.0-35.0); MCHC 33.1 g/dL (31.0-37.0); MCV 92.6 fL (80.0-100.0); Mean Platelet Volume 11.4; Platelet Count 236 k/uL (150-450); RBC 2.94 m/uL (3.80-5.40); WBC 16.8 k/uL (3.8-10.6)
[2023-07-06 09:53] LABS: ALT 34 U/L (4-34); AST 32 U/L (14-36); African American GFR (CKD) 67 (>60 ml/min/1.73 sqM); Albumin 2.8 g/dL (3.5-5.0); Alkaline Phosphatase 50 U/L (38-126); Anion Gap 5 mmol/L; Blood Urea Nitrogen 31 mg/dL (7-17); Calcium 6.8 mg/dL (8.4-10.2); Carbon Dioxide 27 mmol/L (22-30); Chloride 107 mmol/L (98-107); Glucose 78 mg/dL (74-99); Magnesium 1.7 mg/dL (1.6-2.3); Non-African American GFR(CKD) 58 (>60 ml/min/1.73 sqM); Potassium 3.7 mmol/L (3.5-5.1); Sodium 139 mmol/L (137-145); Total Protein 5.2 g/dL (6.3-8.2)
[2023-07-06 11:26] LABS: Glucose,Whole Blood 137 mg/dL (70-110)
--- NOTE | 2023-07-06 11:50 | P.PN ---
Subjective Patient is seen in follow-up for acute kidney injury. Renal function improving. Creatinine down to 0.94 today. Sitting up in chair. Mentation improved. Awake and alert. Receiving IV fluids. Hemodynamically stable. Vital signs are stable. General: No acute distress. HEENT: Head exam is unremarkable. LUNGS: No audible rhonchi or wheezes. HEART: Rate and Rhythm are regular. ABDOMEN: Nontender. EXTREMITITES: No edema. Objective - Vital Signs Vital signs: Vital Signs Temp 98.2 F 07/06/23 09:20 Pulse 96 07/06/23 09:20 Resp 16 07/06/23 09:20 BP 177/80 07/06/23 09:20 Pulse Ox 94 L 07/06/23 09:20 FiO2 Intake & Output 07/05/23 07/06/23 07/06/23 18:59 06:59 18:59 Intake Total 976 540 Balance 976 540 Intake: Oral 976 540 Other: Voiding Method Toilet Bedside Commode Bedside Commode Bedside Commode Diaper # Voids 2 2 # Bowel Movements 1 - Labs CBC & Chem 7: 07/06/23 07:45 07/06/23 07:45 Labs: Abnormal Lab Results - Last 24 Hours (Table) 07/05/23 07/05/23 07/06/23 Range/Units 10:46 16:46 00:14 WBC (3.8-10.6) k/uL RBC (3.80-5.40) m/uL Hgb (11.4-16.0) gm/dL Hct (34.0-46.0) % BUN (7-17) mg/dL POC Glucose (mg/dL) 300 H 159 H (70-110) mg/dL Calcium (8.4-10.2) mg/dL Magnesium 1.4 L (1.6-2.3) mg/dL Total Protein (6.3-8.2) g/dL Albumin (3.5-5.0) g/dL 07/06/23 07/06/23 07/06/23 Range/Units 07:45 07:45 11:23 WBC 16.8 H (3.8-10.6) k/uL RBC 2.94 L (3.80-5.40) m/uL Hgb 9.0 L (11.4-16.0) gm/dL Hct 27.2 L (34.0-46.0) % BUN 31 H (7-17) mg/dL POC Glucose (mg/dL) 137 H (70-110) mg/dL Calcium 6.8 L (8.4-10.2) mg/dL Magnesium (1.6-2.3) mg/dL Total Protein 5.2 L (6.3-8.2) g/dL Albumin 2.8 L (3.5-5.0) g/dL Assessment and Plan Plan: Assessment: 1. Acute kidney injury secondary to ATN secondary to severe sepsis. Creatinine peaked at 5.7 and down to 0.[address] scan showed atrophic right kidney. No hydronephrosis. Creatinine near 1 in September 2022. 2. Hyponatremia secondary to acute kidney injury and hypovolemia. Improved. 3. Metabolic acidosis secondary to acute kidney injury. Status post IV bicarb. Resolved. 4. Influenza A infection maintained s/p Tamiflu. 5. UTI on antibiotics. Urine culture positive for group D Enterococcus/gram- negative bacilli. 6. Hypokalemia from poor intake. Replaced. Better. 7. Hypomagnesemia from poor intake. On oral magnesium oxide. Better. 8. Benign hypertension. Exacerbated by steroids. Plan: Hep-Lock IV fluids. Resume home dose amlodipine 10 mg once daily. Resume lisinopril but at a lower dose of 10 mg once daily. Maintain as needed hydralazine. Avoid nephrotoxins. Encouraged oral intake. Strict I's and O's. Replace potassium and magnesium as needed. Repeat BMP and magnesium level 2 to 3 days postdischarge. Follow-up outpatient in 1 week. Awaits discharge to rehab.
[2023-07-06] MEDS: amLODIPine 10 MG TAB PO SCH (12:03)
[2023-07-06] MEDS: lisinopriL 10 MG TAB PO SCH (12:03)
--- NOTE | 2023-07-06 12:25 | P.PN ---
Subjective Progress Note Date: 07/06/23 Principal diagnosis: Reason for follow-up is urinary tract infection Patient is a 77-year-old female with a past medical history significant for hypertension hyperlipidemia COPD CVA TIA MS presented to the hospital for evaluation of mental status changes patient did tested positive for influenza A did have a positive UA concerning for a symptomatic urinary tract infection. On today's evaluation that is 07/06/2023, the patient continues to be afebrile, the patient is on room air and breathing comfortably, the Pt denies having any chest pain or cough, the patient denies having any abdominal pain no vomiting or any diarrhea has been reported by the nursing staff, mention feeling better. Patient white count is 16.8 creatinine 0.94 Objective - Vital Signs Vital signs: Vital Signs Temp 98.2 F 07/06/23 09:20 Pulse 96 07/06/23 09:20 Resp 16 07/06/23 09:20 BP 177/80 07/06/23 09:20 Pulse Ox 94 L 07/06/23 09:20 FiO2 Intake & Output 07/05/23 07/06/23 07/06/23 18:59 06:59 18:59 Intake Total 976 540 Balance 976 540 Intake: Oral 976 540 Other: Voiding Method Toilet Bedside Commode Bedside Commode Bedside Commode Diaper # Voids 2 2 # Bowel Movements 1 - Exam GENERAL DESCRIPTION: An elderly female lying in bed in no distress RESPIRATORY SYSTEM: Unlabored breathing , decreased breath sounds at bases HEART: S1 S2 regular rate and rhythm , ABDOMEN: Soft , no tenderness EXTREMITIES: No edema feet - Labs CBC & Chem 7: 07/06/23 07:45 07/06/23 07:45 Labs: Abnormal Lab Results - Last 24 Hours (Table) 07/05/23 07/06/23 07/06/23 Range/Units 16:46 00:14 07:45 WBC (3.8-10.6) k/uL RBC (3.80-5.40) m/uL Hgb (11.4-16.0) gm/dL Hct (34.0-46.0) % BUN 31 H (7-17) mg/dL POC Glucose (mg/dL) 300 H 159 H (70-110) mg/dL Calcium 6.8 L (8.4-10.2) mg/dL Total Protein 5.2 L (6.3-8.2) g/dL Albumin 2.8 L (3.5-5.0) g/dL 07/06/23 07/06/23 Range/Units 07:45 11:23 WBC 16.8 H (3.8-10.6) k/uL RBC 2.94 L (3.80-5.40) m/uL Hgb 9.0 L (11.4-16.0) gm/dL Hct 27.2 L (34.0-46.0) % BUN (7-17) mg/dL POC Glucose (mg/dL) 137 H (70-110) mg/dL Calcium (8.4-10.2) mg/dL Total Protein (6.3-8.2) g/dL Albumin (3.5-5.0) g/dL Assessment and Plan (1) UTI (urinary tract infection) Current Visit: No Status: Acute Code(s): N39.0 - URINARY TRACT INFECTION, SITE NOT SPECIFIED SNOMED Code(s): 77233587 Plan: 1patient presented to hospital with mental status changes and weakness which is likely multifactorial patient did tested positive for influenza and did have a positive UA unfortunately culture was not drawn initially UA with a culture done on 06/30/2023 is growing Enterococcus and ESBL E. coli 2patient with renal insufficiency high risk of nephrotoxicity 3with the culture finding showing ESBL E. coli Enterococcus, patient to continue Invanz which can be discontinued on discharge no need for any IV Invanz on discharge 4-Leukocytosis more likely steroid related, the patient white count is trending down and will monitor closely Dictation was produced using [employer] dictation software. please excuse any grammatical, word or spelling errors. Time with Patient: Less than 30
--- NOTE | 2023-07-06 13:22 | P.PN ---
Subjective Progress Note Date: 07/06/23 Principal diagnosis: Acute exacerbation of COPD and acute influenza tracheobronchitis This is a 77-year-old female with history of multiple medical problems, including COPD, previous CVA, hypertension, previous [place], TIA, hypertension, dissecting descending aortic aneurysm, chronic kidney disease stage III, patient presented to the ER on 06/28/2023, apparently she presented with confusion, mental status change, weakness, borderline blood pressure, and she was noted to have acute renal failure will creatinine of 5.1. Patient tested positive for influenza A, chest x-ray showed mostly COPD changes, CT of the brain showed negative findings. Except for extensive paranasal sinus disease. Patient has been seen by many consultants since admission, today we were asked to see the patient for her underlying COPD. Indeed on physical examination the patient had diffuse crackles rhonchi and wheezes bilaterally. Chest x-ray on admission showed no evidence of acute cardiopulmonary process, however she did have a small right apical opacity, questionable right apical nodule clearly the patient is not in any shape for any surgical intervention, and I believe the nodule could be addressed on outpatient basis I reviewed the chest x-ray myself, and the findings are very nonspecific. Nephrology evaluated the patient for her acute kidney injury which was felt to be secondary to severe sepsis, blood cultures have been negative, however the urine cultures are positive for gram- negative bacilli and group D Enterococcus. Initiated the patient on Unasyn, and recommended infectious disease Consultation Patient was reevaluated today on 07/03/23, patient is feeling better today, she is even less lethargic today, blood pressure is 155/66 O2 saturation 96% on room air. Patient was placed yesterday on Unasyn for her Enterococcus and gram- negative infection in the urine, patient was seen by infectious disease and continued the same. However now the patient seems to have ESBL E. coli in the urine, and Enterococcus faecalis also. Antibiotics are being addressed by infectious disease on the case. Pulmonary noble the patient is feeling better, breathing easier, less cough less wheezing less shortness of breath noted today, she remains on room air. WBC count is 15.1 hemoglobin 10.2 basic metabolic profile is normal BUN is 61 creatinine 2.21, steadily improving considering the patient came in with a creatinine of 5.7 on admission Patient was reevaluated today on 07/04/2023 clinically the patient is feeling better, her urine cultures are positive for ESBL E. coli, and Enterococcus faecalis, her antibiotics was changed to Invanz by infectious disease, overall the patient is improving with present treatment. Remains on bronchodilators, remains on methylprednisolone, and I will cut down the dose. Patient is steadily getting better. But now that she has ESBL E. coli in the urine, her treatment with IV antibiotics may take a longer time Patient was reevaluated today on 07/05/2023, doing well, feeling better, pulmonary noble patient does not have any shortness of breath, she has occasional cough and wheezing,Patient is on room air with O2 saturation 97%, remains on Invanz for her urinary tract infection secondary to ESBL E. coli, and she also Enterococcus faecalis in the urine that is being addressed by infectious disease on the case Reevaluated today on 07/06/2023, patient is doing great, asymptomatic, no active pulmonary symptoms, no cough no wheezing no shortness of breath. Patient is being considered for discharge to [facility] today. Cleared from our perspective as long as she is cleared by infectious disease on the case. She has no active pulmonary symptoms or receiving treatment for her UTI Objective - Vital Signs Vital signs: Vital Signs Temp 98.2 F 07/06/23 12:03 Pulse 99 07/06/23 12:03 Resp 16 07/06/23 12:03 BP 187/95 07/06/23 12:03 Pulse Ox 99 07/06/23 12:03 FiO2 Intake & Output 07/05/23 07/06/23 07/06/23 18:59 06:59 18:59 Intake Total 976 540 118 Balance 976 540 118 Intake: Oral 976 540 118 Other: Voiding Method Toilet Bedside Commode Bedside Commode Bedside Commode Diaper # Voids 2 2 2 # Bowel Movements 1 1 - Exam -GENERAL: Revealed an elderly female, not in distress, on room air, HEENT: PERRLA, EOMI, nonicteric, no neck masses, no JVD. CARDIOVASCULAR: Normal S1 and S2 present. No murmurs, rubs, or gallops. Pulmonary: Diminished breath sound bilaterally no crackles rhonchi or wheezes -ABDOMEN: Soft nontender no megaly no rebound no guarding. MUSCULOSKELETAL: No deformities and no limitation range of motion EXTREMITIES: No clubbing edema or cyanosis. NEUROLOGICAL: Alert and oriented x 3, no gross focal deficits. SKIN: No rashes. no petechiae. - Labs CBC & Chem 7: 07/06/23 07:45 07/06/23 07:45 Labs: Abnormal Lab Results - Last 24 Hours (Table) 07/05/23 07/06/23 07/06/23 Range/Units 16:46 00:14 07:45 WBC (3.8-10.6) k/uL RBC (3.80-5.40) m/uL Hgb (11.4-16.0) gm/dL Hct (34.0-46.0) % BUN 31 H (7-17) mg/dL POC Glucose (mg/dL) 300 H 159 H (70-110) mg/dL Calcium 6.8 L (8.4-10.2) mg/dL Total Protein 5.2 L (6.3-8.2) g/dL Albumin 2.8 L (3.5-5.0) g/dL 07/06/23 07/06/23 Range/Units 07:45 11:23 WBC 16.8 H (3.8-10.6) k/uL RBC 2.94 L (3.80-5.40) m/uL Hgb 9.0 L (11.4-16.0) gm/dL Hct 27.2 L (34.0-46.0) % BUN (7-17) mg/dL POC Glucose (mg/dL) 137 H (70-110) mg/dL Calcium (8.4-10.2) mg/dL Total Protein (6.3-8.2) g/dL Albumin (3.5-5.0) g/dL Assessment and Plan Assessment: Impression: Acute exacerbation of COPD Acute influenza A tracheobronchitis Acute on chronic urinary tract infection, secondary to ESBL E. coli and enterococcal faecalis infection, patient is now on Invanz Acute on chronic kidney disease stage III. Renal status is improving since admi ssion sepsis secondary to urinary tract infection Acute toxic metabolic encephalopathy secondary to sepsis, improving. Benign essential hypertension Profound weakness and confusion secondary to sepsis Recommendations: Will clear for discharge if cleared by other consultants Continue Medrol Dosepak Continue bronchodilators Antibiotics to be decided upon by infectious disease on the case I Time with Patient: Less than 30
--- NOTE | 2023-07-06 14:06 | P.PN ---
Subjective Progress Note Date: 07/06/23 This is a pleasant 77 years old female with past medical history of COPD, last year requiring intubation and mechanical ventilation before she is improved. Other medical problems including hypertension, dissecting descending aorta, renal infarction, chronic kidney disease stage III Patient states she came to the hospital because she fell however patient history is somewhat limited, on admission patient has been documented to be confused and feeling weak for the last 2 days. Patient says she was going to open the door when she fell, she was feeling dizzy and she was not sure if she passed out. She thinks she hit her head but denies any tenderness for now. No chest pain but patient looks little bit tachypneic although she denies significant dyspnea. She is complaining of from suprapubic abdominal pain and dysuria with decreased frequency of urination She had diarrhea all the day yesterday but not today, no vomiting. No other abdominal pain as per patient She smokes about half pack per day and she was counseled to quit but she declines. No alcohol or illicit drugs. Her blood pressure is on the low side 97/53, rest of Vitas looks stable and patient is afebrile She has mild leukocytosis 10.8, hemoglobin 11, creatinine is significantly elevated at 5.1. Potassium and sodium within the reference range Influenza a test came back positive While covid test is negative Chest x-ray showed COPD changes with no acute changes EKG showing sinus rhythm at [address]-T changes CT of the brain is negative for acute process but showed extensive paranasal sinus disease Renal ultrasound showing atrophic right kidney with no hydronephrosis 06/29/2023 Patient awake alert and states that her breathing is better today, she still has wheezing but less significant with better air entry on both sides. She denies chest pain today. No significant abdominal pain but on exam she has mild tenderness in the right upper quadrant and left lower quadrant of unknown significance but patient did not have bowel movement On the top of that her bladder scan showing only 10 mL, she has external urine catheter and she is not making much urine therefore we are going to order CT of the abdomen and pelvis with oral contrast only. Patient with no vomiting and she tolerates diet well. Blood pressure still borderline 94/58, she was saturating 94% on 5 L, repeat chest x-ray in the morning showing same COPD changes with no fluid overload Labs showing elevated protein S calcitonin at 2.25. ProBNP 2460. Echocardiogram and CT of the abdomen are pending Patient on Tamiflu and ceftriaxone 2 g and fluids was switched to sodium bicarbonate 100 mL today 06/30/2023 Patient is improving, currently she is on room air and her steroid switched to prednisone 40 mg from tomorrow She has mild leukocytosis due to steroid effect. No more fever. Urine culture is pending Creatinine down to 4.8 Treatments and sodium bicarb and ceftriaxone [address] of the abdomen and pelvis is negative for acute process. CT of the brain repeated because patient was more confused yesterday and she fell at home which was negative for delayed hemorrhage 07/01/2023 Patient improving. No specific symptoms Feels generally weak Still has leukocytosis 17,000, prednisone 30 mg which can be tapered upon discharge Protein S calcitonin trending down and she is currently on ceftriaxone Also she is on Tamiflu for her influenza Creatinine coming down to 4.1, currently on normal saline 75 mL per hour Dietary consult for malnutrition Discussed with patient and she is agreeable 07/02. Patient seen and examined. WBC 17, hemoglobin 9.5, platelet count 227, sodium 130, potassium 4.1, BUN 19, creatinine 4.18. Complaining of chest congestion and wheezing. 07/03. Patient seen and examined. No acute issues overnight. 07/04. Patient seen and examined. Labs done this morning showed WBC 7.1, hemoglobin 9.3, sodium 141, potassium 3.7, BUN 48, creatinine 1.55. Urine culture finding showing ESBL E. coli .continues to complain of lethargy 07/05. Patient seen and examined. Sitting upright in the chair. Mentation has improved. Currently on ertapenem, ID recommends 3 days of ertapenem to complete a course 07/06. Patient seen and examined. Patient blood pressure has been elevated, currently on Norvasc and lisinopril. REVIEW OF SYSTEMS: CONSTITUTIONAL: No fever, no malaise,. CARDIOVASCULAR: No chest pain, no palpitations, no syncope. PULMONARY: Mentioned above GASTROINTESTINAL: No diarrhea, no nausea, no vomiting, no abdominal pain. NEUROLOGICAL: No headaches, no weakness, PHYSICAL EXAMINATION: GENERAL: The patient is alert , not in any acute distress. Chronically ill looking HEENT: Pupils are round and equally reacting to light. EOMI. No scleral icterus. No conjunctival pallor. Normocephalic, atraumatic. No pharyngeal erythema. No thyromegaly. CARDIOVASCULAR: S1 and S2 present. No murmurs, rubs, or gallops. PULMONARY: Coarse breath sound bilaterally, expiratory wheeze audible ABDOMEN: Soft, nontender, nondistended, normoactive bowel sounds. No palpable organomegaly. MUSCULOSKELETAL: No joint swelling or deformity. EXTREMITIES: No cyanosis, clubbing, or pedal edema. NEUROLOGICAL: Gross neurological examination did not reveal any focal deficits. SKIN: No rashes. Assessment and plan Acute kidney injury on chronic kidney disease stage III Acute exacerbation of COPD Acute influenza A tracheobronchitis Acute on chronic urinary tract infection, secondary to ESBL E. coli and enterococcal faecalis infection sepsis secondary to urinary tract infection Acute toxic metabolic encephalopathy secondary to sepsis, improving. Mild calories and protein malnutrition Hypomagnesemia Hypertension Mildly elevated troponin Fall Monitor vital signs Monitor CBC Monitor CMP Follow-up on urine culture Continue Medrol Dosepak Continue ertapenem complete 3-day course cardiology consult for elevated troponin and hypotension. signed off Continue lisinopril and Norvasc Nephrology following Pulmonology following ID following Labs and medication were reviewed.. Continue same treatment. Continue with symptomatic treatment. Resume home medication. Monitor labs and vitals. DVT and GI prophylaxis. Further recommendations as per clinical course of the patient Dictation was produced using [employer] dictation software. please excuse any grammatical, word or spelling errors. Objective - Vital Signs Vital signs: Vital Signs Temp 98.2 F 07/06/23 12:03 Pulse 99 07/06/23 13:32 Resp 16 07/06/23 12:03 BP 187/95 07/06/23 12:03 Pulse Ox 99 07/06/23 12:03 FiO2 Intake & Output 07/05/23 07/06/23 07/06/23 18:59 06:59 18:59 Intake Total 976 540 118 Balance 976 540 118 Intake: Oral 976 540 118 Other: Voiding Method Toilet Bedside Commode Bedside Commode Bedside Commode Diaper # Voids 2 2 2 # Bowel Movements 1 1 - Labs CBC & Chem 7: 07/06/23 07:45 07/06/23 07:45 Labs: Abnormal Lab Results - Last 24 Hours (Table) 07/05/23 07/06/23 07/06/23 Range/Units 16:46 00:14 07:45 WBC (3.8-10.6) k/uL RBC (3.80-5.40) m/uL Hgb (11.4-16.0) gm/dL Hct (34.0-46.0) % BUN 31 H (7-17) mg/dL POC Glucose (mg/dL) 300 H 159 H (70-110) mg/dL Calcium 6.8 L (8.4-10.2) mg/dL Total Protein 5.2 L (6.3-8.2) g/dL Albumin 2.8 L (3.5-5.0) g/dL 07/06/23 07/06/23 Range/Units 07:45 11:23 WBC 16.8 H (3.8-10.6) k/uL RBC 2.94 L (3.80-5.40) m/uL Hgb 9.0 L (11.4-16.0) gm/dL Hct 27.2 L (34.0-46.0) % BUN (7-17) mg/dL POC Glucose (mg/dL) 137 H (70-110) mg/dL Calcium (8.4-10.2) mg/dL Total Protein (6.3-8.2) g/dL Albumin (3.5-5.0) g/dL
[2023-07-06] MEDS ORDERED: hydrALAZINE HCL 10 MG TAB PO SCH (16:00)
[2023-07-06 16:34] LABS: Glucose,Whole Blood 257 mg/dL (70-110)
[2023-07-06 19:49] VITALS: TEMP 98.5
[2023-07-07 00:13] LABS: Glucose,Whole Blood 137 mg/dL (70-110)
[2023-07-07 06:23] LABS: Glucose,Whole Blood 86 mg/dL (70-110)
[2023-07-07 08:32] VITALS: BP 179/71; PULSE 82; RESP 16
--- NOTE | 2023-07-07 11:51 | P.DS ---
Providers Date of admission: 06/28/23 13:16 Expected date of discharge: 07/07/23 Attending physician: Santy Booth MD Consults: 06/28/23 13:05 Consult Physician Urgent Consulting Provider: Naty Chavarria Consult Reason/Comments: renal failure Do you want consulting provider notified?: Yes 07/02/23 10:33 Consult Physician Urgent Consulting Provider: Mihir De Luna Consult Reason/Comments: COPD/flu A Do you want consulting provider notified?: Yes 07/02/23 10:54 Consult Physician Routine Consulting Provider: Yoana Ramirez Consult Reason/Comments: UTI Do you want consulting provider notified?: Already Contacted Primary care physician: Stated None Hospital Course: Discharge diagnoses; Acute kidney injury on chronic kidney disease stage III Acute exacerbation of COPD Acute influenza A tracheobronchitis Acute on chronic urinary tract infection, secondary to ESBL E. coli and enterococcal faecalis infection sepsis secondary to urinary tract infection Acute toxic metabolic encephalopathy secondary to sepsis, improving. Mild calories and protein malnutrition Hypomagnesemia Hypertension Mildly elevated troponin Fall Hospital course; This is a pleasant 77 years old female with past medical history of COPD, last year requiring intubation and mechanical ventilation before she is improved. Other medical problems including hypertension, dissecting descending aorta, renal infarction, chronic kidney disease stage III Patient states she came to the hospital because she fell however patient history is somewhat limited, on admission patient has been documented to be confused and feeling weak for the last 2 days. Patient says she was going to open the door when she fell, she was feeling dizzy and she was not sure if she passed out. She thinks she hit her head but denies any tenderness for now. No chest pain but patient looks little bit tachypneic although she denies significant dyspnea. She is complaining of from suprapubic abdominal pain and dysuria with decreased frequency of urination She had diarrhea all the day yesterday but not today, no vomiting. No other abdominal pain as per patient She smokes about half pack per day and she was counseled to quit but she declines. No alcohol or illicit drugs. Her blood pressure is on the low side 97/53, rest of Vitas looks stable and patient is afebrile She has mild leukocytosis 10.8, hemoglobin 11, creatinine is significantly elevated at 5.1. Potassium and sodium within the reference range Influenza a test came back positive While covid test is negative Chest x-ray showed COPD changes with no acute changes EKG showing sinus rhythm at [address]-T changes CT of the brain is negative for acute process but showed extensive paranasal sinus disease Renal ultrasound showing atrophic right kidney with no hydronephrosis 06/29/2023 Patient awake alert and states that her breathing is better today, she still has wheezing but less significant with better air entry on both sides. She denies chest pain today. No significant abdominal pain but on exam she has mild tenderness in the right upper quadrant and left lower quadrant of unknown significance but patient did not have bowel movement On the top of that her bladder scan showing only 10 mL, she has external urine catheter and she is not making much urine therefore we are going to order CT of the abdomen and pelvis with oral contrast only. Patient with no vomiting and she tolerates diet well. Blood pressure still borderline 94/58, she was saturating 94% on 5 L, repeat chest x-ray in the morning showing same COPD changes with no fluid overload Labs showing elevated protein S calcitonin at 2.25. ProBNP 2460. Echocardiogram and CT of the abdomen are pending Patient on Tamiflu and ceftriaxone 2 g and fluids was switched to sodium bicarbonate 100 mL today 06/30/2023 Patient is improving, currently she is on room air and her steroid switched to prednisone 40 mg from tomorrow She has mild leukocytosis due to steroid effect. No more fever. Urine culture is pending Creatinine down to 4.8 Treatments and sodium bicarb and ceftriaxone [address] of the abdomen and pelvis is negative for acute process. CT of the brain repeated because patient was more confused yesterday and she fell at home which was negative for delayed hemorrhage 07/01/2023 Patient improving. No specific symptoms Feels generally weak Still has leukocytosis 17,000, prednisone 30 mg which can be tapered upon discharge Protein S calcitonin trending down and she is currently on ceftriaxone Also she is on Tamiflu for her influenza Creatinine coming down to 4.1, currently on normal saline 75 mL per hour Dietary consult for malnutrition Discussed with patient and she is agreeable 07/02. Patient seen and examined. WBC 17, hemoglobin 9.5, platelet count 227, sodium 130, potassium 4.1, BUN 19, creatinine 4.18. Complaining of chest congestion and wheezing. 07/03. Patient seen and examined. No acute issues overnight. 07/04. Patient seen and examined. Labs done this morning showed WBC 7.1, hemoglobin 9.3, sodium 141, potassium 3.7, BUN 48, creatinine 1.55. Urine culture finding showing ESBL E. coli .continues to complain of lethargy 07/05. Patient seen and examined. Sitting upright in the chair. Mentation has improved. Currently on ertapenem, ID recommends 3 days of ertapenem to complete a course 07/06. Patient seen and examined. Patient blood pressure has been elevated, currently on Norvasc and lisinopril. 07/07. Patient seen and examined. Patient completed course of ertapenem. Being discharged to rehab in stable condition. Currently on Norvasc and lisinopril PHYSICAL EXAMINATION: GENERAL: The patient is alert , not in any acute distress. Chronically ill looking HEENT: Pupils are round and equally reacting to light. EOMI. No scleral icterus. No conjunctival pallor. Normocephalic, atraumatic. No pharyngeal erythema. No thyromegaly. CARDIOVASCULAR: S1 and S2 present. No murmurs, rubs, or gallops. PULMONARY: Coarse breath sound bilaterally, expiratory wheeze audible ABDOMEN: Soft, nontender, nondistended, normoactive bowel sounds. No palpable organomegaly. MUSCULOSKELETAL: No joint swelling or deformity. EXTREMITIES: No cyanosis, clubbing, or pedal edema. NEUROLOGICAL: Gross neurological examination did not reveal any focal deficits. SKIN: No rashes. Dictation was produced using [employer] dictation software. please excuse any grammatical, word or spelling errors. Patient Condition at Discharge: Fair Plan - Discharge Summary Discharge Rx Participant: Yes New Discharge Prescriptions: New methylPREDNISolone Dose Pack [Medrol Dose Pack] 4 mg PO DIRECTED #21 tab Calcium Carb-Vit D 500Mg-5Mcg [Oscal 500+D 5 Mcg (200 Iu)] 1 each PO TID- W/MEALS 10 Days #30 tab Continue Ergocalciferol [Vitamin D2 (1250 Mcg = 16594 Iu)] 1,250 mcg PO FR amLODIPine [Norvasc] 10 mg PO DAILY tab Famotidine 20 mg PO DAILY Budesonide-Formot 160-4.5 Mcg [Symbicort 160-4.5 Mcg Inhaler] 2 puff INHALATION RT-BID Albuterol Inhaler [Ventolin Hfa Inhaler] 2 puff INHALATION RT-QID PRN PRN Reason: Shortness Of Breath Or Wheezing Naloxone HCl [Narcan] 4 mg NASAL DIRECTED PRN PRN Reason: OVERDOSE HYDROcodone/APAP 5-325MG [Kayenta 5-325] 1 tab PO QID 3 Days #12 tab lisinopriL [Zestril] 20 mg PO DAILY Aspirin [Augla[place] Aspirin EC] 81 mg PO DAILY Atorvastatin [Lipitor] 40 mg PO HS Discharge Medication List Ergocalciferol [Vitamin D2 (1250 Mcg = 21589 Iu)] 1,250 mcg PO FR 09/23/22 [History] amLODIPine [Norvasc] 10 mg PO DAILY tab 10/03/22 [Rx] Aspirin [Augla[place] Aspirin EC] 81 mg PO DAILY 06/22/23 [History] Budesonide-Formot 160-4.5 Mcg [Symbicort 160-4.5 Mcg Inhaler] 2 puff INHALATION RT-BID 06/22/23 [History] Famotidine 20 mg PO DAILY 06/22/23 [History] lisinopriL [Zestril] 20 mg PO DAILY 06/22/23 [History] Albuterol Inhaler [Ventolin Hfa Inhaler] 2 puff INHALATION RT-QID PRN 06/28/23 [History] Atorvastatin [Lipitor] 40 mg PO HS 06/28/23 [History] Naloxone HCl [Narcan] 4 mg NASAL DIRECTED PRN 06/28/23 [History] Calcium Carb-Vit D 500Mg-5Mcg [Oscal 500+D 5 Mcg (200 Iu)] 1 each PO TID-W/MEALS 10 Days #30 tab 07/07/23 [Rx] HYDROcodone/APAP 5-325MG [Kayenta 5-325] 1 tab PO QID 3 Days #12 tab 07/07/23 [Rx] methylPREDNISolone Dose Pack [Medrol Dose Pack] 4 mg PO DIRECTED #21 tab 07/07/23 [Rx] Follow up Appointment(s)/Referral(s): Mihir De Luna MD [STAFF PHYSICIAN] - 1 Week None,Stated [Primary Care Provider] - 1-2 days Yoana Ramirez MD [STAFF PHYSICIAN] - 1 Week Discharge Disposition: TRANSFER TO SNF/F
--- NOTE | 2023-07-07 12:00 | P.PN ---
Subjective Progress Note Date: 07/07/23 Principal diagnosis: Reason for follow-up is urinary tract infection Patient is a 77-year-old female with a past medical history significant for hypertension hyperlipidemia COPD CVA TIA DC presented to the hospital for evaluation of mental status changes patient did tested positive for influenza A did have a positive UA concerning for a symptomatic urinary tract infection. On today's evaluation that is 07/07/2023, Patient is afebrile patient is currently on room air and denies having any shortness of breath, the patient denies any chest pain or cough, the patient denies any nausea vomiting did not have any abdominal pain and no diarrhea No new labs has been obtained today Objective - Vital Signs Vital signs: Vital Signs Temp 98.5 F 07/06/23 19:37 Pulse 82 07/07/23 07:13 Resp 16 07/07/23 07:13 BP 179/71 07/07/23 07:13 Pulse Ox 96 07/07/23 07:13 FiO2 Intake & Output 07/06/23 07/07/23 07/07/23 18:59 06:59 18:59 Intake Total 177 Output Total 250 Balance 177 -250 Intake: Oral 177 Output: Urine 250 Other: Voiding Method Bedside Commode External Catheter # Voids 2 # Bowel Movements 1 - Exam GENERAL DESCRIPTION: An elderly female lying in bed in no distress RESPIRATORY SYSTEM: Unlabored breathing , decreased breath sounds at bases HEART: S1 S2 regular rate and rhythm , ABDOMEN: Soft , no tenderness EXTREMITIES: No edema feet - Labs CBC & Chem 7: 07/06/23 07:45 07/06/23 07:45 Labs: Abnormal Lab Results - Last 24 Hours (Table) 07/06/23 07/07/23 Range/Units 16:32 00:11 POC Glucose (mg/dL) 257 H 137 H (70-110) mg/dL Assessment and Plan (1) UTI (urinary tract infection) Current Visit: No Status: Acute Code(s): N39.0 - URINARY TRACT INFECTION, SITE NOT SPECIFIED SNOMED Code(s): 15088664 Plan: 1patient presented to hospital with mental status changes and weakness which is likely multifactorial patient did tested positive for influenza and did have a positive UA unfortunately culture was not drawn initially UA with a culture done on 06/30/2023 is growing Enterococcus and ESBL E. coli 2patient with renal insufficiency high risk of nephrotoxicity 3-Leukocytosis more likely steroid related, the patient white count is trending down as of yesterday no CBC was done today 4-patient underlying ESBL E. coli Enterococcus UTI has been adequately treated no need for antibiotic on discharge Dictation was produced using [employer] dictation software. please excuse any grammatical, word or spelling errors. Time with Patient: Less than 30
[2023-07-07 12:10] LABS: Glucose,Whole Blood 136 mg/dL (70-110)
--- NOTE | 2023-07-07 14:22 | P.PN ---
Subjective Progress Note Date: 07/07/23 This is a 77-year-old female with history of multiple medical problems, including COPD, previous CVA, hypertension, previous TX, TIA, hypertension, dissecting descending aortic aneurysm, chronic kidney disease stage III, patient presented to the ER on 06/28/2023, apparently she presented with confusion, mental status change, weakness, borderline blood pressure, and she was noted to have acute renal failure will creatinine of 5.1. Patient tested positive for influenza A, chest x-ray showed mostly COPD changes, CT of the brain showed negative findings. Except for extensive paranasal sinus disease. Patient has been seen by many consultants since admission, today we were asked to see the patient for her underlying COPD. Indeed on physical examination the patient had diffuse crackles rhonchi and wheezes bilaterally. Chest x-ray on admission showed no evidence of acute cardiopulmonary process, however she did have a small right apical opacity, questionable right apical nodule clearly the patient is not in any shape for any surgical intervention, and I believe the nodule could be addressed on outpatient basis I reviewed the chest x-ray myself, and the findings are very nonspecific. Nephrology evaluated the patient for her acute kidney injury which was felt to be secondary to severe sepsis, blood cultures have been negative, however the urine cultures are positive for gram- negative bacilli and group D Enterococcus. Initiated the patient on Unasyn, and recommended infectious disease Consultation Patient was reevaluated today on 07/03/23, patient is feeling better today, she is even less lethargic today, blood pressure is 155/66 O2 saturation 96% on room air. Patient was placed yesterday on Unasyn for her Enterococcus and gram- negative infection in the urine, patient was seen by infectious disease and continued the same. However now the patient seems to have ESBL E. coli in the urine, and Enterococcus faecalis also. Antibiotics are being addressed by infectious disease on the case. Pulmonary noble the patient is feeling better, breathing easier, less cough less wheezing less shortness of breath noted today, she remains on room air. WBC count is 15.1 hemoglobin 10.2 basic metabolic profile is normal BUN is 61 creatinine 2.21, steadily improving considering the patient came in with a creatinine of 5.7 on admission Patient was reevaluated today on 07/04/2023 clinically the patient is feeling better, her urine cultures are positive for ESBL E. coli, and Enterococcus faecalis, her antibiotics was changed to Invanz by infectious disease, overall the patient is improving with present treatment. Remains on bronchodilators, remains on methylprednisolone, and I will cut down the dose. Patient is steadily getting better. But now that she has ESBL E. coli in the urine, her treatment with IV antibiotics may take a longer time Patient was reevaluated today on 07/05/2023, doing well, feeling better, pulmonary noble patient does not have any shortness of breath, she has occasional cough and wheezing,Patient is on room air with O2 saturation 97%, remains on Invanz for her urinary tract infection secondary to ESBL E. coli, and she also Enterococcus faecalis in the urine that is being addressed by infectious disease on the case Reevaluated today on 07/06/2023, patient is doing great, asymptomatic, no active pulmonary symptoms, no cough no wheezing no shortness of breath. Patient is being considered for discharge to [facility] today. Cleared from our perspe ctive as long as she is cleared by infectious disease on the case. She has no active pulmonary symptoms or receiving treatment for her UTI The patient is seen today July 07, 2023 and follow-up on the regular medical floor. She is currently resting comfortably in bed. Awake and alert in no ac nez perce distress. Denies any worsening shortness of breath, cough or congestion. Seen in good O2 saturations in the 90s on room air. She has been afebrile. Hemodynamically stable. Urine culture was positive for E. coli, Enterococcus faecalis. Blood sugar 136. She remains on ertapenem. Continue on bronchodilators, Medrol Dosepak Objective - Vital Signs Vital signs: Vital Signs Temp 98.5 F 07/06/23 19:37 Pulse 82 07/07/23 07:13 Resp 16 07/07/23 07:13 BP 179/71 07/07/23 07:13 Pulse Ox 96 07/07/23 07:13 FiO2 Intake & Output 07/06/23 07/07/23 07/07/23 18:59 06:59 18:59 Intake Total 177 Output Total 250 Balance 177 -250 Intake: Oral 177 Output: Urine 250 Other: Voiding Method Bedside Commode External Catheter # Voids 2 # Bowel Movements 1 - Exam -GENERAL: Revealed an 77-year-old female, not in distress, on room air, comfortable HEENT: PERRLA, EOMI, nonicteric, no neck masses, no JVD. CARDIOVASCULAR: Normal S1 and S2 present. No murmurs, rubs, or gallops. Pulmonary: Diminished breath sound bilaterally no crackles rhonchi or wheezes -ABDOMEN: Soft nontender no megaly no rebound no guarding. MUSCULOSKELETAL: No deformities and no limitation range of motion EXTREMITIES: No clubbing edema or cyanosis. NEUROLOGICAL: Alert and oriented x 3, no gross focal deficits. SKIN: No rashes. no petechiae. - Labs CBC & Chem 7: 07/06/23 07:45 07/06/23 07:45 Labs: Abnormal Lab Results - Last 24 Hours (Table) 07/06/23 07/07/23 07/07/23 Range/Units 16:32 00:11 12:08 POC Glucose (mg/dL) 257 H 137 H 136 H (70-110) mg/dL Assessment and Plan Assessment: Acute exacerbation of COPD Acute influenza A tracheobronchitis Acute on chronic urinary tract infection, secondary to ESBL E. coli and enterococcal faecalis infection, patient is now on Invanz Acute on chronic kidney disease stage III. Renal status is improving since admission Sepsis secondary to urinary tract infection Acute toxic metabolic encephalopathy secondary to sepsis, improving. Benign essential hypertension Profound weakness and confusion secondary to sepsis Plan: The patient was seen and evaluated Labs and medications reviewed Cleared for discharge from the pulmonary standpoint Continue her home bronchodilators Complete a Medrol Dosepak Follow-up in the office in 1 week I have personally seen and examined the patient, performed the documentation and the assessment and plan as written. Number of minutes spent on the visit: 10.
== END 2023-07-07 13:40 | DRG 871 ==
LOC: EC 10:32 → 4SSUR 13:16 → 3SCARD 21:59 → 4SSUR 07-06 21:43
PROVIDERS: ADMIT Internal Medicine; ATTEND Internal Medicine
DX: A41.51 Sepsis due to Escherichia coli [E. coli] (principal); G92.8 Other toxic encephalopathy; N17.0 Acute kidney failure with tubular necrosis; I71.012 Dissection of descending thoracic aorta; E44.1 Mild protein-calorie malnutrition; E87.20 Acidosis, unspecified; J44.1 Chronic obstructive pulmonary disease with (acute) exacerbation; J44.0 Chronic obstructive pulmonary disease with (acute) lower respiratory infection; E87.1 Hypo-osmolality and hyponatremia; N28.0 Ischemia and infarction of kidney; Z68.1 Body mass index [BMI] 19.9 or less, adult; Z16.12 Extended spectrum beta lactamase (ESBL) resistance; N39.0 Urinary tract infection, site not specified; I95.9 Hypotension, unspecified; A41.81 Sepsis due to Enterococcus; R65.20 Severe sepsis without septic shock; N18.30 Chronic kidney disease, stage 3 unspecified; I12.9 Hypertensive chronic kidney disease with stage 1 through stage 4 chronic kidney disease, or unspecified chronic kidney disease; J10.1 Influenza due to other identified influenza virus with other respiratory manifestations; J20.9 Acute bronchitis, unspecified; Z28.310 Unvaccinated for COVID-19; E86.1 Hypovolemia; E87.6 Hypokalemia; E78.5 Hyperlipidemia, unspecified; E83.42 Hypomagnesemia; I25.2 Old myocardial infarction; T38.0X5A Adverse effect of glucocorticoids and synthetic analogues, initial encounter; M19.90 Unspecified osteoarthritis, unspecified site; R32 Unspecified urinary incontinence; R77.8 Other specified abnormalities of plasma proteins; F17.210 Nicotine dependence, cigarettes, uncomplicated; Z71.6 Tobacco abuse counseling; Z79.82 Long term (current) use of aspirin; Z79.51 Long term (current) use of inhaled steroids; Z79.899 Other long term (current) drug therapy; Z79.891 Long term (current) use of opiate analgesic; Z86.73 Personal history of transient ischemic attack (TIA), and cerebral infarction without residual deficits; Z71.3 Dietary counseling and surveillance; Z88.8 Allergy status to other drugs, medicaments and biological substances; W19.XXXA Unspecified fall, initial encounter; Y92.009 Unspecified place in unspecified non-institutional (private) residence as the place of occurrence of the external cause
CPT/HCPCS: 36415; 70450; 71045; 74176; 76770; 80048; 80053; 81001; 83036; 83605; 83735; 83880; 84145; 84484; 85025; 85027; 85610; 85730; 87077; 87086; 87186; 87636; 93005; 93306; 94640; 96361; 96365; 96375; 99285

== ENCOUNTER → 2023-08-31 | Outpatient (CLI) | payer MEDICARE, OTHER ==
[2023-08-31 13:32] LABS: African American GFR (CKD) 49 (>60 ml/min/1.73 sqM); Blood Urea Nitrogen 27 mg/dL (7-17); Non-African American GFR(CKD) 42 (>60 ml/min/1.73 sqM)
--- NOTE | 2023-08-31 15:07 | CT ---
CTA lower extremities HISTORY: PAD. COMPARISON: None TECHNIQUE: Multiple axial images are obtained from the distal thighs to the feet finding the uneventf ul administration nonionic IV contrast. Examination was performed according to the CTA protocol. 3-D postprocessing was performed. FINDINGS: Partial outflow CTA: There is marked atherosclerotic calcification of the distal superficial femoral arteries resulting in multifocal moderate to severe stenoses. There is moderate multifocal atherosclerotic calcification of the popliteal arteries with scattered m ild to moderate focal stenoses. Right lower extremity runoff CTA: The dominant runoff vessel is the anterior tibial artery which is patent into the foot. There is scat tered calcification of the tibioperoneal trunk and the peroneal artery is patent to the level of the ankle. The posterior tibial artery occludes in the mid to distal calf. Left lower extremity runoff CTA The dominant runoff vessel is the anterior tibial artery which is patent into the foot. There are sca ttered calcifications in the tibioperoneal trunk. The peroneal artery is patent to the distal third o f the catheter multiple focal stenoses in the mid calf. The left posterior tibial artery is occluded at its origin.. IMPRESSION: 1. Moderate to severe arteriosclerotic disease of the distal superficial femoral arteries bilaterally and mild to moderate arteriosclerotic disease of the popliteal arteries bilaterally. 2. Two-vessel runoff in both lower extremities bilaterally. The anterior tibial arteries and to a les ser extent the peroneal arteries.
== END | disposition home or self-care (01) ==
LOC: RADCTMAIN 12:29
PROVIDERS: ATTEND Family Medicine
DX: I70.203 Unspecified atherosclerosis of native arteries of extremities, bilateral legs (principal)
CPT/HCPCS: 82565; 84520; 36415; 73706; Q9967

== ENCOUNTER → 2023-12-13 | Outpatient (CLI) | payer MEDICARE, OTHER ==
[2023-12-13] MEDS: DENOSUMAB 60 MG/ML 1 ML SYRINGE SQ NR (13:47)
[2023-12-13 13:49] VITALS: BP 118/70; PULSE 84; RESP 18; TEMP 98
== END ==
LOC: PROCWHC3 13:28
PROVIDERS: ATTEND Family Medicine
DX: M81.0 Age-related osteoporosis without current pathological fracture (principal)
CPT/HCPCS: 96372; J0897

== ENCOUNTER → 2024-06-04 | Outpatient (CLI) | payer MEDICARE, OTHER ==
--- NOTE | 2024-06-04 14:33 | CT ---
EXAMINATION TYPE: CT chest wo con DATE OF EXAM: 06/04/2024 COMPARISON: 04/25/2023 CLINICAL INDICATION: Female, 78 years old with history of OTHER NONSPECIFIC ABNORMAL FINDING OF LUNG FIELD R91.8; PHH, Prior lung mass, COPD TECHNIQUE: CT scan of the thorax is performed without IV contrast. CT DLP: 205.[address] CTDI: mGy Automated exposure control for dose reduction was used. FINDINGS: There is a stable 9 mm nodule in the right lung apex. There is no new or suspicious lung mass or nodu le. There is no airspace consolidation or abnormal interstitial density. There is no pleural effusion or pneumothorax. The heart and great vessels are normal in size. There is no mediastinal, hilar or axillary adenopathy. Limited scanning through the upper abdomen reveals no gross abnormality. No focal osseous lesions are seen. IMPRESSION: 1. Stable 9 mm right upper lobe nodule. 2. No new or suspicious lung mass or nodule. 3. No acute cardiopulmonary disease. [facility], , 06/04/2024 2:31 PM
== END | disposition home or self-care (01) ==
LOC: RADCTMAIN 13:18
PROVIDERS: ATTEND Family Medicine
DX: J44.9 Chronic obstructive pulmonary disease, unspecified (principal); R91.8 Other nonspecific abnormal finding of lung field
CPT/HCPCS: 71250

== ENCOUNTER → 2024-06-16 | Outpatient (CLI) | payer MEDICARE, OTHER ==
[2024-06-16 13:17] VITALS: BP 113/77; PULSE 87; RESP 16; TEMP 98.2
[2024-06-16] MEDS: DENOSUMAB 60 MG/ML 1 ML SYRINGE SQ NR (13:17)
== END ==
LOC: PROCWHC3 13:04
PROVIDERS: ATTEND Family Medicine
DX: M81.0 Age-related osteoporosis without current pathological fracture (principal)
CPT/HCPCS: 96372; J0897

== ENCOUNTER → 2024-08-07 | Outpatient (CLI) | payer MEDICARE, OTHER ==
--- NOTE | 2024-08-07 15:18 | MR ---
INDICATION: Patient age:Female; 78 years old; Reason for study: R41.3 SHORT TERM MEMORY; [facility]. COMPARISON: CT brain 06/30/2023, 06/28/2023, 09/23/2022. TECHNIQUE: Multi planar, multi sequence imaging was performed through the brain without the administr ation of intravenous contrast. FINDINGS: Motion degraded examination. The vivar-white junctions appear unremarkable. Diffuse mild cerebral atrophy related to age with promi nence of the peripheral sulci and ventricular system. Diffusion-weighted imaging shows no evidence of restricted diffusion to suggest acute/subacute infarct. Intracranial arterial flow voids are maintai annette. Midline structures show no abnormality. Patchy and confluent areas of high T2 signal intensity a re seen within the periventricular and subcortical white matter. Additional involvement of the jaime. The susceptibility weighted images do not reveal any evidence for micro-hemorrhage. After administrat ion of gadolinium, no abnormal enhancement is seen. The bone marrow signal is within normal limits. Mild mucosal thickening ethmoid sinuses. Bilateral ap hakia. IMPRESSION: 1. No evidence of intracranial mass or acute/subacute infarct. 2. Age-related cerebral atrophy with advanced nonspecific white matter changes, likely related to sma ll vessel ischemic disease versus other etiologies. [facility], , 08/07/2024 3:16 PM
== END | disposition home or self-care (01) ==
LOC: RADMRIMAIN 11:06
PROVIDERS: ATTEND Psychiatry & Neurology Neurology
DX: F32.9 Major depressive disorder, single episode, unspecified (principal); R41.3 Other amnesia; G31.1 Senile degeneration of brain, not elsewhere classified; R90.82 White matter disease, unspecified
CPT/HCPCS: 70551; 82607; 84436; 84443